=== PATIENT | male | born 1965 | race Caucasian/White ===

== ENCOUNTER 2016-07-08 08:36 | Emergency (ER) | payer BC ==
[2016-07-08 08:42] VITALS: BP 110/74; PULSE 87; RESP 18; TEMP 97.5
--- NOTE | 2016-07-08 08:59 | ED ---
General Adult HPI - General Chief complaint: Extremity Injury, Upper Stated complaint: RT SHOULDER INJURY, PAIN Time Seen by Provider: 07/08/16 08:50 Source: patient, RN notes reviewed Mode of arrival: ambulatory Limitations: no limitations - History of Present Illness Initial comments: Patient's a 51-year-old male who presents emergency room today with a chief complaint of injury to the right shoulder that occurred 2 days ago. 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 He does admit to being right -handed. States that he's had increased pain to the right shoulder area anteriorly with certain movements when he's been at work over the last 2 days. Patient denies any other complaints associated symptoms. Patient denies any recent fever, chills, shortness of breath, chest pain, back pain, abdominal pain , nausea or vomiting, numbness or tingling, dysuria or hematuria, constipation or diarrhea, headaches or visual changes, or any other complaints. - Related Data Home Medications Medication Instructions Recorded Confirmed Hydrochlorothiazide 25 mg PO DAILY 09/15/14 07/08/16 Lisinopril [Prinivil] 20 mg PO BID 09/15/14 07/08/16 Metoprolol Tartrate 50 mg PO BID 09/15/14 07/08/16 Multivitamin [Men's Multi-Vitamin] 1 tab PO DAILY 09/16/14 07/08/16 Atorvastatin [Lipitor] 80 mg PO DAILY 11/27/14 07/08/16 Acetaminophen/Diphenhydramine 1 tab PO DAILY 07/08/16 07/08/16 [Tylenol PM 500-25mg] Clopidogrel [Plavix] 75 mg PO DAILY 07/08/16 07/08/16 Previous Rx's Medication Instructions Recorded Aspirin EC [Ecotrin] 325 mg PO DAILY #30 tablet.dr 09/17/14 Isosorbide Mononitrate ER [Imdur] 30 mg PO DAILY #30 tab.er.24h 09/17/14 Ibuprofen [Motrin] 600 mg PO Q6HR PRN #40 day 07/08/16 Allergies Allergy/AdvReac Type Severity Reaction Status Date / Time No Known Allergies Allergy Verified 07/08/16 09:02 Review of Systems ROS Statement: Those systems with pertinent positive or pertinent negative responses have been documented in the HPI. ROS Other: All systems not noted in ROS Statement are negative. Past Medical History Past Medical History: Coronary Artery Disease (CAD), Hyperlipidemia, Hypertension, Myocardial Infarction ([place]) Additional Past Medical History / Comment(s): bruised liver History of Any Multi-Drug Resistant Organisms: None Reported Past Surgical History: Cardiac Valve Replacement Additional Past Surgical History / Comment(s): 2 vessel cabg 2011, cardiac cath approx 2 yrs ago Past Anesthesia/Blood Transfusion Reactions: No Reported Reaction Past Psychological History: No Psychological Hx Reported Smoking Status: Current every day smoker Past Alcohol Use History: Occasional Past Drug Use History: None Reported - Past Family History Brother(s) Family Medical History: Myocardial Infarction ([place]) General Exam - General Exam Comments Initial Comments: General: The patient is awake and alert, in no distress, and does not appear acutely ill. Neck: The neck is supple, there is no tenderness or JVD. Cardiovascular: There is a regular rate and rhythm. No murmur, rub or gallop is appreciated. Respiratory: Lungs are clear to auscultation, respirations are non-labored, breath sounds are equal. No wheezes, stridor, rales, or rhonchi. Musculoskeletal: Normal appearance the right shoulder. Shows full range of motion. Sensations are intact pulses equal bilaterally 2+. Has no posterior or superior tenderness. Mild tenderness anteriorly to the right shoulder. Strength 5/5 in all directions. Spine tenderness. No step-offs deformity appreciated. Neurological: A&O x 3. CN II-XII intact, There are no obvious motor or sensory deficits. Coordination appears grossly intact. Speech is normal. Skin: Skin is warm and dry and no rashes or lesions are noted. Psychiatric: Normal mood and affect. Limitations: no limitations Course Vital Signs 07/08/16 08:37 Temperature 97.5 F L Pulse Rate 87 Respiratory 18 Rate Blood Pressure 110/74 O2 Sat by Pulse 100 Oximetry Medical Decision Making - Medical Decision Making Patient's x-rays reviewed and shows no acute fracture dislocation. Results were discussed with the patient. Patient advised to follow-up with orthopedics if symptoms persist for further evaluation. Patient will be given prescription for anti-inflammatories advised to continue to ice elevate the affected area use heat as necessary. Advised return to emergency room if any symptoms increase or worsen or for any other concerns. Disposition Clinical Impression: Shoulder strain Disposition: HOME SELF-CARE Condition: Good Instructions: Rotator Cuff Injury (ED) Additional Instructions: Please use medication as discussed. Please follow-up with family doctor/ orthopedic in the next 2 days of symptoms have not improved. Please return to emergency room if the symptoms increase or worsen or for any other concerns. Prescriptions: Ibuprofen [Motrin] 600 mg PO Q6HR PRN #40 day PRN Reason: Pain Referrals: Kassi Lopez MD [Primary Care Provider] - 1-2 days Lester Rene MD [Medical Doctor] - 1-2 days Time of Disposition: 09:38
--- NOTE | 2016-07-08 09:22 | XR ---
EXAMINATION TYPE: XR shoulder complete RT DATE OF EXAM: 07/08/2016 9:08 AM COMPARISON: NONE HISTORY: Pain The osseous structures are intact. There is no acute fracture or dislocation. Mild hypertrophic stubbs ge of the AC joint. Chronic rib deformities are noted. IMPRESSION: 1. No acute process.
== END 2016-07-08 09:52 | disposition home or self-care (01) ==
LOC: EC 08:36
DX: S46.911A Strain of unspecified muscle, fascia and tendon at shoulder and upper arm level, right arm, initial encounter (principal); X50.1XXA Overexertion from prolonged static or awkward postures, initial encounter; I10 Essential (primary) hypertension; E78.5 Hyperlipidemia, unspecified; I25.10 Atherosclerotic heart disease of native coronary artery without angina pectoris; F17.200 Nicotine dependence, unspecified, uncomplicated; Z95.2 Presence of prosthetic heart valve; Z95.1 Presence of aortocoronary bypass graft; Z79.02 Long term (current) use of antithrombotics/antiplatelets; Z79.82 Long term (current) use of aspirin; Z79.899 Other long term (current) drug therapy; I25.2 Old myocardial infarction
CPT/HCPCS: 99283

== ENCOUNTER 2016-08-19 04:44 | Emergency (ER) | payer BC ==
[2016-08-19 04:51] VITALS: RESP 18
[2016-08-19 05:40] LABS: Basophils % (A) 0 %; CH 33.1; CHCM 33.8; Eosinophils # (A) 0.3 k/uL (0-0.7); Eosinophils % (A) 2 %; HDW 2.13; Luc % (Auto) 2; Lymphocytes % (A) 29 %; MCH 32.8 pg (25.0-35.0); MCHC 33.4 g/dL (31.0-37.0); MCV 98.2 fL (80.0-100.0); Mean Platelet Volume 7.1; Monocytes # (A) 0.5 k/uL (0-1.0); Monocytes % (A) 5 %; Neutrophils # (A) 6.4 k/uL (1.3-7.7); Neutrophils % (A) 61 %; RBC 4.58 m/uL (4.30-5.90); RDW 12.6 % (11.5-15.5); WBC 10.4 k/uL (3.8-10.6); WBC (Perox) 10.05
--- NOTE | 2016-08-19 05:52 | ED ---
Chest Pain HPI - General Chief Complaint: Abdominal Pain Stated Complaint: Chest Pain Time Seen by Provider: 08/19/16 04:54 Source: patient Mode of arrival: wheelchair Limitations: no limitations - History of Present Illness Initial Comments: Patient's 51-year-old man complaining of pain along the left ribs, sharp, but on by coughing and movement. MD Complaint: chest pain Onset/Timin -: days(s) Onset: during rest Pain Location: left chest Pain Radiation: none Severity: moderate Quality: sharp Consistency: intermittent Improves With: nothing Worsens With: inspiration, movement Other Symptoms: cough - Related Data Home Medications Medication Instructions Recorded Confirmed Hydrochlorothiazide 25 mg PO DAILY 09/15/14 08/19/16 Lisinopril [Prinivil] 20 mg PO BID 09/15/14 08/19/16 Metoprolol Tartrate 50 mg PO BID 09/15/14 08/19/16 Multivitamin [Men's Multi-Vitamin] 1 tab PO DAILY 09/16/14 08/19/16 Atorvastatin [Lipitor] 80 mg PO DAILY 11/27/14 08/19/16 Acetaminophen/Diphenhydramine 1 tab PO DAILY 07/08/16 08/19/16 [Tylenol PM 500-25mg] Clopidogrel [Plavix] 75 mg PO DAILY 07/08/16 08/19/16 Previous Rx's Medication Instructions Recorded Aspirin EC [Ecotrin] 325 mg PO DAILY #30 tablet.dr 09/17/14 Isosorbide Mononitrate ER [Imdur] 30 mg PO DAILY #30 tab.er.24h 09/17/14 Ibuprofen [Motrin] 600 mg PO Q6HR PRN #40 day 07/08/16 Magnesium 200 mg PO DAILY #30 tablet 08/19/16 Magnesium Oxide [Mag-Ox] 400 mg PO DAILY #15 tablet 08/19/16 Naproxen [Naprosyn] 500 mg PO Q12HR #30 tab 08/19/16 Allergies Allergy/AdvReac Type Severity Reaction Status Date / Time No Known Allergies Allergy Verified 07/08/16 09:02 Review of Systems ROS Statement: Those systems with pertinent positive or pertinent negative responses have been documented in the HPI. ROS Other: All systems not noted in ROS Statement are negative. Constitutional: Denies: fever, chills, weakness Respiratory: Reports: cough. Denies: dyspnea, hemoptysis Cardiovascular: Reports: as per HPI, chest pain. Denies: palpitations, edema, syncope Gastrointestinal: Denies: abdominal pain, nausea, vomiting Genitourinary: Denies: dysuria Skin: Reports: rash Neurological: Denies: headache, weakness, numbness EKG Findings - EKG Comments: EKG Findings:: Abnormal P-wave axis - EKG Results: EKG: interpreted by ERMD, sinus rhythm (Rate 90 bpm), normal QRS, normal ST/T Past Medical History Past Medical History: Coronary Artery Disease (CAD), Hyperlipidemia, Hypertension, Myocardial Infarction ([place]) Additional Past Medical History / Comment(s): bruised liver History of Any Multi-Drug Resistant Organisms: None Reported Past Surgical History: Cardiac Valve Replacement Additional Past Surgical History / Comment(s): 2 vessel cabg 2011, cardiac cath approx 2 yrs ago Past Anesthesia/Blood Transfusion Reactions: No Reported Reaction Past Psychological History: No Psychological Hx Reported Smoking Status: Current every day smoker Past Alcohol Use History: Occasional Past Drug Use History: None Reported - Past Family History Brother(s) Family Medical History: Myocardial Infarction ([place]) General Exam Limitations: no limitations General appearance: alert, in no apparent distress Head exam: Present: atraumatic, normocephalic Eye exam: Present: normal appearance. Absent: scleral icterus, conjunctival injection Neck exam: Present: normal inspection, full ROM Respiratory exam: Present: normal lung sounds bilaterally. Absent: respiratory distress, wheezes, rales, rhonchi, stridor, chest wall tenderness Cardiovascular Exam: Present: regular rate, normal rhythm, normal heart sounds GI/Abdominal exam: Present: soft. Absent: distended, tenderness, guarding, rebound, mass Extremities exam: Present: normal inspection, normal capillary refill. Absent: pedal edema, calf tenderness Back exam: Present: normal inspection. Absent: CVA tenderness (R), CVA tenderness (L) Neurological exam: Present: alert Skin exam: Present: warm, dry, intact, normal color. Absent: rash Course Vital Signs 08/19/16 08/19/16 08/19/16 04:47 07:39 07:54 Temperature 98.6 F 98.3 F Pulse Rate 92 85 Respiratory 18 18 Rate Blood Pressure 131/90 105/66 O2 Sat by Pulse 99 95 Oximetry Chest Pain MDM - MDM Patient's 51-year-old man with pleuritic left chest pain. His negative and patient be treated for pleuritis. Disposition Clinical Impression: Pleuritic chest pain, Renal insufficiency, Hypomagnesemia Disposition: HOME SELF-CARE Condition: Good Instructions: Pleurisy (ED) Additional Instructions: As we discussed, follow-up with your doctor to have your kidney function rechecked. Prescriptions: Magnesium 200 mg PO DAILY #30 tablet Magnesium Oxide [Mag-Ox] 400 mg PO DAILY #15 tablet Naproxen [Naprosyn] 500 mg PO Q12HR #30 tab Referrals: Kassi Lopez MD [Primary Care Provider] - 1-2 days
[2016-08-19 05:53] LABS: ALT 41 U/L (21-72); AST 35 U/L (17-59); Alkaline Phosphatase 52 U/L (38-126); Anion Gap 11 mmol/L; Blood Urea Nitrogen 28 mg/dL (9-20); Calcium 9.7 mg/dL (8.4-10.2); Carbon Dioxide 22 mmol/L (22-30); Chloride 107 mmol/L (98-107); Glucose 106 mg/dL (74-99); Magnesium 1.5 mg/dL (1.6-2.3); Non-African American GFR(MDRD) 53 (>60 ml/min/1.73 sqM); Potassium 4.3 mmol/L (3.5-5.1); Sodium 140 mmol/L (137-145); Total Bilirubin 0.6 mg/dL (0.2-1.3)
--- NOTE | 2016-08-19 06:00 | XR ---
EXAM: XR Chest, 2 Views. CLINICAL HISTORY: Reason: Chest Pain TECHNIQUE: Frontal and lateral views of the chest. COMPARISON: 11/04/15 two-view chest. FINDINGS: Lungs: The lungs are free of focal infiltrate. Pleural spaces: Unremarkable. No pneumothorax. Heart: Cardiomediastinal silhouette is stable, status post median sternotomy. Mediastinum: See above. Bones: Bone stable including multilevel degenerative changes, and prominence of the right first costochondral junction believed to account for density overlying the right upper lung field on the frontal view. IMPRESSION: No acute findings or source of the patient's chest pain detected.
[2016-08-19] MEDS ORDERED: MAGNESIUM SULFATE-D5W PMX 1 GM in DEXTROSE/WATER 1 100ML.BAG IVPB ONE (06:33)
[2016-08-19 07:40] VITALS: BP 105/66; PULSE 85
[2016-08-19 08:10] VITALS: TEMP 98.3
== END 2016-08-19 07:54 | disposition home or self-care (01) ==
LOC: EC 04:44
DX: R07.81 Pleurodynia (principal); N28.9 Disorder of kidney and ureter, unspecified; E83.42 Hypomagnesemia; Z79.899 Other long term (current) drug therapy; Z79.82 Long term (current) use of aspirin; Z79.1 Long term (current) use of non-steroidal anti-inflammatories (NSAID); Z79.02 Long term (current) use of antithrombotics/antiplatelets; E78.5 Hyperlipidemia, unspecified; I10 Essential (primary) hypertension; I25.2 Old myocardial infarction; Z95.2 Presence of prosthetic heart valve; Z95.1 Presence of aortocoronary bypass graft
CPT/HCPCS: 36415; 93005; 85379; 80053; 83735; 84484; 85025; 71020; 96365; 99285; J3475

== ENCOUNTER → 2016-10-05 | Outpatient (CLI) | payer BC ==
[2016-10-05 09:34] LABS: Basophils # (A) 0.1 k/uL (0-0.2); Basophils % (A) 0 %; CH 32.8; CHCM 32.1; Eosinophils # (A) 0.3 k/uL (0-0.7); Eosinophils % (A) 3 %; HCT 46.3 % (39.0-53.0); HDW 2.03; HGB 14.8 gm/dL (13.0-17.5); Luc % (Auto) 2; Lymphocytes % (A) 18 %; MCH 32.7 pg (25.0-35.0); MCHC 31.9 g/dL (31.0-37.0); MCV 102.5 fL (80.0-100.0); Macrocytosis Slight; Mean Platelet Volume 7.1; Monocytes # (A) 0.8 k/uL (0-1.0); Monocytes % (A) 7 %; Neutrophils # (A) 8.2 k/uL (1.3-7.7); Neutrophils % (A) 71 %; RBC 4.51 m/uL (4.30-5.90); RDW 13.3 % (11.5-15.5); WBC 11.6 k/uL (3.8-10.6); WBC (Perox) 11.53
[2016-10-05 10:15] LABS: ALT 70 U/L (21-72); AST 48 U/L (17-59); Alkaline Phosphatase 52 U/L (38-126); Anion Gap 13 mmol/L; Blood Urea Nitrogen 26 mg/dL (9-20); Calcium 9.2 mg/dL (8.4-10.2); Carbon Dioxide 24 mmol/L (22-30); Chloride 104 mmol/L (98-107); Cholesterol 130 mg/dL (<200); Creatine Kinase 148 U/L (55-170); Glucose 91 mg/dL (74-99); HDL Cholesterol 70 mg/dL (40-60); Magnesium 1.7 mg/dL (1.6-2.3); Non-African American GFR(MDRD) >60 (>60 ml/min/1.73 sqM); Phosphorous 4.4 mg/dL (2.5-4.5); Potassium 4.2 mmol/L (3.5-5.1); Sodium 141 mmol/L (137-145); Total Bilirubin 0.8 mg/dL (0.2-1.3); Total Protein 7.1 g/dL (6.3-8.2); Triglycerides 100 mg/dL (<150)
[2016-10-05 12:34] LABS: Hemoglobin A1C 6.2 % (4.2-6.1)
== END | disposition home or self-care (01) ==
LOC: LABWHC1 08:40
PROVIDERS: ATTEND Internal Medicine Interventional Cardiology
DX: N17.9 Acute kidney failure, unspecified (principal); I25.810 Atherosclerosis of coronary artery bypass graft(s) without angina pectoris; I10 Essential (primary) hypertension; E78.2 Mixed hyperlipidemia
CPT/HCPCS: 36415; 80053; 80061; 82306; 82550; 83036; 83735; 83970; 84100; 84443; 85025

== ENCOUNTER → 2016-10-12 | Outpatient (CLI) | payer BC ==
--- NOTE | 2016-10-12 11:43 | US ---
EXAMINATION TYPE: US abdomen complete DATE OF EXAM: 10/12/2016 9:24 AM COMPARISON: NONE CLINICAL HISTORY: N17.9 ACUTE RENAL FAILURE. EXAM MEASUREMENTS: Liver Length: 13.3 cm Gallbladder Wall: 0.4 cm CBD: 0.4 cm Spleen: 11.0 cm Right Kidney: 11.3 x 5.3 x 5.2 cm Left Kidney: 11.7 x 5.4 x 6.1 cm Pancreas: not well visualized due to bowel gas. The tail is obscured. Liver: wnl Gallbladder: No stones seen. Gallbladder wall thickening at 0.4 cm is evident. No pericholecystic fl uid is present. Evidence for sonographic Reyes's sign: No CBD: wnl Spleen: wnl Right Kidney: No hydronephrosis or masses seen Left Kidney: No hydronephrosis or masses seen Upper IVC: wnl Abd Aorta: wnl IMPRESSION: 1. Gallbladder wall thickening.
== END | disposition home or self-care (01) ==
LOC: RADUSWWP 08:41
PROVIDERS: ATTEND Internal Medicine
DX: K82.8 Other specified diseases of gallbladder (principal)
CPT/HCPCS: 76700

== ENCOUNTER → 2020-03-27 | Outpatient (CLI) | payer BC ==
--- NOTE | 2020-03-27 11:45 | XR ---
EXAMINATION TYPE: XR ribs bilat w pa chest xray DATE OF EXAM: 03/27/2020 COMPARISON: NONE HISTORY: Pain TECHNIQUE: PA view of the chest and bilateral views of the ribs are submitted. FINDINGS: Postsurgical changes are seen. Heart size normal. Biapical pleural. No interstitial edema, pleural effusion or pneumothorax. No consolidation. Hypertrophic and degenerative changes of the spin e. Rib cage intact. IMPRESSION: 1. No acute displaced rib fracture 2. Multilevel hypertrophic and degenerative change of the vertebral column.
== END | disposition home or self-care (01) ==
LOC: RADXRMAIN 11:21
PROVIDERS: ATTEND Internal Medicine
DX: M47.814 Spondylosis without myelopathy or radiculopathy, thoracic region (principal)
CPT/HCPCS: 71111

== ENCOUNTER → 2021-02-17 | Outpatient (CLI) | payer BC ==
--- NOTE | 2021-02-17 18:59 | MR ---
EXAMINATION TYPE: MR brain wo/w con DATE OF EXAM: 02/17/2021 COMPARISON: CT brain 09/24/2013 HISTORY: Dizziness, M 51.2 TECHNIQUE: Multiplanar, multisequence images of the brain and brainstem is performed without and with IV contras t, utilizing 9 mL intravenous Gadavist . FINDINGS: Diffusion weighted images demonstrate no evidence of a recent infarct or other diffusion ab normality. There is no extra-axial fluid collection, and there is hyperintensity and inversion recov lana along anterior limb of the internal capsule on the right consistent with chronic ischemic change, additional scattered periventricular and subcortical hyperintensities are present and inversion mercedes very T2-weighted sequences, approximately 30-40 lesions are present, hyperintensity also noted within the keila. The ventricular system and cisternal spaces are normal in size and appearance. The brain volume is age appropriate. Midline structures demonstrate normal morphology. The craniocervical junction appears within normal limits. Post contrast images demonstrate no abnormal enhancement. The dural venous sinuses appear pa tent. The visualized sinuses are remarkable for mucosal disease within the maxillary sinuses, ethmoid air cells and frontal sinus, and the globes are intact. IMPRESSION: Nonspecific white matter demyelination may be due to chronic small vessel ischemic change s, vasculitis, hypertension, migraine headaches, multiple sclerosis in the appropriate clinical setti ng. Sinus disease.
== END | disposition home or self-care (01) ==
LOC: RADMRIMAIN 16:35
PROVIDERS: ATTEND Internal Medicine
DX: G37.9 Demyelinating disease of central nervous system, unspecified (principal); H53.2 Diplopia
CPT/HCPCS: 70553; A9585

== ENCOUNTER → 2021-03-05 | Outpatient (CLI) | payer BC ==
--- NOTE | 2021-03-05 11:58 | XR ---
EXAMINATION TYPE: XR chest 2V DATE OF EXAM: 03/05/2021 COMPARISON: NONE TECHNIQUE: PA and lateral views submitted. HISTORY: Cough FINDINGS: The lungs are clear and there is no pneumothorax, pleural effusion, or focal pneumonia. Heart size normal. No overt failure. Postsurgical changes. Hypertrophic and degenerative change of the spine. IMPRESSION: 1. No acute process.
== END | disposition home or self-care (01) ==
LOC: RADXRMAIN 10:28
PROVIDERS: ATTEND Internal Medicine
DX: R05 Cough (principal)
CPT/HCPCS: 71046

== ENCOUNTER → 2021-03-10 | Outpatient (CLI) | payer BC ==
--- NOTE | 2021-03-10 15:50 | CT ---
EXAMINATION TYPE: CT angio chest DATE OF EXAM: 03/10/2021 COMPARISON: Chest x-ray 03/05/2021, CT chest 09/14/2011 HISTORY: Thoracic aortic aneurysm without rupture CT DLP: 620.10 mGycm Automated exposure control for dose reduction was used. CONTRAST: CTA scan of the thorax is performed without and with IV Contrast, patient injected with 100 ml mL of Isovue 370, pulmonary embolism protocol. MIP images are created and reviewed. 3D reconstructed imag es are created on an independent workstation and reviewed. FINDINGS: LUNGS: The lungs are grossly clear, there is no concerning parenchymal mass or nodule identified. T here is no pleural effusion or pneumothorax seen. The tracheobronchial tree is patent. AORTA: Metallic density is present along the aortic valve region, root of aorta again measures approx imately 4.3 cm, ascending aorta measures 3.9cm following contrast administration, proximal descending aorta 3.3 cm. MEDIASTINUM: There is satisfactory enhancement of the pulmonary artery and its branches, there is no CT evidence for pulmonary embolism. There are no greater than 1 cm hilar or mediastinal lymph nodes. No pericardial effusion is seen. There are coronary artery calcifications. OTHER: Patient is post median sternotomy.. IMPRESSION: AORTIC ANEURYSM APPEARS ESSENTIALLY STABLE.
== END | disposition home or self-care (01) ==
LOC: RADCTMAIN 11:52
PROVIDERS: ATTEND Internal Medicine Interventional Cardiology
DX: I71.2 Thoracic aortic aneurysm, without rupture (principal)
CPT/HCPCS: 71275; Q9967

== ENCOUNTER 2021-03-21 20:54 | Inpatient (IN) | payer BC ==
[2021-03-21] MEDS ORDERED: DILTIAZEM DRIP BOLUS FROM BAG 1 MG SOLN IV ONE (21:25)
--- NOTE | 2021-03-21 21:30 | ED ---
Arrhythmia/Palpitations HPI - General Chief Complaint: Arrhythmia/Palpitations Stated Complaint: Cardiac Transfer Time Seen by Provider: 03/21/21 21:11 Source: patient, EMS Mode of arrival: EMS Limitations: no limitations - History of Present Illness Initial Comments: This patient is a 56-year-old man who presents as a transfer from [facility]. The patient had gone there after he had a brief syncopal episode at work this afternoon. The patient had been having some intermittent lightheadedness and dizziness since the morning. This afternoon he had the syncopal episode. He went to the other facility and was found to be having tachycardia and suspected atrial flutter. The patient's initial workup there had a negative troponin, negative head CT related to the syncope, and he was transferred here to have additional cardiology evaluation. When I interview the patient, he states that he did not have any chest pain, dyspnea, diaphoresis, nausea or vomiting. MD Complaint: "heart racing" -: hour(s) Context: occurred during rest Arrhythmia History: atrial fibrillation, on anti-coagulants Associated Symptoms: syncope - Related Data Home Medications Medication Instructions Recorded Confirmed Ezetimibe [Zetia] 10 mg PO DAILY 03/21/21 03/21/21 lisinopriL [Zestril] 20 mg PO DAILY 03/21/21 03/21/21 Previous Rx's Medication Instructions Recorded Apixaban [Eliquis] 5 mg PO BID #60 tab 04/27/17 Aspirin 81 mg PO DAILY chew 04/27/17 Atorvastatin [Lipitor] 80 mg PO DAILY #30 tab 04/27/17 Metoprolol Tartrate [Lopressor] 50 mg PO BID #60 tab 04/27/17 Allergies Allergy/AdvReac Type Severity Reaction Status Date / Time No Known Allergies Allergy Verified 03/21/21 21:59 Review of Systems ROS Statement: Those systems with pertinent positive or pertinent negative responses have been documented in the HPI. ROS Other: All systems not noted in ROS Statement are negative. Constitutional: Denies: fever, chills, weakness Eyes: Denies: vision change Respiratory: Denies: cough, dyspnea Cardiovascular: Reports: palpitations, syncope. Denies: chest pain, orthopnea, edema Gastrointestinal: Denies: abdominal pain, nausea, vomiting, diarrhea Genitourinary: Denies: dysuria, hematuria Musculoskeletal: Denies: back pain Skin: Denies: rash Neurological: Denies: headache, weakness, numbness Past Medical History Past Medical History: Coronary Artery Disease (CAD), Hyperlipidemia, Hypertension, Myocardial Infarction ([place]) Additional Past Medical History / Comment(s): bruised liver, open heart surgery 2011. Last Myocardial Infarction Date:: 09/15/2014 History of Any Multi-Drug Resistant Organisms: None Reported Past Surgical History: Cardiac Valve Replacement Additional Past Surgical History / Comment(s): 2 vessel cabg 2011, cardiac cath approx 2 yrs ago Past Anesthesia/Blood Transfusion Reactions: No Reported Reaction Past Psychological History: No Psychological Hx Reported Smoking Status: Current every day smoker Past Alcohol Use History: Occasional Past Drug Use History: None Reported - Past Family History Mother Family Medical History: Cancer (Breast) Father Family Medical History: Cancer (Unknown type) Additional Family Medical History / Comment(s): No biological daughters or sons Brother(s) Family Medical History: Myocardial Infarction ([place]) General Exam Limitations: no limitations General appearance: alert, in no apparent distress Head exam: Present: atraumatic, normocephalic Eye exam: Present: normal appearance. Absent: scleral icterus, conjunctival injection ENT exam: Present: normal oropharynx Neck exam: Present: normal inspection Respiratory exam: Present: normal lung sounds bilaterally. Absent: respiratory distress, wheezes, rales, rhonchi, stridor Cardiovascular Exam: Present: tachycardia, systolic murmur. Absent: diastolic murmur, rubs, gallop GI/Abdominal exam: Present: soft. Absent: distended, tenderness, guarding, rebound, rigid, mass Extremities exam: Present: normal inspection, normal capillary refill. Absent: pedal edema, calf tenderness Back exam: Present: normal inspection. Absent: CVA tenderness (R), CVA tenderness (L) Neurological exam: Present: alert Skin exam: Present: warm, dry, intact, normal color. Absent: rash Course Vital Signs 03/21/21 03/21/21 03/21/21 21:00 21:28 21:39 Temperature 97.7 F Pulse Rate 114 H 126 H Pulse Rate [ 118 H [employer] ] Respiratory 18 18 Rate Blood Pressure 131/103 123/99 O2 Sat by Pulse 96 97 Oximetry 03/21/21 03/21/21 03/21/21 22:17 23:52 23:57 Temperature 98.7 F Pulse Rate 124 H 114 H 110 H Pulse Rate [ [employer] ] Respiratory 18 18 18 Rate Blood Pressure 116/90 121/97 O2 Sat by Pulse 97 98 97 Oximetry EKG Findings - EKG Results: EKG: interpreted by JOED, normal axis, normal QRS, normal ST/T EKG shows: atrial fibrillation (Underlying rhythm appears to be atrial flutter the rate 132 bpm) Medical Decision Making - Lab Data Result diagrams: 03/23/21 07:39 03/24/21 07:30 Lab Results 03/21/21 Range/Units 21:34 Troponin I 0.026 (0.000-0.034) ng/mL Disposition Clinical Impression: Atrial flutter with rapid ventricular response Disposition: ADMITTED IP TO THIS HOSP Condition: Fair Is patient prescribed a controlled substance at d/c from ED?: No
[2021-03-21] MEDS: DILTIAZEM 125 MG in SODIUM CHLORIDE 0.9% 100 ML IV SCH (22:13)
[2021-03-21] MEDS ORDERED: NITROGLYCERIN SL TABS 0.4 MG TAB SUBLINGUAL PRN (22:41)
[2021-03-21] MEDS ORDERED: AMIODARONE 360 MG in DEXTROSE 5% IN WATER 200 ML IV ONE ×2 (23:23)
[2021-03-22] MEDS: AMIODARONE 450 MG in DEXTROSE 5% IN WATER 250 ML IV SCH ×4 (05:48→21:19)
[2021-03-22] MEDS: MAGNESIUM SULFATE-D5W PMX 1 GM in DEXTROSE/WATER 1 100ML.BAG IVPB SCH ×2 (06:19→09:13)
[2021-03-22] MEDS ORDERED: APIXABAN 5 MG TAB PO SCH (09:00)
[2021-03-22] MEDS ORDERED: ATORVASTATIN 80 MG TAB PO SCH (09:00)
[2021-03-22] MEDS ORDERED: ASPIRIN 325 MG TAB PO SCH (09:00)
[2021-03-22] MEDS ORDERED: ASPIRIN 81 MG PO SCH (09:00)
[2021-03-22] MEDS: SODIUM CHLORIDE 0.9% 1,000 ML IV SCH (09:01)
[2021-03-22] MEDS: lisinopriL 20 MG TAB PO SCH (09:12)
[2021-03-22] MEDS: METOPROLOL TARTRATE 50 MG TAB PO SCH ×2 (09:12→19:53)
[2021-03-22] MEDS: EZETIMIBE 10 MG TAB PO SCH (09:17)
[2021-03-22 10:29] LABS: Chol/HDL Ratio 2.16; LDL Cholesterol,Calculated 35.6 mg/dL (0.0-131.0); VLDL Calculation 16.4 mg/dL (5.00-40.00)
--- NOTE | 2021-03-22 10:50 | P.HPIM ---
History of Present Illness H&P Date: 03/22/21 Chief Complaint: Atrial flutter with rapid ventricular response. HISTORY OF PRESENT ILLNESS: This is a 56-year-old white male with a previous medical history significant for coronary artery disease status post coronary artery bypass graft for 1- vessel disease back in 2011 with a last heart catheterization was done about 2 years ago, history of aortic valve stenosis status post aortic valve replacement, history of hypertension and hypertensive cardiovascular disease, hyperlipidemia, chronic tobacco use and dependence, COPD, history of paroxysmal atrial fibrillation past patient has been under the care of cardiology. Patient presented to the emergency department at [facility] yesterday as a transfer from [facility] after he had a syncopal episode in the afternoon at work he has been complaining of increased dizziness and lightheadedness since the morning evaluation in the ER over there showed to have an atrial flutter with rapid ventricular response had a computed tomography scan of the brain that was negative and his troponin was negative as well, patient was transported to [facility] where he was started on amiodarone drip and was taken off Cardizem drip, and he was admitted to the hospital for cardiology evaluation, he has been taking Eliquis 5 mg orally twice every day due to his paroxysmal nature of atrial fibrillation. REVIEW OF SYSTEMS: Constitutional: No documented fever, no chills, no night sweats. No weight change. No weakness, fatigue or lethargy. No daytime sleepiness. HEENT: No headache. No blurred vision or double vision, no loss of vision. No loss of Hearing, no ringing in the ears, no dizziness. No nasal drainage or congestion. No epistaxis. No sore throat. Lungs: positive for shortness of breath, no cough, no sputum production. No wheezing. Reports dyspnea with activity. Cardiovascular: No chest pain, no lower extremity edema. positive for palpitations. No paroxysmal nocturnal dyspnea. No orthopnea. positive for lightheadedness or dizziness. No syncopal episodes. Abdominal: Reports abdominal pain. No nausea, vomiting. No diarrhea. No constipation. No bloody or tarry stools reports loss of appetite. Genitourinary: No dysuria, increased frequency, urgency. No urinary retention. Musculoskeletal: No myalgias. No muscle weakness, no gait dysfunction, no frequent falls. No back pain. No neck pain. Integumentary: No wounds, no lesions. No rash or pruritus. No unusual bruising. No change in hair or nails. Neurologic: No aphasia. No facial droop. No change in mentation. No head injury. No headache. No paralysis. No paresthesia. Psychiatric: No depression. No anxiety. No mood swings. Endocrine: No abnormal blood sugars. No weight change. PAST MEDICAL HISTORY: Coronary artery disease status post 2 vessel coronary artery bypass graft 2011 Aortic valve stenosis status post aortic valve replacement Hypertension and hypertensive cardiovascular disease. Hyperlipidemia. Chronic tobacco use and dependence. Paroxysmal atrial fibrillation. COPD. PAST SURGICAL HISTORY: CABG 1 vessel 2012 Left heart catheterization 5 years ago Aortic valve replacement. SOCIAL HISTORY: Patient smokes about a pack every day he started smoking when he was 15-year-old continue to smoke despite multiple attempts to quit smoking, he drinks occasionally he denies any drug use or abuse. FAMILY HISTORY: Father at age of 52 from some sort of cancer he believe it was non-Hodgkin lymphoma, mother at age of 44 from breast cancer with metastatic disease, patient has 2 brothers one of them with myocardial infarction and he has 2 sisters one of them with a stroke. PHYSICAL EXAMINATION: General: 56-year-old male laying down in bed in no apparent distress. HEENT: Head is atraumatic, normocephalic, pupils were equal round reactive to light and recommendation, extraocular muscle movement were intact, sclera nonicteric, conjunctivae were pale, mucous membranes of the mouth are somewhat dry. Neck: Supple, no JVP, normal carotid upstroke bilaterally, no lymphadenopathy. Chest: Decreased breath sounds at the bases, few rhonchi, no expiratory wheezes, no chest wall tenderness, no intercostal retractions. Heart: First heart sound is normal, second heart sounds normal there is no gallop or murmur, there is aortic valve click. Abdomen: Soft, nontender, nondistended, positive bowel sounds. Extremities: There is no edema no calf tenderness DP +2 bilaterally. Neurologic examination: Patient is awake alert and oriented X3, cranial nerves II-12 appear grossly intact, muscle power were 5 out of 5 in upper extremities and 5 out of 5 in bilateral lower extremities, deep tendon reflexes normal bilaterally. ASSESSMENT AND PLAN: 1. Atrial fibrillation/flutter with rapid ventricular response currently back in sinus rhythm. continue patient on Eliquis 5 mg orally twice every day,Metoprolol 50 mg orally bid , discontinue amiodarone drip start the patient on amiodarone 400 mg orally twice every day, patient already had an event monitor placed on and is supposed to come off today, and he already has an appointment with Dr. Mercer tomorrow morning at 9:30 subsequently patient can be discharged with is okay with cardiology. 2. Hypomagnesemia. Patient will be given magnesium sulfate 2 g IV piggyback 1 over 1 hour. Repeat CMP magnesium level. 3. History of coronary artery disease status post coronary artery bypass graft for 2 vessel disease into thousand and 12 with a recent heart catheterization about 5 years ago. Continue patient on metoprolol 50 mg orally twice every day, continue patient on aspirin 81 mg once every day, atorvastatin 80 mg orally once every day, continue lisinopril 20 mg orally once every day. 4. Hypertension and hypertensive cardiovascular disease. Continue patient on lisinopril 20 mg orally once every day, continue metoprolol 50 mg orally twice every day, monitor the patient blood pressure very closely. 5. Hyperlipidemia. Continue patient on atorvastatin 80 mg orally once every day monitor lipid panel, keep LDL 55-70. 6. History of aortic valve disease status post aortic valve replacement. 7. Chronic tobacco use and dependence. Smoking cessation and counseling an increased risk of CAD, CVA and malignancy. 8. DVT prophylaxis. Currently on Eliquis 5 mg orally twice every day. 9. GI prophylaxis Protonix 40 mg once every day. 10. Admit to inpatient. Estimate a length of stay 2 midnights 11. Patient is full code. Past Medical History Past Medical History: Coronary Artery Disease (CAD), Hyperlipidemia, Hypertension, Myocardial Infarction ([place]) Additional Past Medical History / Comment(s): bruised liver, open heart surgery 2011. Last Myocardial Infarction Date:: 09/15/2014 History of Any Multi-Drug Resistant Organisms: None Reported Past Surgical History: Cardiac Valve Replacement Additional Past Surgical History / Comment(s): 2 vessel cabg 2011, cardiac cath approx 2 yrs ago Past Anesthesia/Blood Transfusion Reactions: No Reported Reaction Past Psychological History: No Psychological Hx Reported Smoking Status: Current every day smoker Past Alcohol Use History: Occasional Past Drug Use History: None Reported - Past Family History Mother Family Medical History: Cancer Father Family Medical History: Cancer Additional Family Medical History / Comment(s): No biological daughters or sons Brother(s) Family Medical History: Myocardial Infarction ([place]) Medications and Allergies Home Medications Medication Instructions Recorded Confirmed Type Apixaban [Eliquis] 5 mg PO BID #60 tab 04/27/17 03/21/21 Rx Aspirin 81 mg PO DAILY chew 04/27/17 03/21/21 Rx Atorvastatin [Lipitor] 80 mg PO DAILY #30 tab 04/27/17 03/21/21 Rx Metoprolol Tartrate [Lopressor] 50 mg PO BID #60 tab 04/27/17 03/21/21 Rx Ezetimibe [Zetia] 10 mg PO DAILY 03/21/21 03/21/21 History lisinopriL [Zestril] 20 mg PO DAILY 03/21/21 03/21/21 History Allergies Allergy/AdvReac Type Severity Reaction Status Date / Time No Known Allergies Allergy Verified 03/21/21 21:59 Physical Exam Vitals: Vital Signs Temp Pulse Pulse Resp BP BP Pulse Ox 03/22/21 09:18 98.4 F 82 16 122/74 98 03/22/21 04:00 97.8 F 111 H 16 114/84 98 03/22/21 02:00 83 16 03/22/21 00:31 97.8 F 121 H 16 143/96 97 03/21/21 23:57 98.7 F 110 H 18 97 03/21/21 23:52 114 H 18 121/97 98 03/21/21 22:17 124 H 18 116/90 97 03/21/21 21:39 126 H 18 123/99 97 03/21/21 21:28 118 H 03/21/21 21:00 97.7 F 114 H 18 131/103 96 Intake and Output 03/21/21 03/22/21 03/22/21 22:59 06:59 14:59 Intake Total 240 Balance 240 Intake: Oral 240 Other: Voiding Method Toilet Toilet Urinal Urinal Weight 93.894 kg 93.894 kg
[2021-03-22] MEDS ORDERED: ALPRAZolam 0.25 MG TAB PO PRN (11:04)
[2021-03-22] MEDS ORDERED: ALPRAZolam 0.5 MG TAB PO PRN (11:04)
[2021-03-22] MEDS ORDERED: NITROGLYCERIN SL TABS 0.4 MG TAB SUBLINGUAL PRN (11:04)
--- NOTE | 2021-03-22 14:11 | P.CRDCN ---
History of Present Illness Consult date: 03/22/21 Requesting physician: Kassi Lopez Consult reason: atrial flutter History of present illness: History of present illness: This is a 56-year-old male patient of Dr. Mercer with past medical history of coronary artery disease status post 1 vessel coronary artery bypass graft in 2011 with a last heart catheterization was done about 2 years ago, history of aortic valve stenosis status post aortic valve replacement in 2012, hypertension, hyperlipidemia, chronic tobacco use and dependence, COPD, history of paroxysmal atrial fibrillation. Patient has been seen Dr. Mercer for dizzy spells for which she had an event monitor placed. Yesterday, patient gives history that he had a syncopal episode. It all of a sudden collapsed to the floor, hit his chin on the floor and he had full loss of consciousness. Patient was taken to [facility] and subsequently transferred to the [facility]. Event monitor captured ventricular tachycardia at the time of his syncopal episode but must have been dislodged at the time. Ventricular tachycardia lasting at least 30 seconds and prior to that he was in a sinus rhythm. EKG in the emergency center was found to be atrial flutter with RVR and patient was started on Cardizem drip transitioned to amiodarone drip. Patient converted to sinus rhythm this morning around 8:20 AM. Troponin 0.026, 0.012, 0.023. Triglycerides 82, cholesterol 97, LDL 35, HDL 45. Eliquis has been placed on hold for heart catheterization tomorrow. Review Of Systems: Constitutional: No fever, no chills. No weakness, fatigue or lethargy. EENT: No headache. Reported dizziness. Lungs: No shortness of breath, cough, no sputum production. No wheezing. Cardiovascular: No chest pain, no lower extremity edema. No palpitations. No paroxysmal nocturnal dyspnea. No orthopnea. Previous episodes of dizziness. Reported syncopal episodes. Abdominal: No abdominal pain. No nausea, vomiting. No diarrhea. No constipation. No bloody or tarry stools.. No loss of appetite. Musculoskeletal: No myalgias. No muscle weakness, no gait dysfunction, no frequent falls. No back pain. No neck pain. Integumentary: No wounds. No rash. Neurologic: No aphasia. No facial droop. No change in mentation. Reported head injury. No headache. Physical examination: Gen: This is a 56-year-old male. He is resting in bed appears to be comfortable and in no acute distress. VS: Afebrile, heart rate 82, blood pressure 122/74, pulse ox 98% on room air. HEENT: Head is atraumatic, normocephalic. Pupils equal, round. Sclerae is anicteric. NECK: Supple. No JVD. No lymphadenopathy. No thyromegaly. LUNGS: Clear to auscultation. No wheezes or rhonchi. No intercostal retractions. HEART: Regular rate and rhythm. No murmur. Aortic valve click. ABDOMEN: Soft. Bowel sounds are present. No masses. No tenderness. EXTREMITIES: No pedal edema. No calf tenderness. NEUROLOGICAL: Patient is awake, alert and oriented x3. Cranial nerves 2 through 12 are grossly intact. Assessment: Ventricular tachycardia lasting greater than 30 seconds with syncopal episode Atrial flutter with RVR, converted to sinus rhythm History of coronary artery disease status post CABG History of aortic valve replacement Hypertension Hyperlipidemia Plan: Continue amiodarone drip Continue atorvastatin 80 mg daily, aspirin 81 mg daily, lisinopril 20 g daily, Lopressor 50 mg twice daily Hold eliquis with plan for heart catheterization tomorrow Further recommendations to follow based upon clinical course Thank you kindly for this consultation. Nurse practitioner note has been reviewed, I agree with documented findings and plan of care. Patient was seen and examined. Past Medical History Past Medical History: Coronary Artery Disease (CAD), Hyperlipidemia, Hypertension, Myocardial Infarction ([place]) Additional Past Medical History / Comment(s): bruised liver, open heart surgery 2011. Last Myocardial Infarction Date:: 09/15/2014 History of Any Multi-Drug Resistant Organisms: None Reported Past Surgical History: Cardiac Valve Replacement Additional Past Surgical History / Comment(s): 2 vessel cabg 2011, cardiac cath approx 2 yrs ago Past Anesthesia/Blood Transfusion Reactions: No Reported Reaction Past Psychological History: No Psychological Hx Reported Smoking Status: Current every day smoker Past Alcohol Use History: Occasional Past Drug Use History: None Reported - Past Family History Mother Family Medical History: Cancer Father Family Medical History: Cancer Additional Family Medical History / Comment(s): No biological daughters or sons Brother(s) Family Medical History: Myocardial Infarction ([place]) Medications and Allergies Home Medications Medication Instructions Recorded Confirmed Type Apixaban [Eliquis] 5 mg PO BID #60 tab 04/27/17 03/21/21 Rx Aspirin 81 mg PO DAILY chew 04/27/17 03/21/21 Rx Atorvastatin [Lipitor] 80 mg PO DAILY #30 tab 04/27/17 03/21/21 Rx Metoprolol Tartrate [Lopressor] 50 mg PO BID #60 tab 04/27/17 03/21/21 Rx Ezetimibe [Zetia] 10 mg PO DAILY 03/21/21 03/21/21 History lisinopriL [Zestril] 20 mg PO DAILY 03/21/21 03/21/21 History Allergies Allergy/AdvReac Type Severity Reaction Status Date / Time No Known Allergies Allergy Verified 03/21/21 21:59 Physical Exam Vitals: Vital Signs Temp Pulse Pulse Resp BP BP Pulse Ox 03/22/21 09:18 98.4 F 82 16 122/74 98 03/22/21 04:00 97.8 F 111 H 16 114/84 98 03/22/21 02:00 83 16 03/22/21 00:31 97.8 F 121 H 16 143/96 97 03/21/21 23:57 98.7 F 110 H 18 97 03/21/21 23:52 114 H 18 121/97 98 03/21/21 22:17 124 H 18 116/90 97 03/21/21 21:39 126 H 18 123/99 97 03/21/21 21:28 118 H 03/21/21 21:00 97.7 F 114 H 18 131/103 96 Intake and Output 03/21/21 03/22/21 03/22/21 22:59 06:59 14:59 Intake Total 240 Balance 240 Intake: Oral 240 Other: Voiding Method Toilet Toilet Urinal Urinal Weight 93.894 kg 93.894 kg Results Cardiac Enzymes 03/21/21 03/22/21 03/22/21 Range/Units 21:34 00:32 03:30 Troponin I 0.026 <0.012 0.023 (0.000-0.034) ng/mL Lipids 03/22/21 Range/Units 03:30 Triglycerides 82.0 (0.0-149.0) mg/dL Cholesterol 97 (0-200) mg/dL HDL Cholesterol 45.0 (40.0-60.0) mg/dL Cholesterol/HDL Ratio 2.16 Current Medications Generic Name Dose Route Start Last Admin Trade Name Freq PRN Reason Stop Dose Admin Apixaban 5 mg 03/22/21 09:00 03/22/21 09:12 Apixaban 5 Mg Tab PO 5 mg BID MARVIN Administration Protocol Aspirin 81 mg 03/22/21 09:00 03/22/21 09:12 Aspirin 81 Mg PO 81 mg DAILY MARVIN Administration Atorvastatin Calcium 80 mg 03/22/21 09:00 03/22/21 09:12 Atorvastatin 80 Mg Tab PO 80 mg DAILY MARVIN Administration Ezetimibe 10 mg 03/22/21 09:00 03/22/21 09:17 Ezetimibe 10 Mg Tab PO 10 mg DAILY MARIVN Administration Diltiazem HCl 125 mg/ Sodium 125 mls @ 5 mls/hr 03/21/21 21:30 03/21/21 22:13 Chloride IV 5 mg/hr .Q24H MARVIN 5 mls/hr Administration 5 MG/HR Sodium Chloride 1,000 mls @ 20 mls/hr 03/21/21 22:45 03/22/21 09:01 Saline 0.9% IV Not Given .Q24H MARVIN Amiodarone HCl 450 mg/ 250 mls @ 16.667 mls/hr 03/22/21 23:30 03/22/21 05:48 Dextrose/Water IV 03/23/21 17:29 0.5 mg/min .Q15H MARVIN 16.667 mls/hr Administration Protocol 0.5 MG/MIN Lisinopril 20 mg 03/22/21 09:00 03/22/21 09:12 Lisinopril 20 Mg Tab PO 20 mg DAILY MARVIN Administration Metoprolol Tartrate 50 mg 03/22/21 09:00 03/22/21 09:12 Metoprolol Tartrate 50 Mg Tab PO 50 mg BID MARVIN Administration Nitroglycerin 0.4 mg 03/21/21 22:41 Nitroglycerin Sl Tabs 0.4 Mg Tab SUBLINGUAL Q5M PRN Chest Pain Intake and Output 03/21/21 03/22/21 03/22/21 22:59 06:59 14:59 Intake Total 240 Balance 240 Intake: Oral 240 Other: Voiding Method Toilet Toilet Urinal Urinal Weight 93.894 kg 93.894 kg
[2021-03-23] MEDS: lisinopriL 20 MG TAB PO SCH (06:51)
[2021-03-23] MEDS: EZETIMIBE 10 MG TAB PO SCH (06:51)
[2021-03-23] MEDS: METOPROLOL TARTRATE 50 MG TAB PO SCH ×2 (06:51→20:10)
[2021-03-23] MEDS ORDERED: HEPARIN SODIUM,PORCINE 2,500 UNIT in SODIUM CHLORIDE 0.9% 250 ML IRRIGATION PRN (07:00)
[2021-03-23] MEDS ORDERED: ATORVASTATIN 80 MG TAB PO ONE (07:00)
[2021-03-23] MEDS ORDERED: SODIUM CHLORIDE 0.9% 1,000 ML in EMPTY BAG 1 BAG IV ONE (07:00)
[2021-03-23] MEDS ORDERED: HEPARIN SODIUM,PORCINE 10,000 UNIT in SODIUM CHLORIDE 0.9% 1,000 ML IRRIGATION PRN (07:00)
[2021-03-23] MEDS ORDERED: ASPIRIN 325 MG TAB PO ONE (07:00)
[2021-03-23 08:07] LABS: Basophils % (A) 0 %; Eosinophils # (A) 0.3 k/uL (0-0.7); Eosinophils % (A) 4 %; HCT 46.9 % (39.0-53.0); HGB 15.3 gm/dL (13.0-17.5); Lymphocytes # (A) 1.5 k/uL (1.0-4.8); Lymphocytes % (A) 18 %; MCHC 32.6 g/dL (31.0-37.0); MCV 104.2 fL (80.0-100.0); Macrocytosis Slight; Mean Platelet Volume 7.9; Monocytes # (A) 0.6 k/uL (0-1.0); Monocytes % (A) 7 %; Neutrophils # (A) 5.6 k/uL (1.3-7.7); Neutrophils % (A) 69 %; Platelet Count 172 k/uL (150-450); RBC 4.51 m/uL (4.30-5.90); RDW 12.1 % (11.5-15.5); WBC 8.1 k/uL (3.8-10.6)
[2021-03-23] MEDS: DILTIAZEM 125 MG in SODIUM CHLORIDE 0.9% 100 ML IV SCH (08:18)
[2021-03-23] MEDS: SODIUM CHLORIDE 0.9% 1,000 ML IV SCH (08:18)
[2021-03-23 08:27] LABS: ALT 36 U/L (4-49); AST 35 U/L (17-59); African American GFR (CKD) >90 (>60 ml/min/1.73 sqM); Albumin 3.6 g/dL (3.5-5.0); Alkaline Phosphatase 49 U/L (38-126); Anion Gap 6 mmol/L; Blood Urea Nitrogen 17 mg/dL (9-20); Calcium 9.4 mg/dL (8.4-10.2); Carbon Dioxide 23 mmol/L (22-30); Chloride 107 mmol/L (98-107); Glucose 106 mg/dL (74-99); Magnesium 1.8 mg/dL (1.6-2.3); Non-African American GFR(CKD) >90 (>60 ml/min/1.73 sqM); Potassium 4.5 mmol/L (3.5-5.1); Sodium 136 mmol/L (137-145); Total Bilirubin 0.8 mg/dL (0.2-1.3); Total Protein 6.1 g/dL (6.3-8.2)
[2021-03-23] MEDS ORDERED: IV FLUID CONTINUATION 900 ML IV ONE (12:01)
[2021-03-23] MEDS ORDERED: LIDOCAINE 1% INJ 10MG/ML (20 ML MDV) ONE (12:17)
[2021-03-23] MEDS ORDERED: fentaNYL (PF) 50 MCG/ML 2 ML AMP ONE (12:17)
--- NOTE | 2021-03-23 12:32 | ECHOF ---
Referral Reason:VT MEASUREMENTS -------- HEIGHT: 172.7 cm WEIGHT: 95.3 kg BP: RVIDd: 3.3 cm (< 3.3) IVSd: 1.5 cm (0.6 - 1.1) LVIDd: 3.6 cm (3.9 - 5.3) LVPWd: 1.5 cm (0.6 - 1.1) IVSs: 1.7 cm LVIDs: 2.7 cm LVPWs: 1.8 cm LA Diam: 4.2 cm (2.7 - 3.8) LAESV Index (A-L): 40.31 ml/m Ao Diam: 2.7 cm (2.0 - 3.7) MV EXCURSION: 19.197 mm (> 18.000) MV EF SLOPE: 134 mm/s (70 - 150) EPSS: 0.6 cm MV E Aries: 0.87 m/s MV DecT: 205 ms MV A Aries: 0.52 m/s MV E/A Ratio: 1.69 AV maxP.48 mmHg AV meanP.18 mmHg AR PHT: 364 ms RAP: 5.00 mmHg RVSP: 27.92 mmHg FINDINGS -------- Sinus rhythm. This was a technically adequate study. The left ventricular size is normal. There is moderate concentric left ventricular hypertrophy. O verall left ventricular systolic function is low-normal with, an EF between 50 - 55 %. The right ventricle is mildly enlarged. LA is severely dilated >40 ml/m2 The right atrium is normal in size. Interatrial and interventricular septum intact. There is evys-[id number] aortic regurgitation. There is mild aortic stenosis present. Peak/mean gradient across the Aortic Valve is 31.48mmHg / 18.18mmHg. There is mild stenosis of the bioprosthe tic aortic valve. There is trace mitral regurgitation. Mild tricuspid regurgitation present. Right ventricular systolic pressure is normal at < 35 mmHg. The pulmonic valve was not well visualized. The aortic root size is normal. Normal inferior vena cava with normal inspiratory collapse consistent with estimated right atrial pre ssure of 5 mmHg. There is no pericardial effusion. CONCLUSIONS -------- 1. The left ventricular size is normal. 2. There is moderate concentric left ventricular hypertrophy. 3. Overall left ventricular systolic function is low-normal with, an EF between 50 - 55 %. 4. The right ventricle is mildly enlarged. 5. LA is severely dilated >40 ml/m2 6. There is pyte-vm-lpiuqtwr aortic regurgitation. 7. There is mild aortic stenosis present. 8. Peak/mean gradient across the Aortic Valve is 31.48mmHg / 18.18mmHg. 9. There is mild stenosis of the bioprosthetic aortic valve. 10. There is trace mitral regurgitation. 11. Mild tricuspid regurgitation present. 12. There is no pericardial effusion. BASE ENGINEER: Jen Cardoza RDCS
[2021-03-23] MEDS ORDERED: LIDOCAINE 1% INJ 10MG/ML (20 ML MDV) SQ ONE (12:33)
[2021-03-23] MEDS ORDERED: fentaNYL (PF) 50 MCG/ML 2 ML AMP IV ONE (12:33)
[2021-03-23] MEDS ORDERED: MIDAZOLAM 2 MG/2 ML VIAL IV ONE (12:36)
[2021-03-23] MEDS ORDERED: IOPAMIDOL-370 125ML BTL INJ ONE (12:49)
[2021-03-23] MEDS ORDERED: IOPAMIDOL-370 50ML BTL INJ ONE (12:57)
[2021-03-23] MEDS ORDERED: IOPAMIDOL-370 100ML BTL INJ ONE (13:06)
[2021-03-23] MEDS ORDERED: RX INFO: IV CONTRAST WAS GIVEN 1 EACH MISC MISCELLANE PRN (13:13)
[2021-03-23] MEDS ORDERED: SODIUM CHLORIDE 0.9% 1,000 ML IV SCH (13:15)
--- NOTE | 2021-03-23 16:04 | CC ---
CARDIAC CATHETERIZATION REPORT DATE OF PROCEDURE: 03/23/2021 Mr. Kim is a 56-year-old male with known history of aortic valve replacement and coronary artery bypass grafting who presented with syncope and evidence of wide complex tachycardia. His cardiac enzymes were unremarkable. Because of his history, recommendation was made regarding cardiac catheterization. The procedure as well as its risks and complications were discussed with the patient, who was in full understanding and agreement. PROCEDURE DESCRIPTION: Patient was brought to the industrial laborer in a fasting, semi-sedated state after receiving fentanyl and Benadryl and achieving a moderate conscious sedated state. Using Xylocaine anesthesia and Seldinger technique, a 6-Danish sheath was introduced in the left femoral artery. Selective right and left coronary angiography was performed 6- Danish 4 bend right and left Sedrick catheters. Multiple views were taken of the arteries, including hemiaxial views. Following that, a 6-Danish tight pigtail catheter was introduced into the ascending aorta and CANADIAN view of the ascending aorta was obtained. Following that, the saphenous vein graft to the LAD was cannulated using a 6- Danish multipurpose B2 catheter. Multiple images of the grafts were obtained. Following that, catheters and sheaths were removed. Hemostasis was obtained with deployment of an Angio-Seal. There was no immediate complication. Patient was returned to his room in stable condition. FINDINGS: 1. LEFT MAIN: This is a short-size vessel bifurcating into left circumflex and left anterior descending artery. Left main coronary artery has no evidence of high-grade stenosis. 2. LEFT ANTERIOR DESCENDING ARTERY: This vessel gives rise to a large diagonal branch. After the diagonal branch, the vessel is totally occluded with no significant antegrade flow. 3. LEFT CIRCUMFLEX: This is a large nondominant vessel giving rise to a large obtuse marginal branch. The left circumflex as well as its branches have no evidence of obstructive coronary artery disease. 4. RIGHT CORONARY ARTERY: This is a dominant vessel, large in caliber, bifurcating into PDA and posterolateral segment and branches. The right coronary artery as well as its branches have no evidence of obstructive coronary artery disease. 5. SAPHENOUS VEIN GRAFT TO THE LAD: The proximal and distal anastomotic sites are patent. The flow into the LAD is brisk. There is no evidence of high-grade stenosis. 6. AORTOGRAM: Aortogram was performed in the CANADIAN view and revealed 1+ aortic regurgitation with bioprosthetic aortic valve and normal appearance of the ascending aorta. 7. LEFT VENTRICULOGRAM: Left ventriculogram was not performed. CONCLUSION: 1. Chronically occluded mid LAD. 2. Patent saphenous vein graft to the LAD. 3. One plus aortic regurgitation in bioprosthetic aortic valve. RECOMMENDATIONS: In view of findings and anatomy, I have recommended continued medical therapy with the aggressive coronary risk modifications that have been initiated. Will obtain the opinion of Dr. Long regarding his wide-complex tachycardia. Those findings and recommendations were discussed with the patient and his family, who are in full understanding and agreement. Duration of sedation was 29 minutes. MMODL / IJN: [id number] /
--- NOTE | 2021-03-23 16:08 | LTR ---
March 23, 2021 To: Dr. Lopez Re: Marquis Buckley (61) Dear Dr. Lopez, I had the pleasure of performing cardiac catheterization on Mr. Buckley at [facility] on March 23, and a full copy of the procedure note will be forwarded to you. He was found to have chronically occluded mid LAD with a patent saphenous vein graft to the mid LAD. In view of that, I have recommended continued medical therapy, and I will obtain the opinion of Dr. Long regarding his wide-complex tachycardia. I will keep you updated on his progress. Thank you again for allowing me to participate in this patient's care. Please feel free to call with any questions. Sincerely, George Mercer M.D. NEAL / DENG: [id number] /
[2021-03-23] MEDS: AMIODARONE 200 MG TAB PO SCH ×2 (16:31→20:10)
[2021-03-24] MEDS: SODIUM CHLORIDE 0.9% 1,000 ML IV SCH ×2 (02:02→23:47)
[2021-03-24 07:59] LABS: African American GFR (CKD) >90 (>60 ml/min/1.73 sqM); Anion Gap 6 mmol/L; Blood Urea Nitrogen 20 mg/dL (9-20); Calcium 8.9 mg/dL (8.4-10.2); Carbon Dioxide 27 mmol/L (22-30); Chloride 104 mmol/L (98-107); Glucose 134 mg/dL (74-99); Non-African American GFR(CKD) 82 (>60 ml/min/1.73 sqM); Potassium 4.2 mmol/L (3.5-5.1); Sodium 137 mmol/L (137-145)
[2021-03-24] MEDS: ATORVASTATIN 80 MG TAB PO SCH (09:14)
[2021-03-24] MEDS: lisinopriL 20 MG TAB PO SCH (09:14)
[2021-03-24] MEDS: AMIODARONE 200 MG TAB PO SCH (09:14)
[2021-03-24] MEDS: METOPROLOL TARTRATE 50 MG TAB PO SCH ×2 (09:14→21:08)
[2021-03-24] MEDS: ASPIRIN 81 MG PO SCH (09:15)
[2021-03-24] MEDS: EZETIMIBE 10 MG TAB PO SCH (09:17)
--- NOTE | 2021-03-24 12:42 | P.PN ---
Subjective This is a pleasant 56-year-old male past medical history significant for coronary artery disease status post single-vessel bypass grafting 2012 SVG to LAD, valvular heart disease status post aortic valve replacement 2011, hypertension, dyslipidemia, COPD, paroxysmal atrial fibrillation and chronic nicotine dependence. He follows in the office with Dr. Mercer. Indirect cardiac catheterization yesterday revealing stable coronary artery disease with no significant change from previous. Telemetry tracings reviewed, he is maintaining sinus rhythm with no episodes of ventricular tachycardia. Blood pressure 122/81 heart rate 61 afebrile maintaining oxygen saturation on room air. Laboratory data reviewed, sodium 137, potassium 4.2, creatinine 1.01. GENERAL: Well-appearing, well-nourished and in no acute distress. NECK: Supple without JVD or thyromegaly. LUNGS: Breath sounds clear to auscultation bilaterally. Respiration equal and unlabored. No wheezes, rales or rhonchi. HEART: Regular rate and rhythm with systolic ejection murmur at the base, no rubs or gallops. S1 and S2 heard. EXTREMITIES: Normal range of motion, no edema. No clubbing or cyanosis. Peripheral pulses intact. Left femoral access site soft, nontender with no ecchymosis or hematoma.. ASSESSMENT Sustained ventricular tachycardia Syncope secondary to ventricular tachycardia Coronary artery disease status post bypass grafting Valvular heart disease status post aortic valve replacement Hypertension Dyslipidemia PLAN Dr. Long will evaluate the patient in regards to ventricular arrhythmia. Resume eliquis. Further recommendations to follow based on clinical course. Nurse Practitioner note has been reviewed, I agree with a documented findings an d plan of care. Patient was seen and examined. Objective - Vital Signs Vital signs: Vital Signs Temp 98.1 F 03/24/21 11:56 Pulse 61 03/24/21 11:56 Resp 17 03/24/21 11:56 BP 122/81 03/24/21 11:56 Pulse Ox 98 03/24/21 11:56 Intake & Output 03/23/21 03/24/21 03/24/21 18:59 06:59 18:59 Intake Total 218 Output Total 450 Balance 218 -450 Weight 93.3 kg Intake: IV 100 Oral 118 Output: Urine 450 Other: Voiding Method Toilet Toilet Urinal # Voids 1 - Labs CBC & Chem 7: 03/23/21 07:39 03/24/21 07:30 Labs: Abnormal Lab Results - Last 24 Hours (Table) 03/24/21 Range/Units 07:30 Glucose 134 H (74-99) mg/dL
--- NOTE | 2021-03-24 14:41 | P.PN ---
Subjective Progress Note Date: 03/23/21 HISTORY OF PRESENT ILLNESS: This is a 56-year-old white male with a previous medical history significant for coronary artery disease status post coronary artery bypass graft for 1- vessel disease back in 2011 with a last heart catheterization was done about 2 years ago, history of aortic valve stenosis status post aortic valve replacement, history of hypertension and hypertensive cardiovascular disease, hyperlipidemia, chronic tobacco use and dependence, COPD, history of paroxysmal atrial fibrillation past patient has been under the care of cardiology. Patient presented to the emergency department at [facility] yesterday as a transfer from [facility] after he had a syncopal episode in the afternoon at work he has been complaining of increased dizziness and lightheadedness since the morning evaluation in the ER over there showed to have an atrial flutter with rapid ventricular response had a computed tomography scan of the brain that was negative and his troponin was negative as well, patient was transported to [facility] where he was started on amiodarone drip and was taken off Cardizem drip, and he was admitted to the hospital for cardiology evaluation, he has been taking Eliquis 5 mg orally twice every day due to his paroxysmal nature of atrial fibrillation. 03/23: Patient was found on event monitor to have episode of ventricular tachycardia at the time of his syncopal episode. Patient is scheduled for heart catheterization today with Dr. Mercer and depending on results, patient may be able to be discharged home. He is anxious to go home. Echocardiogram reveals EF of 50-55%, mild aortic stenosis, mild to moderate aortic regurgitation, mild stenosis of the bioprosthetic aortic valve, trace mitral regurgitation, mild tricuspid regurgitation. REVIEW OF SYSTEMS: Constitutional: No documented fever, no chills, no night sweats. No weight change. No weakness, fatigue or lethargy. No daytime sleepiness. HEENT: No headache. No blurred vision or double vision, no loss of vision. No loss of Hearing, no ringing in the ears, no dizziness. No nasal drainage or congestion. No epistaxis. No sore throat. Lungs: positive for shortness of breath, no cough, no sputum production. No wheezing. Reports dyspnea with activity. Cardiovascular: No chest pain, no lower extremity edema. positive for palpitations. No paroxysmal nocturnal dyspnea. No orthopnea. positive for lightheadedness or dizziness. No syncopal episodes. Abdominal: Reports abdominal pain. No nausea, vomiting. No diarrhea. No constipation. No bloody or tarry stools reports loss of appetite. Genitourinary: No dysuria, increased frequency, urgency. No urinary retention. Musculoskeletal: No myalgias. No muscle weakness, no gait dysfunction, no frequent falls. No back pain. No neck pain. Integumentary: No wounds, no lesions. No rash or pruritus. No unusual bruising. No change in hair or nails. Neurologic: No aphasia. No facial droop. No change in mentation. No head injury. No headache. No paralysis. No paresthesia. Psychiatric: No depression. No anxiety. No mood swings. Endocrine: No abnormal blood sugars. No weight change. PHYSICAL EXAMINATION: General: 56-year-old male laying down in bed in no apparent distress. HEENT: Head is atraumatic, normocephalic, pupils were equal round reactive to light and recommendation, extraocular muscle movement were intact, sclera nonicteric, conjunctivae were pale, mucous membranes of the mouth are somewhat dry. Neck: Supple, no JVP, normal carotid upstroke bilaterally, no lymphadenopathy. Chest: Decreased breath sounds at the bases, few rhonchi, no expiratory wheezes, no chest wall tenderness, no intercostal retractions. Heart: First heart sound is normal, second heart sounds normal there is no gallop or murmur, there is aortic valve click. Abdomen: Soft, nontender, nondistended, positive bowel sounds. Extremities: There is no edema no calf tenderness DP +2 bilaterally. Neurologic examination: Patient is awake alert and oriented X3, cranial nerves II-12 appear grossly intact, muscle power were 5 out of 5 in upper extremities and 5 out of 5 in bilateral lower extremities, deep tendon reflexes normal bilaterally. ASSESSMENT AND PLAN: 1. Atrial fibrillation/flutter (type one) with rapid ventricular response currently back in sinus rhythm. continue patient on Eliquis 5 mg orally twice every day,Metoprolol 50 mg orally bid, continue one amiodarone 400 mg orally twice every day, cardiac catheterization today with Dr. Mercer. 2. Hypomagnesemia. Patient will be given magnesium sulfate 2 g IV piggyback 1 over 1 hour. Repeat CMP magnesium level. 3. Episode of ventricular tachycardia. Heart catheterization today. 4. History of coronary artery disease status post coronary artery bypass graft for 2 vessel disease into thousand and 12 with a recent heart catheterization about 5 years ago. Continue patient on metoprolol 50 mg orally twice every day, continue patient on aspirin 81 mg once every day, atorvastatin 80 mg orally once every day, continue lisinopril 20 mg orally once every day. 5. Hypertension and hypertensive cardiovascular disease. Continue patient on lisinopril 20 mg orally once every day, continue metoprolol 50 mg orally twice every day, monitor the patient blood pressure very closely. 6. Hyperlipidemia. Continue patient on atorvastatin 80 mg orally once every day monitor lipid panel, keep LDL 55-70. 7. History of aortic valve disease status post aortic valve replacement. 8. Chronic tobacco use and dependence. Smoking cessation and counseling an increased risk of CAD, CVA and malignancy. 9. DVT prophylaxis. Currently on Eliquis 5 mg orally twice every day. 10. GI prophylaxis Protonix 40 mg once every day. Objective - Vital Signs Vital signs: Vital Signs Temp 98.3 F 03/23/21 11:35 Pulse 63 03/23/21 11:35 Resp 16 03/23/21 11:35 BP 112/79 03/23/21 11:35 Pulse Ox 97 03/23/21 11:35 Intake & Output 03/22/21 03/23/21 03/23/21 18:59 06:59 18:59 Intake Total 720 250 Balance 720 250 Weight 96.3 kg Intake: Intake, IV Titration 250 Amount Amiodarone 450 mg In 250 Dextrose 5% in Water 250 ml @ 0.5 MG/MIN 16.667 mls/hr IV .Q15H [facility] Rx#: [id number] Oral 720 Other: Voiding Method Toilet Toilet Urinal Urinal - Labs CBC & Chem 7: 03/23/21 07:39 03/24/21 07:30 Labs: Abnormal Lab Results - Last 24 Hours (Table) 03/23/21 03/23/21 Range/Units 07:39 07:39 MCV 104.2 H (80.0-100.0) fL Sodium 136 L (137-145) mmol/L Glucose 106 H (74-99) mg/dL Total Protein 6.1 L (6.3-8.2) g/dL
--- NOTE | 2021-03-24 17:58 | P.EPCON ---
Electrophysiology Consult - EP Consult Electrophysiology Consult: This is Dr. Long dictating an electrophysiology consult on this patient The patient was interviewed and examined IMPRESSION / ASSESSMENT: Episode of syncope at work Event monitor reveals atrial fibrillation with RVR In addition there is a wide complex tachycardia, fast and sustained that could represent ventricular tachycardia This is notable absence of a long short RR interval sequences prior to the onset of the wide complex tachycardia and this may represent dual tachycardia Normal TSH normal troponin The patient was treated with IV amiodarone followed by when necessary amiodarone for the last 3 days He'll underwent coronary angiography which revealed a patent saphenous vein graft to the LAD no other significant progression of disease in the coronary arteries Left ventricular hypertrophy, mildly enlarged right ventricle and up stable bioprosthetic valve with 1-2+ aortic regurgitation PLAN: I did detailed discussion with the patient and explained to him that while this could represent aberrancy, I have a feeling that this is ventricular tachycardia A. 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 He should with a LifeVest at all times except when he takes a shower HPI this is a 50-year-old male patient who presented to [facility] with an episode of loss of consciousness at work. 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 EXAMINATION: Blood pressure 122/81 mmHg pulse rate in the 60s, afebrile 98.1F Soft systolic murmur over the aortic area no S3 gallop Lungs are clear no rhonchi no crackles Soft abdomen nontender No lower symmetry edema No JVD REVIEW OF LABS, ECG & MEDICAL DATA 2-D echo showed preserved LV systolic function Moderate left ventricular hypertrophy Mildly enlarged right ventricle Severe left atrial enlargement Bioprosthetic aortic valve with mild stenosis and [id number] regurgitation Cardio catheterization revealed a chronically occluded mid LAD, patent saphenous vein graft to the LAD 1+ aortic regurgitation in the bioprosthetic aortic valve Event monitor from the office shows atrial fibrillation with RVR that blends into a rapid wide complex tachycardia sustained At the transition point, there are no long short R-R interval sequences noted
[2021-03-25] MEDS ORDERED: APIXABAN 5 MG TAB PO SCH (09:00)
[2021-03-25] MEDS ORDERED: METOPROLOL TARTRATE 25 MG TAB PO SCH (09:00)
[2021-03-25] MEDS: ASPIRIN 81 MG PO SCH (09:49)
[2021-03-25] MEDS: EZETIMIBE 10 MG TAB PO SCH (09:50)
[2021-03-25] MEDS: ATORVASTATIN 80 MG TAB PO SCH (09:50)
[2021-03-25] MEDS ORDERED: ACETAMINOPHEN TAB 325 MG TAB PO PRN (09:54)
[2021-03-25 10:00] VITALS: RESP 16
--- NOTE | 2021-03-25 10:08 | P.PN ---
Subjective This is a pleasant 56-year-old male past medical history significant for coronary artery disease status post single-vessel bypass grafting 2012 SVG to LAD, valvular heart disease status post aortic valve replacement 2011, hypertension, dyslipidemia, COPD, paroxysmal atrial fibrillation and chronic nicotine dependence. He follows in the office with Dr. Mercer. Indirect cardiac catheterization yesterday revealing stable coronary artery disease with no significant change from previous. Telemetry tracings reviewed, he is maintaining sinus rhythm with no episodes of ventricular tachycardia. Blood pressure 122/81 heart rate 61 afebrile maintaining oxygen saturation on room air. Laboratory data reviewed, sodium 137, potassium 4.2, creatinine 1.01. 03/25/2021 Patient seen and examined sitting up in no acute distress. Telemetry tracings reviewed, he is maintaining sinus rhythm with no ventricular arrhythmia noted. Blood pressure 109/79 heart rate 63 afebrile maintaining oxygen saturation on room air. He was seen and evaluated yesterday by Dr. Long. He plans to do a diagnostic EP study after his amiodarone has been completely washed out for few weeks. He will go home with a LifeVest. GENERAL: Well-appearing, well-nourished and in no acute distress. NECK: Supple without JVD or thyromegaly. LUNGS: Breath sounds clear to auscultation bilaterally. Respiration equal and unlabored. No wheezes, rales or rhonchi. HEART: Regular rate and rhythm with systolic ejection murmur at the base, no rubs or gallops. S1 and S2 heard. EXTREMITIES: Normal range of motion, no edema. No clubbing or cyanosis. Peripheral pulses intact. Left femoral access site soft, nontender with no ecchymosis or hematoma.. ASSESSMENT Sustained ventricular tachycardia Syncope secondary to ventricular tachycardia Coronary artery disease status post bypass grafting Valvular heart disease status post aortic valve replacement Hypertension Dyslipidemia PLAN Stable for discharge after LifeVest is applied. Follow-up in the office as recommended with Dr. Long in Dr. Mercer. Nurse Practitioner note has been reviewed, I agree with a documented findings and plan of care. Patient was seen and examined. Objective - Vital Signs Vital signs: Vital Signs Temp 98.5 F 03/25/21 10:00 Pulse 63 03/25/21 10:00 Resp 16 03/25/21 10:00 BP 109/79 03/25/21 10:00 Pulse Ox 98 03/25/21 10:00 Intake & Output 03/24/21 03/25/21 03/25/21 18:59 06:59 18:59 Intake Total 960 10 240 Balance 960 10 240 Weight 91.4 kg Intake: IV 10 Invasive Line 3 10 Oral 960 240 Other: Voiding Method Toilet Toilet # Voids 1 - Labs CBC & Chem 7: 03/23/21 07:39 03/24/21 07:30
[2021-03-25] MEDS ORDERED: lisinopriL 10 MG TAB PO SCH (12:00)
[2021-03-25 13:17] VITALS: BP 118/85; PULSE 65; TEMP 98.2
--- NOTE | 2021-03-25 14:17 | P.PN ---
Subjective Progress Note Date: 03/24/21 HISTORY OF PRESENT ILLNESS: This is a 56-year-old white male with a previous medical history significant for coronary artery disease status post coronary artery bypass graft for 1- vessel disease back in 2011 with a last heart catheterization was done about 2 years ago, history of aortic valve stenosis status post aortic valve replacement, history of hypertension and hypertensive cardiovascular disease, hyperlipidemia, chronic tobacco use and dependence, COPD, history of paroxysmal atrial fibrillation past patient has been under the care of cardiology. Patient presented to the emergency department at [facility] yesterday as a transfer from [facility] after he had a syncopal episode in the afternoon at work he has been complaining of increased dizziness and lightheadedness since the morning evaluation in the ER over there showed to have an atrial flutter with rapid ventricular response had a computed tomography scan of the brain that was negative and his troponin was negative as well, patient was transported to [facility] where he was started on amiodarone drip and was taken off Cardizem drip, and he was admitted to the hospital for cardiology evaluation, he has been taking Eliquis 5 mg orally twice every day due to his paroxysmal nature of atrial fibrillation. 03/23: Patient was found on event monitor to have episode of ventricular tachycardia at the time of his syncopal episode. Patient is scheduled for heart catheterization today with Dr. Mercer and depending on results, patient may be able to be discharged home. He is anxious to go home. Echocardiogram reveals EF of 50-55%, mild aortic stenosis, mild to moderate aortic regurgitation, mild stenosis of the bioprosthetic aortic valve, trace mitral regurgitation, mild tricuspid regurgitation. 03/24: Patient underwent heart catheterization with Dr. Mercer yesterday which found chronically occluded mid LAD, patent saphenous vein graft to the LAD, 1+ aortic regurgitation and the bioprosthetic aortic valve. Recommendations were for patient to be seen by Dr. Long which will occur today. Patient denies having any chest pain or shortness of breath. He has had no further episodes of lightheadedness or dizziness. No syncopal episodes. He is very anxious to be discharged home. REVIEW OF SYSTEMS: Constitutional: No documented fever, no chills, no night sweats. No weight change. No weakness, fatigue or lethargy. No daytime sleepiness. HEENT: No headache. No blurred vision or double vision, no loss of vision. No loss of Hearing, no ringing in the ears, no dizziness. No nasal drainage or congestion. No epistaxis. No sore throat. Lungs: Denies for shortness of breath, no cough, no sputum production. No wheezing. Reports dyspnea with activity. Cardiovascular: No chest pain, no lower extremity edema. positive for palpitations. No paroxysmal nocturnal dyspnea. No orthopnea. positive for lightheadedness or dizziness. No syncopal episodes. Abdominal: Denies abdominal pain. No nausea, vomiting. No diarrhea. No constipation. No bloody or tarry stools reports loss of appetite. Genitourinary: No dysuria, increased frequency, urgency. No urinary retention. Musculoskeletal: No myalgias. No muscle weakness, no gait dysfunction, no frequent falls. No back pain. No neck pain. Integumentary: No wounds, no lesions. No rash or pruritus. No unusual bruisi ng. No change in hair or nails. Neurologic: No aphasia. No facial droop. No change in mentation. No head injury. No headache. No paralysis. No paresthesia. Psychiatric: No depression. No anxiety. No mood swings. Endocrine: No abnormal blood sugars. No weight change. PHYSICAL EXAMINATION: General: 56-year-old male laying down in bed in no apparent distress. HEENT: Head is atraumatic, normocephalic, pupils were equal round reactive to light and recommendation, extraocular muscle movement were intact, sclera nonicteric, conjunctivae pink. Neck: Supple, no JVP, normal carotid upstroke bilaterally, no lymphadenopathy. Chest: Decreased breath sounds at the bases, few rhonchi, no expiratory wheezes, no chest wall tenderness, no intercostal retractions. Heart: First heart sound is normal, second heart sounds normal there is no gallop or murmur, there is aortic valve click. Abdomen: Soft, nontender, nondistended, positive bowel sounds. Extremities: There is no edema no calf tenderness DP +2 bilaterally. Neurologic examination: Patient is awake alert and oriented X3, cranial nerves II-12 appear grossly intact, muscle power were 5 out of 5 in upper extremities and 5 out of 5 in bilateral lower extremities. ASSESSMENT AND PLAN: 1. Atrial fibrillation/flutter (type one) with rapid ventricular response currently back in sinus rhythm. continue patient on Eliquis 5 mg orally twice every day,Metoprolol 50 mg orally bid, continue one amiodarone 400 mg orally twice every day, cardiac catheterization with Dr. Mercer 03/23. 2. Hypomagnesemia. Patient will be given magnesium sulfate 2 g IV piggyback 1 over 1 hour. Repeat CMP magnesium level. 3. Episode of ventricular tachycardia. Heart catheterization negative for new obstructive disease. Consult with Dr. Long. 4. History of coronary artery disease status post coronary artery bypass graft for 2 vessel disease into thousand and 12 with a recent heart catheterization about 5 years ago. Continue patient on metoprolol 75 mg 3 times daily, continue patient on aspirin 81 mg once every day, atorvastatin 80 mg orally once every day, continue lisinopril 10 mg orally once every day. 5. Hypertension and hypertensive cardiovascular disease. Continue patient on lisinopril decreased to 10 mg orally once every day, continue metoprolol 75 mg 3 times every day, monitor the patient blood pressure very closely. 6. Hyperlipidemia. Continue patient on atorvastatin 80 mg orally once every day monitor lipid panel, keep LDL 55-70. 7. History of aortic valve disease status post aortic valve replacement. 8. Chronic tobacco use and dependence. Smoking cessation and counseling an increased risk of CAD, CVA and malignancy. 9. DVT prophylaxis. Currently on Eliquis 5 mg orally twice every day. 10. GI prophylaxis Protonix 40 mg once every day. DISCHARGE PLAN Home Impression and plan of care have been directed as dictated by the signing physician. Mira Cisneros nurse practitioner acting as scribe for signing physician. Objective - Vital Signs Vital signs: Vital Signs Temp 97.9 F 03/24/21 06:17 Pulse 64 03/24/21 06:17 Resp 16 03/24/21 06:17 BP 112/78 03/24/21 06:17 Pulse Ox 95 03/24/21 06:17 Intake & Output 03/23/21 03/24/21 03/24/21 18:59 06:59 18:59 Intake Total 218 Output Total 450 Balance 218 -450 Weight 93.3 kg Intake: IV 100 Oral 118 Output: Urine 450 Other: Voiding Method Toilet Urinal # Voids 1 - Labs CBC & Chem 7: 03/23/21 07:39 03/24/21 07:30 Labs: Abnormal Lab Results - Last 24 Hours (Table) 03/23/21 03/23/21 Range/Units 07:39 07:39 MCV 104.2 H (80.0-100.0) fL Sodium 136 L (137-145) mmol/L Glucose 106 H (74-99) mg/dL Total Protein 6.1 L (6.3-8.2) g/dL
--- NOTE | 2021-03-25 14:21 | P.DS ---
Providers Date of admission: 03/21/21 22:41 Expected date of discharge: 03/25/21 Attending physician: Kassi Lopez Consults: 03/21/21 22:41 Consult Physician Routine Consulting Provider: Cesar Long Consult Reason/Comments: Atrial flutter with rapid ventricular response Do you want consulting provider notified?: Yes 03/23/21 13:09 Consult Physician Routine Consulting Provider: Cesar Long Consult Reason/Comments: VT and syncope Do you want consulting provider notified?: Already Contacted Primary care physician: Kassi Lopez [facility] Course: HISTORY OF PRESENT ILLNESS: This is a 56-year-old white male with a previous medical history significant for coronary artery disease status post coronary artery bypass graft for 1- vessel disease back in 2011 with a last heart catheterization was done about 2 years ago, history of aortic valve stenosis status post aortic valve replacement, history of hypertension and hypertensive cardiovascular disease, hyperlipidemia, chronic tobacco use and dependence, COPD, history of paroxysmal atrial fibrillation past patient has been under the care of cardiology. Patient presented to the emergency department at [facility] yesterday as a transfer from [facility] after he had a syncopal episode in the afternoon at work he has been complaining of increased dizziness and lightheadedness since the morning evaluation in the ER over there showed to have an atrial flutter with rapid ventricular response had a computed tomography scan of the brain that was negative and his troponin was negative as well, isabella norman was transported to [facility] where he was started on amiodarone drip and was taken off Cardizem drip, and he was admitted to the hospital for cardiology evaluation, he has been taking Eliquis 5 mg orally twice every day due to his paroxysmal nature of atrial fibrillation. 03/23: Patient was found on event monitor to have episode of ventricular tachycardia at the time of his syncopal episode. Patient is scheduled for heart catheterization today with Dr. Mercer and depending on results, patient may be able to be discharged home. He is anxious to go home. Echocardiogram reveals EF of 50-55%, mild aortic stenosis, mild to moderate aortic regurgitation, mild stenosis of the bioprosthetic aortic valve, trace mitral regurgitation, mild tricuspid regurgitation. 03/24: Patient underwent heart catheterization with Dr. Mercer yesterday which found chronically occluded mid LAD, patent saphenous vein graft to the LAD, 1+ aortic regurgitation and the bioprosthetic aortic valve. Recommendations were for patient to be seen by Dr. Long which will occur today. Patient denies having any chest pain or shortness of breath. He has had no further episodes of lightheadedness or dizziness. No syncopal episodes. He is very anxious to be discharged home. 03/25: Vision has been seen by Dr. Long with recommendations for diagnostic EP study to clarify diagnosis and direct appropriate management strategy. Because of amiodarone, EP study will be delayed until amiodarone is out of his system and he will schedule the patient for LifeVest and EP study as an outpatient. Patient was advised of no driving. This was again discussed with the patient at the bedside and he will try to make arrangements for someone to take him to work. He denies any new symptoms. No lightheadedness or dizziness. Patient will be discharged home today in stable condition after LifeVest is obtained. ASSESSMENT AND PLAN: 1. Atrial fibrillation/flutter (type one) with rapid ventricular response currently back in sinus rhythm. Status post cardiac catheterization with Dr. Mercer 03/23. 2. Hypomagnesemia. 3. Episode of ventricular tachycardia. LifeVest, outpatient EP study. 4. History of coronary artery disease status post coronary artery bypass graft for 2 vessel disease into thousand and 12 with a recent heart catheterization about 5 years ago. 5. Hypertension and hypertensive cardiovascular disease. 6. Hyperlipidemia. 7. History of aortic valve disease status post aortic valve replacement. 8. Chronic tobacco use and dependence. DISCHARGE PLAN Home Impression and plan of care have been directed as dictated by the signing physician. Mira Cisneros nurse practitioner acting as scribe for signing physician. Patient Condition at Discharge: Stable Plan - Discharge Summary New Discharge Prescriptions: New lisinopriL [Zestril] 10 mg PO DAILY #30 tab Metoprolol Tartrate [Lopressor] 75 mg PO BID #180 tab Continue Apixaban [Eliquis] 5 mg PO BID #60 tab Aspirin 81 mg PO DAILY chew Atorvastatin [Lipitor] 80 mg PO DAILY #30 tab Ezetimibe [Zetia] 10 mg PO DAILY Discontinued Metoprolol Tartrate [Lopressor] 50 mg PO BID #60 tab lisinopriL [Zestril] 20 mg PO DAILY Discharge Medication List Apixaban [Eliquis] 5 mg PO BID #60 tab 04/27/17 [Rx] Aspirin 81 mg PO DAILY chew 04/27/17 [Rx] Atorvastatin [Lipitor] 80 mg PO DAILY #30 tab 04/27/17 [Rx] Ezetimibe [Zetia] 10 mg PO DAILY 03/21/21 [History] Metoprolol Tartrate [Lopressor] 75 mg PO BID #180 tab 03/25/21 [Rx] lisinopriL [Zestril] 10 mg PO DAILY #30 tab 03/25/21 [Rx] Follow up Appointment(s)/Referral(s): Cesar Long MD [STAFF PHYSICIAN] - 04/06/21 8:45 am Kassi Lopez MD [Primary Care Provider] - 1 Week (please call to schedule followup appointment ) Patient Instructions/Handouts: *[facility] - After Heart Catheterization - Assistant Press Operator Offset Instructions, A-fib (Atrial Fibrillation) (DC), How to Stop Smoking (DC), Acute Coronary Syndrome (DC), Heart Catheterization (DC) Discharge Disposition: HOME SELF-CARE
== END 2021-03-25 15:38 | disposition home or self-care (01) | DRG 287 ==
LOC: EC 20:54 → 3SCARD 22:41
PROVIDERS: ADMIT Internal Medicine; ATTEND Internal Medicine
PROC: B2111ZZ Fluoroscopy of Multiple Coronary Arteries using Low Osmolar Contrast (ICD-10-PCS; 2021-03-23)
PROC: B2121ZZ Fluoroscopy of Single Coronary Artery Bypass Graft using Low Osmolar Contrast (ICD-10-PCS; 2021-03-23)
PROC: B4101ZZ Fluoroscopy of Abdominal Aorta using Low Osmolar Contrast (ICD-10-PCS; 2021-03-23)
PROC: 4A023N7 Measurement of Cardiac Sampling and Pressure, Left Heart, Percutaneous Approach (ICD-10-PCS; principal; 2021-03-23 07:30)
DX: I47.2 Ventricular tachycardia (principal); T82.857A Stenosis of other cardiac prosthetic devices, implants and grafts, initial encounter; I48.92 Unspecified atrial flutter; E78.5 Hyperlipidemia, unspecified; E83.42 Hypomagnesemia; F17.210 Nicotine dependence, cigarettes, uncomplicated; I25.10 Atherosclerotic heart disease of native coronary artery without angina pectoris; I25.2 Old myocardial infarction; I48.0 Paroxysmal atrial fibrillation; I11.9 Hypertensive heart disease without heart failure; J44.9 Chronic obstructive pulmonary disease, unspecified; Z20.822 Contact with and (suspected) exposure to COVID-19; Z79.01 Long term (current) use of anticoagulants; Z79.82 Long term (current) use of aspirin; Z79.899 Other long term (current) drug therapy; Z80.3 Family history of malignant neoplasm of breast; Z80.7 Family history of other malignant neoplasms of lymphoid, hematopoietic and related tissues; Z82.3 Family history of stroke; Z82.49 Family history of ischemic heart disease and other diseases of the circulatory system; Z95.1 Presence of aortocoronary bypass graft; Z95.3 Presence of xenogenic heart valve; Y83.8 Other surgical procedures as the cause of abnormal reaction of the patient, or of later complication, without mention of misadventure at the time of the procedure
CPT/HCPCS: 36415; 80048; 80053; 80061; 83735; 84484; 85025; 87635; 93005; 93306; 93455; 94760; 96374; 99285

== ENCOUNTER → 2021-04-28 | Outpatient (CLI) | payer BC ==
[2021-04-28 09:26] LABS: HCT 40.9 % (39.0-53.0); HGB 13.3 gm/dL (13.0-17.5); MCH 34.3 pg (25.0-35.0); MCHC 32.6 g/dL (31.0-37.0); MCV 105.3 fL (80.0-100.0); Macrocytosis Slight; Mean Platelet Volume 7.7; Platelet Count 204 k/uL (150-450); RBC 3.88 m/uL (4.30-5.90); RDW 12.3 % (11.5-15.5); WBC 7.2 k/uL (3.8-10.6)
[2021-04-28 10:33] LABS: African American GFR (CKD) >90 (>60 ml/min/1.73 sqM); Anion Gap 4 mmol/L; Blood Urea Nitrogen 16 mg/dL (9-20); Carbon Dioxide 28 mmol/L (22-30); Chloride 105 mmol/L (98-107); Non-African American GFR(CKD) >90 (>60 ml/min/1.73 sqM); Potassium 3.8 mmol/L (3.5-5.1); Sodium 137 mmol/L (137-145)
== END | disposition home or self-care (01) ==
LOC: LABPAT 08:13
PROVIDERS: ATTEND Internal Medicine Clinical Cardiac Electrophysiology
DX: Z01.812 Encounter for preprocedural laboratory examination (principal); I47.2 Ventricular tachycardia
CPT/HCPCS: 80051; 82565; 84520; 85027

== ENCOUNTER 2021-05-05 11:11 | Day surgery (SDC) | payer BC ==
[2021-05-01 11:22] VITALS: BMI 31.9
[~2021-05-05 11:11] MED LIST: LACTATED RINGERS 1,000 ML IV SCH; SODIUM CHLORIDE 0.9% 1,000 ML IV SCH
[2021-05-05] MEDS ORDERED: SODIUM CHLORIDE 0.9% 1,000 ML IV ONE (11:33)
[2021-05-05] MEDS ORDERED: PROPOFOL 10 MG/ML 20 ML VIAL IV ONE (12:43)
[2021-05-05] MEDS ORDERED: fentaNYL (PF) 50 MCG/ML 2 ML AMP ONE (12:43)
[2021-05-05] MEDS ORDERED: MIDAZOLAM 2 MG/2 ML VIAL ONE (12:43)
[2021-05-05] MEDS ORDERED: LIDOCAINE 1% INJ 10MG/ML (20 ML MDV) ONE ×3 (13:07→15:51)
[2021-05-05] MEDS ORDERED: LIDOCAINE 1% INJ 10MG/ML (20 ML MDV) SQ ONE ×2 (13:22→15:46)
--- NOTE | 2021-05-05 14:04 | P.HPCAR ---
History of Present Illness This is Dr. Long dictating an H/P on this patient The patient was interviewed and examined IMPRESSION / ASSESSMENT: History of syncope Episodes of dizziness associated with palpitations continue Atrial fibrillation with RVR Wide complex tachycardia, sustained, consistent with ventricular tachycardia, monomorphic on the event monitor Patient has a LifeVest at this time Known coronary artery disease with patent saphenous graft to the LAD, no significant progression of disease in the coronary arteries Bioprosthetic aortic valve, stable Mildly enlarged right ventricle Amiodarone discontinued over a month back PLAN: Diagnostic EP study to look for any inducible ventricular tachycardia Possibly frequency ablation Possible ICD implantation, depending the results of the redness EP study If he has inducible sustained monomorphic ventricular tachycardia that is away from the aortic valve and is accessible, we'll proceed with VT ablation However if he is in the noninducible or has inducible monomorphic VT from the LVOT or is epicardial in nature, then we will proceed with an ICD implantation This was discussed with the patient HPI Patient continues to experience episodes of dizziness off and on sometimes associated with palpitations He is wearing his LifeVest No chest discomfort ROS: No fever chills or rigors, no cough, phlegm or expectoration, no nausea, vomiting or diarrhea, no hematuria, dysuria, no musculoskeletal complaints, no strokes or seizures, no skin lesions. EXAMINATION: Heart rate in the 50s, blood pressure 161/90 mmHg Breath sounds are clear Heart sounds S1 and S2 are normal S1 is crisp Abdomen soft No lower extremity edema REVIEW OF LABS, ECG & MEDICAL DATA Medications reviewed and includes Zestril, metoprolol 75 mg twice daily, Zetia, atorvastatin aspirin ELIQUIS 5 mg twice daily she took this morning Physical Exam Vitals: Vital Signs Temp Pulse Resp BP Pulse Ox 05/05/21 11:47 98.8 F 57 L 16 161/96 99 Intake and Output 05/04/21 05/05/21 05/05/21 22:59 06:59 14:59 Intake Total 50 Balance 50 Intake: IV 50 Other: Weight 98.8 kg Past Medical History Past Medical History: Atrial Fibrillation, Coronary Artery Disease (CAD), Hyperlipidemia, Hypertension, Myocardial Infarction (MT) Additional Past Medical History / Comment(s): "Bruised liver". Last Myocardial Infarction Date:: 09/15/2014 History of Any Multi-Drug Resistant Organisms: None Reported Past Surgical History: Cardiac Valve Replacement, Coronary Bypass/CABG, Heart Catheterization Additional Past Surgical History / Comment(s): 2 vessel CABG 2011. Past Anesthesia/Blood Transfusion Reactions: No Reported Reaction Past Psychological History: No Psychological Hx Reported Smoking Status: Current every day smoker Past Alcohol Use History: Occasional Additional Past Alcohol Use History / Comment(s): Has been smoking since 13-14 yrs of age, down to 5-6 cigarettes per day, trying to quit. Past Drug Use History: None Reported - Past Family History Mother Family Medical History: Cancer Father Family Medical History: Cancer Additional Family Medical History / Comment(s): No biological children. Brother(s) Family Medical History: Myocardial Infarction (MT) Physical Examination Vital Signs Temp Pulse Resp BP Pulse Ox 05/05/21 11:47 98.8 F 57 L 16 161/96 99 Intake and Output 05/04/21 05/05/21 05/05/21 22:59 06:59 14:59 Intake Total 50 Balance 50 Intake: IV 50 Other: Weight 98.8 kg Results Current Medications Generic Name Dose Route Start Last Admin Trade Name Freq PRN Reason Stop Dose Admin Sodium Chloride 1,000 mls @ 20 mls/hr 05/05/21 05:37 Saline 0.9% IV 06/04/21 05:38 .Q24H MARVIN Lactated Ringer's 1,000 mls @ 20 mls/hr 05/05/21 05:37 Lactated Ringers IV 06/04/21 05:38 .Q24H MARVIN Intake and Output 05/04/21 05/05/21 05/05/21 22:59 06:59 14:59 Intake Total 50 Balance 50 Intake: IV 50 Other: Weight 98.8 kg Patient Weight 05/06/21 06:59 Weight 98.8 kg
[2021-05-05] MEDS ORDERED: ceFAZolin 1,000 MG in SODIUM CHLORIDE 0.9% IRRIGATIO 250 ML IRRIGATION ONE (14:29)
[2021-05-05] MEDS ORDERED: IOPAMIDOL-370 50ML BTL INJ ONE (15:08)
--- NOTE | 2021-05-05 15:08 | P.EPPROC ---
- EP Procedure Note Electrophysiology Procedure Note: Diagnosis Sustained monomorphic ventricular tachycardia associated with syncope Status post bioprosthetic aortic valve Status post coronary artery bypass grafting for CAD 100 vessel Preserved LV systolic function Paroxysmal A. fib with RVR Currently wearing a LifeVest Recurrent episodes of dizzy spells associated with palpitations Proposed procedure Diagnostic EP study and possible radiofrequency ablation for any inducible ventricular tachycardia Possible ICD implantation for sustained monomorphic ventricular tachycardia history is a was syncope Details Patient was brought to the EP lab in a fasting state. Written informed consent was obtained prior to the procedure regarding the EP study, possible ablation and possible ICD implant Venous sheaths were placed in the right femoral vein. Diagnostic catheters placed in the high right atrium, coronary sinus, His bundle area, RV apex and RVOT IV antibiotics were administered Baseline measurements Sinus cycle length 978 ms, UT interval 125 ms, QRS 101 ms, QT interval 449 ms AH 65 ms and HV 43 ms AV node Wenckebach block 400 ms, VA Wenckebach block 480 ms Sinus node recovery times at 600 504 100 ms were 1237, 1291 980 ms Burst stimulation in the right ventricular apex from 400 ms down to 200 ms. No ventricular tachycardia Extra stimulation up to triple extrastimuli, 2 drive trains, no ventricular tachycardia induced Isuprel wide open followed by 2 weeks and later at 5 mics AV node Wenckebach block improved to 330 ms, via Wenckebach block 350 ms No evidence for aberrancy Burst stimulation from 400 ms down to 200 ms from the RV apex. No VT induced Ventritex stimulation after triple extrastimuli. No VT induced Pacing from the high right atrium performed AV node Wenckebach block 400 ms. No evidence for aberrant conduction Burst ablation from the RVOT was performed from 400 ms down to 200 ms, on Isuprel Extra stimulation after triple access to my from the RVOT performed on Isuprel No inducible ventricular tachycardia Final diagnosis Syncope associated with monomorphic ventricular tachycardia, spontaneous and sustained, documented on event monitor No evidence for inducible ventricular tachycardia on EP study, both on and off Isuprel Absence of aberrant conduction during atrial pacing from the high right atrium and the coronary sinus Plan Single-chamber ICD implantation for secondary prevention of sudden cardiac Discussed the patient and his son
--- NOTE | 2021-05-05 17:18 | P.EPPROC ---
- EP Procedure Note Electrophysiology Procedure Note: Left upper extremity venogram 10 mL every diabetes injected in the left arm A patent subclavian, left axillary and left cephalic vein noted new Plan Proceed with single chamber ICD implantation
[2021-05-05] MEDS ORDERED: ACETAMINOPHEN IV (For NPO) 1,000 MG in EMPTY BAG 1 BAG IVPB ONE (18:00)
--- NOTE | 2021-05-05 18:08 | CE ---
CARDIAC ELECTROPHYSIOLOGY REPORT [id number] male patient who has known coronary artery disease, status post coronary artery bypass grafting and aortic valve replacement, who presented with an episode of loss of consciousness and has had documented sustained monomorphic ventricular tachycardia. He underwent a diagnostic EP study with the intent of radiofrequency ablation, but he was noninducible at EP study. Therefore a single- chamber ICD was advised for secondary prevention of sudden cardiac . Patient was in the EP lab in a fasting state. Written informed consent was obtained prior to the procedure. The left pectoral area was prepped and draped as per protocol. IV antibiotics were administered perioperatively. Local anesthesia was given. A 4 cm incision was made parallel to the deltopectoral groove, about 1.5 cm medial to it. The incision was carried down to the level of the pectoralis muscle. A subfascial pocket was made. Hemostasis was assured. The left axillary vein was accessed and a venous sheath was placed. Via this, a single coil lead was positioned in the RV apex and screwed in. R-waves were 13.4 mV, pacing impedance 465 ohms, and pacing threshold 0.5 V at 0.4 milliseconds. Ten-volt test was negative. The lead was secured to the underlying pectoralis fascia using two nonabsorbable sutures. The pocket was irrigated with antibiotic solution. Leads were connected to the generator ([employer] MRI DF4 model number DVFB 1B4, serial number [id number]). The leads and the generator were then placed the in subfascial pocket and the wound was closed in 3 layers and dressed per protocol. The generator was secured to the underlying pectoralis muscle. The lead was a Medtronic model number 6935M, 62 cm in length and serial number [id number]. DFT TESTING UNDER ANESTHESIA: Shock and T-wave protocol was used to induce ventricular fibrillation. This was adequately and appropriately detected with a few dropouts. A 10-joule shock was unsuccessful in regular polarity. A 20-joule shock was successful. Charge time was 4.25 seconds. Shocking impedance was 68 ohms. This was repeated after 3 minutes in reverse polarity, and this time a 10-joule shock was successful. Charge time was 1.86 seconds. No post-shock noise. There were 4 dropouts noted with the first testing. RESULT: Successful single-chamber ICD implantation for secondary prevention of sudden cardiac , history of sustained monomorphic ventricular tachycardia with syncope. High DFT of greater than 10 joules (between 10 and 20 joules) in regular polarity Medtronic device. DFT at or below 10 joules with reverse polarity. Patient tolerated the procedure well without any acute complications. MMODL / IJN: [id number] /
--- NOTE | 2021-05-05 18:36 | XR ---
EXAMINATION TYPE: XR chest 1V portable DATE OF EXAM: 05/05/2021 COMPARISON: 03/05/2021 HISTORY: Pacemaker insertion TECHNIQUE: Single view FINDINGS: Heart is normal. Lungs are clear of infiltrate. There is no heart failure. There are sterna l wires. There is left axillary pacemaker. There are chest leads. IMPRESSION: No active cardiopulmonary disease. No change.
[2021-05-05] MEDS: ACETAMINOPHEN TAB 325 MG TAB PO PRN (21:02)
[2021-05-05] MEDS: METOPROLOL TARTRATE 25 MG TAB PO SCH (21:04)
[2021-05-06] MEDS: ACETAMINOPHEN TAB 325 MG TAB PO PRN (02:39)
--- NOTE | 2021-05-06 07:51 | P.DS ---
Providers Attending physician: Cesar Long [facility] Patient is doing well. He does complain of discomfort in the left pectoral area The ICD site is bit puffy but is soft, mildly tender Blood pressure 121/85 and 134/91 mmHg, pulse rate in the 60s afebrile No JVD Normal heart sounds normal S1 normal S2 Abdomen is soft Lungs are clear No lower extremity edema Groin has healed well no hematoma no swelling no tenderness in the right groin Chest x-ray is normal Patient received antibiotics Impression History of syncope with Sustained monomorphic ventricular tachycardia Paroxysmal atrial fibrillation RVR Status post Bioprosthetic aortic valve Coronary artery disease status post coronary artery bypass grafting Recurrent dizzy spells thereafter associated with palpitations Patient underwent a diagnostic EP study Sustained VT could not be induced and therefore no ablation was performed Extended procedure with a single chamber ICD implant for secondary prevention of sudden cardiac Plan He will continue all his cardiac medications Fast and hold ELIQUIS for 2 days He will resume ELIQUIS at the usual dose of May 08 in the morning Follow-up with Dr. Mercer/device clinic within a week Patient Condition at Discharge: Stable Plan - Discharge Summary Discharge Rx Participant: Yes New Discharge Prescriptions: Continue RX: Apixaban [Eliquis] 5 mg PO BID #60 tab RX: Aspirin 81 mg PO DAILY chew RX: Atorvastatin [Lipitor] 80 mg PO DAILY #30 tab RX: Ezetimibe [Zetia] 10 mg PO DAILY RX: lisinopriL [Zestril] 10 mg PO DAILY #30 tab RX: Multivitamins, Thera [Multivitamin (formulary)] 1 tab PO DAILY RX: Metoprolol Tartrate [Lopressor] 75 mg PO BID #180 tab RX: Acetaminophen/Diphenhydramine [Tylenol Pm Ex-Strength Caplet] 1 each PO HS Discharge Medication List RX: Apixaban [Eliquis] 5 mg PO BID #60 tab 04/27/17 [Rx] RX: Aspirin 81 mg PO DAILY chew 04/27/17 [Rx] RX: Atorvastatin [Lipitor] 80 mg PO DAILY #30 tab 04/27/17 [Rx] RX: Ezetimibe [Zetia] 10 mg PO DAILY 03/21/21 [History] RX: Metoprolol Tartrate [Lopressor] 75 mg PO BID #180 tab 03/25/21 [Rx] RX: lisinopriL [Zestril] 10 mg PO DAILY #30 tab 03/25/21 [Rx] RX: Acetaminophen/Diphenhydramine [Tylenol Pm Ex-Strength Caplet] 1 each PO HS 05/01/21 [History] RX: Multivitamins, Thera [Multivitamin (formulary)] 1 tab PO DAILY 05/01/21 [History] Follow up Appointment(s)/Referral(s): Cesar Long MD [STAFF PHYSICIAN] - As Needed (Follow-up in the device clinic in one week Follow Dr. Mercer as previously scheduled Hold ELIQUIS on , and 07 May Resume on 08 May in a.m.) Activity/Diet/Wound Care/Special Instructions: PATIENT EDUCATION MATERIAL Instructions following a heart rhythm device implant. 1. Keep dressing DRY for 5 DAYS. You may cover the area with Saran or Cling Wrap, prior to a shower. 2. The dressing will be removed in the Device Clinic at [facility]. Absorbable sutures were used to close the wound. 3. Avoid raising the left arm above the shoulder level. 4 week restriction 4. Avoid arm movements, like backscratching, rubbing the head, or pulling on a cord. 4 weeks restriction 5. Gentle range of motion movements of the shoulder, closest to the incision should be performed to avoid a frozen shoulder. (Pendulum exercises of the shoulder) 6. The opposite arm may be used freely. 7. Avoid driving for 7 days. 8. Avoid activities such as golfing, swimming, weed whacking, lifting more than 10 pounds weight, bowling, gymnastics and weight training/lifting. (6 weeks restriction) 9. Activities such as wood chopping with an axe, pull-ups in the gymnasium, power lifting, arc-welding, being close to home induction cooktops will always be a problem. 10. Arm sling is only a reminder not to raise the arm above the head. You do not need to keep the arm completely immobilized. Your free to move the arm and use it and for normal activities. In case of any problems, please call [facility] [place], @ [phone], Attention: Device Clinic Device clinic follow-up in 5 days Follow-up with primary day care aide in 2-3 months Hold ELIQUIS until 07 May and resume ELIQUIS on May 08 in the morning Continue other medications unchanged Discharge Disposition: HOME SELF-CARE
[2021-05-06 08:04] VITALS: BP 149/97; PULSE 60; RESP 18; TEMP 97.7
[2021-05-06] MEDS ORDERED: ASPIRIN 81 MG PO SCH (09:00)
[2021-05-06] MEDS ORDERED: lisinopriL 10 MG TAB PO SCH (09:00)
[2021-05-06] MEDS ORDERED: EZETIMIBE 10 MG TAB PO SCH (09:00)
[2021-05-06] MEDS ORDERED: ATORVASTATIN 80 MG TAB PO SCH (09:00)
[2021-05-06] MEDS: METOPROLOL TARTRATE 25 MG TAB PO SCH (09:39)
== END 2021-05-06 10:10 | disposition home or self-care (01) ==
LOC: CATHEP 11:11 → 6NMEDSUR 16:43 → CATHEP 05-06 10:10
PROVIDERS: ATTEND Internal Medicine Clinical Cardiac Electrophysiology
DX: I47.2 Ventricular tachycardia (principal); I48.0 Paroxysmal atrial fibrillation; I10 Essential (primary) hypertension; I25.10 Atherosclerotic heart disease of native coronary artery without angina pectoris; E78.2 Mixed hyperlipidemia; F17.210 Nicotine dependence, cigarettes, uncomplicated; Z95.3 Presence of xenogenic heart valve; Z95.1 Presence of aortocoronary bypass graft; R94.39 Abnormal result of other cardiovascular function study; I25.2 Old myocardial infarction; Z79.82 Long term (current) use of aspirin; Z79.899 Other long term (current) drug therapy; Z79.01 Long term (current) use of anticoagulants; Z80.9 Family history of malignant neoplasm, unspecified; Z82.49 Family history of ischemic heart disease and other diseases of the circulatory system
CPT/HCPCS: 93623; 93621; 93620; 33249; 71045; C1894; C1769 ×3; C1760 ×2; C1892; C1730 ×3; C1895; C1722; J2250; J0690 ×2; J2001; J3010; J2704; Q9967

== ENCOUNTER → 2021-05-20 | Day surgery (SDC) | payer BC ==
[~2021-05-20] MED LIST changes: -LACTATED RINGERS 1,000 ML IV SCH; +LIDOCAINE 1% INJ 10MG/ML (20 ML MDV) ONE; -SODIUM CHLORIDE 0.9% 1,000 ML IV SCH
[2021-05-20 11:24] VITALS: BP 133/95; PULSE 67; RESP 16; TEMP 98.6
--- NOTE | 2021-05-20 11:48 | P.PCN ---
Preoperative Diagnosis: Diagnosis Bruising from the medial aspect of the incision Status post ICD generator change Patient is on ELIQUIS Under sterile precautions area was prepped and draped External social suture was applied at the medial edge of the wound A second suture was applied at the lateral edge of the wound The wound was dressed Patient is on oral antibiotics
== END ==
LOC: CATHEP 09:57
PROVIDERS: ATTEND Internal Medicine Clinical Cardiac Electrophysiology
DX: T81.30XA Disruption of wound, unspecified, initial encounter (principal)

== ENCOUNTER → 2022-03-09 | Outpatient (CLI) | payer BC ==
[2022-03-09 14:53] LABS: HCT 44.2 % (39.6-50.0); HGB 14.5 g/dL (13.0-17.0); MCH 34.8 pg (27.0-32.0); MCHC 32.8 g/dL (32.0-37.0); Mean Platelet Volume 10.4 fL (9.5-12.2); NRBC Per 100 WBC 0 /100 WBCS (0.0-0.0); Platelet Count 213 X 10*3/uL (140-440); RBC 4.17 X 10*6/uL (4.40-5.60); RDW 13.3 % (11.5-14.5); WBC 6.57 X 10*3/uL (4.50-10.00)
[2022-03-09 17:10] LABS: African American GFR (CKD) 69.2 (60.0-200.0); Albumin 3.8 g/dL (3.8-4.9); Albumin/Globulin Ratio 1.65 (1.60-3.17); Anion Gap 10.2 mmol/L (10.00-18.00); BUN/Creat Ratio 18.15 Ratio (12.00-20.00); Blood Urea Nitrogen 23.6 mg/dL (9.0-27.0); Calcium 8.8 mg/dL (8.7-10.3); Carbon Dioxide 22.8 mmol/L (20.0-27.5); Globulin 2.3 g/dL (1.6-3.3); Non-African American GFR(CKD) 59.7 (60.0-200.0); Potassium 4.3 mmol/L (3.5-5.5); Total Bilirubin 0.5 mg/dL (0.30-1.20); Total Protein 6.1 g/dL (6.2-8.2)
== END | disposition home or self-care (01) ==
LOC: LABWHC1 08:44
PROVIDERS: ATTEND Internal Medicine Interventional Cardiology
DX: I48.3 Typical atrial flutter (principal)
CPT/HCPCS: 36415; 80053; 84443; 85027

== ENCOUNTER 2022-03-12 05:54 | Day surgery (SDC) | payer BC ==
[2022-03-11 08:41] VITALS: BMI 33.4
[2022-03-12] MEDS ORDERED: SODIUM CHLORIDE 0.9% 1,000 ML IV SCH ×2 (06:14→08:00)
[2022-03-12] MEDS ORDERED: SODIUM CHLORIDE 0.9% 1,000 ML IV ONE ×2 (06:15→08:21)
[2022-03-12] MEDS ORDERED: lisinopriL 10 MG TAB PO STA (06:26)
[2022-03-12] MEDS ORDERED: METOPROLOL TARTRATE 50 MG TAB PO STA (06:27)
[2022-03-12 06:36] VITALS: RESP 16; TEMP 99
[2022-03-12] MEDS ORDERED: BENZOCAINE SPRAY 1 CAN TOPICAL ONE (07:15)
[2022-03-12] MEDS ORDERED: PROPOFOL 10 MG/ML 20 ML VIAL IV ONE (07:43)
[2022-03-12] MEDS ORDERED: LIDOCAINE 2% INJ 20 MG/ML (2 ML VIAL) ONE (07:43)
[2022-03-12] MEDS ORDERED: AMIODARONE PO SCH (08:00)
--- NOTE | 2022-03-12 08:02 | P.PCN ---
Date of Procedure: 03/12/22 Description of Procedure: Indication: Atrial fibrillation Procedure Description: After explaining the procedure to the patient, it's risk and complications, blood pressure, heart rate and O2 saturation were monitored. The throat was sprayed with Cetacaine. Patient received sedation per anesthesia department. The probe was introduced into the esophagus without difficulty. Images were obtained. Following that, the probe was removed. There was no immediate complication. Findings: Left ventricular size is mildly dilated, left atrial appendage is closed. The ventricle size is normal with mild to moderate global hypokinesis, estimated ejection fraction 40-45%. The mitral valve revealed mild thickening, a bioprosthetic aortic valve was noted with thickening of the leaflets. Tricuspid valve is normal. Descending thoracic aorta is normal. Contrast bubble study revealed no shunting across the intra-atrial septum. No pericardial effusion was noted Doppler: Pulse wave and color Doppler were obtained, mild mitral, aortic and tricuspid regurgitation. There was no shunting by color Doppler study Conclusion: 1. Normal size with mild to moderate global hypokinesis 2. Bioprosthetic aortic valve with mild calcification and mild aortic regurgitation 3. And mild mitral and tricuspid regurgitation 4. No shunting across the intra-atrial septum 5. Normal appearance of the descending thoracic aorta
--- NOTE | 2022-03-12 08:03 | P.PCN ---
Date of Procedure: 03/12/22 Description of Procedure: Procedure: Cardioversion Indications: Atrial flutter After explaining the procedure to the patient as well as as well as the risks and the complications, after obtaining sedated state her anesthesia department and performing a MILY, a synchronized biphasic cardioversion using 120 J was performed with quaker of sinus mechanism. There was no immediate complications.
[2022-03-12] MEDS ORDERED: EZETIMIBE 10 MG TAB PO SCH (09:00)
[2022-03-12] MEDS ORDERED: ASPIRIN 81 MG PO SCH (09:00)
[2022-03-12] MEDS ORDERED: ATORVASTATIN 80 MG TAB PO SCH (09:00)
[2022-03-12] MEDS ORDERED: lisinopriL 10 MG TAB PO SCH (09:00)
[2022-03-12] MEDS ORDERED: AMIODARONE 200 MG TAB PO STA (09:18)
[2022-03-12 10:29] VITALS: BP 133/92; PULSE 80
[2022-03-12] MEDS ORDERED: METOPROLOL TARTRATE 50 MG TAB PO SCH (21:00)
[2022-03-12] MEDS ORDERED: APIXABAN 5 MG TAB PO SCH (21:00)
== END 2022-03-12 09:49 | disposition home or self-care (01) ==
LOC: CATHCVL 05:54
PROVIDERS: ATTEND Internal Medicine Interventional Cardiology
DX: I48.3 Typical atrial flutter (principal); F17.210 Nicotine dependence, cigarettes, uncomplicated; I10 Essential (primary) hypertension; I48.91 Unspecified atrial fibrillation; I25.10 Atherosclerotic heart disease of native coronary artery without angina pectoris; G47.33 Obstructive sleep apnea (adult) (pediatric); E78.2 Mixed hyperlipidemia; Z95.1 Presence of aortocoronary bypass graft; Z79.82 Long term (current) use of aspirin; Z79.890 Hormone replacement therapy; Z79.891 Long term (current) use of opiate analgesic; Z79.899 Other long term (current) drug therapy; Z20.822 Contact with and (suspected) exposure to COVID-19
CPT/HCPCS: 93312; 93320; 93325; 92960; 87635; J2704; J2001

== ENCOUNTER → 2022-09-21 | Outpatient (CLI) | payer BC ==
[2022-09-21 18:11] LABS: Basophils # (A) 0.05 X 10*3/uL (0.00-0.10); Basophils % (A) 0.7 %; Eosinophils # (A) 0.15 X 10*3/uL (0.04-0.35); HCT 43.5 % (39.6-50.0); HGB 14.1 g/dL (13.0-17.0); Immature Grans, Automated 0.5 %; Lymphocytes # (A) 1.83 X 10*3/uL (0.90-5.00); Lymphocytes % (A) 24.1 %; MCH 33.7 pg (27.0-32.0); MCHC 32.4 g/dL (32.0-37.0); MCV 103.8 fL (80.0-97.0); Mean Platelet Volume 10.5 fL (9.5-12.2); Monocytes # (A) 0.84 X 10*3/uL (0.20-1.00); Monocytes % (A) 11.1 %; NRBC Per 100 WBC 0 /100 WBCS (0.0-0.0); Neutrophils # (A) 4.67 X 10*3/uL (1.80-7.70); Neutrophils % (A) 61.6 %; Platelet Count 181 X 10*3/uL (140-440); RBC 4.19 X 10*6/uL (4.40-5.60); WBC 7.58 X 10*3/uL (4.50-10.00)
[2022-09-21 18:29] LABS: ALT 64 U/L (10-49); AST 45 U/L (14-35); Albumin 4.2 g/dL (3.8-4.9); Albumin/Globulin Ratio 2.21 (1.60-3.17); Alkaline Phosphatase 57 U/L (41-126); Bilirubin, Conjugated <0.20 mg/dL (0.20-0.40); Globulin 1.9 g/dL (1.6-3.3); Total Protein 6.1 g/dL (6.2-8.2)
[2022-09-22 12:38] LABS: Alt. alternata IgE Class CLASS 0; Alternaria alternata IgE <0.10 kU/L (<0.10); Asperg. fumagatus IgE <0.10 kU/L (<0.10); Asperg. fumagatus IgE Class CLASS 0; Bermuda Grass IgE <0.10 kU/L (<0.10); Birch(Com.Silvr) IgE <0.10 kU/L (<0.10); Birch(Com.Silvr) IgE Class CLASS 0; Cat Epith & Dander IgE <0.10 kU/L (<0.10); Cat Epith & Dander IgE Class CLASS 0; Clad herbarum IgE <0.10 kU/L (<0.10); Clad herbarum IgE Class CLASS 0; Cockroach IgE <0.10 kU/L (<0.10); Cottonwood IgE <0.10 kU/L (<0.10); Dermato. Pteronyssinus Class CLASS 0/1; Dermato. Pteronyssinus IgE 0.29 kU/L (<0.10); Dermato. farinae IgE 0.42 kU/L (<0.10); Dermato. farinae IgE Class CLASS 1; Dog Dander IgE <0.10 kU/L (<0.10); Elm IgE <0.10 kU/L (<0.10); IgE (Allergen) 76.5 IU/mL (<114.0); Maple (Box Elder) IgE <0.10 kU/L (<0.10); Maple (Box Elder) IgE Class CLASS 0; Mountain Cedar IgE <0.10 kU/L (<0.10); Mountain Cedar IgE Class CLASS 0; Mouse Urine IgE Class CLASS 0; Mouse Urine Proteins,IgE <0.10 kU/L (0.10); Nettle IgE 0.35 kU/L (<0.10); Nettle IgE Class CLASS 1; Oak IgE <0.10 kU/L (<0.10); Penicillium chrysogenum IgE <0.10 kU/L (<0.10); Penicillium chrysogenum IgE Cl CLASS 0; Rough Marshelder IgE <0.10 kU/L (<0.10); Rough Marshelder IgE Class CLASS 0; Timothy Grass IgE <0.10 kU/L (<0.10); Timothy Grass IgE Class CLASS 0; White Ash IgE Class CLASS 0
== END | disposition home or self-care (01) ==
LOC: LABWHC1 10:56
PROVIDERS: ATTEND Internal Medicine Pulmonary Disease
DX: I35.2 Nonrheumatic aortic (valve) stenosis with insufficiency (principal); I25.10 Atherosclerotic heart disease of native coronary artery without angina pectoris; J44.9 Chronic obstructive pulmonary disease, unspecified; I48.0 Paroxysmal atrial fibrillation; Z72.0 Tobacco use; E66.9 Obesity, unspecified; R06.00 Dyspnea, unspecified
CPT/HCPCS: 36415; 80076; 82103; 82104; 82785; 85025; 86003

== ENCOUNTER → 2022-10-12 | Outpatient (CLI) | payer BC ==
--- NOTE | 2022-10-13 07:44 | XR ---
EXAMINATION TYPE: XR lumbar spine 2 or 3V DATE OF EXAM: 10/12/2022 COMPARISON: None HISTORY: Low back pain x5 days TECHNIQUE: 3 view lumbar spine FINDINGS: There are 5 lumbar-type vertebral bodies. Pedicles are intact. Spondylosis is present. Vert ebral body heights are preserved. Some posterior disc space narrowing is present T12-L1 and to a mild degree L1-2 and L3-4. IMPRESSION: 1. No suspicious acute changes lumbar spine. 2. Mild spondylosis
== END | disposition home or self-care (01) ==
LOC: RADXRMAIN 10:28
PROVIDERS: ATTEND Internal Medicine
DX: M47.816 Spondylosis without myelopathy or radiculopathy, lumbar region (principal)
CPT/HCPCS: 72100

== ENCOUNTER 2023-03-13 07:59 | Observation (INO) | payer BC ==
--- NOTE | 2023-03-13 08:44 | ED ---
General Adult HPI - General Chief complaint: Shortness of Breath Stated complaint: IFEOMA Time Seen by Provider: 03/13/23 08:13 Source: patient Mode of arrival: ambulatory Limitations: no limitations - History of Present Illness Initial comments: Dictation was produced using [employer] dictation software. please excuse any grammatical, word or spelling errors. Chief Complaint: 58-year-old male past medical history of A. fib, coronary arter y disease, CABG presents to the ER for shortness of breath History of Present Illness: Patient is a 58-year-old male presents to the emergency department for shortness of breath. He arrives to the ER with his partner. Patient has been having shortness of breath worsening for the last month. He was seen by primary care doctor and was given follow-up with the engine monitor. He states that he did not regain much information or worker from the engine monitor. Patient complains of swelling in his legs. He does have a mild throat congestion however denies any odynophagia or sore throat. No fever or chills or night sweats. Patient has no history of heart failure. States that his symptoms are worse with exertion and lying flat. Denies any symptoms while at rest. The ROS documented in this emergency department record has been reviewed and confirmed by me. Those systems with pertinent positive or negative responses have been documented in the HPI. All other systems are other negative and/or noncontributory. - Related Data Home Medications Medication Instructions Recorded Confirmed Ezetimibe [Zetia] 10 mg PO DAILY 03/21/21 08/13/22 Metoprolol Tartrate [Lopressor] 100 mg PO BID 03/11/22 08/13/22 Amiodarone [Cordarone] 200 mg PO DAILY 08/13/22 08/13/22 Tamsulosin [Flomax] 0.4 mg PO DAILY 08/13/22 08/13/22 buPROPion [Wellbutrin] 100 mg PO BID 08/13/22 08/13/22 lisinopriL 30 mg PO DAILY 08/13/22 08/13/22 Previous Rx's Medication Instructions Recorded Apixaban [Eliquis] 5 mg PO BID #60 tab 04/27/17 Aspirin 81 mg PO DAILY chew 04/27/17 Atorvastatin [Lipitor] 80 mg PO DAILY #30 tab 11/01/17 Albuterol Inhaler [Ventolin Hfa 1 - 2 puff INHALATION Q6HR PRN #2 08/13/22 Inhaler] each Azithromycin [Zithromax Tri-Oscar (3 500 mg PO DAILY 3 Days #3 tab 08/13/22 tabs)] predniSONE [Deltasone] 40 mg PO DAILY #8 tab 08/13/22 Allergies Allergy/AdvReac Type Severity Reaction Status Date / Time No Known Allergies Allergy Verified 03/13/23 08:09 Review of Systems ROS Statement: Those systems with pertinent positive or pertinent negative responses have been documented in the HPI. ROS Other: All systems not noted in ROS Statement are negative. Past Medical History Past Medical History: Atrial Fibrillation, Coronary Artery Disease (CAD), Hyperlipidemia, Hypertension, Myocardial Infarction ([place]) Additional Past Medical History / Comment(s): "Bruised liver". Last Myocardial Infarction Date:: 09/15/2014 History of Any Multi-Drug Resistant Organisms: None Reported Past Surgical History: Cardiac Valve Replacement, Coronary Bypass/CABG, Heart Catheterization, Pacemaker Additional Past Surgical History / Comment(s): 2 vessel CABG 2011. Past Anesthesia/Blood Transfusion Reactions: No Reported Reaction Type of Cardiac Device: AICD Device Placement Date:: 04/2021 Past Psychological History: No Psychological Hx Reported Smoking Status: Former smoker Past Alcohol Use History: Occasional Past Drug Use History: None Reported - Past Family History Mother Family Medical History: Cancer Father Family Medical History: Cancer Additional Family Medical History / Comment(s): No biological children. Brother(s) Family Medical History: Myocardial Infarction ([place]) General Exam - General Exam Comments Initial Comments: PHYSICAL EXAM: General Impression: Alert and oriented x3, not in acute distress HEENT: Normocephalic atraumatic, extra-ocular movements intact, pupils equal and reactive to light bilaterally, mucous membranes moist. Cardiovascular: Heart regular rate and rhythm Chest: Able to complete full sentences, no retractions, no tachypnea, diffuse crackles posteriorly Abdomen: abdomen soft, non-tender, non-distended, no organomegaly Musculoskeletal: Pulses present and equal in all extremities, 2+ pitting edema Motor: no focal deficits noted Neurological: CN II-XII grossly intact, no focal motor or sensory deficits noted Skin: Intact with no visualized rashes Psych: Normal affect and mood Limitations: no limitations Course Vital Signs 09/03/13/23 03/13/23 08:07 08:19 08:21 Temperature 98 F Pulse Rate 78 80 Respiratory 22 20 20 Rate Blood Pressure 156/104 161/109 O2 Sat by Pulse 97 95 Oximetry EKG Findings - EKG Comments: EKG Findings:: My EKG interpretation: Ventricular rate 79, a flutter, QRS 90, QTc 458. no QTC prolongation, no ST or T-wave changes noted. EKG compared to 08/13/2022 showing no changes. Overall, this EKG is unremarkable Medical Decision Making - Medical Decision Making Was pt. sent in by a medical professional or institution (, PA, LINE SERVICER, urgent care, hospital, or correction...) When possible be specific @ -No Did you speak to anyone other than the patient for history (EMS, parent, family, police, friend...)? What history was obtained from this source @ -No Did you review nursing and triage notes (agree or disagree)? Why? @ -I reviewed and agree with nursing and triage notes Were old charts reviewed (outside hosp., previous admission, EMS record, old EKG, old radiological studies, urgent care reports/EKG's, correction records)? Report findings @ -No old charts were reviewed Differential Diagnosis (chest pain, altered mental status, abdominal pain women, abdominal pain men, vaginal bleeding, musculoskeletal, weakness, fever, dyspnea, syncope, headache, dizziness, GI bleed, back pain, seizure, CVA, palpatations, mental health)? @ -Differential Dyspnea: Coronary syndrome, arrhythmia, tamponade, asthma, COPD, pulmonary embolism, pneumonia, pneumothorax, pulmonary effusion, anaphylaxis, diabetic ketoacidosis, flailed chest, pulmonary contusion, diaphragmatic rupture, anemia, neuromuscular, this is not meant to be an all-inclusive list. EKG interpreted by me (3pts min.). @ -see above X-rays interpreted by me (1pt min.). @ -Chest x-ray suspicious for heart failure CT interpreted by me (1pt min.). @ -None done U/S interpreted by me (1pt. min.). @ -None done What testing was considered but not performed or refused? (CT, X-rays, U/S, labs)? Why? @ -None What meds were considered but not given or refused? Why? @ -None Did you discuss the management of the patient with other professionals (professionals i.e. DrTina, PA, LINE SERVICER, lab, RT, psych nurse, social worker palliative care, corporate sales manager, teacher, transport corps officer, case packer and sealer)? Give summary @ -Discussed with hospitalist for admission Was smoking cessation discussed for >3mins.? @ -No Was critical care preformed (if so, how long)? @ -No Were there social determinants of health that impacted care today? How? (Homelessness, low income, unemployed, alcoholism, drug addiction, transportation, low edu. Level, literacy, decrease access to med. care, long term, rehab)? @ -No Was there de-escalation of care discussed even if they declined (Discuss DNR or withdrawal of care, Hospice)? DNR status @ -No What co-morbidities impacted this encounter? (DM, HTN, Smoking, COPD, CAD, Cancer, CVA, ARF, Chemo, Hep., AIDS, mental health diagnosis, sleep apnea, morbi d obesity)? @ -None Was patient admitted / discharged? Hospital course, mention meds given and route, prescriptions, significant lab abnormalities, going to OR and other pertinent info. @ -Year-old male presents emergency department for symptoms suspicious for heart failure. Patient has a history of heart failure. Vital signs are stable. Labs suggest heart failure. X-ray suggests heart failure. Patient Lasix will be admitted with consultation to cardiology for new onset heart failure. Patient given Lasix. Undiagnosed new problem with uncertain prognosis? @ -No Drug Therapy requiring intensive monitoring for toxicity (Heparin, Nitro, Insulin, Cardizem)? @ -No Were any procedures done? @ -No Diagnosis/symptom? Acute, or Chronic, or Acute on Chronic? Uncomplicated (without systemic symptoms) or Complicated (systemic symptoms)? @ -1. New-onset heart failure Side effects of treatment? @ -No Exacerbation, Progression, or Severe Exacerbation? @ -No Poses a threat to life or bodily function? How? (Chest pain, USA, MS, pneumonia, PE, COPD, DKA, ARF, appy, cholecystitis, CVA, Diverticulitis, Homicidal, Suicidal, threat to staff... and all critical care pts) @ -yes - Lab Data Result diagrams: 03/13/23 08:40 03/13/23 08:40 Lab Results 09/03/13/23 03/13/23 Range/Units 08:40 08:40 08:40 WBC 9.7 (3.8-10.6) k/uL RBC 3.48 L (4.30-5.90) m/uL Hgb 12.3 L (13.0-17.5) gm/dL Hct 37.8 L (39.0-53.0) % MCV 108.4 H (80.0-100.0) fL MCH 35.4 H (25.0-35.0) pg MCHC 32.6 (31.0-37.0) g/dL RDW 13.6 (11.5-15.5) % Plt Count 186 (150-450) k/uL MPV 8.5 Neutrophils % 78 % Lymphocytes % 12 % Monocytes % 6 % Eosinophils % 2 % Basophils % 0 % Neutrophils # 7.6 (1.3-7.7) k/uL Lymphocytes # 1.2 (1.0-4.8) k/uL Monocytes # 0.6 (0-1.0) k/uL Eosinophils # 0.2 (0-0.7) k/uL Basophils # 0.0 (0-0.2) k/uL Manual Slide Review Performed Macrocytosis Marked A PT 14.7 H (9.0-12.0) sec INR 1.5 H (<1.2) APTT 25.8 (22.0-30.0) sec Sodium 139 (137-145) mmol/L Potassium 5.0 (3.5-5.1) mmol/L Chloride 109 H (98-107) mmol/L Carbon Dioxide 22 (22-30) mmol/L Anion Gap 8 mmol/L BUN 48 H (9-20) mg/dL Creatinine 1.78 H (0.66-1.25) mg/dL Est GFR (CKD-EPI)AfAm 47 (>60 ml/min/1.73 sqM) Est GFR (CKD-EPI)NonAf 41 (>60 ml/min/1.73 sqM) Glucose 106 H (74-99) mg/dL Calcium 8.8 (8.4-10.2) mg/dL Magnesium 1.7 (1.6-2.3) mg/dL Total Bilirubin 0.8 (0.2-1.3) mg/dL AST 72 H (17-59) U/L ALT 76 H (4-49) U/L Alkaline Phosphatase 66 (38-126) U/L Troponin I (0.000-0.034) ng/mL NT-Pro-B Natriuret Pep 3670 pg/mL Total Protein 6.0 L (6.3-8.2) g/dL Albumin 3.7 (3.5-5.0) g/dL Influenza Type A (PCR) (Not Detectd) Influenza Type B (PCR) (Not Detectd) RSV (PCR) (Not Detectd) SARS-CoV-2 (PCR) (Not Detectd) 03/13/23 03/13/23 Range/Units 08:40 08:40 WBC (3.8-10.6) k/uL RBC (4.30-5.90) m/uL Hgb (13.0-17.5) gm/dL Hct (39.0-53.0) % MCV (80.0-100.0) fL MCH (25.0-35.0) pg MCHC (31.0-37.0) g/dL RDW (11.5-15.5) % Plt Count (150-450) k/uL MPV Neutrophils % % Lymphocytes % % Monocytes % % Eosinophils % % Basophils % % Neutrophils # (1.3-7.7) k/uL Lymphocytes # (1.0-4.8) k/uL Monocytes # (0-1.0) k/uL Eosinophils # (0-0.7) k/uL Basophils # (0-0.2) k/uL Manual Slide Review Macrocytosis PT (9.0-12.0) sec INR (<1.2) APTT (22.0-30.0) sec Sodium (137-145) mmol/L Potassium (3.5-5.1) mmol/L Chloride (98-107) mmol/L Carbon Dioxide (22-30) mmol/L Anion Gap mmol/L BUN (9-20) mg/dL Creatinine (0.66-1.25) mg/dL Est GFR (CKD-EPI)AfAm (>60 ml/min/1.73 sqM) Est GFR (CKD-EPI)NonAf (>60 ml/min/1.73 sqM) Glucose (74-99) mg/dL Calcium (8.4-10.2) mg/dL Magnesium (1.6-2.3) mg/dL Total Bilirubin (0.2-1.3) mg/dL AST (17-59) U/L ALT (4-49) U/L Alkaline Phosphatase (38-126) U/L Troponin I <0.012 (0.000-0.034) ng/mL NT-Pro-B Natriuret Pep pg/mL Total Protein (6.3-8.2) g/dL Albumin (3.5-5.0) g/dL Influenza Type A (PCR) Not Detected (Not Detectd) Influenza Type B (PCR) Not Detected (Not Detectd) RSV (PCR) Not Detected (Not Detectd) SARS-CoV-2 (PCR) Not Detected (Not Detectd) Disposition Clinical Impression: Congestive heart failure Disposition: ADMITTED IP TO THIS HOSP Condition: Fair Referrals: Kassi Lopez MD [Primary Care Provider] - 1-2 days Decision Time: 10:00
[2023-03-13 08:59] LABS: ALT 76 U/L (4-49); AST 72 U/L (17-59); African American GFR (CKD) 47 (>60 ml/min/1.73 sqM); Albumin 3.7 g/dL (3.5-5.0); Alkaline Phosphatase 66 U/L (38-126); Anion Gap 8 mmol/L; Basophils % (A) 0 %; Blood Urea Nitrogen 48 mg/dL (9-20); Calcium 8.8 mg/dL (8.4-10.2); Carbon Dioxide 22 mmol/L (22-30); Chloride 109 mmol/L (98-107); Eosinophils # (A) 0.2 k/uL (0-0.7); Eosinophils % (A) 2 %; Glucose 106 mg/dL (74-99); HCT 37.8 % (39.0-53.0); HGB 12.3 gm/dL (13.0-17.5); Lymphocytes # (A) 1.2 k/uL (1.0-4.8); Lymphocytes % (A) 12 %; MCH 35.4 pg (25.0-35.0); MCHC 32.6 g/dL (31.0-37.0); MCV 108.4 fL (80.0-100.0); Macrocytosis Marked; Magnesium 1.7 mg/dL (1.6-2.3); Mean Platelet Volume 8.5; Monocytes # (A) 0.6 k/uL (0-1.0); Monocytes % (A) 6 %; Neutrophils # (A) 7.6 k/uL (1.3-7.7); Neutrophils % (A) 78 %; Non-African American GFR(CKD) 41 (>60 ml/min/1.73 sqM); Platelet Count 186 k/uL (150-450); RBC 3.48 m/uL (4.30-5.90); RDW 13.6 % (11.5-15.5); Sodium 139 mmol/L (137-145); Total Bilirubin 0.8 mg/dL (0.2-1.3); WBC 9.7 k/uL (3.8-10.6)
[2023-03-13 09:06] LABS: INR 1.5 (<1.2); Partial Thromboplastin Time 25.8 sec (22.0-30.0); Prothrombin Time 14.7 sec (9.0-12.0)
--- NOTE | 2023-03-13 09:06 | XR ---
EXAMINATION TYPE: XR chest 2V DATE OF EXAM: 03/13/2023 COMPARISON: 08/13/2022 HISTORY: Shortness of breath TECHNIQUE: Frontal and lateral views of the chest are obtained. FINDINGS: Scattered senescent parenchymal changes noted. Hyperinflation compatible with COPD. There is cardiomegaly with pulmonary venous congestion and interstitial edema. Sternotomy wires media stinal clips noted as well as pacer device.. Mediastinal structures are stable and grossly unremarkable. No evidence for hilar prominence. Degenerative changes dorsal spine. IMPRESSION: 1. There is cardiomegaly with pulmonary venous congestion and interstitial edema.
[2023-03-13 09:07] LABS: NT-Pro-B-Type Natriuretic Pept 3670 pg/mL
[2023-03-13] MEDS ORDERED: FUROSEMIDE 10 MG/ML 4 ML VIAL IV STA (10:37)
[2023-03-13] MEDS ORDERED: ASPIRIN 325 MG TAB PO STA (11:06)
[2023-03-13] MEDS: FUROSEMIDE 40 MG TAB PO SCH ×3 (11:17→22:57)
[2023-03-13] MEDS ORDERED: ALBUTEROL NEBULIZED 2.5 MG/3 ML INHALATION PRN (15:32)
[2023-03-13] MEDS: METOPROLOL TARTRATE 50 MG TAB PO SCH (20:07)
[2023-03-13] MEDS: APIXABAN 5 MG TAB PO SCH (20:08)
[2023-03-13] MEDS: buPROPion 100 MG TAB PO SCH (20:57)
--- NOTE | 2023-03-13 22:39 | P.HPIM ---
History of Present Illness H&P Date: 03/13/23 Chief Complaint: Shortness of breath Patient is a 58-year-old male with a known history of atrial fibrillation on anticoagulation with Eliquis and is on follow-up with EP clinic, considering ablation, coronary disease with history of two-vessel CABG and valve replacement, history of NC, hypertension, hyperlipidemia and history of pacemaker placement and prior history of smoking and alcohol use presents to ER with complaints of worsening shortness of breath. Patient states that patient has been having shortness of breath for the past 1 month and worsened during the last 2 days. Patient is also complaining of increased leg swelling. Increased throat congestion also. Denies any fever or chills. Cough without any sputum production. Orthopnea. No PND. Patient denies any prior history of CHF. Denies any recent illnesses otherwise. Patient states that she follows with cardiology and pulmonary as an outpatient. Chest x-ray on admission showed there is cardiomegaly with pulmonary venous congestion and interstitial edema. Patient had echocardiogram on 03/23/2021 showed moderate concentric left ventricular hypertrophy, ejection fraction 55% and severely dilated LA. Patient underwent cardioversion on 03/12/2022. EKG on admission showed atrial flutter/tachycardia. Heart rate 79. Laboratory data showed WBC 9.7 hemoglobin 12.3 and platelets 186. Sodium 139 potassium 5.0 chloride 109 bicarb is 22 BUN 40 and creatinine 1.78 AST 72 ALT 76 and alk phos 66. Troponin less than 0.012 and proBNP 3670 and protein level is 6.0. Review of Systems Constitutional: Patient denies any fever or chills . no Generalized weakness. Abdomen: Patient denied any nausea or vomiting or abd. pain Cardiovascular: Patient denies any chest pain. Patient does have short of breath no palpitations. Worsening leg swelling. Respiratory: patient denied any cough . no sputum production. Positive for shortness of breath Neurologic: Patient denied any numbness or tingling headache. Musculoskeletal: Patient denies any complaints of joint swelling or deformity. Skin: Negative Psychiatric: Negative Endocrine: No heat or cold intolerance. No recent weight gain. Genitourinary: No dysuria or hematuria. All other 14 point ROS negative except the above Past Medical History Past Medical History: Atrial Fibrillation, Coronary Artery Disease (CAD), Hyperlipidemia, Hypertension, Myocardial Infarction ([place]) Additional Past Medical History / Comment(s): "Bruised liver". Last Myocardial Infarction Date:: 09/15/2014 History of Any Multi-Drug Resistant Organisms: None Reported Past Surgical History: Cardiac Valve Replacement, Coronary Bypass/CABG, Heart Catheterization, Pacemaker Additional Past Surgical History / Comment(s): 2 vessel CABG 2011. Past Anesthesia/Blood Transfusion Reactions: No Reported Reaction Type of Cardiac Device: AICD Device Placement Date:: 04/2021 Past Psychological History: No Psychological Hx Reported Smoking Status: Former smoker Past Alcohol Use History: Occasional Past Drug Use History: None Reported - Past Family History Mother Family Medical History: Cancer Father Family Medical History: Cancer Additional Family Medical History / Comment(s): No biological children. Brother(s) Family Medical History: Myocardial Infarction ([place]) Medications and Allergies Home Medications Medication Instructions Recorded Confirmed Type Apixaban [Eliquis] 5 mg PO BID #60 tab 04/27/17 03/13/23 Rx Aspirin 81 mg PO DAILY chew 04/27/17 03/13/23 Rx Atorvastatin [Lipitor] 80 mg PO DAILY #30 tab 04/27/17 03/13/23 Rx Ezetimibe [Zetia] 10 mg PO DAILY 03/21/21 03/13/23 History Metoprolol Tartrate [Lopressor] 100 mg PO BID 03/11/22 03/13/23 History Amiodarone [Cordarone] 200 mg PO DAILY 08/13/22 03/13/23 History Tamsulosin [Flomax] 0.4 mg PO DAILY 08/13/22 03/13/23 History buPROPion [Wellbutrin] 100 mg PO BID 08/13/22 03/13/23 History lisinopriL 30 mg PO DAILY 08/13/22 03/13/23 History Albuterol Inhaler [Ventolin Hfa 1 - 2 puff INHALATION RT-Q6H PRN 03/13/23 03/13/23 History Inhaler] Finasteride [Proscar] 5 mg PO DAILY 03/13/23 03/13/23 History Multivitamins, Thera [Multivitamin 1 tab PO DAILY 03/13/23 03/13/23 History (formulary)] Allergies Allergy/AdvReac Type Severity Reaction Status Date / Time No Known Allergies Allergy Verified 03/13/23 12:49 Physical Exam Vitals: Vital Signs Temp Pulse Resp BP Pulse Ox 03/13/23 11:15 97.2 F L 85 18 136/104 98 03/13/23 08:21 20 03/13/23 08:19 80 20 161/109 95 03/13/23 08:07 98 F 78 22 156/104 97 Intake and Output 03/13/23 03/13/23 03/13/23 06:59 14:59 22:59 Other: Weight 110.223 kg PHYSICAL EXAMINATION: Patient is lying in the bed. Mildly acute distress, awake alert and oriented.. HEENT: Normocephalic. Neck is supple. Pupils reactive. Nostrils clear. Oral cavity is moist. Neck reveals no JVD, carotid bruits, or thyromegaly. CHEST EXAMINATION: Trachea is central. Symmetrical expansion. Bibasilar diminished sounds. No wheezing or rhonchi.. CARDIAC: Normal S1, S2 with no gallops. No murmurs. Irregularly irregular rhythm. ABDOMEN: Soft. Bowel sounds present. Nontender. No organomegaly. No abdominal bruits. Extremities: Bilateral 2+ pedal edema. No clubbing or cyanosis Neurologically awake, alert, oriented x3 with well-coordinated movements. No focal deficits noted Skin: No rash or skin lesions. Psychiatric: Coperative. Nonsuicidal, Musculoskeletal: No joint swelling or deformity. Normal range of motion. Results CBC & Chem 7: 03/13/23 08:40 03/13/23 08:40 Labs: Abnormal Lab Results - Last 24 Hours (Table) 03/13/23 03/13/23 03/13/23 Range/Units 08:40 08:40 08:40 RBC 3.48 L (4.30-5.90) m/uL Hgb 12.3 L (13.0-17.5) gm/dL Hct 37.8 L (39.0-53.0) % MCV 108.4 H (80.0-100.0) fL MCH 35.4 H (25.0-35.0) pg Macrocytosis Marked A PT 14.7 H (9.0-12.0) sec INR 1.5 H (<1.2) Chloride 109 H (98-107) mmol/L BUN 48 H (9-20) mg/dL Creatinine 1.78 H (0.66-1.25) mg/dL Glucose 106 H (74-99) mg/dL AST 72 H (17-59) U/L ALT 76 H (4-49) U/L Total Protein 6.0 L (6.3-8.2) g/dL Thrombosis Risk Factor Assmnt - DVT/VTE Prophylaxis DVT/VTE Prophylaxis: Pharmacologic Prophylaxis ordered Assessment and Plan Assessment: Acute CHF. Previous echocardiogram showed LV contraction 55% on 03/17/2021 Chronic atrial fibrillation on anticoagulation with Eliquis and is also maintained on amiodarone. Acute kidney injury. Possible cardiorenal. Baseline creatinine 1.02 and creatinine 1.78 on admission. Mild transaminitis Macrocytosis with prior history of alcohol abuse. Rule out B12 and folate deficiency. History of NC Coronary artery disease history of CABG 2 vessel History of valve replacement History of permanent pacemaker placement Prior history of smoking Obesity BMI 38.1 DVT prophylaxis patient is already Eliquis Plan: Patient will be continued on IV Lasix 40 mg twice daily and monitor renal function closely. Will be started back on metoprolol and amiodarone and also anticoagulation with Eliquis. Continue with telemetry monitoring. Cardiology consult and follow-up closely. Continue with home medications. Time with Patient: Greater than 30
[2023-03-14] MEDS ORDERED: ASPIRIN 325 MG TAB PO SCH (09:00)
[2023-03-14] MEDS: ATORVASTATIN 80 MG TAB PO SCH (09:02)
[2023-03-14] MEDS: APIXABAN 5 MG TAB PO SCH ×2 (09:02→20:07)
[2023-03-14] MEDS: ASPIRIN 81 MG PO SCH (09:02)
[2023-03-14] MEDS: TAMSULOSIN 0.4 MG CAP.ER.24H PO SCH (09:02)
[2023-03-14] MEDS: METOPROLOL TARTRATE 50 MG TAB PO SCH ×2 (09:03→20:08)
[2023-03-14] MEDS: FINASTERIDE 5 MG TAB PO SCH (09:03)
[2023-03-14] MEDS: AMIODARONE 200 MG TAB PO SCH (09:03)
[2023-03-14] MEDS: EZETIMIBE 10 MG TAB PO SCH (09:03)
[2023-03-14] MEDS: buPROPion 100 MG TAB PO SCH ×2 (09:03→20:08)
[2023-03-14] MEDS: ACETAMINOPHEN TAB 325 MG TAB PO PRN ×2 (09:09→20:07)
[2023-03-14] MEDS: FUROSEMIDE 10 MG/ML 4 ML VIAL IV SCH ×2 (09:10→20:08)
[2023-03-14] MEDS: FUROSEMIDE 40 MG TAB PO SCH (09:13)
[2023-03-14 09:16] LABS: Basophils % (A) 0 %; Eosinophils # (A) 0.3 k/uL (0-0.7); Eosinophils % (A) 3 %; HCT 38.9 % (39.0-53.0); HGB 12.4 gm/dL (13.0-17.5); Lymphocytes # (A) 1.5 k/uL (1.0-4.8); Lymphocytes % (A) 15 %; MCH 34.7 pg (25.0-35.0); MCV 108.6 fL (80.0-100.0); Monocytes # (A) 0.6 k/uL (0-1.0); Monocytes % (A) 6 %; Neutrophils # (A) 7.6 k/uL (1.3-7.7); Neutrophils % (A) 75 %; Platelet Count 167 k/uL (150-450); RBC 3.58 m/uL (4.30-5.90); WBC 10.3 k/uL (3.8-10.6)
[2023-03-14 09:25] LABS: Macrocytosis Marked
[2023-03-14 09:32] LABS: African American GFR (CKD) 52 (>60 ml/min/1.73 sqM); Anion Gap 9 mmol/L; Blood Urea Nitrogen 39 mg/dL (9-20); Calcium 8.9 mg/dL (8.4-10.2); Carbon Dioxide 30 mmol/L (22-30); Chloride 95 mmol/L (98-107); Glucose 187 mg/dL (74-99); Non-African American GFR(CKD) 45 (>60 ml/min/1.73 sqM); Potassium 3.9 mmol/L (3.5-5.1); Sodium 134 mmol/L (137-145)
--- NOTE | 2023-03-14 10:12 | P.NPCON ---
History of Present Illness - Reason for Consult acute renal failure - History of Present Illness Reason for consultation: Acute kidney injury History of present illness: Patient is a 58-year-old male seen in renal consultation for acute kidney injury. Patient baseline creatinine is near 1 from July 2022. Patient's creatinine on admission was 1.70 Kirill 1.64 today. Patient came to the hospital due to shortness of breath which she states has been gradually worsening over the last couple of weeks. Patient states it got worse over the weekend which brought him to the hospital. Patient states he has been eating more salty foods that he should and also drinks quite a bit of fluids. Chest x-ray suggestive of CHF. He denies history of diabetes. He denies history of coronary artery disease. Denies use of nonsteroidals. Denies family history of renal disease. Admits to good urine output. Denies gross hematuria or dysuria. No chest pain. Patient was on oral diuretics on admission and is now on 40 mg IV twice daily of Lasix. Vital signs are stable. General: No acute distress. HEENT: Head exam is unremarkable. LUNGS: No audible rhonchi or wheezes. HEART: Rate and Rhythm are regular. ABDOMEN: Nontender, obese. EXTREMITITES: Trace edema. Past Medical History Past Medical History: Atrial Fibrillation, Coronary Artery Disease (CAD), Hyperlipidemia, Hypertension, Myocardial Infarction ([place]) Additional Past Medical History / Comment(s): "Bruised liver". Last Myocardial Infarction Date:: 09/15/2014 History of Any Multi-Drug Resistant Organisms: None Reported Past Surgical History: Cardiac Valve Replacement, Coronary Bypass/CABG, Heart Catheterization, Pacemaker Additional Past Surgical History / Comment(s): 2 vessel CABG 2011. Past Anesthesia/Blood Transfusion Reactions: No Reported Reaction Type of Cardiac Device: AICD Device Placement Date:: 04/2021 Past Psychological History: No Psychological Hx Reported Smoking Status: Former smoker Past Alcohol Use History: Occasional Past Drug Use History: None Reported - Past Family History Mother Family Medical History: Cancer Father Family Medical History: Cancer Additional Family Medical History / Comment(s): No biological children. Brother(s) Family Medical History: Myocardial Infarction ([place]) Medications and Allergies Home Medications Medication Instructions Recorded Confirmed Type Apixaban [Eliquis] 5 mg PO BID #60 tab 04/27/17 03/13/23 Rx Aspirin 81 mg PO DAILY chew 04/27/17 03/13/23 Rx Atorvastatin [Lipitor] 80 mg PO DAILY #30 tab 04/27/17 03/13/23 Rx Ezetimibe [Zetia] 10 mg PO DAILY 03/21/21 03/13/23 History Metoprolol Tartrate [Lopressor] 100 mg PO BID 03/11/22 03/13/23 History Amiodarone [Cordarone] 200 mg PO DAILY 08/13/22 03/13/23 History Tamsulosin [Flomax] 0.4 mg PO DAILY 08/13/22 03/13/23 History buPROPion [Wellbutrin] 100 mg PO BID 08/13/22 03/13/23 History lisinopriL 30 mg PO DAILY 08/13/22 03/13/23 History Albuterol Inhaler [Ventolin Hfa 1 - 2 puff INHALATION RT-Q6H PRN 03/13/23 03/13/23 History Inhaler] Finasteride [Proscar] 5 mg PO DAILY 03/13/23 03/13/23 History Multivitamins, Thera [Multivitamin 1 tab PO DAILY 03/13/23 03/13/23 History (formulary)] Allergies Allergy/AdvReac Type Severity Reaction Status Date / Time No Known Allergies Allergy Verified 03/13/23 12:49 Physical Exam Vitals: Vital Signs Temp Pulse Pulse Resp BP BP Pulse Ox 03/14/23 08:00 65 18 147/99 97 03/14/23 04:00 69 17 148/89 95 03/13/23 23:58 69 17 145/85 95 03/13/23 20:00 97.9 F 69 17 139/85 95 03/13/23 17:36 98.4 F 74 16 142/95 98 03/13/23 16:48 98.2 F 75 18 108/81 96 03/13/23 11:15 97.2 F L 85 18 136/104 98 Intake and Output 03/13/23 03/14/23 03/14/23 22:59 06:59 14:59 Intake Total 250 180 Output Total 625 300 Balance -375 -300 180 Intake: IV 10 Invasive Line 1 10 Oral 240 180 Output: Urine 625 300 Other: Voiding Method Toilet Toilet # Voids 2 Weight 107.4 kg Results - Lab Results Most recent lab results Calcium 8.9 mg/dL (8.4-10.2) 03/14/23 08:24 Magnesium 1.7 mg/dL (1.6-2.3) 03/13/23 08:40 03/14/23 08:24 03/14/23 08:24 Assessment and Plan Plan: Assessment: 1. Acute kidney injury secondary to ATN secondary to cardiorenal syndrome. Creatinine 1.78 on admission and is 1.64 today. Baseline creatinine near 1 from July 2022. 2. Volume overload. 3. Benign hypertension. Stable. Plan: Maintain IV Lasix. Low-salt diet. 1500 mL fluid restriction. Follow-up echocardiogram. Check renal ultrasound. Check UA. Continue to monitor renal function and urine output. Thank you for the consultation. I will continue to follow the patient with you during his hospital stay.
--- NOTE | 2023-03-14 11:04 | P.CRDCN ---
History of Present Illness History of present illness: HISTORY OF PRESENT ILLNESS: This is a 58-year-old male with a past medical history significant for coronary artery disease with previous CABG and aortic valve replacement, atrial fibrillation, ischemic cardiomyopathy and AICD implantation, hypertension, hyperlipidemia, and former nicotine dependence. Patient follows in the office with Dr. Mercer. We have been asked to see the patient in consultation for congestive heart failure. Patient examined at the bedside. Patient states he has been feeling short of breath for the past 2-3 weeks. He reports he has been having swelling in his lower extremities. He states that he went to see his PCP and was prescribed an inhaler. He presented to the hospital yesterday with worsening shortness of breath. The patient was found to be in acute congestive heart failure. He was started on oral diuretics. The patient reports improvement in his shortness of breath this morning. * EKG reveals atrial fibrillation with controlled ventricular rate * Chest xray cardiomegaly with pulmonary venous congestion and interstitial edema * Laboratory data: WBC 10.3. Hemoglobin 12.4. Platelet count 167. Sodium 134. Potassium 3.9. BUN 39. Creatinine 1.64. Troponin negative 1. ProBNP 3670. * Current home cardiac medications include Eliquis 5mg BID, amiodarone 200 mg daily, aspirin 81 mg daily, Lipitor 80 mg daily, metoprolol tartrate 100 mg twice a day, lisinopril 30 mg daily, and Zetia 10 mg daily * Most recent echocardiogram obtained in February 2022 revealed ejection fraction 27%, prosthetic aortic valve, [id number] MR * Cardiac catheterization history: February 2021 revealing chronically occluded mid LAD, patent saphenous vein graft to the LAD, 1+ aortic regurgitation and bioprosthetic aortic valve. REVIEW OF SYSTEMS: At the time of my exam: CONSTITUTIONAL: Denies fever or chills. HEENT: Denies blurred vision, vision changes, or eye pain. Denies hemoptysis CARDIOVASCULAR: Denies chest pain. Denies orthopnea. Denies PND. Denies palpitations RESPIRATORY: Denies shortness of breath. GASTROINTESTINAL: Denies abdominal pain. Denies nausea or vomiting. HEMATOLOGIC: Denies bleeding disorders. GENITOURINARY: Denies any blood in urine. SKIN: Denies pruitis. Denies rash. PHYSICAL EXAM: VITAL SIGNS: Reviewed. GENERAL: Well-developed in no acute distress. HEENT: Head is normocephalic. Pupils are equal, round. Sclerae anicteric. Mucous membranes of the mouth are moist. Neck supple. No JVD or thyromegaly LUNGS: Respirations even and unlabored. Lungs with a few crackles noted in left lower base HEART: Regular rate and rhythm. S1 and S2 heard. Systolic murmur noted. ABDOMEN: Soft. Nondistended. Nontender. EXTREMITIES: Normal range of motion. No clubbing or cyanosis. Peripheral pulses intact. No lower extremity edema NEUROLOGIC: Awake and alert. Oriented x 3. ASSESSMENT: Shortness of breath Acute heart failure with reduced ejection fraction, EF 27% in 2021 Acute kidney injury History of CABG 1 vessel, VGLAD, September 2011 History of aortic valve replacement, 2011 Paroxysmal atrial fibrillation Ischemic cardiomyopathy History of AICD implantation History of ventricular tachycardia Hypertension Hyperlipidemia Former nicotine dependence PLAN: Obtain 2-D echo to assess cardiac structure and function Resume home cardiac medications Change Lasix to 40 mg IV every 12 hours Daily weights, accurate I&O, and monitoring of kidney function Further recommendations pending patient's course Nurse practitioner note has been reviewed by physician. Signing provider agrees with the documented findings, assessment, and plan of care. Past Medical History Past Medical History: Atrial Fibrillation, Coronary Artery Disease (CAD), Hyperlipidemia, Hypertension, Myocardial Infarction (RI) Additional Past Medical History / Comment(s): "Bruised liver". Last Myocardial Infarction Date:: 09/15/2014 History of Any Multi-Drug Resistant Organisms: None Reported Past Surgical History: Cardiac Valve Replacement, Coronary Bypass/CABG, Heart Catheterization, Pacemaker Additional Past Surgical History / Comment(s): 2 vessel CABG 2011. Past Anesthesia/Blood Transfusion Reactions: No Reported Reaction Type of Cardiac Device: AICD Device Placement Date:: 04/2021 Past Psychological History: No Psychological Hx Reported Smoking Status: Former smoker Past Alcohol Use History: Occasional Past Drug Use History: None Reported - Past Family History Mother Family Medical History: Cancer Father Family Medical History: Cancer Additional Family Medical History / Comment(s): No biological children. Brother(s) Family Medical History: Myocardial Infarction (RI) Medications and Allergies Home Medications Medication Instructions Recorded Confirmed Type Apixaban [Eliquis] 5 mg PO BID #60 tab 04/27/17 03/13/23 Rx Aspirin 81 mg PO DAILY chew 04/27/17 03/13/23 Rx Atorvastatin [Lipitor] 80 mg PO DAILY #30 tab 04/27/17 03/13/23 Rx Ezetimibe [Zetia] 10 mg PO DAILY 03/21/21 03/13/23 History Metoprolol Tartrate [Lopressor] 100 mg PO BID 03/11/22 03/13/23 History Amiodarone [Cordarone] 200 mg PO DAILY 08/13/22 03/13/23 History Tamsulosin [Flomax] 0.4 mg PO DAILY 08/13/22 03/13/23 History buPROPion [Wellbutrin] 100 mg PO BID 08/13/22 03/13/23 History lisinopriL 30 mg PO DAILY 08/13/22 03/13/23 History Albuterol Inhaler [Ventolin Hfa 1 - 2 puff INHALATION RT-Q6H PRN 03/13/23 03/13/23 History Inhaler] Finasteride [Proscar] 5 mg PO DAILY 03/13/23 03/13/23 History Multivitamins, Thera [Multivitamin 1 tab PO DAILY 03/13/23 03/13/23 History (formulary)] Allergies Allergy/AdvReac Type Severity Reaction Status Date / Time No Known Allergies Allergy Verified 03/13/23 12:49 Physical Exam Vitals: Vital Signs Temp Pulse Pulse Resp BP BP Pulse Ox 03/14/23 08:00 65 18 147/99 97 03/14/23 04:00 69 17 148/89 95 03/13/23 23:58 69 17 145/85 95 03/13/23 20:00 97.9 F 69 17 139/85 95 03/13/23 17:36 98.4 F 74 16 142/95 98 03/13/23 16:48 98.2 F 75 18 108/81 96 03/13/23 11:15 97.2 F L 85 18 136/104 98 Intake and Output 03/13/23 03/14/23 03/14/23 22:59 06:59 14:59 Intake Total 250 180 Output Total 625 300 Balance -375 -300 180 Intake: IV 10 Invasive Line 1 10 Oral 240 180 Output: Urine 625 300 Other: Voiding Method Toilet Toilet # Voids 2 Weight 107.4 kg Results 03/14/23 08:24 03/14/23 08:24 CBC 09/18/23 Range/Units 08:24 WBC 10.3 (3.8-10.6) k/uL RBC 3.58 L (4.30-5.90) m/uL Hgb 12.4 L (13.0-17.5) gm/dL Hct 38.9 L (39.0-53.0) % Plt Count 167 (150-450) k/uL Comprehensive Metabolic Panel 03/14/23 Range/Units 08:24 Sodium 134 L (137-145) mmol/L Potassium 3.9 (3.5-5.1) mmol/L Chloride 95 L (98-107) mmol/L Carbon Dioxide 30 (22-30) mmol/L BUN 39 H (9-20) mg/dL Creatinine 1.64 H (0.66-1.25) mg/dL Glucose 187 H (74-99) mg/dL Calcium 8.9 (8.4-10.2) mg/dL Current Medications Generic Name Dose Route Start Last Admin Trade Name Freq PRN Reason Stop Dose Admin Acetaminophen 650 mg 03/14/23 09:04 03/14/23 09:09 Acetaminophen Tab 325 Mg Tab PO 650 mg Q6HR PRN Administration Fever and/ or Pain Albuterol Sulfate 2.5 mg 03/13/23 15:32 Albuterol Nebulized 2.5 Mg/3 Ml INHALATION RT-Q6H PRN Difficulty breathing Amiodarone HCl 200 mg 03/14/23 09:00 03/14/23 09:03 Amiodarone 200 Mg Tab PO 200 mg DAILY MARVIN Administration Apixaban 5 mg 03/13/23 21:00 03/14/23 09:02 Apixaban 5 Mg Tab PO 5 mg BID MARVIN Administration Protocol Aspirin 81 mg 03/14/23 09:00 03/14/23 09:02 Aspirin 81 Mg PO 81 mg DAILY MARVIN Administration Atorvastatin Calcium 80 mg 03/14/23 09:00 03/14/23 09:02 Atorvastatin 80 Mg Tab PO 80 mg DAILY MARVIN Administration Bupropion HCl 100 mg 03/13/23 21:00 03/14/23 09:03 Bupropion 100 Mg Tab PO 100 mg BID MARVIN Administration Ezetimibe 10 mg 03/14/23 09:00 03/14/23 09:03 Ezetimibe 10 Mg Tab PO 10 mg DAILY MARVIN Administration Finasteride 5 mg 03/14/23 09:00 03/14/23 09:03 Finasteride 5 Mg Tab PO 5 mg DAILY MARVIN Administration Furosemide 40 mg 03/14/23 09:00 03/14/23 09:10 Furosemide 10 Mg/Ml 4 Ml Vial IV 40 mg Q12HR MARVIN Administration Metoprolol Tartrate 100 mg 03/13/23 21:00 03/14/23 09:03 Metoprolol Tartrate 50 Mg Tab PO 100 mg BID MARVIN Administration Tamsulosin HCl 0.4 mg 03/14/23 09:00 03/14/23 09:02 Tamsulosin 0.4 Mg Cap.Er.24h PO 0.4 mg DAILY MARVIN Administration Intake and Output 03/13/23 03/14/23 03/14/23 22:59 06:59 14:59 Intake Total 250 180 Output Total 625 300 Balance -375 -300 180 Intake: IV 10 Invasive Line 1 10 Oral 240 180 Output: Urine 625 300 Other: Voiding Method Toilet Toilet # Voids 2 Weight 107.4 kg 03/14/23 08:24 03/14/23 08:24
--- NOTE | 2023-03-14 11:43 | US ---
EXAMINATION TYPE: US kidneys/renal and bladder DATE OF EXAM: 03/14/2023 COMPARISON: Abdominal ultrasound 10/12/2016 CLINICAL INDICATION: Male, 58 years old with history of tere; Abnormal labs. Portable inpatient exam EXAM MEASUREMENTS: Right Kidney: 11.1 x 5.4 x 5.6 cm Left Kidney: 10.7 x 4.8 x 5.6 cm Right Kidney: No prominent hydronephrosis or masses seen Left Kidney: No prominent hydronephrosis or masses seen Bladder: distended, anechoic Bilateral Jets not seen There is no evidence for hydronephrosis at this point in time. Cortical medullary differentiation is maintained bilaterally. No nephrolithiasis is seen. No masses are identified. The urinary bladder is anechoic. IMPRESSION: No hydronephrosis or nephrolithiasis.
[2023-03-14 12:54] LABS: Appearance,Urine Clear (Clear); Bilirubin,Urine Negative (Negative); Blood,Urine Negative (Negative); Color,Urine Colorless; Glucose,Urine (UA) Negative (Negative); Ketones,Urine Negative (Negative); Leukocyte Esterase,Urine Negative (Negative); Nitrite,Urine Negative (Negative); PH, Urine 6.5 (5.0-8.0); Protein,Urine Negative (Negative); Specific Gravity,Urine 1.005 (1.001-1.035); Urobilinogen,Urine <2.0 mg/dL (<2.0)
[2023-03-14 14:06] VITALS: BMI 37.0
--- NOTE | 2023-03-14 14:32 | P.PN ---
Subjective Progress Note Date: 03/14/23 HISTORY OF PRESENT ILLNESS This is a 58 year old male with past medical history of coronary artery disease with previous CABG and aortic valve replacement, paroxysmal atrial fibrillation, ischemic cardiomyopathy, AICD implantation, hypertension, hyperlipidemia, remote history of tobacco use and dependence. Patient presented to the hospital due to worsening shortness of breath and was diagnosed with acute congestive heart failure and started on oral diuretics. He states he had worsening lower extremity edema which is improved at the time of this evaluation. He also states that shortness of breath is improved. He is able to lay flat in bed now. He is complaining of a hoarse voice and occasional cough. Patient has been seen by cardiology with recommendations for IV Lasix every 12 hours and echocardiogram. Patient is also been seen by nephrology for acute kidney injury secondary to ATN secondary to cardiorenal syndrome with recommendations to IV Lasix, low-salt diet, 1500 mL fluid restriction, renal ultrasound and UA. Creatinine today is 1.64, BUN 39, sodium 134, potassium 3.9, chloride 95, CO2 30. WBC 10.3, hemoglobin 12.4 and platelet count 167. Renal ultrasound revealed no hydronephrosis or nephrolithiasis. REVIEW OF SYSTEMS Constitutional: No fever, no chills, no night sweats. No weight change. No weakness, fatigue or lethargy. No daytime sleepiness. EENT: No headache. No blurred vision or double vision, no loss of vision. No loss of Hearing, no ringing in the ears, no dizziness. No nasal drainage or congestion. No epistaxis. No sore throat. Lungs: + shortness of breath, cough, no sputum production. No wheezing. Cardiovascular: No chest pain, + lower extremity edema. No palpitations. No paroxysmal nocturnal dyspnea. + orthopnea, improved. No lightheadedness or dizziness. No syncopal episodes. Abdominal: No abdominal pain. No nausea, vomiting. No diarrhea. No constipation. No bloody or tarry stools. No loss of appetite. Genitourinary: No dysuria, increased frequency, urgency. No urinary retention. Musculoskeletal: No myalgias. No muscle weakness, no gait dysfunction, no frequent falls. No back pain. No neck pain. Integumentary: No wounds, no lesions. No rash or pruritus. No unusual bruising. No change in hair or nails. Neurologic: No aphasia. No facial droop. No change in mentation. No head injury. No headache. No paralysis. No paresthesia. Psychiatric: No depression. No anxiety. No mood swings. Endocrine: No abnormal blood sugars. No weight change. PHYSICAL EXAMINATION Gen: This is a 58-year-old obese male. He is resting in bed and appears to be comfortable and in no acute distress HEENT: Head is atraumatic, normocephalic. Pupils equal, round. Sclerae is anicteric. NECK: Supple. No JVD. No lymphadenopathy. No thyromegaly. LUNGS: Few crackles at the bases No wheezes or rhonchi. No intercostal ret ractions. HEART: Regular rate and rhythm. Systolic urmur. ABDOMEN: Soft. Bowel sounds are present. No masses. No tenderness. EXTREMITIES: Trace edal edema. No calf tenderness. NEUROLOGICAL: Patient is awake, alert and oriented x3. Cranial nerves 2 through 12 are grossly intact. ASSESSMENT AND PLAN 1. Acute systolic heart failure. Continue patient on Lasix 40 mg IV every 12 hours, monitor I&O and daily weights, echocardiogram ordered. Cardiology consult appreciated 2. Acute kidney injury. Continue IV Lasix, low-salt diet, 1500 mL fluid restriction, consult with nephrology appreciated. Renal ultrasound negative for hydronephrosis and nephrolithiasis. 3. Coronary artery disease status post CABG. Continue patient on aspirin 81 mg daily, atorvastatin 80 mg daily, Lopressor 100 mg twice daily 4. History of aortic valve replacement, stable. 5. Paroxysmal atrial fibrillation. Continue patient on eliquis 5 mg twice daily, amiodarone 200 mg daily, metoprolol tartrate 100 mg twice daily 6. Ischemic cardiomyopathy status post AICD implantation, stable. 7. History of ventricular tachycardia, stable. 8. Hypertension. Continue patient on amiodarone, Lopressor. 9. Hyperlipidemia. Continue patient on atorvastatin. 10. Recurrent depression. Continue Wellbutrin 100 mg twice daily. 11. Benign prostatic hypertrophy. Continue Flomax or 0.4 mg daily and finast eride 5 mg daily. 12. GI prophylaxis. Protonix 40 mg daily. 13. DVT prophylaxis. Continue patient on eliquis. DISCHARGE PLAN Return home Impression and plan of care have been directed as dictated by the signing physician. Mira Cisneros nurse practitioner acting as scribe for signing physic eugene. Objective - Vital Signs Vital signs: Vital Signs Temp 97.9 F 03/13/23 20:00 Pulse 65 03/14/23 08:00 Resp 18 03/14/23 08:00 BP 147/99 03/14/23 08:00 Pulse Ox 97 03/14/23 08:00 FiO2 Intake & Output 03/13/23 03/14/23 03/14/23 18:59 06:59 18:59 Intake Total 245 5 180 Output Total 625 300 Balance -380 -295 180 Weight 110.223 kg 107.4 kg Intake: IV 5 5 Invasive Line 1 5 5 Oral 240 180 Output: Urine 625 300 Other: Voiding Method Toilet Toilet # Voids 2 - Labs CBC & Chem 7: 03/14/23 08:24 03/14/23 08:24 Labs: Abnormal Lab Results - Last 24 Hours (Table) 03/14/23 03/14/23 Range/Units 08:24 08:24 RBC 3.58 L (4.30-5.90) m/uL Hgb 12.4 L (13.0-17.5) gm/dL Hct 38.9 L (39.0-53.0) % MCV 108.6 H (80.0-100.0) fL Macrocytosis Marked A Sodium 134 L (137-145) mmol/L Chloride 95 L (98-107) mmol/L BUN 39 H (9-20) mg/dL Creatinine 1.64 H (0.66-1.25) mg/dL Glucose 187 H (74-99) mg/dL
--- NOTE | 2023-03-14 14:55 | CA ---
Transthoracic Echo Report Name: Marquis Buckley Age: 58 Gender: M : 1965 Exam Date: 03/14/2023 11:31 Exam Location: [facility] Ht (in): 67 Wt (lb): 236 Ordering Physician: Ivy Baltazar Attending/Referring Phys: [id number], Giovanny Status Controller Rosales Addison Procedure CPT: Indications: LV function, CHF Cardiac Hx: Technical Quality: Fair Contrast 1: Total Dose (mL): Contrast 2: Total Dose (mL): MEASUREMENTS (Male / Female) Normal Values 2D ECHO LV Diastolic Diameter PLAX 4.8 cm 4.2 - 5.9 / 3.9 - 5.3 cm LV Systolic Diameter PLAX 3.7 cm IVS Diastolic Thickness 1.7 cm 0.6 - 1.0 / 0.6 - 0.9 cm LVPW Diastolic Thickness 1.3 cm 0.6 - 1.0 / 0.6 - 0.9 cm LV Relative Wall Thickness 0.6 RV Internal Dim ED PLAX 3.0 cm LVOT Diameter 2.3 cm Aortic Root Diameter 3.9 cm LA Systolic Diameter LX 2.8 cm 3.0 - 4.0 / 2.7 - 3.8 cm LV Diastolic Volume MOD BP 70.6 cm??? 67 - 155 / 56 - 104 cm??? LV Systolic Volume MOD BP 32.0 cm??? / 19 - 49 cm??? LV Ejection Fraction MOD BP 54.6 % >= 55 % LV Cardiac Index MOD BP 1192.4 cm???/min???m??? LV Diastolic Volume MOD 4C 92.6 cm??? LV Systolic Volume MOD 4C 34.7 cm??? LV Ejection Fraction MOD 4C 62.6 % LV Cardiac Index MOD 4C 1791.1 cm???/min???m??? LV Diastolic Length 4C 7.5 cm LV Systolic Length 4C 6.0 cm LV Diastolic Volume MOD 2C 42.7 cm??? LV Systolic Volume MOD 2C 29.0 cm??? LV Ejection Fraction MOD 2C 32.1 % LV Cardiac Index MOD 2C 423.5 cm???/min???m??? LV Diastolic Length 2C 5.9 cm LV Systolic Length 2C 5.8 cm LA Volume 105.0 cm??? 18 - 58 / 22 - 52 cm??? Ascending Aorta Diameter 3.6 cm DOPPLER AV Peak Velocity 282.0 cm/s AV Peak Gradient 31.8 mmHg AV Mean Velocity 208.9 cm/s AV Mean Gradient 20.2 mmHg AV Velocity Time Integral 60.0 cm AI Peak Velocity 332.9 cm/s AI Peak Gradient 44.3 mmHg AI Pressure Half Time 897.5 ms LVOT Peak Velocity 69.2 cm/s LVOT Peak Gradient 1.9 mmHg LVOT Velocity Time Integral 14.0 cm LVOT Stroke Volume 60.7 cm??? LVOT Stroke Volume Index 28.0 ml/m??? LVOT Cardiac Index 1876.3 cm???/min???m??? AV Area Cont Eq vti 1.0 cm??? AV Area Cont Eq pk 1.1 cm??? MV Peak Velocity 107.6 cm/s MV Peak Gradient 4.6 mmHg MV Mean Velocity 47.3 cm/s MV Mean Gradient 1.2 mmHg MV Velocity Time Integral 22.3 cm MR Peak Velocity 490.9 cm/s MR Peak Gradient 96.4 mmHg Mitral E Point Velocity 84.6 cm/s Mitral A Point Velocity 30.6 cm/s Mitral E to A Ratio 2.8 MV Deceleration Time 228.1 ms MV E' Velocity 9.8 cm/s Mitral E to MV E' Ratio 8.7 TR Peak Velocity 243.0 cm/s TR Peak Gradient 23.6 mmHg Right Ventricular Systolic Press 28.6 mmHg PV Peak Velocity 73.2 cm/s PV Peak Gradient 2.1 mmHg FINDINGS Left Ventricle Normal LV size. Mild concentric LVH. Left ventricular ejection fraction is estimated at 40-45 %. Right Ventricle Normal right ventricular size. RVSP= 29mmHg. Right Atrium Right Atrium upper limits in size. RA area= 19.8cm2. Left Atrium Moderate left atrial dilatation. LA volume index= 48ml/m2 Mitral Valve Structurally normal mitral valve. Mild to moderate MR. Aortic Valve Porcine AV prosthesis. Tricuspid Valve Structurally normal tricuspid valve. Mild TR. Pulmonic Valve Pulmonic valve not well visualized. Trace PI. Pericardium Normal pericardium. Aorta Mildly dilated aortic annulus. CONCLUSIONS Left ventricular ejection fraction 40-45% RVSP 29 Moderately dilated left atrium Mild to moderate mitral regurgitation Normally functioning bioprosthetic aortic valve Mild tricuspid regurgitation Previewed by: Dr. Jim Lam DO (Electronically Signed) Final Date: 14 March 2023 14:54
[2023-03-14 20:49] VITALS: TEMP 97.9
[2023-03-14] MEDS ORDERED: MELATONIN 3 MG TABLET PO SCH (21:00)
[2023-03-15] MEDS ORDERED: PANTOPRAZOLE 40 MG TABLET PO SCH (07:30)
[2023-03-15 09:05] VITALS: RESP 18
[2023-03-15] MEDS: buPROPion 100 MG TAB PO SCH (09:09)
[2023-03-15] MEDS: EZETIMIBE 10 MG TAB PO SCH (09:09)
[2023-03-15] MEDS: FUROSEMIDE 10 MG/ML 4 ML VIAL IV SCH (09:09)
[2023-03-15] MEDS: ASPIRIN 81 MG PO SCH (09:09)
[2023-03-15] MEDS: FINASTERIDE 5 MG TAB PO SCH (09:09)
[2023-03-15] MEDS: TAMSULOSIN 0.4 MG CAP.ER.24H PO SCH (09:09)
[2023-03-15] MEDS: METOPROLOL TARTRATE 50 MG TAB PO SCH (09:10)
[2023-03-15] MEDS: APIXABAN 5 MG TAB PO SCH (09:10)
[2023-03-15] MEDS: AMIODARONE 200 MG TAB PO SCH (09:10)
[2023-03-15] MEDS: ATORVASTATIN 80 MG TAB PO SCH (09:10)
[2023-03-15 10:12] LABS: African American GFR (CKD) 48 (>60 ml/min/1.73 sqM); Anion Gap 7 mmol/L; Blood Urea Nitrogen 44 mg/dL (9-20); Calcium 8.9 mg/dL (8.4-10.2); Carbon Dioxide 30 mmol/L (22-30); Chloride 102 mmol/L (98-107); Glucose 127 mg/dL (74-99); Magnesium 1.7 mg/dL (1.6-2.3); Non-African American GFR(CKD) 41 (>60 ml/min/1.73 sqM); Potassium 4.8 mmol/L (3.5-5.1); Sodium 139 mmol/L (137-145)
--- NOTE | 2023-03-15 10:45 | P.PN ---
Subjective Patient is seen in follow-up for acute kidney injury. Renal function stable. On IV Lasix. Admits to good urine output. Edema improved. No active complaints. Vital signs are stable. General: No acute distress. HEENT: Head exam is unremarkable. LUNGS: No audible rhonchi or wheezes. HEART: Rate and Rhythm are regular. ABDOMEN: Non-tender. EXTREMITITES: Trace edema. Objective - Vital Signs Vital signs: Vital Signs Temp 97.9 F 03/14/23 20:00 Pulse 80 03/15/23 09:51 Resp 18 03/15/23 09:51 BP 130/90 03/15/23 09:02 Pulse Ox 95 03/15/23 09:02 FiO2 Intake & Output 03/14/23 03/15/23 03/15/23 18:59 06:59 18:59 Intake Total 180 180 180 Output Total 300 Balance 180 -120 180 Weight 107.4 kg 105.4 kg Intake: Oral 180 180 180 Output: Urine 300 Other: Voiding Method Toilet Toilet # Voids 1 - Labs CBC & Chem 7: 03/14/23 08:24 03/15/23 08:20 Labs: Abnormal Lab Results - Last 24 Hours (Table) 03/15/23 Range/Units 08:20 BUN 44 H (9-20) mg/dL Creatinine 1.76 H (0.66-1.25) mg/dL Glucose 127 H (74-99) mg/dL Assessment and Plan Plan: Assessment: 1. Acute kidney injury secondary to ATN secondary to cardiorenal syndrome. Creatinine 1.78 on admission and is stable at 1.76 today. Baseline creatinine near 1 from July 2022. UA benign. No hydronephrosis noted on renal ultrasound. 2. Volume overload. Improved with diuresis. 3. Benign hypertension. Stable. 4. Acute systolic CHF with an ejection fraction of 40-45% and mild to moderate mitral regurgitation. Plan: Lasix changed to oral. Low-salt diet. 1500 mL fluid restriction. Continue to monitor renal function and urine output. Advised patient to monitor his weight closely at home and to notify physician if develops edema or gains more than 3-4 pounds in one week duration. Follow up outpatient in 1 week.
--- NOTE | 2023-03-15 11:46 | P.PN ---
Subjective HISTORY OF PRESENT ILLNESS: This is a 58-year-old male with a past medical history significant for coronary artery disease with previous CABG and aortic valve replacement, atrial fibrillation, ischemic cardiomyopathy and AICD implantation, hypertension, hyperlipidemia, and former nicotine dependence. Patient follows in the office with Dr. Mercer. We have been asked to see the patient in consultation for congestive heart failure. Patient examined at the bedside. Patient states he has been feeling short of breath for the past 2-3 weeks. He reports he has been having swelling in his lower extremities. He states that he went to see his PCP and was prescribed an inhaler. He presented to the hospital yesterday with w orsening shortness of breath. The patient was found to be in acute congestive heart failure. He was started on oral diuretics. The patient reports improvement in his shortness of breath this morning. * EKG reveals atrial fibrillation with controlled ventricular rate * Chest xray cardiomegaly with pulmonary venous congestion and interstitial edema * Laboratory data: WBC 10.3. Hemoglobin 12.4. Platelet count 167. Sodium 134. Potassium 3.9. BUN 39. Creatinine 1.64. Troponin negative 1. ProBNP 3670. * Current home cardiac medications include Eliquis 5mg BID, amiodarone 200 mg daily, aspirin 81 mg daily, Lipitor 80 mg daily, metoprolol tartrate 100 mg twice a day, lisinopril 30 mg daily, and Zetia 10 mg daily * Most recent echocardiogram obtained in February 2022 revealed ejection frac tion 27%, prosthetic aortic valve, [id number] MR * Cardiac catheterization history: February 2021 revealing chronically occluded mid LAD, patent saphenous vein graft to the LAD, 1+ aortic regurgitation and bioprosthetic aortic valve. 03/15/2023 Patient examined this morning. Patient denies chest pain or pressure. He denies shortness. He remains on IV Lasix. Echocardiogram completed revealing ejection fraction 40-45%. PHYSICAL EXAM: VITAL SIGNS: Reviewed. GENERAL: Well-developed in no acute distress. HEENT: Head is normocephalic. Pupils are equal, round. Sclerae anicteric. Mucous membranes of the mouth are moist. Neck supple. No JVD or thyromegaly LUNGS: Respirations even and unlabored. Lungs clear bilaterally. HEART: Regular rate and rhythm. S1 and S2 heard. Systolic murmur noted. ABDOMEN: Soft. Nondistended. Nontender. EXTREMITIES: Normal range of motion. No clubbing or cyanosis. Peripheral pulses intact. No lower extremity edema NEUROLOGIC: Awake and alert. Oriented x 3. ASSESSMENT: Shortness of breath Acute heart failure with reduced ejection fraction, EF 27% in 2021, now 4045% Acute kidney injury History of CABG 1 vessel, VGLAD, September 2011 History of aortic valve replacement, 2011 Paroxysmal atrial fibrillation Ischemic cardiomyopathy History of AICD implantation History of ventricular tachycardia Hypertension Hyperlipidemia Former nicotine dependence PLAN: Continue current cardiac medications Discontinue IV Lasix. Resume oral Lasix 40 mg daily. Patient may be discharged home today from a cardiac standpoint Nurse practitioner note has been reviewed by physician. Signing provider agrees with the documented findings, assessment, and plan of care. Objective - Vital Signs Vital signs: Vital Signs Temp 97.9 F 03/14/23 20:00 Pulse 80 03/15/23 09:51 Resp 18 03/15/23 09:51 BP 130/90 03/15/23 09:02 Pulse Ox 95 03/15/23 09:02 FiO2 Intake & Output 03/14/23 03/15/23 03/15/23 18:59 06:59 18:59 Intake Total 180 180 180 Output Total 300 Balance 180 -120 180 Weight 107.4 kg 105.4 kg Intake: Oral 180 180 180 Output: Urine 300 Other: Voiding Method Toilet Toilet # Voids 1 - Labs CBC & Chem 7: 03/14/23 08:24 03/15/23 08:20 Labs: Abnormal Lab Results - Last 24 Hours (Table) 03/15/23 Range/Units 08:20 BUN 44 H (9-20) mg/dL Creatinine 1.76 H (0.66-1.25) mg/dL Glucose 127 H (74-99) mg/dL
[2023-03-15 12:47] VITALS: BP 128/89; PULSE 86
--- NOTE | 2023-03-15 15:04 | P.DS ---
Providers Date of admission: 03/13/23 11:06 Expected date of discharge: 03/15/23 Attending physician: Kassi Lopez Consults: 03/13/23 16:32 Consult Physician Routine Consulting Provider: Charles Ko Consult Reason/Comments: heart failure Do you want consulting provider notified?: Already Contacted 03/13/23 22:39 Consult Physician Routine Consulting Provider: Yrn Medel Consult Reason/Comments: CLEMENT[place] Do you want consulting provider notified?: Yes, Notify in am Primary care physician: Kassi Lopez Hospital Course: HISTORY OF PRESENT ILLNESS This is a 58 year old male with past medical history of coronary artery disease with previous CABG and aortic valve replacement, paroxysmal atrial fibrillation, ischemic cardiomyopathy, AICD implantation, hypertension, hyperlipidemia, remote history of tobacco use and dependence. Patient presented to the hospital due to worsening shortness of breath and was diagnosed with acute congestive heart failure and started on oral diuretics. He states he had worsening lower extremity edema which is improved at the time of this evaluation. He also states that shortness of breath is improved. He is able to lay flat in bed now. He is complaining of a hoarse voice and occasional cough. Patient has been seen by cardiology with recommendations for IV Lasix every 12 hours and echocardiogram. Patient is also been seen by nephrology for acute kidney injury secondary to ATN secondary to cardiorenal syndrome with recommendations to IV Lasix, low-salt diet, 1500 mL fluid restriction, renal ultrasound and UA. Creatinine today is 1.64, BUN 39, sodium 134, potassium 3.9, chloride 95, CO2 30. WBC 10.3, hemoglobin 12.4 and platelet count 167. Renal ultrasound revealed no hydronephrosis or nephrolithiasis. 03/15: Patient is seen today in follow-up. Patient has been seen by cardiology this morning and changed IV Lasix to oral 40 mg daily. Patient states his breathing status is much improved and he is anxious to be discharged home today. Blood pressure 128/89, heart rate is in the 80s. Pulse ox 95% on room air. Repeat blood work reveals sodium 139, potassium 4.8, BUN 44 and creatinine 1.76. Echocardiogram reveals EF of 40-45%, RVSP 29, [id number] mitral regurgitation, normally functioning bioprosthetic aortic valve. Mild tricuspid regurgitation. Patient will be discharged home today in stable condition. DISCHARGE DIAGNOSES 1. Acute systolic heart failure. 2. Acute kidney injury. 3. Coronary artery disease status post CABG. 4. History of aortic valve replacement, stable. 5. Paroxysmal atrial fibrillation. 6. Ischemic cardiomyopathy status post AICD implantation, stable. 7. History of ventricular tachycardia, stable. 8. Hypertension. 9. Hyperlipidemia. 10. Recurrent depression. 11. Benign prostatic hypertrophy. DISCHARGE PLAN Return home Greater than 35 minutes was utilized and coordinating patient's discharge. Impression and plan of care have been directed as dictated by the signing physician. Mira Cisneros nurse practitioner acting as scribe for signing physician. Patient Condition at Discharge: Fair Plan - Discharge Summary Discharge Rx Participant: No New Discharge Prescriptions: New Furosemide [Lasix] 40 mg PO DAILY #30 tab Continue Apixaban [Eliquis] 5 mg PO BID #60 tab Aspirin 81 mg PO DAILY chew Atorvastatin [Lipitor] 80 mg PO DAILY #30 tab Ezetimibe [Zetia] 10 mg PO DAILY lisinopriL 30 mg PO DAILY Tamsulosin [Flomax] 0.4 mg PO DAILY Multivitamins, Thera [Multivitamin (formulary)] 1 tab PO DAILY Albuterol Inhaler [Ventolin Hfa Inhaler] 1 - 2 puff INHALATION RT-Q6H PRN PRN Reason: Difficulty breathing Metoprolol Tartrate [Lopressor] 100 mg PO BID Amiodarone [Cordarone] 200 mg PO DAILY buPROPion [Wellbutrin] 100 mg PO BID Finasteride [Proscar] 5 mg PO DAILY Discharge Medication List Apixaban [Eliquis] 5 mg PO BID #60 tab 04/27/17 [Rx] Aspirin 81 mg PO DAILY chew 04/27/17 [Rx] Atorvastatin [Lipitor] 80 mg PO DAILY #30 tab 04/27/17 [Rx] Ezetimibe [Zetia] 10 mg PO DAILY 03/21/21 [History] Metoprolol Tartrate [Lopressor] 100 mg PO BID 03/11/22 [History] Amiodarone [Cordarone] 200 mg PO DAILY 08/13/22 [History] Tamsulosin [Flomax] 0.4 mg PO DAILY 08/13/22 [History] buPROPion [Wellbutrin] 100 mg PO BID 08/13/22 [History] lisinopriL 30 mg PO DAILY 08/13/22 [History] Albuterol Inhaler [Ventolin Hfa Inhaler] 1 - 2 puff INHALATION RT-Q6H PRN 03/13/23 [History] Finasteride [Proscar] 5 mg PO DAILY 03/13/23 [History] Multivitamins, Thera [Multivitamin (formulary)] 1 tab PO DAILY 03/13/23 [History] Furosemide [Lasix] 40 mg PO DAILY #30 tab 03/15/23 [Rx] Follow up Appointment(s)/Referral(s): Kassi Lopez MD [Primary Care Provider] - 03/21/23 11:30 am Patient Instructions/Handouts: Heart Failure (DC) Discharge Disposition: HOME SELF-CARE
[2023-03-16] MEDS ORDERED: FUROSEMIDE 40 MG TAB PO SCH (09:00)
== END 2023-03-15 15:40 | disposition home or self-care (01) ==
LOC: EC 07:59 → 3SCARD 11:06
PROVIDERS: ADMIT Internal Medicine; ATTEND Internal Medicine
DX: I13.0 Hypertensive heart and chronic kidney disease with heart failure and stage 1 through stage 4 chronic kidney disease, or unspecified chronic kidney disease (principal); N18.9 Chronic kidney disease, unspecified; N17.0 Acute kidney failure with tubular necrosis; I50.21 Acute systolic (congestive) heart failure; I25.10 Atherosclerotic heart disease of native coronary artery without angina pectoris; I48.20 Chronic atrial fibrillation, unspecified; I25.5 Ischemic cardiomyopathy; I47.20 Ventricular tachycardia, unspecified; I25.2 Old myocardial infarction; E78.5 Hyperlipidemia, unspecified; F32.A Depression, unspecified; N40.0 Benign prostatic hyperplasia without lower urinary tract symptoms; R74.01 Elevation of levels of liver transaminase levels; D75.89 Other specified diseases of blood and blood-forming organs; E87.70 Fluid overload, unspecified; F10.11 Alcohol abuse, in remission; E66.9 Obesity, unspecified; Z68.36 Body mass index [BMI] 36.0-36.9, adult; Z79.01 Long term (current) use of anticoagulants; Z79.82 Long term (current) use of aspirin; Z79.899 Other long term (current) drug therapy; Z95.810 Presence of automatic (implantable) cardiac defibrillator; Z95.2 Presence of prosthetic heart valve; Z95.1 Presence of aortocoronary bypass graft; Z87.891 Personal history of nicotine dependence; Z82.49 Family history of ischemic heart disease and other diseases of the circulatory system; Z80.9 Family history of malignant neoplasm, unspecified
CPT/HCPCS: 96376 ×2; 96374; 99285; 36415; 93005; 93306; 82747; 83880; 80053; 80048 ×2; 82607; 83735 ×2; 84484; 85025 ×2; 85610; 85730; 81003; 87636; 71046; 76770; G0378 ×3; S0138 ×2; J1940 ×3

== ENCOUNTER → 2023-04-13 | Outpatient (CLI) | payer BC ==
[2023-04-13 10:07] LABS: African American GFR (CKD) 44 (>60 ml/min/1.73 sqM); Anion Gap 8 mmol/L; Blood Urea Nitrogen 36 mg/dL (9-20); Carbon Dioxide 26 mmol/L (22-30); Chloride 103 mmol/L (98-107); Glucose 96 mg/dL (74-99); Non-African American GFR(CKD) 38 (>60 ml/min/1.73 sqM); Sodium 137 mmol/L (137-145)
[2023-04-13 10:15] LABS: NT-Pro-B-Type Natriuretic Pept 1170 pg/mL
== END | disposition home or self-care (01) ==
LOC: LABWHC1 08:51
PROVIDERS: ATTEND Internal Medicine Interventional Cardiology
DX: I25.5 Ischemic cardiomyopathy (principal); I50.22 Chronic systolic (congestive) heart failure
CPT/HCPCS: 36415; 80048; 83880

== ENCOUNTER 2023-04-14 08:54 | Day surgery (SDC) | payer BC ==
[2023-04-12 09:03] VITALS: BMI 33.4
[~2023-04-14 08:54] MED LIST changes: +HYDROmorphone 0.5 MG/0.5 ML SYRINGE IVP PRN; +LIDOCAINE 1% (10MG/ML) FOR IV START INTRADERMA PRN; -LIDOCAINE 1% INJ 10MG/ML (20 ML MDV) ONE; +MIDAZOLAM 2 MG/2 ML VIAL IV PRN; +fentaNYL (PF) 50 MCG/ML 2 ML AMP IV PRN
[2023-04-14 09:11] LABS: Glucose,Whole Blood 103 mg/dL (70-110)
[2023-04-14] MEDS ORDERED: SODIUM CHLORIDE 0.9% 1,000 ML IV ONE ×4 (09:18→14:48)
[2023-04-14 09:22] LABS: Basophils % (A) 0 %; Eosinophils # (A) 0.3 k/uL (0-0.7); Eosinophils % (A) 3 %; HCT 47.5 % (39.0-53.0); HGB 15.3 gm/dL (13.0-17.5); Lymphocytes # (A) 2.2 k/uL (1.0-4.8); Lymphocytes % (A) 20 %; MCHC 32.3 g/dL (31.0-37.0); MCV 105.4 fL (80.0-100.0); Macrocytosis Slight; Mean Platelet Volume 8.3; Monocytes # (A) 0.7 k/uL (0-1.0); Monocytes % (A) 6 %; Neutrophils # (A) 7.5 k/uL (1.3-7.7); Neutrophils % (A) 69 %; Platelet Count 195 k/uL (150-450); RDW 12.9 % (11.5-15.5); WBC 10.9 k/uL (3.8-10.6)
[2023-04-14] MEDS ORDERED: HEPARIN SODIUM,PORCINE 10,000 UNIT/ML 1 ML VIAL ONE (09:35)
[2023-04-14] MEDS ORDERED: MIDAZOLAM 2 MG/2 ML VIAL ONE (09:35)
[2023-04-14] MEDS ORDERED: fentaNYL (PF) 50 MCG/ML 2 ML AMP ONE (09:35)
[2023-04-14] MEDS ORDERED: PHENYLEPHRINE-0.9% NACL SYG 1,000 MCG/10 ML SYRINGE ONE (09:35)
[2023-04-14] MEDS ORDERED: LIDOCAINE 1% INJ 10MG/ML (20 ML MDV) ONE (09:35)
[2023-04-14] MEDS ORDERED: ETOMIDATE 2 MG/ML 10 ML VIAL ONE (09:35)
[2023-04-14] MEDS ORDERED: ePHEDrine 50 MG/ML 1 ML VIAL ONE (09:35)
[2023-04-14] MEDS ORDERED: SUCCINYLCHOLINE CHLORIDE 200 MG/10 ML VIAL IV ONE (09:35)
[2023-04-14 09:44] LABS: African American GFR (CKD) 46 (>60 ml/min/1.73 sqM); Anion Gap 11 mmol/L; Blood Urea Nitrogen 40 mg/dL (9-20); Calcium 9.4 mg/dL (8.4-10.2); Carbon Dioxide 24 mmol/L (22-30); Chloride 102 mmol/L (98-107); Glucose 106 mg/dL (74-99); Non-African American GFR(CKD) 40 (>60 ml/min/1.73 sqM); Potassium 4.7 mmol/L (3.5-5.1); Sodium 137 mmol/L (137-145)
--- NOTE | 2023-04-14 09:58 | P.HPCAR ---
History of Present Illness This is Dr. Long dictating an H/P on this patient The patient was interviewed and examined IMPRESSION / ASSESSMENT: Persistent atrial fibrillation, symptomatic Cardio myopathy ejection fraction 40% class 2-3 congestive heart failure Bioprosthetic aortic valve functioning normally Moderate mitral regurgitation On amiodarone he has developed atrial tachycardia with a cycle length of 240 ms, confirmed on EKG today Long-standing history of smoking Increased BMI Hypertension Coronary artery disease status post coronary artery bypass grafting along with the bio- prosthetic aortic valve Single-chamber ICD in situ, QRS width 160 ms PLAN: A. fib ablation, mapping of atrial tachycardia and ablation as indicated with intracardiac mapping Continue anticoagulation HPI Patient continues to complain of shortness of breath with exertion despite adequate rate control atrial fibrillation Today he is in an organized atrial tachycardia with a cycle length 240 ms by twelve-lead EKG No fever chills cough expectoration ROS: No fever chills or rigors, no cough, phlegm or expectoration, no nausea, vomiting or diarrhea, no hematuria, dysuria, no musculoskeletal complaints, no strokes or seizures, no skin lesions. EXAMINATION: Blood pressure 11/80 6 mmHg pulse rate in the 80s afebrile Mild hepatojugular reflux Clear lungs no rhonchi no crackles S2 sound is crisp No lower extremity edema Central obesity REVIEW OF LABS, ECG & MEDICAL DATA White count 11,000, hemoglobin 15 Lites normal Creatinine 1.8 Physical Exam Vitals: Vital Signs Temp Pulse Resp BP Pulse Ox 04/14/23 09:16 97.9 F 83 16 111/86 98 Intake and Output 04/13/23 04/14/23 04/14/23 22:59 06:59 14:59 Other: Weight 104.8 kg Past Medical History Past Medical History: Atrial Fibrillation, Coronary Artery Disease (CAD), Diabetes Mellitus, Hyperlipidemia, Hypertension, Myocardial Infarction (CT) Additional Past Medical History / Comment(s): "Bruised liver". Last Myocardial Infarction Date:: 09/15/2014 History of Any Multi-Drug Resistant Organisms: None Reported Past Surgical History: AICD, Cardiac Valve Replacement, Coronary Bypass/CABG, Heart Catheterization, Pacemaker Additional Past Surgical History / Comment(s): 2 vessel CABG 2011., CARDIOVERSION Past Anesthesia/Blood Transfusion Reactions: No Reported Reaction Type of Cardiac Device: Permanent Pacemaker, AICD Device Placement Date:: 04/2021 Smoking Status: Former smoker - Past Family History Mother Family Medical History: Cancer Father Family Medical History: Cancer Additional Family Medical History / Comment(s): No biological children. Brother(s) Family Medical History: Myocardial Infarction (CT) Physical Examination Vital Signs Temp Pulse Resp BP Pulse Ox 04/14/23 09:16 97.9 F 83 16 111/86 98 Intake and Output 04/13/23 04/14/23 04/14/23 22:59 06:59 14:59 Other: Weight 104.8 kg Results 04/14/23 09:00 04/14/23 09:00 CBC 04/14/23 Range/Units 09:00 WBC 10.9 H (3.8-10.6) k/uL RBC 4.50 (4.30-5.90) m/uL Hgb 15.3 (13.0-17.5) gm/dL Hct 47.5 (39.0-53.0) % Plt Count 195 (150-450) k/uL Comprehensive Metabolic Panel 04/14/23 Range/Units 09:00 Sodium 137 (137-145) mmol/L Potassium 4.7 (3.5-5.1) mmol/L Chloride 102 (98-107) mmol/L Carbon Dioxide 24 (22-30) mmol/L BUN 40 H (9-20) mg/dL Creatinine 1.80 H (0.66-1.25) mg/dL Glucose 106 H (74-99) mg/dL Calcium 9.4 (8.4-10.2) mg/dL Current Medications Generic Name Dose Route Start Last Admin Trade Name Freq PRN Reason Stop Dose Admin Fentanyl Citrate 50 mcg 04/14/23 07:00 Fentanyl (Pf) 50 Mcg/Ml 2 Ml Amp IV 04/14/23 23:00 Q3M PRN Phase I - Pain Control Hydromorphone HCl 0.5 mg 04/14/23 07:00 Hydromorphone 0.5 Mg/0.5 Ml Syringe IVP 04/14/23 23:00 Q5M PRN Phase 1 or 2 - Pain Control Lactated Ringer's 1,000 mls @ 20 mls/hr 04/13/23 09:00 Lactated Ringers IV 05/13/23 09:01 .Q24H MARVIN Sodium Chloride 1,000 mls @ 20 mls/hr 10/19/23 07:42 Saline 0.9% IV 05/14/23 07:43 .Q24H MARVIN Lidocaine HCl 0.1 ml 04/13/23 08:59 Lidocaine 1% (10mg/Ml) For Iv Start INTRADERMA 05/13/23 09:00 PER PROTOCOL PRN IV Start Midazolam HCl 2 mg 04/14/23 07:00 Midazolam 2 Mg/2 Ml Vial IV 04/14/23 23:00 ONCE PRN Pre-Op Anxiety Intake and Output 04/13/23 04/14/23 04/14/23 22:59 06:59 14:59 Other: Weight 104.8 kg Patient Weight 04/15/23 06:59 Weight 104.8 kg 04/14/23 09:00 04/14/23 09:00
[2023-04-14] MEDS ORDERED: HEPARIN SOD,PORK IN 0.45% NACL 25,000 UNIT in 0.45% NACL 1 250ML.BAG IV ONE (10:03)
[2023-04-14] MEDS ORDERED: LIDOCAINE 1% INJ 10MG/ML (20 ML MDV) SQ ONE (10:13)
[2023-04-14] MEDS ORDERED: IOPAMIDOL-370 100ML BTL INJ ONE (11:39)
[2023-04-14] MEDS ORDERED: ACETAMINOPHEN IV (For NPO) 1,000 MG in EMPTY BAG 1 BAG IVPB ONE (12:53)
--- NOTE | 2023-04-14 13:06 | P.EPPROC ---
- EP Procedure Note Electrophysiology Procedure Note: PROCEDURE A. fib ablation. CVA, left atrial roof ablation and left atrium posterior wall ablation DIAGNOSIS Persistent Atrial fibrillation, symptomatic, refractory to therapy Atrial tachycardia secondary to 140 ms RESULT Successful A. fib ablation/pulmonary vein isolation of all veins using cryo- ablation Complete entrance block in all 4 veins confirmed No evidence for phrenic nerve injury Left atrial fibrillation, successful Ablation of the posterior wall of the left atrium from the left inferior to the right inferior pulmonary veins Esophageal deflection YES Electrical cardioversion with a synchronized shock across the chest YES PROCEDURE DETAILS Written informed consent prior to procedure. Patient brought to the EP lab. General anesthesia given. Heparin administered. ACT maintained above 300 seconds Both groins prepped and draped per protocol and venous sheaths placed. Esophagus intubated, circa catheter for temperature monitoring an endoscope for possible esophageal deflection. Phrenic nerve monitoring performed. Esophageal temperature monitoring performed. Esophageal deflection performed if circa catheter overlapping with the balloon or circa temperature less than 27.5C Intracardiac echocardiography performed. Pericardium evaluated. Left atrial appendage evaluated. Left atrium evaluated along with pulmonary veins Transseptal catheterization performed under fluoroscopic guidance and intracardiac echo guidance Cryoablation sheath exchanged, balloon catheter along with achieve catheter placed in the left atrium. The patient was persistently hypotensive despite pressors and therefore electrical cardioversion was performed. When he came to the lab he was in an atrial tachycardia cycle length of 240 ms Successful electrical cardioversion performed sinus rhythm Pulmonary veins isolated in the following sequence: Left superior pulmonary vein followed by left inferior pulmonary vein, followed by right inferior pulmonary vein and lastly right superior pulmonary vein. Phrenic nerve stimulation along with capture thresholds within the SVC and right superior pulmonary vein to identify the phrenic nerve proximity to the cryo- balloon. Pulmonary veins isolated and confirmed with entrance and exit block. Phrenic nerve integrity confirmed at the end of the procedure Ablation of the left atrial roof performed with sequential lesions from the left superior to the right superior pulmonary veins. Ablation of the electrograms confirmed Ablation of the left atrial posterior wall performed with cannulation of the of the right inferior and the left inferior pulmonary vein with sequential lesions along the lower part of the left atrial wall Ablation of electrograms confirmed Diagnostic catheters for the high right atrium, His bundle, coronary sinus placed. LA and RA pressures recorded RA pressure: 07/03/09 LA pressure: 11/11/ Diagnostic EP study with coronary sinus pacing and recording Baseline measurements: Sinus cycle length 1267, AH 136 and HV interval 80 ms CO interval 255 ms, QRS 103 ms Venous sheaths were removed and hemostasis assured with a closure device. Patient extubated and transferred to recovery PROCEDURES PERFORMED Diagnostic EP study CS pacing and recording Left and right transseptal catheterization Catheter the mapping of the tachycardia Intracardiac echocardiography Pulmonary vein isolation with transseptal and comprehensive EPS, [id number] Left atrial roof line, +[id number] Linear ablation, posterior wall left atrium, [id number] Electrical cardioversion with a synchronized shock across the chest [id number]
[2023-04-14] MEDS: LACTATED RINGERS 1,000 ML IV SCH (19:26)
[2023-04-14] MEDS: SODIUM CHLORIDE 0.9% 1,000 ML IV SCH (19:26)
[2023-04-14] MEDS: METOPROLOL TARTRATE 50 MG TAB PO SCH (19:31)
[2023-04-14] MEDS: ACETAMINOPHEN TAB 325 MG TAB PO PRN (20:14)
[2023-04-14] MEDS: buPROPion 100 MG TAB PO SCH (20:15)
[2023-04-14] MEDS: APIXABAN 5 MG TAB PO SCH (20:15)
[2023-04-14] MEDS ORDERED: HYDROcodone/APAP 5-325MG 1 EACH TAB PO STA (21:28)
[2023-04-15] MEDS: ACETAMINOPHEN TAB 325 MG TAB PO PRN (06:27)
[2023-04-15] MEDS: SODIUM CHLORIDE 0.9% 1,000 ML IV SCH (06:46)
[2023-04-15] MEDS: DAPAGLIFLOZIN PROPANEDIOL 5 MG TABLET PO SCH (07:38)
[2023-04-15] MEDS: METOPROLOL TARTRATE 50 MG TAB PO SCH (07:39)
[2023-04-15] MEDS: AMIODARONE 200 MG TAB PO SCH (07:47)
[2023-04-15] MEDS: ASPIRIN 81 MG PO SCH (07:47)
[2023-04-15] MEDS: APIXABAN 5 MG TAB PO SCH ×2 (07:47→21:20)
[2023-04-15] MEDS: EZETIMIBE 10 MG TAB PO SCH (07:47)
[2023-04-15] MEDS: ATORVASTATIN 80 MG TAB PO SCH (07:47)
[2023-04-15] MEDS: buPROPion 100 MG TAB PO SCH ×2 (07:47→21:21)
[2023-04-15] MEDS: FINASTERIDE 5 MG TAB PO SCH (07:47)
[2023-04-15] MEDS: TAMSULOSIN 0.4 MG CAP.ER.24H PO SCH (07:47)
[2023-04-15] MEDS: LACTATED RINGERS 1,000 ML IV SCH (07:48)
[2023-04-15] MEDS ORDERED: FUROSEMIDE 40 MG TAB PO SCH (09:00)
[2023-04-15] MEDS ORDERED: lisinopriL 10 MG TAB PO SCH (09:00)
--- NOTE | 2023-04-15 12:19 | P.DS ---
Providers Expected date of discharge: 04/15/23 Attending physician: Cesar Long Primary care physician: Kassi Lopez Hospital Course: HPI Yesterday, patient underwent atrial fibrillation ablation. Groin sites without issue. He has had a Ibarra placed which can be removed this morning. Patient denies having any chest pain. Heart rate is in the 50s and 60s, blood pressure 98/66.. Medications adjusted for soft blood pressures. Patient is cleared for discharge by follow-up with Dr. Mercer in one week. Patient Condition at Discharge: Good Plan - Discharge Summary Discharge Rx Participant: Yes New Discharge Prescriptions: New Amiodarone [Cordarone] 100 mg PO DAILY #90 tab Metoprolol Tartrate [Lopressor] 50 mg PO BID #180 tab Discontinued Metoprolol Tartrate [Lopressor] 100 mg PO BID Amiodarone [Cordarone] 200 mg PO DAILY No Action Apixaban [Eliquis] 5 mg PO BID #60 tab Aspirin 81 mg PO DAILY chew Atorvastatin [Lipitor] 80 mg PO DAILY #30 tab Ezetimibe [Zetia] 10 mg PO DAILY lisinopriL 30 mg PO DAILY Tamsulosin [Flomax] 0.4 mg PO DAILY Multivitamins, Thera [Multivitamin (formulary)] 1 tab PO DAILY Albuterol Inhaler [Ventolin Hfa Inhaler] 1 - 2 puff INHALATION RT-Q6H PRN PRN Reason: Difficulty breathing buPROPion [Wellbutrin] 100 mg PO BID Finasteride [Proscar] 5 mg PO DAILY Furosemide [Lasix] 40 mg PO DAILY #30 tab Empagliflozin [Jardiance] 10 mg PO DAILY Discharge Medication List Apixaban [Eliquis] 5 mg PO BID #60 tab 04/27/17 [Rx] Aspirin 81 mg PO DAILY chew 04/27/17 [Rx] Atorvastatin [Lipitor] 80 mg PO DAILY #30 tab 04/27/17 [Rx] Ezetimibe [Zetia] 10 mg PO DAILY 03/21/21 [History] Tamsulosin [Flomax] 0.4 mg PO DAILY 08/13/22 [History] buPROPion [Wellbutrin] 100 mg PO BID 08/13/22 [History] lisinopriL 30 mg PO DAILY 08/13/22 [History] Albuterol Inhaler [Ventolin Hfa Inhaler] 1 - 2 puff INHALATION RT-Q6H PRN [History] Finasteride [Proscar] 5 mg PO DAILY 03/13/23 [History] Multivitamins, Thera [Multivitamin (formulary)] 1 tab PO DAILY 03/13/23 [History] Furosemide [Lasix] 40 mg PO DAILY #30 tab 03/15/23 [Rx] Empagliflozin [Jardiance] 10 mg PO DAILY 04/12/23 [History] Amiodarone [Cordarone] 100 mg PO DAILY #90 tab 04/14/23 [Rx] Metoprolol Tartrate [Lopressor] 50 mg PO BID #180 tab 04/14/23 [Rx] Follow up Appointment(s)/Referral(s): George Mercer MD [STAFF PHYSICIAN] - 1 Week Activity/Diet/Wound Care/Special Instructions: Post EP study - Ablation instructions 1. Keep access sites dry for 2 days. 2. No heavy lifting or straining for 2 days. 3. Avoid bending the hips repeatedly for 2 days. 4. You may go up and down stairs slowly Call if the following is noted 1. Bleeding, increasing swelling or pain at the access sites. 2. Increasing chest discomfort, especially upon taking a deep breath. 3. Increasing shortness of breath, at rest or with exertion. 4. Undue cough / phlegm 5. Difficulty or pain while swallowing. 6. Pain or change in color in the extremities. 7. Fever, chills, rigors. 8. Increasing headache or neurologic symptoms. 9. Dizziness, fainting, palpitations Reduce dose of amiodarone 200 mg daily Reduce the dose of metoprolol to 50 mg twice daily Continue all other medications Continue ELIQUIS Discharge Disposition: HOME SELF-CARE
[2023-04-15] MEDS ORDERED: SODIUM CHLORIDE 0.9% 250 ML IV SCH (15:45)
[2023-04-15 19:40] LABS: African American GFR (CKD) 31 (>60 ml/min/1.73 sqM); Anion Gap 11 mmol/L; Blood Urea Nitrogen 56 mg/dL (9-20); Calcium 8.1 mg/dL (8.4-10.2); Carbon Dioxide 21 mmol/L (22-30); Chloride 99 mmol/L (98-107); Glucose 116 mg/dL (74-99); Non-African American GFR(CKD) 27 (>60 ml/min/1.73 sqM); Potassium 4.8 mmol/L (3.5-5.1); Sodium 131 mmol/L (137-145)
[2023-04-16] MEDS: SODIUM CHLORIDE 0.9% 1,000 ML IV SCH ×2 (07:03→15:00)
[2023-04-16] MEDS: ASPIRIN 81 MG PO SCH (09:14)
[2023-04-16] MEDS: APIXABAN 5 MG TAB PO SCH ×2 (09:14→20:11)
[2023-04-16] MEDS: ATORVASTATIN 80 MG TAB PO SCH (09:14)
[2023-04-16] MEDS: EZETIMIBE 10 MG TAB PO SCH (09:14)
[2023-04-16] MEDS: AMIODARONE 200 MG TAB PO SCH (09:14)
[2023-04-16] MEDS: DAPAGLIFLOZIN PROPANEDIOL 5 MG TABLET PO SCH (09:14)
[2023-04-16] MEDS: buPROPion 100 MG TAB PO SCH ×2 (09:14→20:08)
[2023-04-16] MEDS: FINASTERIDE 5 MG TAB PO SCH (09:14)
[2023-04-16] MEDS: TAMSULOSIN 0.4 MG CAP.ER.24H PO SCH (09:14)
[2023-04-16] MEDS: LACTATED RINGERS 1,000 ML IV SCH (09:17)
[2023-04-16 09:39] LABS: HCT 36.7 % (39.6-50.0); HGB 11.9 d/dL (13.0-17.0); MCH 33.9 pg (27.0-32.0); MCHC 32.4 d/dL (32.0-37.0); MCV 104.6 FL (80.0-97.0); Mean Platelet Volume 10.7 FL (9.5-12.2); NRBC Per 100 WBC 0 X 10*3/uL (0.00-0.01); Platelet Count 158 X 10*3/uL (140-440); RBC 3.51 X 10*6/uL (4.40-5.60); RDW 13.1 % (11.5-14.5); WBC 12.08 X 10*3/uL (4.50-10.00)
--- NOTE | 2023-04-16 09:44 | P.PN ---
Subjective Patient is resting comfortably in bed line mild dizziness when he walks around His blood pressure is still between 80-90 mmHg systolic After starting IV fluids yesterday his urine output has started a couple No chest discomfort dizziness or lightheadedness He has a fair amount of bruising in his groins there is no hematoma Heart sounds are normal and regular No murmurs No lower extremity edema Orthopnea PND No JVD no hepatojugular reflux Labs white count 12,000 hemoglobin 12 with IV fluids BUN 56 creatinine 2.51 Impression and plan Persistent atrial fibrillation Congestive heart failure class 2-3 with reduced LV systolic function Chronic kidney disease creatinine 1.8 at baseline Hypertension during general anesthesia despite lowering the dose of the anesthetics, IV fluids and pressors Successful completion of A. fib ablation with pulmonary vein isolation ablation of the left atrial roof and the left atrial posterior wall Worsening renal function with persistent hypotension and IV dye even though it was a small volume Renal function is now picked up and he is making urine He's been on IV fluids, normal saline Plan continue IV fluids Observe for another 24 hours Discharge home once the renal function starts to improves, although clinically kidney function has begun to improve and he has begun to make urine In the interim ELIQUIS amiodarone 60 atorvastatin will continue Metoprolol lisinopril and Lasix are on hold for the next several days He'll reevaluate tomorrow once again Today's labs pending Anticipated that his renal function will slowly improve over the next few days Objective - Vital Signs Vital signs: Vital Signs Temp 98.6 F 04/16/23 07:00 Pulse 63 04/16/23 07:00 Resp 18 04/16/23 07:00 BP 89/58 04/16/23 07:00 Pulse Ox 98 04/16/23 07:00 FiO2 Intake & Output 04/15/23 04/16/23 04/16/23 18:59 06:59 18:59 Intake Total 336 Output Total 1 Balance 336 -1 Intake: Oral 336 Output: Urine 1 Other: Voiding Method Urinal Toilet Urinal # Voids 0 2 - Labs CBC & Chem 7: 04/16/23 05:30 04/15/23 18:58 Labs: Abnormal Lab Results - Last 24 Hours (Table) 04/15/23 04/16/23 Range/Units 18:58 05:30 WBC 12.08 H (4.50-10.00) X 10*3/uL RBC 3.51 L (4.40-5.60) X 10*6/uL Hgb 11.9 L (13.0-17.0) d/dL Hct 36.7 L (39.6-50.0) % MCV 104.6 H (80.0-97.0) FL MCH 33.9 H (27.0-32.0) pg Sodium 131 L (137-145) mmol/L Carbon Dioxide 21 L (22-30) mmol/L BUN 56 H (9-20) mg/dL Creatinine 2.51 H (0.66-1.25) mg/dL Glucose 116 H (74-99) mg/dL Calcium 8.1 L (8.4-10.2) mg/dL
[2023-04-16 10:34] LABS: BUN/Creat Ratio 20.79 Ratio (12.00-20.00); Blood Urea Nitrogen 49.9 mg/dL (9.0-27.0); Calcium 8.8 mg/dL (8.7-10.3); Carbon Dioxide 19.3 mmol/L (21.6-31.8); Chloride 103 mmol/L (96-109); Glucose 105 mg/dL (70-110); Potassium 4.7 mmol/L (3.5-5.5); Sodium 136 mmol/L (135-145)
[2023-04-16 10:59] LABS: Acanthocytes 2+; Basophils # (A) 0.05 X 10*3/uL (0.00-0.10); Basophils % (A) 0.4 %; Elliptocytes 2+; Eosinophils # (A) 0.21 X 10*3/uL (0.04-0.35); Eosinophils % (A) 1.7 %; Lymphocytes # (A) 1.52 X 10*3/uL (0.90-5.00); Lymphocytes % (A) 12.6 %; Monocytes # (A) 1.52 X 10*3/uL (0.20-1.00); Monocytes % (A) 12.6 %; Neutrophils # (A) 8.65 X 10*3/uL (1.80-7.70); Neutrophils % (A) 71.6 %
[2023-04-17 05:54] LABS: African American GFR (CKD) 42 (>60 ml/min/1.73 sqM); Anion Gap 8 mmol/L; Blood Urea Nitrogen 42 mg/dL (9-20); Calcium 8.4 mg/dL (8.4-10.2); Carbon Dioxide 23 mmol/L (22-30); Chloride 107 mmol/L (98-107); Glucose 84 mg/dL (74-99); Non-African American GFR(CKD) 36 (>60 ml/min/1.73 sqM); Potassium 4.6 mmol/L (3.5-5.1); Sodium 138 mmol/L (137-145)
[2023-04-17 08:10] VITALS: BP 97/55; PULSE 61; RESP 18; TEMP 98
[2023-04-17] MEDS: ASPIRIN 81 MG PO SCH (09:22)
[2023-04-17] MEDS: EZETIMIBE 10 MG TAB PO SCH (09:22)
[2023-04-17] MEDS: DAPAGLIFLOZIN PROPANEDIOL 5 MG TABLET PO SCH (09:22)
[2023-04-17] MEDS: AMIODARONE 200 MG TAB PO SCH (09:22)
[2023-04-17] MEDS: FINASTERIDE 5 MG TAB PO SCH (09:22)
[2023-04-17] MEDS: buPROPion 100 MG TAB PO SCH (09:22)
[2023-04-17] MEDS: APIXABAN 5 MG TAB PO SCH (09:22)
[2023-04-17] MEDS: ATORVASTATIN 80 MG TAB PO SCH (09:22)
[2023-04-17] MEDS: TAMSULOSIN 0.4 MG CAP.ER.24H PO SCH (09:22)
[2023-04-17] MEDS: LACTATED RINGERS 1,000 ML IV SCH (09:23)
[2023-04-17] MEDS: SODIUM CHLORIDE 0.9% 1,000 ML IV SCH (12:00)
--- NOTE | 2023-04-17 12:39 | P.DS ---
Providers Attending physician: Cesar Long [facility] Course: Patient is doing well. Sitting in a chair comfortably, no symptoms Mucosa moist No dizziness no lightheadedness Ambulating around the room and in the hallway Blood pressure has improved S1 normal S2 crisp No S3 gallop No murmurs Breath sounds were equal air entry bilaterally no rhonchi no crackles Impression Persistent symptomatic atrial fibrillation with congestive heart failure Reduced LV systolic function Bioprosthetic aortic valve Single-chamber ICD, Medtronic Status post A. fib ablation with PVI, roof line and posterior wall ablation Transient worsening renal function secondary to anesthesia drug-related hypotension Improvement in renal function now creatinine today is 1.97 BUN is 42 Plan Discharge home today Continue to hold Lasix Hold metoprolol Hold lisinopril Patient maintains sinus rhythm at this time Reduced dose of amiodarone to 100 mg by mouth daily Continue ELIQUIS and aspirin Continue diabetes medications He will see him again this week in the office and the in-state his medications but at low doses If he maintains sinus rhythm he will require less Lasix Patient Condition at Discharge: Good Plan - Discharge Summary Discharge Rx Participant: Yes New Discharge Prescriptions: New Amiodarone [Cordarone] 100 mg PO DAILY #90 tab Metoprolol Tartrate [Lopressor] 50 mg PO BID #180 tab Discontinued Metoprolol Tartrate [Lopressor] 100 mg PO BID Amiodarone [Cordarone] 200 mg PO DAILY No Action Apixaban [Eliquis] 5 mg PO BID #60 tab Aspirin 81 mg PO DAILY chew Atorvastatin [Lipitor] 80 mg PO DAILY #30 tab Ezetimibe [Zetia] 10 mg PO DAILY lisinopriL 30 mg PO DAILY Tamsulosin [Flomax] 0.4 mg PO DAILY Multivitamins, Thera [Multivitamin (formulary)] 1 tab PO DAILY Albuterol Inhaler [Ventolin Hfa Inhaler] 1 - 2 puff INHALATION RT-Q6H PRN PRN Reason: Difficulty breathing buPROPion [Wellbutrin] 100 mg PO BID Finasteride [Proscar] 5 mg PO DAILY Furosemide [Lasix] 40 mg PO DAILY #30 tab Empagliflozin [Jardiance] 10 mg PO DAILY Discharge Medication List Apixaban [Eliquis] 5 mg PO BID #60 tab 04/27/17 [Rx] Aspirin 81 mg PO DAILY chew 04/27/17 [Rx] Atorvastatin [Lipitor] 80 mg PO DAILY #30 tab 04/27/17 [Rx] Ezetimibe [Zetia] 10 mg PO DAILY 03/21/21 [History] Tamsulosin [Flomax] 0.4 mg PO DAILY 08/13/22 [History] buPROPion [Wellbutrin] 100 mg PO BID 08/13/22 [History] lisinopriL 30 mg PO DAILY 08/13/22 [History] Albuterol Inhaler [Ventolin Hfa Inhaler] 1 - 2 puff INHALATION RT-Q6H PRN 03/13/23 [History] Finasteride [Proscar] 5 mg PO DAILY 03/13/23 [History] Multivitamins, Thera [Multivitamin (formulary)] 1 tab PO DAILY 03/13/23 [History] Furosemide [Lasix] 40 mg PO DAILY #30 tab 03/15/23 [Rx] Empagliflozin [Jardiance] 10 mg PO DAILY 04/12/23 [History] Amiodarone [Cordarone] 100 mg PO DAILY #90 tab 04/14/23 [Rx] Metoprolol Tartrate [Lopressor] 50 mg PO BID #180 tab 04/14/23 [Rx] Follow up Appointment(s)/Referral(s): George Mercer MD [STAFF PHYSICIAN] - 1 Week Activity/Diet/Wound Care/Special Instructions: Post EP study - Ablation instructions 1. Keep access sites dry for 2 days. 2. No heavy lifting or straining for 2 days. 3. Avoid bending the hips repeatedly for 2 days. 4. You may go up and down stairs slowly Call if the following is noted 1. Bleeding, increasing swelling or pain at the access sites. 2. Increasing chest discomfort, especially upon taking a deep breath. 3. Increasing shortness of breath, at rest or with exertion. 4. Undue cough / phlegm 5. Difficulty or pain while swallowing. 6. Pain or change in color in the extremities. 7. Fever, chills, rigors. 8. Increasing headache or neurologic symptoms. 9. Dizziness, fainting, palpitations Reduce dose of amiodarone 200 mg daily Reduce the dose of metoprolol to 50 mg twice daily Continue all other medications Continue ELIQUIS Discharge Disposition: HOME SELF-CARE
--- NOTE | 2023-04-17 12:40 | P.EPPROC ---
- EP Procedure Note Electrophysiology Procedure Note: Single-chamber ICD, Medtronic interrogation with reprogramming prior to the procedure/A. fib ablation of the study Single-chamber ICD was interrogated lead impedances are stable VF therapies were turned off before starting the procedure At the end of the procedure device was interrogated impedances were stable VF therapies were turned back on
== END 2023-04-17 13:03 | disposition home or self-care (01) ==
LOC: CATHEP 08:54 → 6NMEDSUR 12:49 → CATHEP 04-17 13:03
PROVIDERS: ATTEND Internal Medicine Clinical Cardiac Electrophysiology
DX: I48.19 Other persistent atrial fibrillation (principal); I13.0 Hypertensive heart and chronic kidney disease with heart failure and stage 1 through stage 4 chronic kidney disease, or unspecified chronic kidney disease; E11.22 Type 2 diabetes mellitus with diabetic chronic kidney disease; I50.9 Heart failure, unspecified; N18.9 Chronic kidney disease, unspecified; I34.0 Nonrheumatic mitral (valve) insufficiency; I25.10 Atherosclerotic heart disease of native coronary artery without angina pectoris; I25.2 Old myocardial infarction; E78.5 Hyperlipidemia, unspecified; Z79.01 Long term (current) use of anticoagulants; Z79.82 Long term (current) use of aspirin; Z79.84 Long term (current) use of oral hypoglycemic drugs; Z79.899 Other long term (current) drug therapy; Z87.891 Personal history of nicotine dependence; Z95.1 Presence of aortocoronary bypass graft; Z95.3 Presence of xenogenic heart valve; Z95.810 Presence of automatic (implantable) cardiac defibrillator
CPT/HCPCS: 93656; 93657; 86900; 86901; 80048 ×3; 84443; 85025; 86850; C1759; C1894 ×3; C1769 ×3; C1760; C1730 ×2; C1893; C1733; C1766; S0138 ×2; J0690; J2001; Q9967; J1644

== ENCOUNTER 2023-04-30 23:46 | Observation (INO) | payer BC ==
[2023-05-01] MEDS ORDERED: ASPIRIN 81 MG PO STA (00:30)
[2023-05-01] MEDS ORDERED: NITROGLYCERIN SL TABS 0.4 MG TAB SUBLINGUAL STA (00:30)
--- NOTE | 2023-05-01 00:33 | ED ---
Chest Pain HPI - General Chief Complaint: Chest Pain Stated Complaint: chest pain high bp Time Seen by Provider: 05/01/23 00:14 Source: patient, family Mode of arrival: wheelchair Limitations: no limitations - History of Present Illness Initial Comments: 58 year Old male with past medical history significant for coronary artery disease status post CABG, aortic valve replacement, ischemic cardiomyopathy, AICD implantation, hypertension, hyperlipidemia, A. fib and recent ablation on 04/17/23. She states that approximately 5 hours ago started to experience some dizziness, nausea, and pressure on the left side of his chest. She reports that he took 2 Tylenol PMs and attempted to sleep however states that he is unable to do so and still notes continuous symptoms. Patient denies any changes in bowel or bladder habits. No other complaints. - Related Data Home Medications Medication Instructions Recorded Confirmed Ezetimibe [Zetia] 10 mg PO DAILY 03/21/21 04/14/23 Tamsulosin [Flomax] 0.4 mg PO DAILY 08/13/22 04/14/23 buPROPion [Wellbutrin] 100 mg PO BID 08/13/22 04/14/23 lisinopriL 30 mg PO DAILY 08/13/22 04/14/23 Albuterol Inhaler [Ventolin Hfa 1 - 2 puff INHALATION RT-Q6H PRN 03/13/23 04/12/23 Inhaler] Finasteride [Proscar] 5 mg PO DAILY 03/13/23 04/14/23 Multivitamins, Thera [Multivitamin 1 tab PO DAILY 03/13/23 04/14/23 (formulary)] Empagliflozin [Jardiance] 10 mg PO DAILY 04/12/23 04/14/23 Previous Rx's Medication Instructions Recorded Apixaban [Eliquis] 5 mg PO BID #60 tab 04/27/17 Aspirin 81 mg PO DAILY chew 04/27/17 Atorvastatin [Lipitor] 80 mg PO DAILY #30 tab 04/27/17 Furosemide [Lasix] 40 mg PO DAILY #30 tab 03/15/23 Amiodarone [Cordarone] 100 mg PO DAILY #90 tab 04/14/23 Metoprolol Tartrate [Lopressor] 50 mg PO BID #180 tab 04/14/23 Allergies Allergy/AdvReac Type Severity Reaction Status Date / Time No Known Allergies Allergy Verified 04/12/23 08:49 Review of Systems ROS Statement: Those systems with pertinent positive or pertinent negative responses have been documented in the HPI. ROS Other: All systems not noted in ROS Statement are negative. Past Medical History Past Medical History: Atrial Fibrillation, Coronary Artery Disease (CAD), Diabetes Mellitus, Hyperlipidemia, Hypertension, Myocardial Infarction ([place]) Additional Past Medical History / Comment(s): "Bruised liver". Last Myocardial Infarction Date:: 09/15/2014 History of Any Multi-Drug Resistant Organisms: None Reported Past Surgical History: AICD, Cardiac Valve Replacement, Coronary Bypass/CABG, Heart Catheterization, Pacemaker Additional Past Surgical History / Comment(s): 2 vessel CABG 2011., CARDIOVERSION Past Anesthesia/Blood Transfusion Reactions: No Reported Reaction Type of Cardiac Device: Permanent Pacemaker, AICD Device Placement Date:: 04/2021 Past Psychological History: No Psychological Hx Reported Smoking Status: Former smoker Past Alcohol Use History: Daily Past Drug Use History: None Reported - Past Family History Mother Family Medical History: Cancer Father Family Medical History: Cancer Additional Family Medical History / Comment(s): No biological children. Brother(s) Family Medical History: Myocardial Infarction ([place]) General Exam Limitations: no limitations General appearance: alert, in no apparent distress Neck exam: Present: normal inspection Respiratory exam: Present: normal lung sounds bilaterally Cardiovascular Exam: Present: regular rate, normal rhythm, systolic murmur (2/6) Neurological exam: Present: alert, oriented X3 Skin exam: Present: warm, dry Course Vital Signs 05/01/23 05/01/23 05/01/23 00:09 01:33 EST 02:00 Temperature 97.8 F Pulse Rate 71 67 70 Respiratory 18 18 18 Rate Blood Pressure 179/97 115/94 154/98 O2 Sat by Pulse 100 98 99 Oximetry 05/01/23 03:30 Temperature Pulse Rate 70 Respiratory 18 Rate Blood Pressure 146/95 O2 Sat by Pulse 100 Oximetry Chest Pain MDM - MDM Was pt. sent in by a medical professional or institution (, PA, FARM PLANNER, urgent care, hospital, or usp...) When possible be specific @ -No Did you speak to anyone other than the patient for history (EMS, parent, family, police, friend...)? What history was obtained from this source @ -No Did you review nursing and triage notes (agree or disagree)? Why? @ -I reviewed and agree with nursing and triage notes Were old charts reviewed (outside hosp., previous admission, EMS record, old EKG, old radiological studies, urgent care reports/EKG's, usp records)? Report findings @ -No old charts were reviewed Differential Diagnosis (chest pain, altered mental status, abdominal pain women, abdominal pain men, vaginal bleeding, weakness, fever, dyspnea, syncope, headache, dizziness, GI bleed, back pain, seizure, CVA, palpatations, mental health, musculoskeletal)? @ -not applicable EKG interpreted by me (3pts min.). @ -EKG shows a sinus rhythm with a short DC interval at 70 bpm with interval of 112 ms, QRS 90, QT/QTc 420/[address]-T wave changes. X-rays interpreted by me (1pt min.). @ -Chest x-ray interpreted by me showing no evidence of acute finding. CT interpreted by me (1pt min.). @ -None done U/S interpreted by me (1pt. min.). @ -None done What testing was considered but not performed or refused? (CT, X-rays, U/S, labs)? Why? @ -None What meds were considered but not given or refused? Why? @ -None Did you discuss the management of the patient with other professionals (professionals i.e. , PA, FARM PLANNER, lab, RT, psych nurse, social scientist, help desk assistant, teacher, intelligence officer basic, bottle caser)? Give summary @ -Case discussed with Dr. Lopez, who accepts admission Was smoking cessation discussed for >3mins.? @ -No Was critical care preformed (if so, how long)? @ -No Were there social determinants of health that impacted care today? How? (Homelessness, low income, unemployed, alcoholism, drug addiction, transportation, low edu. Level, literacy, decrease access to med. care, usp, rehab)? @ -No Was there de-escalation of care discussed even if they declined (Discuss DNR or withdrawal of care, Hospice)? DNR status @ -No What co-morbidities impacted this encounter? (DM, HTN, Smoking, COPD, CAD, Cancer, CVA, ARF, Chemo, Hep., AIDS, mental health diagnosis, sleep apnea, morbid obesity)? @ -Coronary artery disease Was patient admitted / discharged? Hospital course, mention meds given and route, prescriptions, significant lab abnormalities, going to OR and other pertinent info. @ -Admission 58-year-old male with past medical history significant for CAD presented to the ED with chest pain, nausea, light-headedness. Laboratory studies do show an elevated BUN at 31 and creatinine at 1.31 however improved from prior. Initial troponin 0.014. Patient will be admitted to observation with consult to cardiology to rule out ACS. Discussed plan of care with patient who is in agreement. Undiagnosed new problem with uncertain prognosis? @ -No Drug Therapy requiring intensive monitoring for toxicity (Heparin, Nitro, Insulin, Cardizem)? @ -No Were any procedures done? @ -No Diagnosis/symptom? @ -Chest pain Acute, or Chronic, or Acute on Chronic? @ -Acute Uncomplicated (without systemic symptoms) or Complicated (systemic symptoms)? @ -Uncomplicated Side effects of treatment? @ -No Exacerbation, Progression, or Severe Exacerbation? @ -No Poses a threat to life or bodily function? How? (Chest pain, [place], [place], pneumonia, PE, COPD, DKA, ARF, appy, cholecystitis, CVA, Diverticulitis, Homicidal, Suicidal, threat to staff... and all critical care pts) @ -No Disposition Clinical Impression: Chest pain Disposition: ADMITTED IP TO THIS HOSP Referrals: Kassi Lopez MD [Primary Care Provider] - 1-2 days Time of Disposition: 03:53
[2023-05-01 00:39] VITALS: RESP 18
[2023-05-01 01:02] LABS: INR 1.1 (<1.2); Partial Thromboplastin Time 26.1 sec (22.0-30.0); Prothrombin Time 12.1 sec (10.0-12.5)
[2023-05-01 01:04] LABS: Basophils % (A) 0 %; Eosinophils # (A) 0.1 k/uL (0-0.7); Eosinophils % (A) 1 %; HCT 38.9 % (39.0-53.0); HGB 12.7 gm/dL (13.0-17.5); Lymphocytes # (A) 0.9 k/uL (1.0-4.8); Lymphocytes % (A) 10 %; MCH 34.7 pg (25.0-35.0); MCHC 32.7 g/dL (31.0-37.0); MCV 106.2 fL (80.0-100.0); Macrocytosis Moderate; Mean Platelet Volume 7.6; Monocytes # (A) 0.5 k/uL (0-1.0); Monocytes % (A) 5 %; Neutrophils # (A) 6.9 k/uL (1.3-7.7); Neutrophils % (A) 82 %; Platelet Count 223 k/uL (150-450); RBC 3.66 m/uL (4.30-5.90); RDW 13.6 % (11.5-15.5); WBC 8.5 k/uL (3.8-10.6)
[2023-05-01 01:37] LABS: ALT 63 U/L (4-49); AST 48 U/L (17-59); African American GFR (CKD) 68 (>60 ml/min/1.73 sqM); Albumin 3.8 g/dL (3.5-5.0); Alkaline Phosphatase 65 U/L (38-126); Anion Gap 5 mmol/L; Blood Urea Nitrogen 31 mg/dL (9-20); Calcium 8.9 mg/dL (8.4-10.2); Carbon Dioxide 25 mmol/L (22-30); Chloride 105 mmol/L (98-107); Glucose 106 mg/dL (74-99); Magnesium 1.9 mg/dL (1.6-2.3); Non-African American GFR(CKD) 59 (>60 ml/min/1.73 sqM); Potassium 5.1 mmol/L (3.5-5.1); Sodium 135 mmol/L (137-145); Total Bilirubin 0.6 mg/dL (0.2-1.3); Total Protein 6.4 g/dL (6.3-8.2)
[2023-05-01] MEDS ORDERED: ONDANSETRON 4 MG/2 ML VIAL IVP STA (01:41)
--- NOTE | 2023-05-01 03:24 | XR ---
EXAM: XR Chest, 2 Views CLINICAL HISTORY: Chest Pain TECHNIQUE: Frontal and lateral views of the chest. COMPARISON: Chest 2 views dated 03/13/2023 FINDINGS: Lungs: No focal airspace consolidation. The pulmonary vasculature is within normal limits and improved from the previous examination. Pleural space: Unremarkable. No pneumothorax. No large pleural effusion. Heart: The cardiac silhouette is slightly improved and within normal limits. Similar postsurgical changes consistent with prior CABG. Mediastinum: No tracheal deviation. Bones/joints: Intact sternotomy wires. Tubes, lines and devices: A left subclavian approach single lead defibrillator pacer is stable in position. IMPRESSION: No focal consolidation or acute cardiopulmonary process identified.
[2023-05-01] MEDS ORDERED: ACETAMINOPHEN TAB 500 MG TAB PO STA (03:54)
[2023-05-01] MEDS ORDERED: METOCLOPRAMIDE 5 MG/ML 2 ML VIAL IVP STA (03:54)
[2023-05-01] MEDS ORDERED: NALOXONE 0.4 MG/ML 1 ML VIAL IV PRN (04:06)
[2023-05-01] MEDS ORDERED: ACETAMINOPHEN TAB 325 MG TAB PO PRN (04:06)
[2023-05-01] MEDS ORDERED: HYDROmorphone 1 MG/ML 1 ML SYRINGE IVP PRN (04:06)
[2023-05-01] MEDS ORDERED: HYDROmorphone 0.5 MG/0.5 ML SYRINGE IVP PRN (04:06)
[2023-05-01] MEDS ORDERED: SODIUM CHLORIDE 0.9% 1,000 ML IV SCH (04:15)
[2023-05-01 04:44] LABS: Appearance,Urine Clear (Clear); Bilirubin,Urine Negative (Negative); Blood,Urine Negative (Negative); Color,Urine Colorless; Glucose,Urine (UA) 4+ (Negative); Ketones,Urine Negative (Negative); Leukocyte Esterase,Urine Negative (Negative); Nitrite,Urine Negative (Negative); PH, Urine 5.5 (5.0-8.0); Protein,Urine Negative (Negative); Specific Gravity,Urine 1.024 (1.001-1.035); Urobilinogen,Urine <2.0 mg/dL (<2.0)
--- NOTE | 2023-05-01 08:09 | P.HPIM ---
History of Present Illness Patient was 58-year-old male with known medical history of coronary artery disease with CABG and previous stress test about 4 weeks ago which turned out to be normal, ischemic cardiomyopathy EF of around 40-45% with an AICD in place which was placed couple weeks ago came in with complaints of epigastric burning sensation along with the nausea and an episode of vomiting along with the dizziness denied any diaphoresis. Denied any radiation of pain.. Patient denied any fever chills patient denied any other significant abdominal pain. Patient clinically doesn't appear to be in CHF exacerbation at this time BNP will be obtain chest x-ray did not she significant abnormality EKG is not available in the system yet. REVIEW OF SYSTEMS: CONSTITUTIONAL: No fever, no malaise, no fatigue. HEENT: No recent visual problems or hearing problems. Denied any sore throat. CARDIOVASCULAR: No orthopnea, PND, no palpitations, no syncope. PULMONARY: No shortness of breath, no cough, no hemoptysis. GASTROINTESTINAL: No diarrhea. NEUROLOGICAL: No headaches, no weakness, no numbness. HEMATOLOGICAL: Denies any bleeding or petechiae. GENITOURINARY: Denies any burning micturition, frequency, or urgency. MUSCULOSKELETAL/RHEUMATOLOGICAL: Denies any joint pain, swelling, or any muscle pain. ENDOCRINE: Denies any polyuria or polydipsia. The rest of the 14-point review of systems is negative. PHYSICAL EXAMINATION: GENERAL: The patient is alert and oriented x3, not in any acute distress. Obese HEENT: Pupils are round and equally reacting to light. EOMI. No scleral icterus. No conjunctival pallor. Normocephalic, atraumatic. No pharyngeal erythema. No thyromegaly. CARDIOVASCULAR: S1 and S2 present. No murmurs, rubs, or gallops. PULMONARY: Chest is clear to auscultation, no wheezing or crackles. ABDOMEN: Soft, nontender, nondistended, normoactive bowel sounds. No palpable organomegaly. MUSCULOSKELETAL: No joint swelling or deformity. EXTREMITIES: No cyanosis, clubbing, or pedal edema. NEUROLOGICAL: Gross neurological examination did not reveal any focal deficits. SKIN: No rashes. Assessment and plan -Chest pain: Rule out a concurrent syndromes his pain is mostly epigastric appears to be gastritis patient will be started on Protonix IV, cardiology will evaluate the patient and if patient's symptoms improved and patient can tolerate the diet and if cleared by cardiology patient can be discharged later today. -Congestive heart failure chronic systolic dysfunction EF of around 40-45% ischemic cardiomyopathy without any acute exacerbation patient appears to be euvolemic IV fluids will be discontinued once rehabilitation Center verified his medications will be ordered -Atrial fibrillation patient is presently rate controlled for probably paroxysmal A. fib patient is on anticoagulation which will be resumed once medications are verified -Hyperlipidemia Hypertension - 2 diabetes mellitus For above-mentioned chronic medical problems patient will be resumed on appropriate home medications DVT prophylaxis: On anticoagulation Past Medical History Past Medical History: Atrial Fibrillation, Coronary Artery Disease (CAD), Diabetes Mellitus, Hyperlipidemia, Hypertension, Myocardial Infarction ([place]) Additional Past Medical History / Comment(s): "Bruised liver". Last Myocardial Infarction Date:: 09/15/2014 History of Any Multi-Drug Resistant Organisms: None Reported Past Surgical History: AICD, Cardiac Valve Replacement, Coronary Bypass/CABG, Heart Catheterization, Pacemaker Additional Past Surgical History / Comment(s): 2 vessel CABG 2011., CARDIOVERSION Past Anesthesia/Blood Transfusion Reactions: No Reported Reaction Type of Cardiac Device: Permanent Pacemaker, AICD Device Placement Date:: 04/2021 Past Psychological History: No Psychological Hx Reported Smoking Status: Former smoker Past Alcohol Use History: Daily Past Drug Use History: None Reported - Past Family History Mother Family Medical History: Cancer Father Family Medical History: Cancer Additional Family Medical History / Comment(s): No biological children. Brother(s) Family Medical History: Myocardial Infarction ([place]) Medications and Allergies Home Medications Medication Instructions Recorded Confirmed Type Apixaban [Eliquis] 5 mg PO BID #60 tab 04/27/17 04/14/23 Rx Aspirin 81 mg PO DAILY chew 04/27/17 04/14/23 Rx Atorvastatin [Lipitor] 80 mg PO DAILY #30 tab 04/27/17 04/14/23 Rx Ezetimibe [Zetia] 10 mg PO DAILY 03/21/21 04/14/23 History Tamsulosin [Flomax] 0.4 mg PO DAILY 08/13/22 04/14/23 History buPROPion [Wellbutrin] 100 mg PO BID 08/13/22 04/14/23 History lisinopriL 30 mg PO DAILY 08/13/22 04/14/23 History Albuterol Inhaler [Ventolin Hfa 1 - 2 puff INHALATION RT-Q6H PRN 03/13/23 04/12/23 History Inhaler] Finasteride [Proscar] 5 mg PO DAILY 03/13/23 04/14/23 History Multivitamins, Thera [Multivitamin 1 tab PO DAILY 03/13/23 04/14/23 History (formulary)] Furosemide [Lasix] 40 mg PO DAILY #30 tab 03/15/23 04/14/23 Rx Empagliflozin [Jardiance] 10 mg PO DAILY 04/12/23 04/14/23 History Amiodarone [Cordarone] 100 mg PO DAILY #90 tab 04/14/23 Rx Metoprolol Tartrate [Lopressor] 50 mg PO BID #180 tab 04/14/23 Rx Allergies Allergy/AdvReac Type Severity Reaction Status Date / Time No Known Allergies Allergy Verified 04/12/23 08:49 Physical Exam Vitals: Vital Signs Temp Pulse Resp BP Pulse Ox 05/01/23 06:11 71 18 155/96 100 05/01/23 05:00 72 18 150/95 100 05/01/23 03:30 70 18 146/95 100 05/01/23 02:00 70 18 154/98 99 05/01/23 01:33 EST 67 18 115/94 98 05/01/23 00:09 97.8 F 71 18 179/97 100 Intake and Output 04/30/23 05/01/23 05/01/23 23:59 06:59 14:59 Other: Weight Results CBC & Chem 7: 05/01/23 01:16 EST 05/01/23 01:16 EST Labs: Abnormal Lab Results - Last 24 Hours (Table) 05/01/23 05/01/23 05/01/23 Range/Units 01:16 EST 01:16 EST 01:16 EST RBC 3.66 L (4.30-5.90) m/uL Hgb 12.7 L (13.0-17.5) gm/dL Hct 38.9 L (39.0-53.0) % MCV 106.2 H (80.0-100.0) fL Lymphocytes # 0.9 L (1.0-4.8) k/uL Sodium 135 L (137-145) mmol/L BUN 31 H (9-20) mg/dL Creatinine 1.31 H (0.66-1.25) mg/dL Glucose 106 H (74-99) mg/dL ALT 63 H (4-49) U/L Urine Glucose (UA) 4+ H (Negative)
--- NOTE | 2023-05-01 08:12 | P.DS ---
Providers Date of admission: 05/01/23 04:08 Attending physician: Kassi Lopez Consults: 05/01/23 04:06 Consult Physician Urgent Consulting Provider: [facility] Reason/Comments: chest pain. initial trop indeterminate Do you want consulting provider notified?: Yes Primary care physician: Kassi Lopez Hospital Course: Patient was 58-year-old male with known medical history of coronary artery disease with CABG and previous stress test about 4 weeks ago which turned out to be normal, ischemic cardiomyopathy EF of around 40-45% with an AICD in place which was placed couple weeks ago came in with complaints of epigastric burning sensation along with the nausea and an episode of vomiting along with the dizziness denied any diaphoresis. Denied any radiation of pain.. Patient denied any fever chills patient denied any other significant abdominal pain. Patient clinically doesn't appear to be in CHF exacerbation at this time BNP will be obtain chest x-ray did not she significant abnormality EKG is not available in the system yet. PHYSICAL EXAMINATION: GENERAL: The patient is alert and oriented x3, not in any acute distress. Obese HEENT: Pupils are round and equally reacting to light. EOMI. No scleral icterus. No conjunctival pallor. Normocephalic, atraumatic. No pharyngeal erythema. No thyromegaly. CARDIOVASCULAR: S1 and S2 present. No murmurs, rubs, or gallops. PULMONARY: Chest is clear to auscultation, no wheezing or crackles. ABDOMEN: Soft, nontender, nondistended, normoactive bowel sounds. No palpable organomegaly. MUSCULOSKELETAL: No joint swelling or deformity. EXTREMITIES: No cyanosis, clubbing, or pedal edema. NEUROLOGICAL: Gross neurological examination did not reveal any focal deficits. SKIN: No rashes. Assessment and plan -Chest pain: Rule out a concurrent syndromes his pain is mostly epigastric appears to be gastritis patient will be started on Protonix IV, cardiology will evaluate the patient and if patient's symptoms improved and patient can tolerate the diet and if cleared by cardiology patient can be discharged later today. -Congestive heart failure chronic systolic dysfunction EF of around 40-45% ischemic cardiomyopathy without any acute exacerbation patient appears to be euvolemic IV fluids will be discontinued once rehabilitation Center verified his medications will be ordered -Atrial fibrillation patient is presently rate controlled for probably paroxysmal A. fib patient is on anticoagulation which will be resumed once medications are verified -Hyperlipidemia Hypertension - 2 diabetes mellitus -Chronic kidney disease stage III Plan - Discharge Summary New Discharge Prescriptions: New Pantoprazole Sodium [Protonix] 20 mg PO AC-BID #20 tab Continue Apixaban [Eliquis] 5 mg PO BID #60 tab Aspirin 81 mg PO DAILY chew Atorvastatin [Lipitor] 80 mg PO DAILY #30 tab Ezetimibe [Zetia] 10 mg PO DAILY lisinopriL 30 mg PO DAILY Tamsulosin [Flomax] 0.4 mg PO DAILY Multivitamins, Thera [Multivitamin (formulary)] 1 tab PO DAILY Albuterol Inhaler [Ventolin Hfa Inhaler] 1 - 2 puff INHALATION RT-Q6H PRN PRN Reason: Difficulty breathing Amiodarone [Cordarone] 100 mg PO DAILY #90 tab buPROPion [Wellbutrin] 100 mg PO BID Finasteride [Proscar] 5 mg PO DAILY Furosemide [Lasix] 40 mg PO DAILY #30 tab Empagliflozin [Jardiance] 10 mg PO DAILY Metoprolol Tartrate [Lopressor] 50 mg PO BID #180 tab Discharge Medication List Apixaban [Eliquis] 5 mg PO BID #60 tab 04/27/17 [Rx] Aspirin 81 mg PO DAILY chew 04/27/17 [Rx] Atorvastatin [Lipitor] 80 mg PO DAILY #30 tab 04/27/17 [Rx] Ezetimibe [Zetia] 10 mg PO DAILY 03/21/21 [History] Tamsulosin [Flomax] 0.4 mg PO DAILY 08/13/22 [History] buPROPion [Wellbutrin] 100 mg PO BID 08/13/22 [History] lisinopriL 30 mg PO DAILY 08/13/22 [History] Albuterol Inhaler [Ventolin Hfa Inhaler] 1 - 2 puff INHALATION RT-Q6H PRN 03/13/23 [History] Finasteride [Proscar] 5 mg PO DAILY 03/13/23 [History] Multivitamins, Thera [Multivitamin (formulary)] 1 tab PO DAILY 03/13/23 [History] Furosemide [Lasix] 40 mg PO DAILY #30 tab 03/15/23 [Rx] Empagliflozin [Jardiance] 10 mg PO DAILY 04/12/23 [History] Amiodarone [Cordarone] 100 mg PO DAILY #90 tab 04/14/23 [Rx] Metoprolol Tartrate [Lopressor] 50 mg PO BID #180 tab 04/14/23 [Rx] Pantoprazole Sodium [Protonix] 20 mg PO AC-BID #20 tab 05/01/23 [Rx] Follow up Appointment(s)/Referral(s): Kassi Lopez MD [Primary Care Provider] - 3 Days Discharge Disposition: HOME SELF-CARE
[2023-05-01] MEDS ORDERED: PANTOPRAZOLE 40 MG/10 ML VIAL IVP SCH (08:30)
[2023-05-01 08:52] VITALS: TEMP 97.9
[2023-05-01 09:15] LABS: Lipase 70 U/L (23-300)
[2023-05-01 09:23] LABS: NT-Pro-B-Type Natriuretic Pept 856 pg/mL
--- NOTE | 2023-05-01 10:39 | P.CRDCN ---
History of Present Illness Consult date: 05/01/23 Requesting physician: Kassi Lopez History of present illness: This is a pleasant 4-year-old gentleman who follows in the office with Dr. Mercer. He has a history of CAD with previous CABG, aortic valve replacement, persistent atrial fibrillation, status post ablation on 04/17/2023, nonischemic cardiomyopathy and AICD implantation and hypertension, hyperlipidemia, chronic kidney disease and former nicotine dependence which he stopped smoking in July. He was hospitalized in February with evidence of heart failure and was in atrial fibrillation at that time and an echocardiogram with Doppler study showed an ejection fraction of 40-45% with normal functioning prosthetic aortic valve, mild to moderate MR and mild TR. He was subsequently seen and evaluated by Dr. Fierro and underwent ablation on the of last month. He's been maintaining sinus mechanism. He had been feeling well up until last night when he developed an episode of nausea with some dry heaves. After but the time he started to have some chest pressure, midsternal and felt quite dizzy and short of breath which prompted him to come to the emergency department for further evaluation. At the time of his ablation his renal function was worsening in his blood pressure was low and his metoprolol was decreased and his lisinopril has been on hold. On admission this time creatinine is better at 1.31. Troponin levels have been 0.014, 0.018 and 0.015. NT proBNP is 856 with most recent NT proBNP from April 13 of this year of 1170 and prior to that in February of 3670. EKG on admission showed sinus mechanism. His recent cardiac catheterization in February 2021 showed a chronically occluded mid LAD with patent saphenous vein graft to the LAD. Blood pressure has been elevated since presentation. He is overall feeling a bit better. Continues to have some mild chest pressure. Her complaints of dizziness, shortness of breath or nausea. He's had no lower extremity edema, orthopnea or PND. Past Medical History Past Medical History: Atrial Fibrillation, Coronary Artery Disease (CAD), Diabetes Mellitus, Hyperlipidemia, Hypertension, Myocardial Infarction (MA) Additional Past Medical History / Comment(s): "Bruised liver". Last Myocardial Infarction Date:: 09/15/2014 History of Any Multi-Drug Resistant Organisms: None Reported Past Surgical History: AICD, Cardiac Valve Replacement, Coronary Bypass/CABG, Heart Catheterization, Pacemaker Additional Past Surgical History / Comment(s): 2 vessel CABG 2011., CARDIOVERSION Past Anesthesia/Blood Transfusion Reactions: No Reported Reaction Type of Cardiac Device: Permanent Pacemaker, AICD Device Placement Date:: 04/2021 Past Psychological History: No Psychological Hx Reported Smoking Status: Former smoker Past Alcohol Use History: Daily Past Drug Use History: None Reported - Past Family History Mother Family Medical History: Cancer Father Family Medical History: Cancer Additional Family Medical History / Comment(s): No biological children. Brother(s) Family Medical History: Myocardial Infarction (MA) Medications and Allergies Home Medications Medication Instructions Recorded Confirmed Type Apixaban [Eliquis] 5 mg PO BID #60 tab 04/27/17 04/14/23 Rx Aspirin 81 mg PO DAILY chew 04/27/17 04/14/23 Rx Atorvastatin [Lipitor] 80 mg PO DAILY #30 tab 04/27/17 04/14/23 Rx Ezetimibe [Zetia] 10 mg PO DAILY 03/21/21 04/14/23 History Tamsulosin [Flomax] 0.4 mg PO DAILY 08/13/22 04/14/23 History buPROPion [Wellbutrin] 100 mg PO BID 08/13/22 04/14/23 History lisinopriL 30 mg PO DAILY 08/13/22 04/14/23 History Albuterol Inhaler [Ventolin Hfa 1 - 2 puff INHALATION RT-Q6H PRN 03/13/23 04/12/23 History Inhaler] Finasteride [Proscar] 5 mg PO DAILY 03/13/23 04/14/23 History Multivitamins, Thera [Multivitamin 1 tab PO DAILY 03/13/23 04/14/23 History (formulary)] Furosemide [Lasix] 40 mg PO DAILY #30 tab 03/15/23 04/14/23 Rx Empagliflozin [Jardiance] 10 mg PO DAILY 04/12/23 04/14/23 History Amiodarone [Cordarone] 100 mg PO DAILY #90 tab 04/14/23 Rx Metoprolol Tartrate [Lopressor] 50 mg PO BID #180 tab 04/14/23 Rx Pantoprazole Sodium [Protonix] 20 mg PO AC-BID #20 tab 05/01/23 Rx Allergies Allergy/AdvReac Type Severity Reaction Status Date / Time No Known Allergies Allergy Verified 04/12/23 08:49 Physical Exam Vitals: Vital Signs Temp Pulse Resp BP Pulse Ox 05/01/23 08:34 97.9 F 72 18 155/102 100 05/01/23 06:11 71 18 155/96 100 05/01/23 05:00 72 18 150/95 100 05/01/23 03:30 70 18 146/95 100 05/01/23 02:00 70 18 154/98 99 05/01/23 01:33 EST 67 18 115/94 98 05/01/23 00:09 97.8 F 71 18 179/97 100 Intake and Output 04/30/23 05/01/23 05/01/23 23:59 06:59 14:59 Other: Weight PHYSICAL EXAMINATION: This is a 58-year-old male in no apparent distress at the time of my examination. VITAL SIGNS: reviewed HEENT: Head is atraumatic, normocephalic. Pupils are equal, round. Sclerae anicteric. Conjunctivae are clear. Mucous membranes of the mouth are moist. Neck is supple. There is no elevated jugular venous pressure. No carotid bruit is heard. CHEST EXAMINATION: Clear to auscultation bilaterally. No wheezes rales or rhonchi. Respirations even and nonlabored. HEART EXAMINATION: Heart regular, positive S1 and S2. No S3. No S4. Systolic ejection murmur. ABDOMEN: Soft, nontender. Bowel sounds are heard. No organomegaly noted. EXTREMITIES: 2+ peripheral pulses with no evidence of peripheral edema and no calf tenderness noted. NEUROLOGIC EXAMINATION: Patient is awake, alert and oriented x3. Results 05/01/23 01:16 EST 05/01/23 01:16 EST Cardiac Enzymes 05/01/23 05/01/23 05/01/23 Range/Units 01:16 EST 01:16 EST 05:51 AST 48 (17-59) U/L Troponin I 0.014 0.018 (0.000-0.034) ng/mL 05/01/23 Range/Units 08:32 AST (17-59) U/L Troponin I 0.015 (0.000-0.034) ng/mL Coagulation 05/01/23 Range/Units 01:16 EST PT 12.1 (10.0-12.5) sec APTT 26.1 (22.0-30.0) sec CBC 05/01/23 Range/Units 01:16 EST WBC 8.5 (3.8-10.6) k/uL RBC 3.66 L (4.30-5.90) m/uL Hgb 12.7 L (13.0-17.5) gm/dL Hct 38.9 L (39.0-53.0) % Plt Count 223 (150-450) k/uL Comprehensive Metabolic Panel 05/01/23 Range/Units 01:16 EST Sodium 135 L (137-145) mmol/L Potassium 5.1 (3.5-5.1) mmol/L Chloride 105 (98-107) mmol/L Carbon Dioxide 25 (22-30) mmol/L BUN 31 H (9-20) mg/dL Creatinine 1.31 H (0.66-1.25) mg/dL Glucose 106 H (74-99) mg/dL Calcium 8.9 (8.4-10.2) mg/dL AST 48 (17-59) U/L ALT 63 H (4-49) U/L Alkaline Phosphatase 65 (38-126) U/L Total Protein 6.4 (6.3-8.2) g/dL Albumin 3.8 (3.5-5.0) g/dL Current Medications Generic Name Dose Route Start Last Admin Trade Name Freq PRN Reason Stop Dose Admin Acetaminophen 650 mg 05/01/23 04:06 Acetaminophen Tab 325 Mg Tab PO Q6HR PRN Mild Pain or Fever > 100.5 Hydromorphone HCl 0.5 mg 05/01/23 04:06 Hydromorphone 0.5 Mg/0.5 Ml Syringe IVP Q3HR PRN Moderate Pain (Scale 4 to 6) Hydromorphone HCl 1 mg 05/01/23 04:06 Hydromorphone 1 Mg/Ml 1 Ml Syringe IVP Q3HR PRN Severe Pain (Scale 7 to 10) Naloxone HCl 0.2 mg 05/01/23 04:06 Naloxone 0.4 Mg/Ml 1 Ml Vial IV Q2M PRN Opioid Reversal Pantoprazole Sodium 40 mg 05/01/23 08:30 05/01/23 09:44 Pantoprazole 40 Mg/10 Ml Vial IVP 40 mg DAILY MARVIN Administration Intake and Output 11/04/23 11/05/23 11/05/23 23:59 06:59 14:59 Other: Weight 05/01/23 01:16 EST 05/01/23 01:16 EST Assessment and Plan Assessment: 1 symptoms of that, chest pressure, dizziness and shortness of breath, acute coronary event has been ruled out 2 persistent atrial fibrillation, status post ablation on 04/17/2023 3 nonischemic cardiomyopathy, most recent echocardiogram showed an ejection fraction of 40-45% while in atrial fibrillation 4 CAD with single-vessel bypass 5 aortic valve replacement 6 hypertension 7 hyperlipidemia 8 former nicotine dependence 9 chronic kidney disease Plan: From Cardiology's perspective we will resume beta natalie, anticoagulation, amiodarone, statin, that he and lisinopril at just 10 mg by mouth daily. We will obtain a 2-D echo with Doppler study to assess cardiac structure and function. Further recommendations to follow depending on patient's clinical course. REEL SLITTER note has been reviewed, I agree with a documented findings and plan of care. Patient was seen and examined.
[2023-05-01] MEDS ORDERED: EZETIMIBE 10 MG TAB PO SCH (10:45)
[2023-05-01] MEDS ORDERED: ATORVASTATIN 80 MG TAB PO SCH (10:45)
[2023-05-01] MEDS ORDERED: APIXABAN 5 MG TAB PO SCH (10:45)
[2023-05-01] MEDS ORDERED: lisinopriL 10 MG TAB PO SCH (10:45)
[2023-05-01] MEDS ORDERED: METOPROLOL TARTRATE 50 MG TAB PO SCH (10:45)
[2023-05-01] MEDS ORDERED: DAPAGLIFLOZIN PROPANEDIOL 5 MG TABLET PO SCH (11:00)
[2023-05-01] MEDS ORDERED: AMIODARONE 100 MG TAB PO SCH (11:00)
[2023-05-01] MEDS ORDERED: ASPIRIN 81 MG PO SCH (11:00)
[2023-05-01 11:04] VITALS: BP 105/64; PULSE 69
== END 2023-05-01 14:05 | disposition home or self-care (01) ==
LOC: EC 23:46 → 6NMEDSUR 05-01 04:08
PROVIDERS: ADMIT Internal Medicine; ATTEND Internal Medicine
DX: R07.89 Other chest pain (principal); R42 Dizziness and giddiness; R06.02 Shortness of breath; I25.10 Atherosclerotic heart disease of native coronary artery without angina pectoris; E78.5 Hyperlipidemia, unspecified; I48.19 Other persistent atrial fibrillation; I25.5 Ischemic cardiomyopathy; I13.0 Hypertensive heart and chronic kidney disease with heart failure and stage 1 through stage 4 chronic kidney disease, or unspecified chronic kidney disease; I50.22 Chronic systolic (congestive) heart failure; N18.30 Chronic kidney disease, stage 3 unspecified; E11.22 Type 2 diabetes mellitus with diabetic chronic kidney disease; I25.2 Old myocardial infarction; Z87.891 Personal history of nicotine dependence; Z95.1 Presence of aortocoronary bypass graft; Z95.2 Presence of prosthetic heart valve; Z95.810 Presence of automatic (implantable) cardiac defibrillator; Z79.899 Other long term (current) drug therapy; Z79.84 Long term (current) use of oral hypoglycemic drugs; Z79.01 Long term (current) use of anticoagulants; Z79.82 Long term (current) use of aspirin; Z82.49 Family history of ischemic heart disease and other diseases of the circulatory system
CPT/HCPCS: 96375 ×2; 96374; 99285; 36415; 93005; 83880; 80053; 83690; 83735; 84484; 85025; 85610; 85730; 81003; 71046; G0378; J2765; J2405; C9113

== ENCOUNTER → 2023-05-12 | Outpatient (CLI) | payer BC ==
--- NOTE | 2023-05-13 08:44 | CT ---
EXAMINATION TYPE: CT chest abdomen w con DATE OF EXAM: 05/12/2023 COMPARISON: None HISTORY: c/o nausea CT DLP: 1652.6 mGycm CONTRAST: CT scan of the chest, abdomen is performed with Oral Contrast and with IV Contrast, patient injected with 100 mL of Isovue 300. CT Chest: LUNGS: The lungs are clear and free of infiltrate or atelectasis. No pulmonary nodule or mass is det ected. No pleural effusion or CT evidence of interstitial lung disease. MEDIASTINUM: Thoracic aorta is of normal caliber. The heart is enlarged. No evidence for mediastin al mass or adenopathy. HILAR STRUCTURES: No evidence for mass. No hilar adenopathy is appreciated. OTHER: No significant abnormality. CONTRAST CT ABDOMEN AND PELVIS FINDINGS: LIVER/GB: No calcified gallstones. No space occupying hepatic lesion. Biliary tree is of normal ca liber. PANCREAS: No inflammation. No distinct mass. SPLEEN: No splenic enlargement. No lesion seen. ADRENALS: No nodule. No thickening. KIDNEYS/BLADDER: No hydronephrosis. No nephrolithiasis. No distinct renal mass. BOWEL: Visualized bowel loops are of normal caliber. LYMPH NODES: No greater than 1cm abdominal or pelvic lymph nodes are appreciated. AORTA: No significant abnormality. OSSEOUS STRUCTURES: No significant abnormality is seen. OTHER: No significant additional abnormality is seen. IMPRESSION: 1. No discrete abnormality appreciated.
== END | disposition home or self-care (01) ==
LOC: RADCTMAIN 14:45
PROVIDERS: ATTEND Internal Medicine Interventional Cardiology
DX: S27.818A Other injury of esophagus (thoracic part), initial encounter (principal); R11.0 Nausea; X58.XXXA Exposure to other specified factors, initial encounter; Z98.890 Other specified postprocedural states
CPT/HCPCS: 71260; 74160; Q9967

== ENCOUNTER → 2023-06-01 | Outpatient (CLI) | payer OTHER ==
--- NOTE | 2023-06-01 14:18 | XR ---
EXAMINATION TYPE: XR tibia fibula LT DATE OF EXAM: 06/01/2023 COMPARISON: NONE HISTORY: Pain TECHNIQUE: Two views are submitted. FINDINGS: The osseous structures are intact. The joint spaces are preserved. There is a density seen adjacent to the proximal tibia likely vascular. Small rounded ossific density appears to be within the knee j oint and likely represents a loose body. Calcaneal spur noted. IMPRESSION: 1. No acute osseous abnormality. 2. Suspect a loose body within the knee joint
--- NOTE | 2023-06-01 14:21 | XR ---
EXAMINATION TYPE: XR wrist complete RT DATE OF EXAM: 06/01/2023 COMPARISON: NONE HISTORY: Pain TECHNIQUE: Four views submitted. FINDINGS: The osseous structures are intact. There is mild first carpometacarpal and first MCP joint arthropath y. There is no acute fracture or dislocation. Second and third digit MCP joint arthropathy suspected . IMPRESSION: 1. No definite acute fracture or dislocation if symptoms persist, follow-up study in 7 to 10 days wo uld be suggested. 2. First MCP and first carpometacarpal arthropathy in a pattern most typical of osteoarthritis.
--- NOTE | 2023-06-01 14:23 | XR ---
EXAMINATION TYPE: XR knee complete LT DATE OF EXAM: 06/01/2023 COMPARISON: NONE HISTORY: Pain TECHNIQUE: Three views are submitted. FINDINGS: The osseous structures are intact. There is marginal spurring and mild arthropathy of the patellofemo ral joint. There is a density seen adjacent to the proximal tibia likely vascular. Small rounded ossi fic density appears to be within the knee joint and likely represents a loose body. Calcaneal spur no carla. Mild osteopenia. Small amount of fluid in the suprapatellar bursa. IMPRESSION: 1. No acute osseous abnormality. 2. Suspect a loose body within the knee joint
== END | disposition home or self-care (01) ==
LOC: RADXRMAIN 13:21
PROVIDERS: ATTEND Emergency Medicine
DX: S80.02XA Contusion of left knee, initial encounter (principal); S80.12XA Contusion of left lower leg, initial encounter; S63.501A Unspecified sprain of right wrist, initial encounter; M18.11 Unilateral primary osteoarthritis of first carpometacarpal joint, right hand; X58.XXXA Exposure to other specified factors, initial encounter

== ENCOUNTER → 2023-06-08 | Outpatient (CLI) | payer OTHER ==
--- NOTE | 2023-06-08 11:51 | XR ---
EXAMINATION TYPE: XR tibia fibula LT DATE OF EXAM: 06/08/2023 COMPARISON: NONE HISTORY: Pain TECHNIQUE: Two views are submitted. FINDINGS: The osseous structures are intact. Mild narrowing of the tricompartmental joint spaces. Marginal spur ring of patella.. Ossific density along the anterior margin of the knee joint could represent loose body. IMPRESSION: 1. No acute osseous abnormality. 2. Findings suggestive of loose body anterior margin of the knee joint.
== END | disposition home or self-care (01) ==
LOC: RADXRMAIN 11:32
PROVIDERS: ATTEND Emergency Medicine
DX: S80.12XD Contusion of left lower leg, subsequent encounter (principal); X58.XXXD Exposure to other specified factors, subsequent encounter

== ENCOUNTER → 2023-06-16 | Outpatient (CLI) | payer BC ==
--- NOTE | 2023-06-17 10:08 | CA ---
Transthoracic Echo Report Name: Marquis Buckley Age: 58 Gender: M : 1965 Exam Date: 06/16/2023 13:33 Exam Location: [facility] Ht (in): 68 Wt (lb): 232 Ordering Physician: George Mercer MD ([id number]) Attending/Referring Phys: Iliana Oakley [facility] Animal Keeper Head Jen Cardoza, JOE Procedure CPT: Indications: I25.10 cardivascular disease Cardiac Hx: CABG , Pacemaker, Bioprosthetic AOV Technical Quality: Fair Contrast 1: Total Dose (mL): Contrast 2: Total Dose (mL): MEASUREMENTS (Male / Female) Normal Values 2D ECHO LV Diastolic Diameter PLAX 4.3 cm 4.2 - 5.9 / 3.9 - 5.3 cm LV Systolic Diameter PLAX 3.5 cm IVS Diastolic Thickness 1.5 cm 0.6 - 1.0 / 0.6 - 0.9 cm LVPW Diastolic Thickness 1.5 cm 0.6 - 1.0 / 0.6 - 0.9 cm LV Relative Wall Thickness 0.7 RV Internal Dim ED PLAX 3.6 cm LVOT Diameter 2.9 cm LA Systolic Diameter LX 4.3 cm 3.0 - 4.0 / 2.7 - 3.8 cm LV Diastolic Volume MOD 4C 145.0 cm??? LV Systolic Volume MOD 4C 69.0 cm??? LV Ejection Fraction MOD 4C 52.4 % LV Cardiac Index MOD 4C 2524.7 cm???/min???m??? LV Diastolic Length 4C 8.4 cm LV Systolic Length 4C 7.0 cm LV Diastolic Volume MOD 2C 110.8 cm??? LV Systolic Volume MOD 2C 57.7 cm??? LV Ejection Fraction MOD 2C 47.9 % LV Cardiac Index MOD 2C 1763.5 cm???/min???m??? LV Diastolic Length 2C 9.0 cm LV Systolic Length 2C 7.9 cm LA Volume 60.5 cm??? 18 - 58 / 22 - 52 cm??? LA Volume Index 26.4 cm???/m??? 16 - 28 cm???/m??? M-MODE Aortic Root Diameter MM 4.1 cm MV E Point Septal Separation 1.5 cm DOPPLER AV Peak Velocity 383.7 cm/s AV Peak Gradient 58.9 mmHg AV Mean Velocity 269.7 cm/s AV Mean Gradient 34.1 mmHg AV Velocity Time Integral 84.5 cm AI Peak Velocity 379.8 cm/s AI Peak Gradient 57.7 mmHg AI Pressure Half Time 468.4 ms LVOT Peak Velocity 116.3 cm/s LVOT Peak Gradient 5.4 mmHg AV Area Cont Eq pk 2.0 cm??? MV Area PHT 2.9 cm??? Mitral E Point Velocity 62.6 cm/s Mitral A Point Velocity 55.6 cm/s Mitral E to A Ratio 1.1 MV Deceleration Time 263.5 ms MV E' Velocity 6.9 cm/s Mitral E to MV E' Ratio 9.0 TR Peak Velocity 265.4 cm/s TR Peak Gradient 28.2 mmHg Right Ventricular Systolic Press 33.2 mmHg FINDINGS Left Ventricle Left ventricular ejection fraction is estimated at 50-55 %. Left ventricular cavity size normal. Moderate concentric left ventricular hypertrophy. Inferobasal and inferoseptal hypokinesis Right Ventricle Mild right ventricular dilatation. Right ventricular systolic pressure within normal limits. Right Atrium Normal right atrial size. Left Atrium Mildly increased left atrial diameter. Mildly increased left atrial volume. Mitral Valve Mitral valve thickened. Mild mitral annular calcification. No mitral stenosis, or prolapse. Mild mitral regurgitation Aortic Valve Bioprosthetic stenosis with mean gradient of 34 mmHg . Biprosthetic thickening. Mild aortic regurgitation. Tricuspid Valve Structurally normal tricuspid valve. Mild tricuspid regurgitation. Pulmonic Valve Pulmonic valve not well visualized. No pulmonic regurgitation. Pericardium No pericardial effusion. Aorta Mild aortic dilatation at the level of the sinuses of valsalva 41 mm CONCLUSIONS 1. Left ventricle systolic function is borderline normal with segmental wall motion abnormality 2. Bioprosthetic aortic valve with a mean gradient of 34 mmHg and mild aortic regurgitation 3. Mild multiple and tricuspid regurgitation with no evidence of pulmonary hypertension Previewed by: Dr. George Mercer MD (Electronically Signed) Final Date: 17 June 2023 10:07
== END | disposition home or self-care (01) ==
LOC: RADECHMAIN 13:27
PROVIDERS: ATTEND Internal Medicine Interventional Cardiology
DX: I08.2 Rheumatic disorders of both aortic and tricuspid valves (principal); I25.10 Atherosclerotic heart disease of native coronary artery without angina pectoris; I42.9 Cardiomyopathy, unspecified
CPT/HCPCS: 93306

== ENCOUNTER → 2023-06-28 | Outpatient (CLI) | payer BC ==
[2023-06-28 17:53] LABS: NT-Pro-B-Type Natriuretic Pept 875 pg/mL
[2023-06-29 02:47] LABS: BUN/Creat Ratio 15.87 Ratio (12.00-20.00); Blood Urea Nitrogen 23.8 mg/dL (9.0-27.0); Chloride 101 mmol/L (96-109); Glucose 70 mg/dL (70-110); Potassium 4.7 mmol/L (3.5-5.5); Sodium 137 mmol/L (135-145)
[2023-06-29 02:48] LABS: ALT 42 U/L (10-49); AST 38 U/L (14-35); Albumin 4.1 g/dL (3.8-4.9); Albumin/Globulin Ratio 1.95 Ratio (1.60-3.17); Alkaline Phosphatase 59 U/L (41-126); Calcium 9.2 mg/dL (8.7-10.3); Carbon Dioxide 23.1 mmol/L (21.6-31.8); Globulin 2.1 g/dL (1.6-3.3); Total Bilirubin 0.4 mg/dL (0.3-1.2); Total Protein 6.2 g/dL (6.2-8.2)
== END | disposition home or self-care (01) ==
LOC: LABWHC1 15:19
PROVIDERS: ATTEND Internal Medicine Interventional Cardiology
DX: I25.5 Ischemic cardiomyopathy (principal)
CPT/HCPCS: 36415; 80053; 83880

== ENCOUNTER 2024-05-27 17:48 | Inpatient (IN) | payer BC ==
--- NOTE | 2024-05-27 18:01 | ED ---
Nausea/Vomiting/Diarrhea HPI - General Source: patient, RN notes reviewed <Livia Jaramillo - Last Filed: 05/27/24 17:58> <Katie Stahl - Last Filed: 05/27/24 20:57> - General Stated complaint: Vomiting Time Seen by Provider: 05/27/24 17:58 - History of Present Illness Initial comments: Quick [id number] male presenting clinic department chief complaint of nausea and vomiting since 1100 this morning. He also reports a heaviness in his chest associated symptoms of breath. He is unable to take a deep breath. Has a history of MS with stent placement. is currently on eliquis. (Livia Jaramillo) Marquis is a pleasant 7-year-old gentleman with a history of previous MS with no stent placement, valve replacement. Patient presents the ER today with complai nt of chest pressure and heaviness. Patient reports he has been experiencing postprandial nausea and vomiting on a nearly daily basis since . Patient has seen his primary care provider he has been given antiemetic medications that do not seem to help. Patient reports he had some acute nausea and vomiting this morning this was nonbloody nonbilious. Patient states he then developed some pressure and heaviness in his chest which is not typical for him after vomiting and prompted him to come to the ER for evaluation. Denies any exertional chest pain or shortness of breath. (Katie Stahl) - Related Data Home Medications Medication Instructions Recorded Confirmed Ezetimibe [Zetia] 10 mg PO DAILY 03/21/21 05/01/23 Tamsulosin [Flomax] 0.4 mg PO DAILY 08/13/22 05/01/23 buPROPion [Wellbutrin] 100 mg PO BID 08/13/22 05/01/23 Albuterol Inhaler [Ventolin Hfa 1 - 2 puff INHALATION RT-Q6H PRN 03/13/23 05/01/23 Inhaler] Finasteride [Proscar] 5 mg PO DAILY 03/13/23 05/01/23 Multivitamins, Thera [Multivitamin 1 tab PO DAILY 03/13/23 05/01/23 (formulary)] Empagliflozin [Jardiance] 10 mg PO DAILY 04/12/23 05/01/23 Amiodarone [Cordarone] 100 mg PO DAILY 05/01/23 05/01/23 Previous Rx's Medication Instructions Recorded Apixaban [Eliquis] 5 mg PO BID #60 tab 04/27/17 Aspirin 81 mg PO DAILY chew 04/27/17 Atorvastatin [Lipitor] 80 mg PO DAILY #30 tab 04/27/17 Metoprolol Tartrate [Lopressor] 50 mg PO BID #180 tab 04/14/23 Pantoprazole Sodium [Protonix] 20 mg PO AC-BID #20 tab 05/01/23 Allergies Allergy/AdvReac Type Severity Reaction Status Date / Time No Known Allergies Allergy Verified 05/27/24 18:04 Review of Systems ROS Other: All systems not noted in ROS Statement are negative. <Livia Jaramillo - Last Filed: 05/27/24 17:58> ROS Other: All systems not noted in ROS Statement are negative. <Katie Stahl P - Last Filed: 05/27/24 20:57> ROS Statement: Those systems with pertinent positive or pertinent negative responses have been documented in the HPI. Past Medical History Past Medical History: Atrial Fibrillation, Coronary Artery Disease (CAD), Diabetes Mellitus, Hyperlipidemia, Hypertension, Myocardial Infarction ([place]) Additional Past Medical History / Comment(s): "Bruised liver". Last Myocardial Infarction Date:: 09/15/2014 History of Any Multi-Drug Resistant Organisms: None Reported Past Surgical History: AICD, Cardiac Valve Replacement, Coronary Bypass/CABG, Heart Catheterization, Pacemaker Additional Past Surgical History / Comment(s): 2 vessel CABG 2011., CARDIOVERSION Past Anesthesia/Blood Transfusion Reactions: No Reported Reaction Type of Cardiac Device: Permanent Pacemaker, AICD Device Placement Date:: 04/2021 Past Psychological History: No Psychological Hx Reported Smoking Status: Former smoker Past Alcohol Use History: Daily Past Drug Use History: None Reported - Past Family History Mother Family Medical History: Cancer Father Family Medical History: Cancer Additional Family Medical History / Comment(s): No biological children. Brother(s) Family Medical History: Myocardial Infarction ([place]) <Livia Jaramillo - Last Filed: 05/27/24 17:58> General Exam <Livia Jaramillo - Last Filed: 05/27/24 17:58> <Katie Stahl P - Last Filed: 05/27/24 20:57> - General Exam Comments Initial Comments: Visual Physical Exam Vital signs reviewed General: Well-appearing, nontoxic, no acute distress. Head: Normocephalic, atraumatic Eyes: PERRLA, EOMI ENT: Airway patent Chest: Nonlabored breathing Skin: No visual rash, normal skin tone Neuro: Alert and oriented 3 Musculoskeletal: No gross abnormalities (Livia Jaramillo) Physical Exam GENERAL: Patient is well-developed and well-nourished. Patient is nontoxic and well- hydrated and is in no distress. HENT: Normocephalic, Atraumatic. EYES: PERRL, EOMI PULMONARY: Unlabored respirations. No audible rales rhonchi or wheezing was noted. CARDIOVASCULAR: There is a regular rate and rhythm without any murmurs gallops or rubs. ABDOMEN: Soft and nontender with normal bowel sounds. SKIN: Skin is clear with no lesions or rashes and otherwise unremarkable. : Deferred NEUROLOGIC: Patient is alert and oriented x3. Moving all extremities spontaneously MUSCULOSKELETAL: Normal extremities with adequate strength and full range of motion. No lower extremity swelling or edema. No calf tenderness. PSYCHIATRIC: Normal psychiatric evaluation. (Katie Stahl) Course Vital Signs 05/27/24 05/27/24 18:04 19:40 Temperature 99.1 F Pulse Rate 97 93 Respiratory 22 18 Rate Blood Pressure 128/90 139/96 O2 Sat by Pulse 100 98 Oximetry Medical Decision Making <Livia Jaramillo - Last Filed: 05/27/24 17:58> - Lab Data Result diagrams: 05/27/24 18:42 05/27/24 18:42 - EKG Data -: EKG Interpreted by [place] <Katie Stahl - Last Filed: 05/27/24 20:57> - Medical Decision Making I completed the quick note portion of this chart signed Livia Jaramillo PA-C (Livia Jaramillo) Was pt. sent in by a medical professional or institution ([facility], [facility], urgent care, hospital, or correction...) When possible be specific @ -No Did you speak to anyone other than the patient for history (EMS, parent, family, police, friend...)? What history was obtained from this source @ -No Did you review nursing and triage notes (agree or disagree)? Why? @ -I reviewed and agree with nursing and triage notes Were old charts reviewed (outside hosp., previous admission, EMS record, old EKG, old radiological studies, urgent care reports/EKG's, correction records)? Report findings @ -No old charts were reviewed Differential Diagnosis (chest pain, altered mental status, abdominal pain women, abdominal pain men, vaginal bleeding, weakness, fever, dyspnea, syncope, headache, dizziness, GI bleed, back pain, seizure, CVA, palpatations, mental health)? @ -Differential Chest Pain: Stable Angina, Unstable Angina, STEMI, NSTEMI Aortic Dissection, Pneumothorax, Musculoskeletal, Esophageal Spasm GERD, Cholecystitis, Pancreatitis, Zoster, this is not meant to be an all-inclusive list. EKG interpreted by me (3pts min.). @ -As above X-rays interpreted by me (1pt min.). @ -No acute findings CT interpreted by me (1pt min.). @ -None done U/S interpreted by me (1pt. min.). @ -None done What testing was considered but not performed or refused? (CT, X-rays, U/S, labs)? Why? @ -None What meds were considered but not given or refused? Why? @ -None Did you discuss the management of the patient with other professionals (professionals i.e. , PA, UNIFORMER, lab, RT, psych nurse, social science research assistant, chalk molding machine operator, teacher, disabilities services officer, patient case coordinator)? Give summary @ -No Was smoking cessation discussed for >3mins.? @ -No Was critical care preformed (if so, how long)? @ -No Were there social determinants of health that impacted care today? How? (Homelessness, low income, unemployed, alcoholism, drug addiction, transportatio n, low edu. Level, literacy, decrease access to med. care, shelter, rehab)? @ -No Was there de-escalation of care discussed even if they declined (Discuss DNR or withdrawal of care, Hospice)? DNR status @ -No What co-morbidities impacted this encounter? (DM, HTN, Smoking, COPD, CAD, Cancer, CVA, ARF, Chemo, Hep., AIDS, mental health diagnosis, sleep apnea, morbid obesity)? @ -CAD Was patient admitted / discharged? Hospital course, mention meds given and route, prescriptions, significant lab abnormalities, going to OR and other pertinent info. @ -Admit The patient was seen and evaluated, history is obtained from the patient. Initial troponin was elevated, there is no significant changes on EKG. Heparin was initiated patient was given aspirin. Patient will be admitted for acute coronary syndrome. Plan was discussed with Dr. Mckenna who is covering for Dr. Lopez he stated the doctor daughter will be back in the morning and can be the admitting physician. Undiagnosed new problem with uncertain prognosis? @ -Yes Drug Therapy requiring intensive monitoring for toxicity (Heparin, Nitro, Insulin, Cardizem)? @ -Yes Were any procedures done? @ -No Diagnosis/symptom? @ -ACS Acute, or Chronic, or Acute on Chronic? @ -Default Uncomplicated (without systemic symptoms) or Complicated (systemic symptoms)? @ -Default Side effects of treatment? @ -No Exacerbation, Progression, or Severe Exacerbation? @ -No Poses a threat to life or bodily function? How? (Chest pain, USA, MS, pneumonia, PE, COPD, DKA, ARF, appy, cholecystitis, CVA, Diverticulitis, Homicidal, Suicidal, threat to staff... and all critical care pts) @ -No (Katie Stahl) - Lab Data Lab Results 05/27/24 05/27/24 05/27/24 Range/Units 18:42 18:42 18:42 WBC 12.4 H (3.8-10.6) k/uL RBC 3.66 L (4.30-5.90) m/uL Hgb 12.1 L (13.0-17.5) gm/dL Hct 36.6 L (39.0-53.0) % MCV 99.9 (80.0-100.0) fL MCH 33.0 (25.0-35.0) pg MCHC 33.0 (31.0-37.0) g/dL RDW 13.1 (11.5-15.5) % Plt Count 217 (150-450) k/uL MPV 8.0 PT 12.8 H (10.0-12.5) sec INR 1.2 H (<1.2) APTT 26.8 (22.0-30.0) sec Sodium 129 L (137-145) mmol/L Potassium 5.1 (3.5-5.1) mmol/L Chloride 100 (98-107) mmol/L Carbon Dioxide 21 L (22-30) mmol/L Anion Gap 8 mmol/L BUN 18 (9-20) mg/dL Creatinine 1.06 (0.66-1.25) mg/dL Est GFR (CKD-EPI)AfAm 88 (>60 ml/min/1.73 sqM) Est GFR (CKD-EPI)NonAf 76 (>60 ml/min/1.73 sqM) Glucose 137 H (74-99) mg/dL Plasma Lactic Acid Mehrdad (0.7-2.0) mmol/L Calcium 8.3 L (8.4-10.2) mg/dL Magnesium 1.8 (1.6-2.3) mg/dL Total Bilirubin 0.8 (0.2-1.3) mg/dL AST 44 (17-59) U/L ALT 45 (4-49) U/L Alkaline Phosphatase 76 (38-126) U/L Troponin I (0.000-0.034) ng/mL Total Protein 6.3 (6.3-8.2) g/dL Albumin 3.3 L (3.5-5.0) g/dL Amylase 48 (30-110) U/L Lipase 107 (23-300) U/L 05/27/24 05/27/24 Range/Units 18:42 18:42 WBC (3.8-10.6) k/uL RBC (4.30-5.90) m/uL Hgb (13.0-17.5) gm/dL Hct (39.0-53.0) % MCV (80.0-100.0) fL MCH (25.0-35.0) pg MCHC (31.0-37.0) g/dL RDW (11.5-15.5) % Plt Count (150-450) k/uL MPV PT (10.0-12.5) sec INR (<1.2) APTT (22.0-30.0) sec Sodium (137-145) mmol/L Potassium (3.5-5.1) mmol/L Chloride (98-107) mmol/L Carbon Dioxide (22-30) mmol/L Anion Gap mmol/L BUN (9-20) mg/dL Creatinine (0.66-1.25) mg/dL Est GFR (CKD-EPI)AfAm (>60 ml/min/1.73 sqM) Est GFR (CKD-EPI)NonAf (>60 ml/min/1.73 sqM) Glucose (74-99) mg/dL Plasma Lactic Acid Mehrdad 1.7 (0.7-2.0) mmol/L Calcium (8.4-10.2) mg/dL Magnesium (1.6-2.3) mg/dL Total Bilirubin (0.2-1.3) mg/dL AST (17-59) U/L ALT (4-49) U/L Alkaline Phosphatase (38-126) U/L Troponin I 0.101 H* (0.000-0.034) ng/mL Total Protein (6.3-8.2) g/dL Albumin (3.5-5.0) g/dL Amylase (30-110) U/L Lipase (23-300) U/L - EKG Data EKG Comments: EKG interpreted by me, EKG obtained due to complaint of chest pain, initial EKG obtained 1816 rate is 96 rhythm is sinus normal axis, normal intervals, [place] 184 QRS 92 QTc 418 there is no obvious ST elevations or depression no evidence of acute ischemia or infarction EKG obtained due to elevated troponin level, given there is a normal axis, normal intervals [place] 184 QRS 98 QTc 428 there is no obvious ST elevation slight depression noted in lead II no evidence of acute infarction. (Katie Stahl) Disposition <Livia Jaramillo - Last Filed: 05/27/24 17:58> Is patient prescribed a controlled substance at d/c from ED?: No <Katie Stahl - Last Filed: 05/27/24 20:57> Clinical Impression: ACS (acute coronary syndrome), Chest pain Disposition: ADMITTED IP TO THIS HOSP Condition: Serious Referrals: Kassi Lopez MD [Primary Care Provider] - 1-2 days
[2024-05-27 19:22] LABS: INR 1.2 (<1.2); Partial Thromboplastin Time 26.8 sec (22.0-30.0); Prothrombin Time 12.8 sec (10.0-12.5)
[2024-05-27 19:27] LABS: ALT 45 U/L (4-49); AST 44 U/L (17-59); African American GFR (CKD) 88 (>60 ml/min/1.73 sqM); Albumin 3.3 g/dL (3.5-5.0); Alkaline Phosphatase 76 U/L (38-126); Amylase 48 U/L (30-110); Anion Gap 8 mmol/L; Blood Urea Nitrogen 18 mg/dL (9-20); Calcium 8.3 mg/dL (8.4-10.2); Carbon Dioxide 21 mmol/L (22-30); Chloride 100 mmol/L (98-107); Glucose 137 mg/dL (74-99); Lipase 107 U/L (23-300); Magnesium 1.8 mg/dL (1.6-2.3); Non-African American GFR(CKD) 76 (>60 ml/min/1.73 sqM); Potassium 5.1 mmol/L (3.5-5.1); Sodium 129 mmol/L (137-145); Total Bilirubin 0.8 mg/dL (0.2-1.3); Total Protein 6.3 g/dL (6.3-8.2)
--- NOTE | 2024-05-27 19:31 | XR ---
EXAMINATION TYPE: XR chest 2V DATE OF EXAM: 05/27/2024 7:18 PM COMPARISON: Chest radiograph 05/01/2023. CLINICAL INDICATION: Male, 59 years old with history of CP, SOB; [facility] TECHNIQUE: XR chest 2V Frontal and lateral views of the chest. FINDINGS: Mild thyromegaly. Median sternotomy wires noted. Left chest wall AICD device with lead overlying the region of the right ventricle. No acute focal consolidation. No pleural effusion. No pneumothorax. No acute osseous adenopathy. IMPRESSION: No acute cardiopulmonary disease/process. [facility], , 05/27/2024 7:29 PM
[2024-05-27 19:35] LABS: HCT 36.6 % (39.0-53.0); HGB 12.1 gm/dL (13.0-17.5); MCV 99.9 fL (80.0-100.0); Platelet Count 217 k/uL (150-450); RBC 3.66 m/uL (4.30-5.90); RDW 13.1 % (11.5-15.5); WBC 12.4 k/uL (3.8-10.6)
[2024-05-27] MEDS ORDERED: HEPARIN SODIUM 1,000 UN/ML (10ML VL) IV PRN (19:54)
[2024-05-27] MEDS: ACETAMINOPHEN TAB 325 MG TAB PO STA (20:08)
[2024-05-27] MEDS: ONDANSETRON 4 MG/2 ML VIAL IVP STA (20:11)
[2024-05-27] MEDS: HEPARIN SODIUM 1,000 UN/ML (10ML VL) IV ONE (20:17)
[2024-05-27] MEDS: HEPARIN SOD,PORK IN 0.45% NACL 25,000 UNIT in 0.45% NACL 1 250ML.BAG IV SCH (20:18)
[2024-05-27] MEDS ORDERED: NITROGLYCERIN SL TABS 0.4 MG TAB SUBLINGUAL PRN (20:43)
[2024-05-27 21:56] LABS: Eosinophils # (M) 0.12 k/uL (0-0.7); Lymphocytes # (M) 2.11 k/uL (1.0-4.8); Monocytes # (M) 0.37 k/uL (0-1.0); Neutrophils % (M) 79 %; Nucleated Red Blood Cells 0 /100 WBC (0-0); Total Cells Counted 100
[2024-05-27] MEDS: ASPIRIN 81 MG PO STA (21:57)
[2024-05-27 21:58] LABS: RBC Fragments Present; Tear Drop Cells Present
[2024-05-28 02:31] LABS: Basophils % (A) 0 %; Eosinophils % (A) 0 %; HGB 10.7 gm/dL (13.0-17.5); Lymphocytes # (A) 0.9 k/uL (1.0-4.8); Lymphocytes % (A) 7 %; MCH 32.2 pg (25.0-35.0); MCHC 32.4 g/dL (31.0-37.0); MCV 99.5 fL (80.0-100.0); Mean Platelet Volume 8.5; Monocytes # (A) 0.6 k/uL (0-1.0); Monocytes % (A) 5 %; Neutrophils # (A) 10.4 k/uL (1.3-7.7); Neutrophils % (A) 84 %; Platelet Count 235 k/uL (150-450); RBC 3.32 m/uL (4.30-5.90); RDW 13.5 % (11.5-15.5); WBC 12.4 k/uL (3.8-10.6)
[2024-05-28 02:53] LABS: INR 1.2 (<1.2); Prothrombin Time 13.1 sec (10.0-12.5)
[2024-05-28 07:14] LABS: Basophils % (A) 0 %; Eosinophils % (A) 0 %; HCT 33.4 % (39.0-53.0); Lymphocytes # (A) 1.1 k/uL (1.0-4.8); Lymphocytes % (A) 9 %; MCH 33.2 pg (25.0-35.0); MCV 100.5 fL (80.0-100.0); Mean Platelet Volume 7.6; Monocytes # (A) 0.6 k/uL (0-1.0); Monocytes % (A) 5 %; Neutrophils # (A) 10.2 k/uL (1.3-7.7); Neutrophils % (A) 82 %; Platelet Count 242 k/uL (150-450); RBC 3.33 m/uL (4.30-5.90); WBC 12.5 k/uL (3.8-10.6)
[2024-05-28 08:48] LABS: Chol/HDL Ratio 2.78 Ratio; LDL Cholesterol,Calculated 31.7 mg/dL (0.0-131.0); VLDL Calculation 18.24 mg/dL (5.00-40.00)
[2024-05-28] MEDS: ASPIRIN 325 MG TAB PO SCH (08:53)
[2024-05-28] MEDS ORDERED: ALPRAZolam 0.25 MG TAB PO PRN (09:02)
[2024-05-28] MEDS ORDERED: ASPIRIN 325 MG TAB PO STA (09:02)
[2024-05-28] MEDS ORDERED: NITROGLYCERIN SL TABS 0.4 MG TAB SUBLINGUAL PRN (09:02)
[2024-05-28] MEDS: METOPROLOL TARTRATE 50 MG TAB PO SCH (09:39)
[2024-05-28] MEDS: PANTOPRAZOLE 40 MG TABLET PO SCH (09:39)
[2024-05-28] MEDS: ONDANSETRON 4 MG/2 ML VIAL IVP PRN (09:39)
[2024-05-28] MEDS: ATORVASTATIN 80 MG TAB PO STA (09:39)
[2024-05-28] MEDS: SODIUM CHLORIDE 0.9% 1,000 ML in EMPTY BAG 1 BAG IV SCH (09:40)
--- NOTE | 2024-05-28 11:13 | P.CRDCN ---
History of Present Illness Consult date: 05/28/24 Reason for Consult (text): NSTEMI History of present illness: This is a 59-year-old male patient of Dr. Mercer with past medical history of coronary artery disease status post CABG in 2011 with VG to LAD and a tissue AVR, resection of aortic aneurysm, typical atrial flutter on Eliquis with primary treatment strategy of rhythm control, hypertension, hyperlipidemia, ICD, previous history of tobacco use and dependence. We have been asked to evaluate the patient for NSTEMI. Patient gives history that he was sick all day on Tuesday with nausea and vomiting and ongoing retching that would not stop. He was sitting on the couch later in the day and he developed pressure in the mid chest area. He had not had that before. This morning the nausea has come back but no vomiting and he denies chest pain. Regarding the nausea and vomiting, he states that this has been ongoing problem for the past 2 months and been worked up as an outpatient. Patient has been started on a heparin drip. His last Eliquis intake was yesterday morning. Blood pressure 115/76, heart rate 92, pulse ox 95% on room air. Discussed option of cardiac catheterization with the patient and he is agreeable to move forward with this today. -EKG: Sinus rhythm with nonspecific ST changes -Chest x-ray: No acute process. -Laboratory studies: WBC 12.5, hemoglobin 11. Troponins 0.101, 0.094, 0.076. Triglycerides 91, cholesterol 78, LDL 31. Influenza A, influenza B, RSV, COVID- 19 not detected. -Home cardiac medications: Amlodipine 2.5 mg daily, Eliquis 5 mg twice daily, Lipitor 80 mg daily, Zetia 10 mg daily, lisinopril 30 mg daily, Lopressor 50 mg twice daily. -Echocardiogram performed 05/2023: LV systolic function borderline normal with EF of 50 to 55%, with segmental wall motion abnormality. Bioprosthetic aortic valve with mean gradient of 34 mmHg and mild aortic regurgitation. Mild mitral and tricuspid regurgitation. No evidence of pulmonary hypertension. -Lexiscan Cardiolite stress test performed in the office on 03/28/2023 revealed nondiagnostic electrocardiographic stress testing. Abnormal myocardial perfusion imaging with fixed basal lateral wall defect and mild global hypokinesis suggestive nonischemic cardiomyopathy. No evidence of stress- induced ischemia. Review Of Systems: At the time of my exam: CONSTITUTIONAL: Denies fever or chills. HEENT: Denies blurred vision, vision changes, or eye pain. Denies hemoptysis CARDIOVASCULAR: Denies chest pain. Denies orthopnea. Denies PND. Denies palpitations RESPIRATORY: Denies shortness of breath. GASTROINTESTINAL: Denies abdominal pain. Denies nausea or vomiting. HEMATOLOGIC: Denies bleeding disorders. GENITOURINARY: Denies any blood in urine. SKIN: Denies puritis. Denies rash. Physical examination: Gen: This is a 59-year-old male in no acute distress VS: reviewed HEENT: Head is atraumatic, normocephalic. Pupils equal, round. Sclerae is anicteric. NECK: Supple. No JVD. LUNGS: Clear to auscultation. No wheezes or rhonchi. No intercostal retractions. HEART: Regular rate and rhythm. 3/6 systolic ejection murmur. ABDOMEN: Soft No tenderness. EXTREMITIES: No pedal edema. No calf tenderness. NEUROLOGICAL: Patient is awake, alert and oriented x3. Assessment: NSTEMI History of coronary artery disease status post one-vessel CABG in 2011 with VG to LAD Tissue AVR 2011 Typical atrial flutter on Eliquis Hypertension Hyperlipidemia Status post ICD Chronic nausea and vomiting History of tobacco use and dependence Plan: Resume patient's home cardiac medications Continue heparin drip, continue to hold Eliquis Obtain 2-D echocardiogram and Doppler study to assess cardiac structure and function Schedule patient for left heart catheterization today with Dr. Mercer Further recommendations to follow based upon clinical course Thank you kindly for this consultation. Nurse practitioner note has been reviewed, I agree with documented findings and plan of care. Patient was seen and examined. Past Medical History Past Medical History: Atrial Fibrillation, Coronary Artery Disease (CAD), Diabetes Mellitus, Hyperlipidemia, Hypertension, Myocardial Infarction ([place]), Prostate Disorder Additional Past Medical History / Comment(s): "Bruised liver". enlarged prostate Last Myocardial Infarction Date:: 09/15/2014 History of Any Multi-Drug Resistant Organisms: None Reported Past Surgical History: AICD, Cardiac Valve Replacement, Coronary Bypass/CABG, Heart Catheterization, Pacemaker Additional Past Surgical History / Comment(s): 2 vessel CABG 2011., CARDIOVERSION Past Anesthesia/Blood Transfusion Reactions: No Reported Reaction Type of Cardiac Device: Permanent Pacemaker, AICD Device Placement Date:: 04/2021 Past Psychological History: No Psychological Hx Reported Smoking Status: Former smoker Past Alcohol Use History: Occasional Additional Past Alcohol Use History / Comment(s): Has been smoking since 13-14 yrs of age,Quit in july 2022 Past Drug Use History: None Reported - Past Family History Mother Family Medical History: Cancer Father Family Medical History: Cancer Additional Family Medical History / Comment(s): No biological children. Brother(s) Family Medical History: Myocardial Infarction ([place]) Medications and Allergies Home Medications Medication Instructions Recorded Confirmed Type Apixaban [Eliquis] 5 mg PO BID #60 tab 04/27/17 05/28/24 Rx Atorvastatin [Lipitor] 80 mg PO DAILY #30 tab 04/27/17 05/28/24 Rx Ezetimibe [Zetia] 10 mg PO DAILY 03/21/21 05/28/24 History buPROPion [Wellbutrin] 100 mg PO BID 08/13/22 05/28/24 History Finasteride [Proscar] 5 mg PO DAILY 03/13/23 05/28/24 History Metoprolol Tartrate [Lopressor] 50 mg PO BID #180 tab 04/14/23 05/28/24 Rx Metoclopramide [Reglan] 5 mg PO AC-SUPPER 05/28/24 05/28/24 History Pantoprazole [Protonix] 40 mg PO DAILY 05/28/24 05/28/24 History amLODIPine [Norvasc] 2.5 mg PO DAILY 05/28/24 05/28/24 History lisinopriL [Zestril] 30 mg PO DAILY 05/28/24 05/28/24 History Allergies Allergy/AdvReac Type Severity Reaction Status Date / Time No Known Allergies Allergy Verified 05/28/24 07:22 Physical Exam Vitals: Vital Signs Temp Pulse Pulse Resp BP BP Pulse Ox 05/28/24 05:26 125/83 05/28/24 03:38 98.0 F 88 16 97/67 96 05/28/24 02:00 83 05/28/24 01:20 87 16 134/92 97 05/27/24 22:00 90 18 144/106 05/27/24 21:00 84 18 143/102 05/27/24 19:40 93 18 139/96 98 05/27/24 18:04 99.1 F 97 22 128/90 100 Intake and Output 05/27/24 05/28/24 05/28/24 22:59 06:59 14:59 Other: Voiding Method Toilet Weight 94.347 kg 95.7 kg Results 05/28/24 06:20 05/27/24 18:42 Cardiac Enzymes 05/27/24 05/27/24 05/27/24 Range/Units 18:42 18:42 21:25 AST 44 (17-59) U/L Troponin I 0.101 H* 0.094 H* (0.000-0.034) ng/mL 05/27/24 Range/Units 23:47 AST (17-59) U/L Troponin I 0.076 H* (0.000-0.034) ng/mL Coagulation 05/27/24 05/28/24 05/28/24 Range/Units 18:42 02:16 02:16 PT 12.8 H 13.1 H (10.0-12.5) sec APTT 26.8 67.6 H (22.0-30.0) sec CBC 05/27/24 05/28/24 05/28/24 Range/Units 18:42 02:16 06:20 WBC 12.4 H 12.4 H 12.5 H (3.8-10.6) k/uL RBC 3.66 L 3.32 L 3.33 L (4.30-5.90) m/uL Hgb 12.1 L 10.7 L 11.0 L (13.0-17.5) gm/dL Hct 36.6 L 33.0 L 33.4 L (39.0-53.0) % Plt Count 217 235 242 (150-450) k/uL Comprehensive Metabolic Panel 05/27/24 Range/Units 18:42 Sodium 129 L (137-145) mmol/L Potassium 5.1 (3.5-5.1) mmol/L Chloride 100 (98-107) mmol/L Carbon Dioxide 21 L (22-30) mmol/L BUN 18 (9-20) mg/dL Creatinine 1.06 (0.66-1.25) mg/dL Glucose 137 H (74-99) mg/dL Calcium 8.3 L (8.4-10.2) mg/dL AST 44 (17-59) U/L ALT 45 (4-49) U/L Alkaline Phosphatase 76 (38-126) U/L Total Protein 6.3 (6.3-8.2) g/dL Albumin 3.3 L (3.5-5.0) g/dL Current Medications Generic Name Dose Route Start Last Admin Trade Name Freq PRN Reason Stop Dose Admin Aspirin 325 mg 05/28/24 09:00 Aspirin 325 Mg Tab PO DAILY [facility] Heparin Sodium (Porcine) 0 unit 05/27/24 19:54 Heparin Sodium 1,000 Un/Ml (10ml Vl) IV PER PROTOCOL PRN Low PTT Protocol Heparin Sodium/Sodium Chloride 250 mls @ 10 mls/hr 05/27/24 20:00 05/27/24 20:18 25,000 unit/ Sodium Chloride IV 10.599 units/kg/hr .Q24H MARVIN 10 mls/hr Administration Protocol 10.599 UNITS/KG/HR Nitroglycerin 0.4 mg 05/27/24 20:43 Nitroglycerin Sl Tabs 0.4 Mg Tab SUBLINGUAL Q5M PRN Chest Pain Intake and Output 05/27/24 05/28/24 05/28/24 22:59 06:59 14:59 Other: Voiding Method Toilet Weight 94.347 kg 95.7 kg 05/28/24 06:20 05/27/24 18:42
[2024-05-28] MEDS: IV FLUID CONTINUATION 1,000 ML IV ONE (11:58)
[2024-05-28] MEDS: HEPARIN SODIUM,PORCINE (1 ML) 2,500 UNIT in SODIUM CHLORIDE 0.9% 250 ML IRRIGATION PRN (11:59)
[2024-05-28] MEDS: HEPARIN SODIUM,PORCINE 10,000 UNIT in SODIUM CHLORIDE 0.9% 1,000 ML IRRIGATION PRN (11:59)
[2024-05-28] MEDS: fentaNYL (PF) 50 MCG/ML 2 ML AMP IVP ONE (12:14)
[2024-05-28] MEDS: LIDOCAINE 1% INJ 10MG/ML (20 ML MDV) SQ ONE (12:17)
[2024-05-28] MEDS: IOPAMIDOL-370 100ML BTL INJ ONE ×2 (12:33→12:56)
[2024-05-28] MEDS ORDERED: RX INFO: IV CONTRAST WAS GIVEN 1 EACH MISC MISCELLANE PRN (12:56)
[2024-05-28] MEDS: SODIUM CHLORIDE 0.9% 1,000 ML IV SCH (13:00)
--- NOTE | 2024-05-28 13:03 | P.CARDCATH ---
Date of Procedure: 05/28/24 Description of Procedure: Cardiac Catheterization: The patient is a 59-year-old male with a known history of aortic valve replacement, bypass to the LAD as well as a prior history of atrial flutter who presented with symptoms of nausea and vomiting and abdominal discomfort for few weeks, yesterday had chest discomfort with minimal troponin elevation. He was evaluated by Dr. Little. Recommendations were made regarding cardiac catheterization, the risks and the complications were discussed with the patient who is in full understanding and agreement. Procedure Description: Patient was brought to bed laborer in fasting semi-sedated state after receiving Fentanyl and Benadryl achieiving moderate conscious sedated state. Using Xylocaine Anesthesia and modified Seldinger technique, using micropuncture technique a 6-Yoruba sheath was introduced in the right femoral artery . Subsequently, selective coronary angiography was performed using a 6-Yoruba 4 bend Sedrick catheter. Multiple views of the coronary artery including hemiaxial views were obtained. A 6 Yoruba multipurpose 2 catheter was used to cannulate the SVG to the LAD. Following that, catheter and sheath were removed. Hemostasis was obtained with deployment of an Angio-Seal. There was no immediate complication. Patient was returned to room in stable condition. Findings: Left main: This is a large size vessel, bifurcating into LAD and left circumflex, left main has no obstructive disease LAD: This vessel gives proximally a large diagonal branch and after that is totally occluded with no antegrade flow Left circumflex: This is a large nondominant vessel, giving rise to a large obtuse marginal branch that has no evidence of high-grade stenosis RCA: This is a large dominant vessel bifurcating distally to PDA and PLV the proximal RCA has about 20% stenosis, the rest of the vessel has no high-grade stenosis SVG to the LAD: The proximal and distal anastomotic site are patent there is no evidence of obstructive disease Left Ventriculogram: Not performed Conclusion: 1. 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 Mild disease in the RCA 3. No obstructive disease in the left circumflex 4. Patent SVG to the LAD Recommendations: I see no significant progression of disease compared to 2020, I will continue on maximal medical therapy with aggressive coronary risks modification. The findings and the recommendations were discussed with the patient and the family and they were in full understanding and agreement. Duration of sedation is 25 minutes.
[2024-05-28 13:33] LABS: African American GFR (CKD) >90 (>60 ml/min/1.73 sqM); Anion Gap 1 mmol/L; Blood Urea Nitrogen 15 mg/dL (9-20); Calcium 7.7 mg/dL (8.4-10.2); Carbon Dioxide 25 mmol/L (22-30); Chloride 101 mmol/L (98-107); Glucose 130 mg/dL (74-99); Non-African American GFR(CKD) 86 (>60 ml/min/1.73 sqM); Potassium 4.8 mmol/L (3.5-5.1); Sodium 127 mmol/L (137-145)
[2024-05-28 16:37] LABS: Glucose,Whole Blood 180 mg/dL (70-110)
[2024-05-28] MEDS: METOCLOPRAMIDE 5 MG TAB PO SCH (17:40)
--- NOTE | 2024-05-28 19:43 | P.HPIM ---
History of Present Illness H&P Date: 05/28/24 Chief Complaint: Chest pain intractable nausea and vomiting HISTORY OF PRESENT ILLNESS: This is a 59-year-old white male with a previous medical history significant for coronary artery disease status post coronary artery bypass graft for 1- vessel disease back in 2011 with a last heart catheterization was done about 2 years ago, history of aortic valve stenosis status post aortic valve replacement, history of hypertension and hypertensive cardiovascular disease, hyperlipidemia, chronic tobacco use and dependence, COPD, history of paroxysmal atrial fibrillation past patient has been under the care of cardiology. Patient presented to the emergency department at [facility] yesterday because of increased abdominal pain associated with nausea and vomiting associated with the chest pain has no relation to exertion, he was seen in the emergency department and his twelve-lead EKG did not show evidence of acute abnormalities, however his cardiac exam came back elevated, patient was admitted to hospital for non-ST elevation myocardial infarction he was started on aspirin as well as heparin drip, he was seen in consultation by cardiology who recommended for the patient to go for left heart catheterization for further evaluation of his coronary anatomy. Patient has been off his GLP-1 receptor agonist in the form of Ozempic since April 25, 2024 patient was having episodes of abdominal pain associated with nausea and vomiting on and off, but the patient at this time he has been dealing with this for quite some time, he was supposed to have an EGD and colonoscopy done as an outpatient with Dr. Kirkpatrick, we will continue to work on that he was supposed to have a CT scan of the abdomen and pelvis that was denied by his insurance we will continue to follow-up with the patient very closely, rule out his cardiac disease at this point. REVIEW OF SYSTEMS: Constitutional: No documented fever, no chills, no night sweats. No weight change. No weakness, fatigue or lethargy. No daytime sleepiness. HEENT: No headache. No blurred vision or double vision, no loss of vision. No loss of Hearing, no ringing in the ears, no dizziness. No nasal drainage or congestion. No epistaxis. No sore throat. Lungs: positive for shortness of breath, no cough, no sputum production. No wheezing. Reports dyspnea with activity. Cardiovascular: Positive for chest pain, no lower extremity edema. positive for palpitations. No paroxysmal nocturnal dyspnea. No orthopnea. positive for lightheadedness or dizziness. No syncopal episodes. Abdominal: Reports abdominal pain. Positive for nausea, vomiting. No diarrhea. No constipation. No bloody or tarry stools reports loss of appetite. Genitourinary: No dysuria, increased frequency, urgency. No urinary retention. Musculoskeletal: No myalgias. No muscle weakness, no gait dysfunction, no frequent falls. No back pain. No neck pain. Integumentary: No wounds, no lesions. No rash or pruritus. No unusual bruising. No change in hair or nails. Neurologic: No aphasia. No facial droop. No change in mentation. No head injury. No headache. No paralysis. No paresthesia. Psychiatric: No depression. No anxiety. No mood swings. Endocrine: No abnormal blood sugars. No weight change. PAST MEDICAL HISTORY: Coronary artery disease status post 2 vessel coronary artery bypass graft 2011 Aortic valve stenosis status post aortic valve replacement Hypertension and hypertensive cardiovascular disease. Hyperlipidemia. Chronic tobacco use and dependence. Paroxysmal atrial fibrillation. COPD. PAST SURGICAL HISTORY: CABG 1 vessel 2011 Left heart catheterization 5 years ago Aortic valve replacement. SOCIAL HISTORY: Patient smokes about a pack every day he started smoking when he was 15-year-old continue to smoke despite multiple attempts to quit smoking, he drinks occasionally he denies any drug use or abuse. FAMILY HISTORY: Father at age of 52 from some sort of cancer he believe it was non-Hodgkin lymphoma, mother at age of 44 from breast cancer with metastatic disease, patient has 2 brothers one of them with myocardial infarction and he has 2 sisters one of them with a stroke. PHYSICAL EXAMINATION: General: 59-year-old male laying down in bed in no apparent distress. HEENT: Head is atraumatic, normocephalic, pupils were equal round reactive to light and recommendation, extraocular muscle movement were intact, sclera nonicteric, conjunctivae were pale, mucous membranes of the mouth are somewhat dry. Neck: Supple, no JVP, normal carotid upstroke bilaterally, no lymphadenopathy. Chest: Decreased breath sounds at the bases, few rhonchi, no expiratory wheezes, no chest wall tenderness, no intercostal retractions. Heart: First heart sound is normal, second heart sounds normal there is systolic ejection murmur 2/6 located in the left sternal border, there is aortic valve click. Abdomen: Soft, nontender, nondistended, positive bowel sounds. Extremities: There is no edema no calf tenderness DP +2 bilaterally. Neurologic examination: Patient is awake alert and oriented X3, cranial nerves II-12 appear grossly intact, muscle power were 5 out of 5 in upper extremities and 5 out of 5 in bilateral lower extremities, deep tendon reflexes normal bilaterally. ASSESSMENT AND PLAN: 1. Non-ST elevation MA. Continue patient on heparin drip, for now continue patient on aspirin 81 mg once every day, atorvastatin 80 mg once every day, Zetia 10 mg once every day, metoprolol 50 mg orally twice every day, patient is scheduled to go for left heart catheterization at noon. 2. Hyponatremia likely due to intractable nausea and retching rule out hypovolemia. Continue IV fluid resuscitation in the form of normal saline, monitor the patient CMP over the next 24 hours, control his nausea. 3. Paroxysmal atrial fibrillation status post ablation. Continue patient on metoprolol 50 mg orally twice every day, resume the patient Eliquis 5 mg orally twice every day after heart catheterization. 4. History of coronary artery disease status post coronary artery bypass graft for 2 vessel disease into and 12 with a recent heart catheterization about 3 years ago. Continue patient on metoprolol 50 mg orally twice every day, continue patient on aspirin 81 mg once every day, atorvastatin 80 mg orally once every day, continue Zetia 10 mg once every day, continue with lisinopril 30 mg once every day. Monitor the patient blood pressure very closely. 5. Hypertension and hypertensive cardiovascular disease. Continue patient on lisinopril 30 mg orally once every day, continue metoprolol 50 mg orally twice every day, monitor the patient blood pressure very closely. 6. Hyperlipidemia. Continue patient on atorvastatin 80 mg orally once every day, continue his ezetimibe 10 mg orally once every day, monitor lipid panel, keep LDL 55-70. 7. History of aortic valve disease status post aortic valve replacement. Stable at this time. Echocardiogram was done still pending the time of dictation. 8. Intractable nausea and vomiting rule out gastroparesis, patient is to be scheduled to have an EGD and colonoscopy as an outpatient the referral was done awaiting cardiac workup, patient was supposed to have a CT scan of the abdomen pelvis that was denied by his insurance. 9. DVT prophylaxis. Plan heparin drip, will resume Eliquis 5 mg orally twice every day after heart catheterization. 10. GI prophylaxis Protonix 40 mg once every day. 11. Admit to inpatient. Estimate a length of stay 2 midnights 12. Patient is full code. Past Medical History Past Medical History: Atrial Fibrillation, Coronary Artery Disease (CAD), Diabetes Mellitus, Hyperlipidemia, Hypertension, Myocardial Infarction (MA), Prostate Disorder Additional Past Medical History / Comment(s): "Bruised liver". enlarged prostate Last Myocardial Infarction Date:: 09/15/2014 History of Any Multi-Drug Resistant Organisms: None Reported Past Surgical History: AICD, Cardiac Valve Replacement, Coronary Bypass/CABG, Heart Catheterization, Pacemaker Additional Past Surgical History / Comment(s): 2 vessel CABG 2011., CARDIOVERSION Past Anesthesia/Blood Transfusion Reactions: No Reported Reaction Type of Cardiac Device: Permanent Pacemaker, AICD Device Placement Date:: 04/2021 Past Psychological History: No Psychological Hx Reported Smoking Status: Former smoker Past Alcohol Use History: Occasional Additional Past Alcohol Use History / Comment(s): Has been smoking since 13-12 yrs of age,Quit in july 2022 Past Drug Use History: None Reported - Past Family History Mother Family Medical History: Cancer Father Family Medical History: Cancer Additional Family Medical History / Comment(s): No biological children. Brother(s) Family Medical History: Myocardial Infarction (MA) Medications and Allergies Home Medications Medication Instructions Recorded Confirmed Type Apixaban [Eliquis] 5 mg PO BID #60 tab 04/27/17 05/28/24 Rx Atorvastatin [Lipitor] 80 mg PO DAILY #30 tab 04/27/17 05/28/24 Rx Ezetimibe [Zetia] 10 mg PO DAILY 03/21/21 05/28/24 History buPROPion [Wellbutrin] 100 mg PO BID 08/13/22 05/28/24 History Finasteride [Proscar] 5 mg PO DAILY 03/13/23 05/28/24 History Metoprolol Tartrate [Lopressor] 50 mg PO BID #180 tab 04/14/23 05/28/24 Rx Metoclopramide [Reglan] 5 mg PO AC-SUPPER 05/28/24 05/28/24 History Pantoprazole [Protonix] 40 mg PO DAILY 05/28/24 05/28/24 History amLODIPine [Norvasc] 2.5 mg PO DAILY 05/28/24 05/28/24 History lisinopriL [Zestril] 30 mg PO DAILY 05/28/24 05/28/24 History Allergies Allergy/AdvReac Type Severity Reaction Status Date / Time No Known Allergies Allergy Verified 05/28/24 07:22 Physical Exam Vitals: Vital Signs Temp Pulse Pulse Resp BP BP BP 05/28/24 16:00 87 103/74 05/28/24 14:41 88 100/66 05/28/24 14:11 87 95/66 05/28/24 14:00 79 16 05/28/24 13:41 79 99/58 05/28/24 13:26 80 05/28/24 13:11 81 106/68 05/28/24 12:56 73 95/63 05/28/24 11:40 88 05/28/24 09:02 98.3 F 92 115/76 05/28/24 08:00 98.3 F 92 16 115/76 05/28/24 05:26 125/83 05/28/24 03:38 98.0 F 88 16 97/67 05/28/24 02:00 83 05/28/24 01:20 87 16 134/92 05/27/24 22:00 90 18 144/106 05/27/24 21:00 84 18 143/102 05/27/24 19:40 93 18 139/96 Pulse Ox 05/28/24 16:00 05/28/24 14:41 96 05/28/24 14:11 05/28/24 14:00 05/28/24 13:41 96 05/28/24 13:26 05/28/24 13:11 96 05/28/24 12:56 94 L 05/28/24 11:40 05/28/24 09:02 95 05/28/24 08:00 95 05/28/24 05:26 05/28/24 03:38 96 05/28/24 02:00 05/28/24 01:20 97 05/27/24 22:00 05/27/24 21:00 05/27/24 19:40 98 Intake and Output 05/28/24 05/28/24 05/28/24 06:59 14:59 22:59 Intake Total 412 300 Output Total 400 Balance 412 -100 Intake: IV 400 Intake, IV Titration 12 150 Amount Heparin Sod,Pork in 0.45% 12 NaCl 25,000 unit In 0.45 % NaCl 1 250ml.bag @ 10. 599 UNITS/KG/HR 10 mls/hr IV .Q24H [facility] Rx#: [id number] Sodium Chloride 0.9% 1, 150 000 ml @ 75 mls/hr IV . [id number] [facility] Rx#:[id number] Oral 150 Output: Urine 400 Other: Voiding Method Toilet Toilet Weight 95.7 kg 95.7 kg Results CBC & Chem 7: 05/28/24 06:20 05/28/24 13:05 Labs: Abnormal Lab Results - Last 24 Hours (Table) 05/27/24 05/27/24 05/27/24 Range/Units 18:42 18:42 21:25 WBC 12.4 H (3.8-10.6) k/uL RBC 3.66 L (4.30-5.90) m/uL Hgb 12.1 L (13.0-17.5) gm/dL Hct 36.6 L (39.0-53.0) % MCV (80.0-100.0) fL Neutrophils # (1.3-7.7) k/uL Neutrophils # (Manual) 9.80 H (1.3-7.7) k/uL Lymphocytes # (1.0-4.8) k/uL PT (10.0-12.5) sec INR (<1.2) APTT (22.0-30.0) sec Sodium (137-145) mmol/L Glucose (74-99) mg/dL POC Glucose (mg/dL) (70-110) mg/dL Calcium (8.4-10.2) mg/dL Troponin I 0.101 H* 0.094 H* (0.000-0.034) ng/mL HDL Cholesterol (40.00-60.00) mg/dL 05/27/24 05/28/24 05/28/24 Range/Units 23:47 02:16 02:16 WBC 12.4 H (3.8-10.6) k/uL RBC 3.32 L (4.30-5.90) m/uL Hgb 10.7 L (13.0-17.5) gm/dL Hct 33.0 L (39.0-53.0) % MCV (80.0-100.0) fL Neutrophils # 10.4 H (1.3-7.7) k/uL Neutrophils # (Manual) (1.3-7.7) k/uL Lymphocytes # 0.9 L (1.0-4.8) k/uL PT (10.0-12.5) sec INR (<1.2) APTT (22.0-30.0) sec Sodium (137-145) mmol/L Glucose (74-99) mg/dL POC Glucose (mg/dL) (70-110) mg/dL Calcium (8.4-10.2) mg/dL Troponin I 0.076 H* (0.000-0.034) ng/mL HDL Cholesterol 28.10 L (40.00-60.00) mg/dL 05/28/24 05/28/24 05/28/24 Range/Units 02:16 02:16 06:20 WBC 12.5 H (3.8-10.6) k/uL RBC 3.33 L (4.30-5.90) m/uL Hgb 11.0 L (13.0-17.5) gm/dL Hct 33.4 L (39.0-53.0) % MCV 100.5 H (80.0-100.0) fL Neutrophils # 10.2 H (1.3-7.7) k/uL Neutrophils # (Manual) (1.3-7.7) k/uL Lymphocytes # (1.0-4.8) k/uL PT 13.1 H (10.0-12.5) sec INR 1.2 H (<1.2) APTT 67.6 H (22.0-30.0) sec Sodium (137-145) mmol/L Glucose (74-99) mg/dL POC Glucose (mg/dL) (70-110) mg/dL Calcium (8.4-10.2) mg/dL Troponin I (0.000-0.034) ng/mL HDL Cholesterol (40.00-60.00) mg/dL 05/28/24 05/28/24 Range/Units 13:05 16:36 WBC (3.8-10.6) k/uL RBC (4.30-5.90) m/uL Hgb (13.0-17.5) gm/dL Hct (39.0-53.0) % MCV (80.0-100.0) fL Neutrophils # (1.3-7.7) k/uL Neutrophils # (Manual) (1.3-7.7) k/uL Lymphocytes # (1.0-4.8) k/uL PT (10.0-12.5) sec INR (<1.2) APTT (22.0-30.0) sec Sodium 127 L (137-145) mmol/L Glucose 130 H (74-99) mg/dL POC Glucose (mg/dL) 180 H (70-110) mg/dL Calcium 7.7 L (8.4-10.2) mg/dL Troponin I (0.000-0.034) ng/mL HDL Cholesterol (40.00-60.00) mg/dL Thrombosis Risk Factor Assmnt - Choose All That Apply Any of the Below Risk Factors Present?: Yes Each Factor Represents 1 point: Acute MA, Obesity (BMI >25) Other Risk Factors: Yes Each Risk Factor Represents 2 Points: Age 61-74 years Other congenital or acquired thrombophilia - If yes, enter type in comment: No Thrombosis Risk Factor Assessment Total Risk Factor Score: 4 Thrombosis Risk Factor Assessment Level: Moderate Risk
[2024-05-28] MEDS: ALPRAZolam 0.5 MG TAB PO PRN (20:09)
[2024-05-28 20:24] LABS: Glucose,Whole Blood 115 mg/dL (70-110)
[2024-05-28] MEDS: buPROPion 100 MG TAB PO SCH (23:21)
[2024-05-29 02:47] LABS: Basophils % (A) 0 %; Eosinophils % (A) 0 %; HGB 10.3 gm/dL (13.0-17.5); Lymphocytes # (A) 0.7 k/uL (1.0-4.8); Lymphocytes % (A) 4 %; MCH 31.3 pg (25.0-35.0); MCHC 31.2 g/dL (31.0-37.0); MCV 100.1 fL (80.0-100.0); Mean Platelet Volume 8.2; Monocytes # (A) 0.6 k/uL (0-1.0); Monocytes % (A) 4 %; Neutrophils # (A) 15.3 k/uL (1.3-7.7); Neutrophils % (A) 89 %; Platelet Count 255 k/uL (150-450); RDW 13.5 % (11.5-15.5); WBC 17.1 k/uL (3.8-10.6)
[2024-05-29 03:00] LABS: ALT 47 U/L (4-49); AST 39 U/L (17-59); African American GFR (CKD) >90 (>60 ml/min/1.73 sqM); Albumin 2.8 g/dL (3.5-5.0); Alkaline Phosphatase 71 U/L (38-126); Anion Gap 5 mmol/L; Blood Urea Nitrogen 17 mg/dL (9-20); Calcium 8.1 mg/dL (8.4-10.2); Carbon Dioxide 21 mmol/L (22-30); Chloride 100 mmol/L (98-107); Glucose 130 mg/dL (74-99); Non-African American GFR(CKD) 86 (>60 ml/min/1.73 sqM); Potassium 4.9 mmol/L (3.5-5.1); Sodium 126 mmol/L (137-145); Total Bilirubin 0.9 mg/dL (0.2-1.3); Total Protein 5.6 g/dL (6.3-8.2)
[2024-05-29] MEDS: LACTULOSE 20 GM/30 ML CUP PO SCH (09:16)
[2024-05-29] MEDS: lisinopriL 10 MG TAB PO SCH (09:16)
[2024-05-29] MEDS: amLODIPine 2.5 MG TAB PO SCH (09:17)
[2024-05-29] MEDS: FINASTERIDE 5 MG TAB PO SCH (09:17)
[2024-05-29] MEDS: EZETIMIBE 10 MG TAB PO SCH (09:17)
[2024-05-29] MEDS: ATORVASTATIN 80 MG TAB PO SCH (09:17)
[2024-05-29] MEDS: ASPIRIN 81 MG PO SCH (09:17)
[2024-05-29] MEDS: APIXABAN 5 MG TAB PO SCH (09:17)
[2024-05-29] MEDS: METOCLOPRAMIDE 5 MG TAB PO SCH (12:28)
--- NOTE | 2024-05-29 13:00 | XR ---
EXAMINATION TYPE: XR abdomen 2V DATE OF EXAM: 05/29/2024 12:06 PM COMPARISON:05/29/2024. CLINICAL INDICATION: Male, 59 years old with history of abd pain, voimiting; TECHNIQUE: Two views of the abdomen were obtained. FINDINGS: Moderate amount stool filling the right colon and gaseous dilation of the left colon. The b owel gas pattern is nonspecific without dilated loops of small or large bowel. There is no evidence f or organomegaly or pneumoperitoneum. The osseous structures are intact. No abnormal calcifications are present. Fecal material and gas are demonstrated throughout the colon and rectum. IMPRESSION: Moderate amount of stool in the right colon with gaseous dilation of the left colon. [facility], , 05/29/2024 12:57 PM
--- NOTE | 2024-05-29 14:42 | CA ---
Transthoracic Echo Report Name: Marquis Buckley Age: 59 Gender: M : 1965 Exam Date: 05/28/2024 11:31 Exam Location: [facility] Ht (in): 68 Wt (lb): 210 Ordering Physician: Mira Cisneros Attending/Referring Phys: [id number], Amelia [place] Line Attendant Danyelle Vidales, JOE Procedure CPT: Indications: CP Cardiac Hx: Cath, AV Replacement Technical Quality: Fair Contrast 1: Total Dose (mL): Contrast 2: Total Dose (mL): MEASUREMENTS (Male / Female) Normal Values 2D ECHO LV Diastolic Diameter PLAX 4.0 cm 4.2 - 5.9 / 3.9 - 5.3 cm LV Systolic Diameter PLAX 1.7 cm IVS Diastolic Thickness 1.5 cm 0.6 - 1.0 / 0.6 - 0.9 cm LVPW Diastolic Thickness 1.4 cm 0.6 - 1.0 / 0.6 - 0.9 cm LV Relative Wall Thickness 0.7 RV Internal Dim ED PLAX 2.0 cm LVOT Diameter 2.5 cm LA Systolic Diameter LX 5.5 cm 3.0 - 4.0 / 2.7 - 3.8 cm LV Diastolic Volume MOD BP 61.4 cm??? 67 - 155 / 56 - 104 cm??? LV Systolic Volume MOD BP 30.0 cm??? 22 - 58 / 19 - 49 cm??? LV Ejection Fraction MOD BP 51.1 % >= 55 % LV Cardiac Index MOD BP 1245.1 cm???/min???m??? LV Diastolic Volume MOD 4C 65.2 cm??? LV Systolic Volume MOD 4C 38.6 cm??? LV Ejection Fraction MOD 4C 40.9 % LV Cardiac Index MOD 4C 1057.2 cm???/min???m??? LV Diastolic Length 4C 6.6 cm LV Systolic Length 4C 5.8 cm LV Diastolic Volume MOD 2C 57.0 cm??? LV Systolic Volume MOD 2C 23.4 cm??? LV Ejection Fraction MOD 2C 59.0 % LV Cardiac Index MOD 2C 1335.6 cm???/min???m??? LV Diastolic Length 2C 6.8 cm LV Systolic Length 2C 5.8 cm LA Volume 133.8 cm??? 18 - 58 / 22 - 52 cm??? LA Volume Index 61.7 cm???/m??? 16 - 28 cm???/m??? M-MODE Aortic Root Diameter MM 3.4 cm LA Systolic Diameter MM 4.9 cm LA Ao Ratio MM 1.5 DOPPLER AV Peak Velocity 474.7 cm/s AV Peak Gradient 90.1 mmHg AV Mean Velocity 388.9 cm/s AV Mean Gradient 65.1 mmHg AV Velocity Time Integral 120.8 cm LVOT Peak Velocity 93.2 cm/s LVOT Peak Gradient 3.5 mmHg LVOT Velocity Time Integral 21.6 cm LVOT Stroke Volume 103.8 cm??? LVOT Stroke Volume Index 49.7 ml/m??? LVOT Cardiac Index 4115.3 cm???/min???m??? AV Area Cont Eq vti 0.9 cm??? AV Area Cont Eq pk 0.9 cm??? MV Area PHT 3.4 cm??? Mitral E Point Velocity 65.9 cm/s Mitral A Point Velocity 47.5 cm/s Mitral E to A Ratio 1.4 MV Deceleration Time 224.6 ms TR Peak Velocity 258.6 cm/s TR Peak Gradient 26.7 mmHg FINDINGS Left Ventricle Left ventricular ejection fraction is estimated at 50-55%. Moderately increased septal wall thickness. Mildly decreased left ventricular ejection fraction. No obvious regional wall motion abnormalities. Left ventricular cavity size normal. Right Ventricle Normal right ventricular size and function. Right ventricular systolic pressure within normal limits. Right Atrium Mild right atrial dilatation. Catheter/pacemaker wire in the right atrial cavity. Left Atrium Severely increased left atrial diameter. Severely increased left atrial volume. Moderately increased left atrial area. Mitral Valve Structurally normal mitral valve. Mild mitral regurgitation. No mitral stenosis. Aortic Valve Bioprosthetic aortic valve. Gradient recorded across the prosthetic aortic valve above the expected range. Prosthetic aortic valve stenosis. Severe aortic stenosis with a peak velocity of 4.7 m/s, peak gradient 90 mmHg, mean gradient 65mmHg. No aortic regurgitation. Tricuspid Valve Structurally normal tricuspid valve. Trace tricuspid regurgitation. No tricuspid stenosis. Pulmonic Valve Structurally normal pulmonic valve. Trace pulmonic regurgitation. No pulmonic stenosis. Pericardium No pericardial or pleural effusion. Aorta Normal size aortic root and proximal ascending aorta. CONCLUSIONS Left ventricular ejection fraction 50-55% Moderate to severely dilated left atrium Mild mitral regurgitation Bioprosthetic aortic valve with severe stenosis with peak velocity 4.7 m/s Trace tricuspid regurgitation No pericardial effusion Previewed by: Dr. Jim Lam DO (Electronically Signed) Final Date: 29 May 2024 14:41
[2024-05-29] MEDS: NA PHOS,M-B/NA PHOS,DI-BA 133 ML ENEMA RECTAL ONE (17:16)
[2024-05-29] MEDS: bisacodyL 10 MG SUPP RECTAL STA (17:37)
[2024-05-29] MEDS: MAGNESIUM CITRATE 296 ML BOTTLE PO PRN (18:34)
--- NOTE | 2024-05-29 19:40 | P.PN ---
Subjective Progress Note Date: 05/29/24 HISTORY OF PRESENT ILLNESS: This is a 59-year-old white male with a previous medical history significant for coronary artery disease status post coronary artery bypass graft for 1- vessel disease back in 2011 with a last heart catheterization was done about 2 years ago, history of aortic valve stenosis status post aortic valve replacement, history of hypertension and hypertensive cardiovascular disease, hyperlipidemia, chronic tobacco use and dependence, COPD, history of paroxysmal atrial fibrillation past patient has been under the care of cardiology. Patient presented to the emergency department at [facility] yesterday because of increased abdominal pain associated with nausea and vomiting associated with the chest pain has no relation to exertion, he was seen in the emergency depar tme and his twelve-lead EKG did not show evidence of acute abnormalities, however his cardiac exam came back elevated, patient was admitted to hospital for non-ST elevation myocardial infarction he was started on aspirin as well as heparin drip, he was seen in consultation by cardiology who recommended for the patient to go for left heart catheterization for further evaluation of his coronary anatomy. Patient has been off his GLP-1 receptor agonist in the form of Ozempic since April 25, 2024 patient was having episodes of abdominal pain associated with nausea and vomiting on and off, but the patient at this time he has been dealing with this for quite some time, he was supposed to have an EGD and colonoscopy done as an outpatient with Dr. Kirkpatrick, we will continue to work on that he was supposed to have a CT scan of the abdomen and pelvis that was denied by his insurance we will continue to follow-up with the patient very closely, rule out his cardiac disease at this point. 05/29: Patient underwent left heart catheterization yesterday by Dr. Mercer that showed evidence of stable coronary artery disease, chronically occluded LAD, patent SVG to LAD, mild disease of the RCA, and no significant disease of the LCx, patient continues to have significant nausea, he continues to feel like abdominal pain in the lower abdomen, patient was sent for abdominal x-ray that showed evidence of dilated colon with significant amount of stool in the colon, patient did receive lactulose with no help, we will start the patient on Dulcolax suppository as well as Fleet enema, if there is no response we will start the patient on magnesium citrate 1 bottle x 1 follow-up with the patient very closely. Patient did have an echocardiogram that showed evidence of bioprosthetic aortic valve with severe stenosis without evidence of any regurgitation mild mitral regurgitation and slightly decreased of his LV function, will discuss with cardiology regarding his finding. REVIEW OF SYSTEMS: Constitutional: No documented fever, no chills, no night sweats. No weight change. No weakness, fatigue or lethargy. No daytime sleepiness. HEENT: No headache. No blurred vision or double vision, no loss of vision. No loss of Hearing, no ringing in the ears, no dizziness. No nasal drainage or congestion. No epistaxis. No sore throat. Lungs: positive for shortness of breath, no cough, no sputum production. No wheezing. Reports dyspnea with activity. Cardiovascular: Positive for chest pain, no lower extremity edema. positive for palpitations. No paroxysmal nocturnal dyspnea. No orthopnea. positive for lightheadedness or dizziness. No syncopal episodes. Abdominal: Reports abdominal pain. Positive for nausea, vomiting. No diarrhea. Positive for constipation. No bloody or tarry stools reports loss of appetite. Genitourinary: No dysuria, increased frequency, urgency. No urinary retention. Musculoskeletal: No myalgias. No muscle weakness, no gait dysfunction, no frequent falls. No back pain. No neck pain. Integumentary: No wounds, no lesions. No rash or pruritus. No unusual bruising. No change in hair or nails. Neurologic: No aphasia. No facial droop. No change in mentation. No head injury. No headache. No paralysis. No paresthesia. Psychiatric: No depression. No anxiety. No mood swings. Endocrine: No abnormal blood sugars. No weight change. PHYSICAL EXAMINATION: General: 59-year-old male laying down in bed in no apparent distress. HEENT: Head is atraumatic, normocephalic, pupils were equal round reactive to light and recommendation, extraocular muscle movement were intact, sclera nonicteric, conjunctivae were pale, mucous membranes of the mouth are somewhat dry. Neck: Supple, no JVP, normal carotid upstroke bilaterally, no lymphadenopathy. Chest: Decreased breath sounds at the bases, few rhonchi, no expiratory wheezes, no chest wall tenderness, no intercostal retractions. Heart: First heart sound is normal, second heart sounds normal there is systolic ejection murmur 2/6 located in the left sternal border, there is aortic valve click. Abdomen: Soft, nontender, nondistended, positive bowel sounds. Extremities: There is no edema no calf tenderness DP +2 bilaterally. Neurologic examination: Patient is awake alert and oriented X3, cranial nerves II-12 appear grossly intact, muscle power were 5 out of 5 in upper extremities and 5 out of 5 in bilateral lower extremities, deep tendon reflexes normal bilaterally. ASSESSMENT AND PLAN: 1. Non-ST elevation RI. Continue patient on heparin drip, for now continue patient on aspirin 81 mg once every day, atorvastatin 80 mg once every day, Zetia 10 mg once every day, metoprolol 50 mg orally twice every day, patient is scheduled to go for left heart catheterization at noon. 2. Hyponatremia likely due to intractable nausea and the hypovolemia. Start the patient on normal saline at 75 cc an hour, check the patient serum osmolality, urine osmolality, urine sodium. 3. Paroxysmal atrial fibrillation status post ablation. Continue patient on metoprolol 50 mg orally twice every day, resume the patient Eliquis 5 mg orally twice every day after heart catheterization. 4. History of coronary artery disease status post coronary artery bypass graft x2 with a recent heart catheterization about 3 years ago, repeated 1 yesterday, continue patient on metoprolol 50 mg orally twice every day, continue patient on aspirin 81 mg once every day, atorvastatin 80 mg orally once every day, continue Zetia 10 mg once every day, continue with lisinopril 30 mg once every day. Monitor the patient blood pressure very closely. 5. Hypertension and hypertensive cardiovascular disease. Continue patient on lisinopril 30 mg orally once every day, continue metoprolol 50 mg orally twice e very day, monitor the patient blood pressure very closely. 6. Hyperlipidemia. Continue patient on atorvastatin 80 mg orally once every day, continue his ezetimibe 10 mg orally once every day, monitor lipid panel, keep LDL 55-70. 7. History of aortic valve disease status post aortic valve replacement. Stable at this time. Echocardiogram was done and showed evidence of significant bioprosthetic aortic valve stenosis. And decreased LV function. 8. Severe constipation. Start the patient on Dulcolax suppository 10 mg x 1, Fleet enema, if no response give the patient magnesium citrate 1 bottle x 1, continue with lactulose 20 g orally twice every day. Follow-up with the patient very closely. 9. Leukocytosis. Repeat the patient CBC over the next 24 hours, likely reactive, continue IV fluid resuscitation in the form of normal saline 75 cc an hour. 10. DVT prophylaxis. continue patient on Eliquis 5 mg orally twice every day. 11. GI prophylaxis Protonix 40 mg once every day. 12. Hopefully home in the next 24 hours. Objective - Vital Signs Vital signs: Vital Signs Temp 98.7 F 05/29/24 09:14 Pulse 84 05/29/24 15:44 Resp 17 05/29/24 15:44 BP 118/78 05/29/24 15:44 Pulse Ox 94 L 05/29/24 15:44 FiO2 Intake & Output 05/29/24 05/29/24 05/30/24 06:59 18:59 06:59 Intake Total 1030 Balance 1030 Weight 95.5 kg Intake: Oral 1030 Other: Voiding Method Toilet # Voids 1 2 # Bowel Movements 0 - Labs CBC & Chem 7: 05/29/24 02:16 05/29/24 02:16 Labs: Abnormal Lab Results - Last 24 Hours (Table) 05/28/24 05/29/24 05/29/24 Range/Units 20:22 02:16 02:16 WBC 17.1 H (3.8-10.6) k/uL RBC 3.30 L (4.30-5.90) m/uL Hgb 10.3 L (13.0-17.5) gm/dL Hct 33.0 L (39.0-53.0) % MCV 100.1 H (80.0-100.0) fL Neutrophils # 15.3 H (1.3-7.7) k/uL Lymphocytes # 0.7 L (1.0-4.8) k/uL Sodium 126 L (137-145) mmol/L Carbon Dioxide 21 L (22-30) mmol/L Glucose 130 H (74-99) mg/dL POC Glucose (mg/dL) 115 H (70-110) mg/dL Calcium 8.1 L (8.4-10.2) mg/dL Total Protein 5.6 L (6.3-8.2) g/dL Albumin 2.8 L (3.5-5.0) g/dL Cortisol 28.2 H (3.1-22.4) UG/DL
[2024-05-29] MEDS: SODIUM CHLORIDE 0.9% 1,000 ML IV SCH (20:34)
[2024-05-30] MEDS: ACETAMINOPHEN TAB 325 MG TAB PO PRN (06:03)
[2024-05-30 06:44] LABS: Basophils % (A) 0 %; Eosinophils % (A) 0 %; HCT 35.4 % (39.0-53.0); HGB 11.5 gm/dL (13.0-17.5); Lymphocytes # (A) 0.7 k/uL (1.0-4.8); Lymphocytes % (A) 4 %; MCH 32.8 pg (25.0-35.0); MCHC 32.6 g/dL (31.0-37.0); MCV 100.5 fL (80.0-100.0); Mean Platelet Volume 7.3; Monocytes # (A) 0.6 k/uL (0-1.0); Monocytes % (A) 4 %; Neutrophils # (A) 15.7 k/uL (1.3-7.7); Neutrophils % (A) 91 %; Platelet Count 313 k/uL (150-450); RBC 3.52 m/uL (4.30-5.90); WBC 17.3 k/uL (3.8-10.6)
[2024-05-30 06:55] LABS: ALT 93 U/L (4-49); AST 79 U/L (17-59); African American GFR (CKD) 87 (>60 ml/min/1.73 sqM); Alkaline Phosphatase 96 U/L (38-126); Anion Gap 7 mmol/L; Blood Urea Nitrogen 16 mg/dL (9-20); Calcium 8.1 mg/dL (8.4-10.2); Carbon Dioxide 23 mmol/L (22-30); Chloride 97 mmol/L (98-107); Glucose 103 mg/dL (74-99); Non-African American GFR(CKD) 75 (>60 ml/min/1.73 sqM); Potassium 4.7 mmol/L (3.5-5.1); Sodium 127 mmol/L (137-145); Total Bilirubin 1.4 mg/dL (0.2-1.3)
--- NOTE | 2024-05-30 08:15 | XR ---
EXAMINATION TYPE: XR chest 1V portable DATE OF EXAM: 05/30/2024 6:51 AM COMPARISON: Chest radiographs from 05/27/2024 CLINICAL INDICATION: Male, 59 years old with history of febrile; TECHNIQUE: XR chest 1V portable Frontal view of the chest. FINDINGS: Lungs/Pleura: There is no evidence of pleural effusion, focal consolidation, or pneumothorax. Pulmonary vascularity: Unremarkable. Heart/mediastinum: Cardiomediastinal silhouette is unremarkable. Single-lead cardiac conduction devic e overlying the left hemithorax with lead projecting over the right ventricle. Musculoskeletal: No acute osseous pathology. Midline sternotomy wires are noted. IMPRESSION: No acute cardiopulmonary disease/process. [facility], , 05/30/2024 8:13 AM
[2024-05-30] MEDS ORDERED: MIDAZOLAM 2 MG/2 ML VIAL IV PRN (10:32)
[2024-05-30] MEDS ORDERED: BENZOCAINE SPRAY 1 CAN TOPICAL PRN (10:32)
[2024-05-30] MEDS ORDERED: fentaNYL (PF) 50 MCG/ML 2 ML AMP IVP PRN (10:32)
--- NOTE | 2024-05-30 10:40 | P.PN ---
Subjective Progress Note Date: 05/29/24 Reason for Consult (text): NSTEMI History of present illness: This is a 59-year-old male patient of Dr. Mercer with past medical history of coronary artery disease status post CABG in 2011 with VG to LAD and a tissue AVR, resection of aortic aneurysm, typical atrial flutter on Eliquis with primary treatment strategy of rhythm control, hypertension, hyperlipidemia, ICD, previous history of tobacco use and dependence. We have been asked to evaluate the patient for NSTEMI. Patient gives history that he was sick all day on Tuesday with nausea and vomiting and ongoing retching that would not stop. He was sitting on the couch later in the day and he developed pressure in the mid chest area. He had not had that before. This morning the nausea has come back but no vomiting and he denies chest pain. Regarding the nausea and vomiting, he states that this has been ongoing problem for the past 2 months and been worked up as an outpatient. Patient has been started on a heparin drip. His last Eliquis intake was yesterday morning. Blood pressure 115/76, heart rate 92, pulse ox 95% on room air. Discussed option of cardiac catheterization with the patient and he is agreeable to move forward with this today. -EKG: Sinus rhythm with nonspecific ST changes -Chest x-ray: No acute process. -Laboratory studies: WBC 12.5, hemoglobin 11. Troponins 0.101, 0.094, 0.076. Triglycerides 91, cholesterol 78, LDL 31. Influenza A, influenza B, RSV, COVID- 19 not detected. -Home cardiac medications: Amlodipine 2.5 mg daily, Eliquis 5 mg twice daily, L ipitor 80 mg daily, Zetia 10 mg daily, lisinopril 30 mg daily, Lopressor 50 mg twice daily. -Echocardiogram performed 05/2023: LV systolic function borderline normal with EF of 50 to 55%, with segmental wall motion abnormality. Bioprosthetic aortic valve with mean gradient of 34 mmHg and mild aortic regurgitation. Mild mitral and tricuspid regurgitation. No evidence of pulmonary hypertension. -Lexiscan Cardiolite stress test performed in the office on 03/28/2023 revealed nondiagnostic electrocardiographic stress testing. Abnormal myocardial perfusion imaging with fixed basal lateral wall defect and mild global hypokinesis suggestive nonischemic cardiomyopathy. No evidence of stress-induc ed ischemia. 05/29/2024 Patient seen and examined. Yesterday he underwent cardiac catheterization with Dr. 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 Recommendations to maximize medical therapy and aggressive coronary risk modification. Patient denies complaints of chest pain this morning. He is still having difficulty with nausea. Blood pressure 121/80, heart rate 85, pulse ox 93% on room air. Repeat blood work reveals WBC 17.1, hemoglobin 10.3. Sodium 126, creatinine 0.96, potassium 4.9. Echocardiogram is pending. Physical examination: Gen: This is a 59-year-old male in no acute distress VS: reviewed HEENT: Head is atraumatic, normocephalic. Pupils equal, round. Sclerae is anicteric. NECK: Supple. No JVD. LUNGS: Clear to auscultation. No wheezes or rhonchi. No intercostal retractions. HEART: Regular rate and rhythm. 3/6 systolic ejection murmur. ABDOMEN: Soft No tenderness. EXTREMITIES: No pedal edema. No calf tenderness. NEUROLOGICAL: Patient is awake, alert and oriented x3. Assessment: NSTEMI History of coronary artery disease status post one-vessel CABG in 2011 with VG to LAD Tissue AVR 2011 Typical atrial flutter on Eliquis Hypertension Hyperlipidemia Status post ICD Chronic nausea and vomiting History of tobacco use and dependence Plan: Continue patient's home cardiac medications: Amlodipine 2.5 mg daily, Eliquis 5 mg twice daily, Lipitor 80 mg daily, Zetia 10 mg daily, lisinopril 30 mg daily, Lopressor 50 mg twice daily If echocardiogram is unremarkable, patient is cleared for discharge from cardiology May follow-up with Dr. Mercer in 1 to 2 weeks. Nurse practitioner note has been reviewed, I agree with documented findings and plan of care. Patient was seen and examined. Objective - Vital Signs Vital signs: Vital Signs Temp 98.4 F 05/29/24 03:16 Pulse 91 05/29/24 03:16 Resp 20 05/29/24 03:16 BP 121/79 05/29/24 03:16 Pulse Ox 92 L 05/29/24 03:16 FiO2 Intake & Output 05/28/24 05/29/24 05/29/24 18:59 06:59 18:59 Intake Total 712 Output Total 400 Balance 312 Weight 95.7 kg 95.5 kg Intake: IV 400 Intake, IV Titration 162 Amount Heparin Sod,Pork in 0.45% 12 NaCl 25,000 unit In 0.45 % NaCl 1 250ml.bag @ 10. 599 UNITS/KG/HR 10 mls/hr IV .Q24H [facility] Rx#: [id number] Sodium Chloride 0.9% 1, 150 000 ml @ 75 mls/hr IV . [id number] [facility] Rx#:[id number] Oral 150 Output: Urine 400 Other: Voiding Method Toilet # Voids 1 - Labs CBC & Chem 7: 05/30/24 06:14 05/30/24 06:14 Labs: Abnormal Lab Results - Last 24 Hours (Table) 05/28/24 05/28/24 05/28/24 Range/Units 02:16 13:05 16:36 WBC (3.8-10.6) k/uL RBC (4.30-5.90) m/uL Hgb (13.0-17.5) gm/dL Hct (39.0-53.0) % MCV (80.0-100.0) fL Neutrophils # (1.3-7.7) k/uL Lymphocytes # (1.0-4.8) k/uL Sodium 127 L (137-145) mmol/L Carbon Dioxide (22-30) mmol/L Glucose 130 H (74-99) mg/dL POC Glucose (mg/dL) 180 H (70-110) mg/dL Calcium 7.7 L (8.4-10.2) mg/dL Total Protein (6.3-8.2) g/dL Albumin (3.5-5.0) g/dL HDL Cholesterol 28.10 L (40.00-60.00) mg/dL 05/28/24 05/29/24 05/29/24 Range/Units 20:22 02:16 02:16 WBC 17.1 H (3.8-10.6) k/uL RBC 3.30 L (4.30-5.90) m/uL Hgb 10.3 L (13.0-17.5) gm/dL Hct 33.0 L (39.0-53.0) % MCV 100.1 H (80.0-100.0) fL Neutrophils # 15.3 H (1.3-7.7) k/uL Lymphocytes # 0.7 L (1.0-4.8) k/uL Sodium 126 L (137-145) mmol/L Carbon Dioxide 21 L (22-30) mmol/L Glucose 130 H (74-99) mg/dL POC Glucose (mg/dL) 115 H (70-110) mg/dL Calcium 8.1 L (8.4-10.2) mg/dL Total Protein 5.6 L (6.3-8.2) g/dL Albumin 2.8 L (3.5-5.0) g/dL HDL Cholesterol (40.00-60.00) mg/dL
--- NOTE | 2024-05-30 14:34 | P.PN ---
Subjective Progress Note Date: 05/30/24 Reason for Consult (text): NSTEMI History of present illness: This is a 59-year-old male patient of Dr. Mercer with past medical history of coronary artery disease status post CABG in 2011 with VG to LAD and a tissue AVR, resection of aortic aneurysm, typical atrial flutter on Eliquis with primary treatment strategy of rhythm control, hypertension, hyperlipidemia, ICD, previous history of tobacco use and dependence. We have been asked to evaluate the patient for NSTEMI. Patient gives history that he was sick all day on Tuesday with nausea and vomiting and ongoing retching that would not stop. He was sitting on the couch later in the day and he developed pressure in the mid chest area. He had not had that before. This morning the nausea has come back but no vomiting and he denies chest pain. Regarding the nausea and vomiting, he states that this has been ongoing problem for the past 2 months and been worked up as an outpatient. Patient has been started on a heparin drip. His last Eliquis intake was yesterday morning. Blood pressure 115/76, heart rate 92, pulse ox 95% on room air. Discussed option of cardiac catheterization with the patient and he is agreeable to move forward with this today. -EKG: Sinus rhythm with nonspecific ST changes -Chest x-ray: No acute process. -Laboratory studies: WBC 12.5, hemoglobin 11. Troponins 0.101, 0.094, 0.076. Triglycerides 91, cholesterol 78, LDL 31. Influenza A, influenza B, RSV, COVID- 19 not detected. -Home cardiac medications: Amlodipine 2.5 mg daily, Eliquis 5 mg twice daily, L ipitor 80 mg daily, Zetia 10 mg daily, lisinopril 30 mg daily, Lopressor 50 mg twice daily. -Echocardiogram performed 05/2023: LV systolic function borderline normal with EF of 50 to 55%, with segmental wall motion abnormality. Bioprosthetic aortic valve with mean gradient of 34 mmHg and mild aortic regurgitation. Mild mitral and tricuspid regurgitation. No evidence of pulmonary hypertension. -Lexiscan Cardiolite stress test performed in the office on 03/28/2023 revealed nondiagnostic electrocardiographic stress testing. Abnormal myocardial perfusion imaging with fixed basal lateral wall defect and mild global hypokinesis suggestive nonischemic cardiomyopathy. No evidence of stress-induc ed ischemia. 05/29/2024 Patient seen and examined. Yesterday he underwent cardiac catheterization with Dr. 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 Recommendations to maximize medical therapy and aggressive coronary risk modification. Patient denies complaints of chest pain this morning. He is still having difficulty with nausea. Blood pressure 121/80, heart rate 85, pulse ox 93% on room air. Repeat blood work reveals WBC 17.1, hemoglobin 10.3. Sodium 126, creatinine 0.96, potassium 4.9. Echocardiogram is pending. 05/2024 Patient seen and examined. Blood pressure 102/73, heart rate 78, pulse ox 97% on room air. Temperature max 101. Echocardiogram came back abnormal with findings of bioprosthetic aortic valve with severe stenosis with peak velocity 4.7M/S. EF 50 to 55%. Discussed options with the patient and he is agreeable to undergo MILY tomorrow with Dr. Mercer. Repeat blood work today reveals WBC 17.3, hemoglobin 11.5. Sodium 127, creatinine 1.07. Physical examination: Gen: This is a 59-year-old male in no acute distress VS: reviewed HEENT: Head is atraumatic, normocephalic. Pupils equal, round. Sclerae is anicteric. NECK: Supple. No JVD. LUNGS: Clear to auscultation. No wheezes or rhonchi. No intercostal retractions. HEART: Regular rate and rhythm. 3/6 systolic ejection murmur. ABDOMEN: Soft No tenderness. EXTREMITIES: No pedal edema. No calf tenderness. NEUROLOGICAL: Patient is awake, alert and oriented x3. Assessment: NSTEMI History of coronary artery disease status post one-vessel CABG in 2011 with VG to LAD Tissue AVR 2011 Typical atrial flutter on Eliquis Hypertension Hyperlipidemia Status post ICD Chronic nausea and vomiting History of tobacco use and dependence Fever with leukocytosis Plan: Continue patient's home cardiac medications: Amlodipine 2.5 mg daily, Eliquis 5 mg twice daily, Lipitor 80 mg daily, Zetia 10 mg daily, lisinopril 30 mg daily, Lopressor 50 mg twice daily Schedule patient for MILY tomorrow with Dr. Mercer At time of discharge, patient will follow-up with Dr. Mercer in 1 to 2 weeks. Nurse practitioner note has been reviewed, I agree with documented findings and plan of care. Patient was seen and examined. Objective - Vital Signs Vital signs: Vital Signs Temp 100.9 F H 05/30/24 07:38 Pulse 98 05/30/24 07:38 Resp 17 05/30/24 07:38 BP 102/66 05/30/24 07:38 Pulse Ox 90 L 05/30/24 07:38 FiO2 Intake & Output 05/29/24 05/30/24 05/30/24 18:59 06:59 18:59 Intake Total 1030 Output Total 300 250 Balance 1030 -300 -250 Weight 95.4 kg Intake: Oral 1030 Output: Urine 300 250 Other: Voiding Method Toilet Toilet Toilet # Voids 2 1 # Bowel Movements 0 1 - Labs CBC & Chem 7: 05/30/24 06:14 05/30/24 06:14 Labs: Abnormal Lab Results - Last 24 Hours (Table) 05/29/24 05/30/24 05/30/24 Range/Units 19:47 06:14 06:14 WBC 17.3 H (3.8-10.6) k/uL RBC 3.52 L (4.30-5.90) m/uL Hgb 11.5 L (13.0-17.5) gm/dL Hct 35.4 L (39.0-53.0) % MCV 100.5 H (80.0-100.0) fL Neutrophils # 15.7 H (1.3-7.7) k/uL Lymphocytes # 0.7 L (1.0-4.8) k/uL Sodium 127 L (137-145) mmol/L Chloride 97 L (98-107) mmol/L Glucose 103 H (74-99) mg/dL Osmolality 272 L (275-295) mOsm/kg Calcium 8.1 L (8.4-10.2) mg/dL Total Bilirubin 1.4 H (0.2-1.3) mg/dL AST 79 H (17-59) U/L ALT 93 H (4-49) U/L Total Protein 6.0 L (6.3-8.2) g/dL Albumin 3.0 L (3.5-5.0) g/dL
--- NOTE | 2024-05-30 15:24 | P.PN ---
Subjective Progress Note Date: 05/30/24 HISTORY OF PRESENT ILLNESS: This is a 59-year-old white male with a previous medical history significant for coronary artery disease status post coronary artery bypass graft for 1- vessel disease back in 2011 with a last heart catheterization was done about 2 years ago, history of aortic valve stenosis status post aortic valve replacement, history of hypertension and hypertensive cardiovascular disease, hyperlipidemia, chronic tobacco use and dependence, COPD, history of paroxysmal atrial fibrillation past patient has been under the care of cardiology. Patient presented to the emergency department at [facility] yesterday because of increased abdominal pain associated with nausea and vomiting associated with the chest pain has no relation to exertion, he was seen in the emergency depar tme and his twelve-lead EKG did not show evidence of acute abnormalities, however his cardiac exam came back elevated, patient was admitted to hospital for non-ST elevation myocardial infarction he was started on aspirin as well as heparin drip, he was seen in consultation by cardiology who recommended for the patient to go for left heart catheterization for further evaluation of his coronary anatomy. Patient has been off his GLP-1 receptor agonist in the form of Ozempic since April 25, 2024 patient was having episodes of abdominal pain associated with nausea and vomiting on and off, but the patient at this time he has been dealing with this for quite some time, he was supposed to have an EGD and colonoscopy done as an outpatient with Dr. Kirkpatrick, we will continue to work on that he was supposed to have a CT scan of the abdomen and pelvis that was denied by his insurance we will continue to follow-up with the patient very closely, rule out his cardiac disease at this point. 05/29: Patient underwent left heart catheterization yesterday by Dr. Mercer that showed evidence of stable coronary artery disease, chronically occluded LAD, patent SVG to LAD, mild disease of the RCA, and no significant disease of the LCx, patient continues to have significant nausea, he continues to feel like abdominal pain in the lower abdomen, patient was sent for abdominal x-ray that showed evidence of dilated colon with significant amount of stool in the colon, patient did receive lactulose with no help, we will start the patient on Dulcolax suppository as well as Fleet enema, if there is no response we will start the patient on magnesium citrate 1 bottle x 1 follow-up with the patient very closely. Patient did have an echocardiogram that showed evidence of bioprosthetic aortic valve with severe stenosis without evidence of any regurgitation mild mitral regurgitation and slightly decreased of his LV function, will discuss with cardiology regarding his finding. 05/30: Patient is laying down in bed in no apparent distress, he did have a Tmax yesterday of 101.2, he did receive Tylenol 650 mg orally every 6 hours, blood cultures were obtained, urine was sent, chest x-ray was done, patient is feeling a bit better, he continues to have liquid stool at this time, he did have a good large bowel movement yesterday, he did receive magnesium citrate along with lactulose, along with Dulcolax suppository, we will continue to follow-up with the patient very closely, I spoke with the patient's sourcing specialist regarding his bioprosthetic aortic valve stenosis, and the plan to go for a transesophageal echocardiogram tomorrow morning and after that he can be discharged home. REVIEW OF SYSTEMS: Constitutional: Positive for documented fever, no chills, no night sweats. No weight change. No weakness, fatigue or lethargy. No daytime sleepiness. HEENT: No headache. No blurred vision or double vision, no loss of vision. No loss of Hearing, no ringing in the ears, no dizziness. No nasal drainage or congestion. No epistaxis. No sore throat. Lungs: positive for shortness of breath, no cough, no sputum production. No wheezing. Reports dyspnea with activity. Cardiovascular: Positive for chest pain, no lower extremity edema. positive for palpitations. No paroxysmal nocturnal dyspnea. No orthopnea. positive for lightheadedness or dizziness. No syncopal episodes. Abdominal: Reports abdominal pain. Positive for nausea, no vomiting. Positive for diarrhea. no constipation. No bloody or tarry stools reports loss of appetite. Genitourinary: No dysuria, increased frequency, urgency. No urinary retention. Musculoskeletal: No myalgias. No muscle weakness, no gait dysfunction, no frequent falls. No back pain. No neck pain. Integumentary: No wounds, no lesions. No rash or pruritus. No unusual bruising. No change in hair or nails. Neurologic: No aphasia. No facial droop. No change in mentation. No head injury. No headache. No paralysis. No paresthesia. Psychiatric: No depression. No anxiety. No mood swings. Endocrine: No abnormal blood sugars. No weight change. PHYSICAL EXAMINATION: General: 59-year-old male laying down in bed in no apparent distress. HEENT: Head is atraumatic, normocephalic, pupils were equal round reactive to light and recommendation, extraocular muscle movement were intact, sclera nonicteric, conjunctivae were pale, mucous membranes of the mouth are somewhat dry. Neck: Supple, no JVP, normal carotid upstroke bilaterally, no lymphadenopathy. Chest: Decreased breath sounds at the bases, few rhonchi, no expiratory wheezes, no chest wall tenderness, no intercostal retractions. Heart: First heart sound is normal, second heart sounds normal there is systolic ejection murmur 2/6 located in the left sternal border, there is aortic valve click murmur is rating to the base of the neck Abdomen: Soft, mild tenderness to the right lower and left lower quadrant, nondistended, positive bowel sounds. Extremities: There is no edema no calf tenderness DP +2 bilaterally. Neurologic examination: Patient is awake alert and oriented X3, cranial nerves II-12 appear grossly intact, muscle power were 5 out of 5 in upper extremities and 5 out of 5 in bilateral lower extremities, deep tendon reflexes normal bilaterally. ASSESSMENT AND PLAN: 1. Non-ST elevation GA. Continue patient on heparin drip, for now continue patient on aspirin 81 mg once every day, atorvastatin 80 mg once every day, Zetia 10 mg once every day, metoprolol 50 mg orally twice every day, patient is scheduled to go for left heart catheterization at noon. 2. Hyponatremia likely due to intractable nausea with SIADH. start fluid restriction at 1500 cc every 24 hours, Hep-Lock his IV, follow-up with a CMP tomorrow morning 3. Paroxysmal atrial fibrillation status post ablation. Continue patient on metoprolol 50 mg orally twice every day, resume the patient Eliquis 5 mg orally twice every day 4. History of coronary artery disease status post coronary artery bypass graft x2 with a recent heart catheterization about 3 years ago, repeated 1 yesterday, continue patient on metoprolol 50 mg orally twice every day, continue patient on aspirin 81 mg once every day, atorvastatin 80 mg orally once every day, continue Zetia 10 mg once every day, continue with lisinopril 30 mg once every day. Monitor the patient blood pressure very closely. 5. Hypertension and hypertensive cardiovascular disease. Continue patient on lisinopril 30 mg orally once every day, continue metoprolol 50 mg orally twice every day, monitor the patient blood pressure very closely. 6. Hyperlipidemia. Continue patient on atorvastatin 80 mg orally once every day, continue his ezetimibe 10 mg orally once every day, monitor lipid panel, keep LDL 55-70. 7. History of aortic valve disease status post aortic valve replacement. Stable at this time. Echocardiogram was done and showed evidence of significant bioprosthetic aortic valve stenosis. And decreased LV function. 8. Severe constipation. resolved. 9. leukocytosis in view of abdominal pain, rule out colitis versus cholecystitis. Will check CT scan of the abdomen/pelvis with contrast, start the patient on Zosyn 3.375 g piggyback every 8 hours, continue Tylenol for pain control, follow-up with the patient very closely. 10. DVT prophylaxis. continue patient on Eliquis 5 mg orally twice every day. 11. GI prophylaxis Protonix 40 mg once every day. 12. MILY tomorrow morning. Objective - Vital Signs Vital signs: Vital Signs Temp 98.9 F 05/30/24 11:34 Pulse 78 05/30/24 11:34 Resp 16 05/30/24 11:34 BP 102/73 05/30/24 11:34 Pulse Ox 97 05/30/24 11:34 FiO2 Intake & Output 05/29/24 05/30/24 05/30/24 18:59 06:59 18:59 Intake Total 1030 120 Output Total 300 250 Balance 1030 -300 -130 Weight 95.4 kg Intake: Oral 1030 120 Output: Urine 300 250 Other: Voiding Method Toilet Toilet Toilet # Voids 2 1 # Bowel Movements 0 1 - Labs CBC & Chem 7: 05/30/24 06:14 05/30/24 06:14 Labs: Abnormal Lab Results - Last 24 Hours (Table) 05/29/24 05/29/24 05/30/24 Range/Units 19:36 19:47 06:14 WBC 17.3 H (3.8-10.6) k/uL RBC 3.52 L (4.30-5.90) m/uL Hgb 11.5 L (13.0-17.5) gm/dL Hct 35.4 L (39.0-53.0) % MCV 100.5 H (80.0-100.0) fL Neutrophils # 15.7 H (1.3-7.7) k/uL Lymphocytes # 0.7 L (1.0-4.8) k/uL Sodium (137-145) mmol/L Chloride (98-107) mmol/L Glucose (74-99) mg/dL Osmolality 272 L (275-295) mOsm/kg Calcium (8.4-10.2) mg/dL Total Bilirubin (0.2-1.3) mg/dL AST (17-59) U/L ALT (4-49) U/L Total Protein (6.3-8.2) g/dL Albumin (3.5-5.0) g/dL Urine Osmolality 349 L (400-1100) mOsm/kg 05/30/24 Range/Units 06:14 WBC (3.8-10.6) k/uL RBC (4.30-5.90) m/uL Hgb (13.0-17.5) gm/dL Hct (39.0-53.0) % MCV (80.0-100.0) fL Neutrophils # (1.3-7.7) k/uL Lymphocytes # (1.0-4.8) k/uL Sodium 127 L (137-145) mmol/L Chloride 97 L (98-107) mmol/L Glucose 103 H (74-99) mg/dL Osmolality (275-295) mOsm/kg Calcium 8.1 L (8.4-10.2) mg/dL Total Bilirubin 1.4 H (0.2-1.3) mg/dL AST 79 H (17-59) U/L ALT 93 H (4-49) U/L Total Protein 6.0 L (6.3-8.2) g/dL Albumin 3.0 L (3.5-5.0) g/dL Urine Osmolality (400-1100) mOsm/kg
[2024-05-30] MEDS: PIPERACILLIN-TAZOBACTAM 3.375 GM in SODIUM CHLORIDE 0.9% 100 ML IVPB SCH (15:47)
[2024-05-30] MEDS: IOPAMIDOL CONTRAST (ORAL USE) VIAL PO PRN (16:35)
--- NOTE | 2024-05-30 19:31 | CT ---
EXAMINATION TYPE: CT abdomen pelvis w con DATE OF EXAM: 05/30/2024 COMPARISON: Prior CT chest and abdomen May 12, 2023 HISTORY: SBO CT DLP: 1444 mGycm, Automated Exposure Control for Dose Reduction was Utilized. CONTRAST: CT scan of the abdomen and pelvis is performed with oral and with IV Contrast, patient injected with 100 mL of Isovue 300. FINDINGS: LUNG BASES: No significant abnormality is appreciated. LIVER/GB: No significant abnormality is appreciated. PANCREAS: No significant abnormality is seen. SPLEEN: No significant abnormality is seen. ADRENALS: Slight thickening anterior-inferior left adrenal gland is stable favoring benign hyperplasi a. KIDNEYS: Some cortical thinning bilaterally with mild to moderate perinephric ill-defined fluid. Symm etric uptake and excretion without hydronephrosis. There is however a area of diminished uptake poste rior lateral left kidney mid to lower pole level axial image 34 and delayed image 35 BOWEL: Wandering cecum to the anterior right upper to mid abdomen. Oral contrast reaches level of cec um. No abnormal small or large bowel dilatation. PROSTATE/SEMINAL VESICLES: No gross abnormality seen. LYMPH NODES: No greater than 1cm abdominal or pelvic lymph nodes are appreciated. OSSEOUS STRUCTURES: No significant abnormality is seen. OTHER: Scar tissue anterior right groin region is present. Small fat-containing left inguinal hernia. Mild calcified plaque of the aorta extends into branch vessels. IMPRESSION: 1. No small bowel obstruction. 2. Focal area of diminished enhancement left kidney could reflect acute pyelonephritis in the appropr iate clinical setting, correlate clinically. An infiltrative lesion needs to be considered if there i s no suspicion for infection and then follow-up would be advised. [facility], , 05/30/2024 7:28 PM
[2024-05-31 07:42] LABS: Basophils % (A) 0 %; Eosinophils # (A) 0.1 k/uL (0-0.7); Eosinophils % (A) 0 %; HCT 28.7 % (39.0-53.0); Lymphocytes % (A) 9 %; MCH 33.5 pg (25.0-35.0); MCHC 33.4 g/dL (31.0-37.0); MCV 100.1 fL (80.0-100.0); Monocytes # (A) 0.6 k/uL (0-1.0); Monocytes % (A) 6 %; Neutrophils # (A) 8.8 k/uL (1.3-7.7); Neutrophils % (A) 80 %; Platelet Count 256 k/uL (150-450); RBC 2.86 m/uL (4.30-5.90); RDW 13.8 % (11.5-15.5)
[2024-05-31 07:44] LABS: HGB 9.6 gm/dL (13.0-17.5)
[2024-05-31 08:30] LABS: ALT 83 U/L (4-49); AST 57 U/L (17-59); African American GFR (CKD) 69 (>60 ml/min/1.73 sqM); Albumin 2.3 g/dL (3.5-5.0); Alkaline Phosphatase 76 U/L (38-126); Anion Gap 2 mmol/L; Blood Urea Nitrogen 22 mg/dL (9-20); Calcium 7.5 mg/dL (8.4-10.2); Carbon Dioxide 24 mmol/L (22-30); Chloride 100 mmol/L (98-107); Glucose 119 mg/dL (74-99); Non-African American GFR(CKD) 60 (>60 ml/min/1.73 sqM); Potassium 4.8 mmol/L (3.5-5.1); Sodium 126 mmol/L (137-145); Total Bilirubin 0.9 mg/dL (0.2-1.3); Total Protein 4.8 g/dL (6.3-8.2)
[2024-05-31] MEDS ORDERED: MIDAZOLAM 2 MG/2 ML VIAL IV PRN (08:35)
[2024-05-31] MEDS ORDERED: fentaNYL (PF) 50 MCG/ML 2 ML AMP IVP PRN (08:35)
[2024-05-31] MEDS ORDERED: BENZOCAINE SPRAY 1 CAN TOPICAL PRN (08:35)
--- NOTE | 2024-05-31 12:53 | P.PN ---
Subjective Progress Note Date: 05/31/24 HISTORY OF PRESENT ILLNESS: This is a 59-year-old white male with a previous medical history significant for coronary artery disease status post coronary artery bypass graft for 1- vessel disease back in 2011 with a last heart catheterization was done about 2 years ago, history of aortic valve stenosis status post aortic valve replacement, history of hypertension and hypertensive cardiovascular disease, hyperlipidemia, chronic tobacco use and dependence, COPD, history of paroxysmal atrial fibrillation past patient has been under the care of cardiology. Patient presented to the emergency department at [facility] yesterday because of increased abdominal pain associated with nausea and vomiting associated with the chest pain has no relation to exertion, he was seen in the emergency depar tme and his twelve-lead EKG did not show evidence of acute abnormalities, however his cardiac exam came back elevated, patient was admitted to hospital for non-ST elevation myocardial infarction he was started on aspirin as well as heparin drip, he was seen in consultation by cardiology who recommended for the patient to go for left heart catheterization for further evaluation of his coronary anatomy. Patient has been off his GLP-1 receptor agonist in the form of Ozempic since April 25, 2024 patient was having episodes of abdominal pain associated with nausea and vomiting on and off, but the patient at this time he has been dealing with this for quite some time, he was supposed to have an EGD and colonoscopy done as an outpatient with Dr. Kirkpatrick, we will continue to work on that he was supposed to have a CT scan of the abdomen and pelvis that was denied by his insurance we will continue to follow-up with the patient very closely, rule out his cardiac disease at this point. 05/29: Patient underwent left heart catheterization yesterday by Dr. Mercer that showed evidence of stable coronary artery disease, chronically occluded LAD, patent SVG to LAD, mild disease of the RCA, and no significant disease of the LCx, patient continues to have significant nausea, he continues to feel like abdominal pain in the lower abdomen, patient was sent for abdominal x-ray that showed evidence of dilated colon with significant amount of stool in the colon, patient did receive lactulose with no help, we will start the patient on Dulcolax suppository as well as Fleet enema, if there is no response we will start the patient on magnesium citrate 1 bottle x 1 follow-up with the patient very closely. Patient did have an echocardiogram that showed evidence of bioprosthetic aortic valve with severe stenosis without evidence of any regurgitation mild mitral regurgitation and slightly decreased of his LV function, will discuss with cardiology regarding his finding. 05/30: Patient is laying down in bed in no apparent distress, he did have a Tmax yesterday of 101.2, he did receive Tylenol 650 mg orally every 6 hours, blood cultures were obtained, urine was sent, chest x-ray was done, patient is feeling a bit better, he continues to have liquid stool at this time, he did have a good large bowel movement yesterday, he did receive magnesium citrate along with lactulose, along with Dulcolax suppository, we will continue to follow-up with the patient very closely, I spoke with the patient's internet e commerce specialist regarding his bioprosthetic aortic valve stenosis, and the plan to go for a transesophageal echocardiogram tomorrow morning and after that he can be discharged home. 05/31: Patient is laying down in bed in no apparent distress, he is feeling a lot better today, he continues to have some abdominal distention not as bad as yesterday, he is tolerating his diet very well, he is scheduled to go for transesophageal echocardiogram because of his blood culture showing growth Streptococcus bacteremia, in view of his echocardiogram that was done that showed evidence of bioprosthetic aortic valve stenosis that has been severe MILY will be done for further evaluation and due to his bacteremia rule out any endocarditis as well, patient will be seen in consultation by Dr. Marr, continue Zosyn for now, he will continue to be hyponatremic, his sodium 126, continue IV fluid in the form of normal saline at 50 cc an hour, follow-up with the patient very closely. Continue fluid restriction to 1500 cc in 24 hours. REVIEW OF SYSTEMS: Constitutional: Positive for documented fever, no chills, no night sweats. No weight change. No weakness, fatigue or lethargy. No daytime sleepiness. HEENT: No headache. No blurred vision or double vision, no loss of vision. No loss of Hearing, no ringing in the ears, no dizziness. No nasal drainage or congestion. No epistaxis. No sore throat. Lungs: positive for shortness of breath, no cough, no sputum production. No wheezing. Reports dyspnea with activity. Cardiovascular: Positive for chest pain, no lower extremity edema. positive for palpitations. No paroxysmal nocturnal dyspnea. No orthopnea. positive for lightheadedness or dizziness. No syncopal episodes. Abdominal: Reports abdominal pain. Positive for nausea, no vomiting. Positive for diarrhea. no constipation. No bloody or tarry stools reports loss of appetite. Genitourinary: No dysuria, increased frequency, urgency. No urinary retention. Musculoskeletal: No myalgias. No muscle weakness, no gait dysfunction, no frequent falls. No back pain. No neck pain. Integumentary: No wounds, no lesions. No rash or pruritus. No unusual bruising. No change in hair or nails. Neurologic: No aphasia. No facial droop. No change in mentation. No head injury. No headache. No paralysis. No paresthesia. Psychiatric: No depression. No anxiety. No mood swings. Endocrine: No abnormal blood sugars. No weight change. PHYSICAL EXAMINATION: General: 59-year-old male laying down in bed in no apparent distress. HEENT: Head is atraumatic, normocephalic, pupils were equal round reactive to light and recommendation, extraocular muscle movement were intact, sclera nonicteric, conjunctivae were pale, mucous membranes of the mouth are somewhat dry. Neck: Supple, no JVP, normal carotid upstroke bilaterally, no lymphadenopathy. Chest: Decreased breath sounds at the bases, few rhonchi, no expiratory wheezes, no chest wall tenderness, no intercostal retractions. Heart: First heart sound is normal, second heart sounds normal there is systolic ejection murmur 2/6 located in the left sternal border, there is aortic valve click murmur is rating to the base of the neck Abdomen: Soft, mild tenderness to the right lower and left lower quadrant, nondistended, positive bowel sounds. Extremities: There is no edema no calf tenderness DP +2 bilaterally. Neurologic examination: Patient is awake alert and oriented X3, cranial nerves II-12 appear grossly intact, muscle power were 5 out of 5 in upper extremities and 5 out of 5 in bilateral lower extremities, deep tendon reflexes normal bilaterally. ASSESSMENT AND PLAN: 1. Non-ST elevation NM. Continue patient on heparin drip, for now continue patient on aspirin 81 mg once every day, atorvastatin 80 mg once every day, Zetia 10 mg once every day, metoprolol 50 mg orally twice every day, patient is scheduled to go for left heart catheterization at noon. 2. Hyponatremia likely due to intractable nausea with SIADH. start fluid restriction at 1500 cc every 24 hours, monitor the patient very closely. 3. Paroxysmal atrial fibrillation status post ablation. Continue patient on metoprolol 50 mg orally twice every day, continue Eliquis 5 mg orally twice every day 4. History of coronary artery disease status post coronary artery bypass graft x2 with a recent heart catheterization about 3 years ago, repeated 1 yesterday, continue patient on metoprolol 50 mg orally twice every day, continue patient on aspirin 81 mg once every day, atorvastatin 80 mg orally once every day, continue Zetia 10 mg once every day, continue with lisinopril 30 mg once every day. Monitor the patient blood pressure very closely. 5. Hypertension and hypertensive cardiovascular disease. Continue patient on lisinopril 30 mg orally once every day, continue metoprolol 50 mg orally twice every day, monitor the patient blood pressure very closely. 6. Hyperlipidemia. Continue patient on atorvastatin 80 mg orally once every day, continue his ezetimibe 10 mg orally once every day, monitor lipid panel, keep LDL 55-70. 7. History of aortic valve disease status post aortic valve replacement. Stable at this time. Echocardiogram was done and showed evidence of significant bioprosthetic aortic valve stenosis. And decreased LV function. 8. Severe constipation. resolved. 9. Leukocytosis with abdominal pain CT scan of the abdomen pelvis was reviewed did show evidence of wandering cecum, without evidence of any bowel obstruction, no evidence of any acute abnormalities, continue Zosyn as the patient responded very well to this. I discussed with the patient the need to see a general surgery as an outpatient for possible treatment down the line. 10. Streptococcus bacteremia rule out endocarditis. Continue patient on Zosyn for now, infectious ease consultation, MILY tomorrow morning. 11. DVT prophylaxis. continue patient on Eliquis 5 mg orally twice every day. 12. GI prophylaxis Protonix 40 mg once every day. 13. MILY tomorrow morning. Objective - Vital Signs Vital signs: Vital Signs Temp 102.4 F H 05/31/24 03:39 Pulse 96 05/31/24 03:39 Resp 16 05/31/24 03:39 BP 112/83 05/31/24 03:39 Pulse Ox 94 L 05/31/24 03:39 FiO2 Intake & Output 05/30/24 05/31/24 05/31/24 18:59 06:59 18:59 Intake Total 120 459 Output Total 250 Balance -130 459 Weight 96.8 kg Intake: Oral 120 459 Output: Urine 250 Other: Voiding Method Toilet Toilet # Voids 2 1 - Labs CBC & Chem 7: 05/31/24 07:05 05/31/24 07:05 Labs: Abnormal Lab Results - Last 24 Hours (Table) 05/29/24 05/31/24 Range/Units 19:36 07:05 WBC 11.0 H (3.8-10.6) k/uL RBC 2.86 L (4.30-5.90) m/uL Hgb 9.6 L D (13.0-17.5) gm/dL Hct 28.7 L (39.0-53.0) % MCV 100.1 H (80.0-100.0) fL Neutrophils # 8.8 H (1.3-7.7) k/uL Urine Osmolality 349 L (400-1100) mOsm/kg Microbiology - Last 24 Hours (Table) 05/30/24 06:14 Blood Culture Gram Stain - Preliminary Blood Blood Culture - Preliminary Molecular ID
[2024-05-31 13:53] VITALS: BMI 32.4
--- NOTE | 2024-05-31 13:56 | P.PN ---
Subjective Progress Note Date: 05/31/24 Reason for Consult (text): NSTEMI History of present illness: This is a 59-year-old male patient of Dr. Mercer with past medical history of coronary artery disease status post CABG in 2011 with VG to LAD and a tissue AVR, resection of aortic aneurysm, typical atrial flutter on Eliquis with primary treatment strategy of rhythm control, hypertension, hyperlipidemia, ICD, previous history of tobacco use and dependence. We have been asked to evaluate the patient for NSTEMI. Patient gives history that he was sick all day on Tuesday with nausea and vomiting and ongoing retching that would not stop. He was sitting on the couch later in the day and he developed pressure in the mid chest area. He had not had that before. This morning the nausea has come back but no vomiting and he denies chest pain. Regarding the nausea and vomiting, he states that this has been ongoing problem for the past 2 months and been worked up as an outpatient. Patient has been started on a heparin drip. His last Eliquis intake was yesterday morning. Blood pressure 115/76, heart rate 92, pulse ox 95% on room air. Discussed option of cardiac catheterization with the patient and he is agreeable to move forward with this today. -EKG: Sinus rhythm with nonspecific ST changes -Chest x-ray: No acute process. -Laboratory studies: WBC 12.5, hemoglobin 11. Troponins 0.101, 0.094, 0.076. Triglycerides 91, cholesterol 78, LDL 31. Influenza A, influenza B, RSV, COVID- 19 not detected. -Home cardiac medications: Amlodipine 2.5 mg daily, Eliquis 5 mg twice daily, L ipitor 80 mg daily, Zetia 10 mg daily, lisinopril 30 mg daily, Lopressor 50 mg twice daily. -Echocardiogram performed 05/2023: LV systolic function borderline normal with EF of 50 to 55%, with segmental wall motion abnormality. Bioprosthetic aortic valve with mean gradient of 34 mmHg and mild aortic regurgitation. Mild mitral and tricuspid regurgitation. No evidence of pulmonary hypertension. -Lexiscan Cardiolite stress test performed in the office on 03/28/2023 revealed nondiagnostic electrocardiographic stress testing. Abnormal myocardial perfusion imaging with fixed basal lateral wall defect and mild global hypokinesis suggestive nonischemic cardiomyopathy. No evidence of stress-induc ed ischemia. 05/29/2024 Patient seen and examined. Yesterday he underwent cardiac catheterization with Dr. Mercer which revealed a chronically occluded mid LAD lesion after the takeoff of the first septal wood molder, mild disease in the RCA, no obstructive disease in the left circumflex, patent SVG to LAD. Recommendations to maximize medical therapy and aggressive coronary risk modification. Patient denies complaints of chest pain this morning. He is still having difficulty with nausea. Blood pressure 121/80, heart rate 85, pulse ox 93% on room air. Repeat blood work reveals WBC 17.1, hemoglobin 10.3. Sodium 126, creatinine 0.96, potassium 4.9. Echocardiogram is pending. 05/30/2024 Patient seen and examined. Blood pressure 102/73, heart rate 78, pulse ox 97% on room air. Temperature max 101. Echocardiogram came back abnormal with findings of bioprosthetic aortic valve with severe stenosis with peak velocity 4.7M/S. EF 50 to 55%. Discussed options with the patient and he is agreeable to undergo MILY tomorrow with Dr. Mercer. Repeat blood work today reveals WBC 17.3, hemoglobin 11.5. Sodium 127, creatinine 1.07. 05/31/24 Patient seen and examined. Patient had additional fevers, blood culture came back positive and patient was started on IV antibiotics in the form of Zosyn. Patient states he is not feeling too bad this morning. He is complaining of a cough. Temperature max 102.4, blood pressure 112/83, heart rate 96, pulse ox 94% on room air. Repeat blood work reveals WBC 11, hemoglobin 9.6, sodium 126, potassium 4.8, BUN 22 and creatinine 1.28. AST 57 and ALT 83. Physical examination: Gen: This is a 59-year-old male in no acute distress VS: reviewed HEENT: Head is atraumatic, normocephalic. Pupils equal, round. Sclerae is anicteric. NECK: Supple. No JVD. LUNGS: Clear to auscultation. No wheezes or rhonchi. No intercostal retractions. HEART: Regular rate and rhythm. 3/6 systolic ejection murmur. ABDOMEN: Soft No tenderness. EXTREMITIES: No pedal edema. No calf tenderness. NEUROLOGICAL: Patient is awake, alert and oriented x3. Assessment: NSTEMI Bacteremia History of coronary artery disease status post one-vessel CABG in 2011 with VG t o LAD Tissue AVR 2011 Typical atrial flutter on Eliquis Hypertension Hyperlipidemia Status post ICD Chronic nausea and vomiting History of tobacco use and dependence Fever with leukocytosis Plan: Continue patient's home cardiac medications: Amlodipine 2.5 mg daily, Eliquis 5 mg twice daily, Lipitor 80 mg daily, Zetia 10 mg daily, lisinopril 30 mg daily, Lopressor 50 mg twice daily Schedule patient for MILY tomorrow with Dr. Mercer At time of discharge, patient will follow-up with Dr. Mercer in 1 to 2 weeks. Nurse practitioner note has been reviewed, I agree with documented findings and plan of care. Patient was seen and examined. Objective - Vital Signs Vital signs: Vital Signs Temp 102.4 F H 05/31/24 03:39 Pulse 96 05/31/24 03:39 Resp 16 05/31/24 03:39 BP 112/83 05/31/24 03:39 Pulse Ox 94 L 05/31/24 03:39 FiO2 Intake & Output 05/30/24 05/31/24 05/31/24 18:59 06:59 18:59 Intake Total 120 459 540 Output Total 250 Balance -130 459 540 Weight 96.8 kg Intake: Oral 120 459 540 Output: Urine 250 Other: Voiding Method Toilet Toilet # Voids 2 1 - Labs CBC & Chem 7: 05/31/24 07:05 05/31/24 07:05 Labs: Abnormal Lab Results - Last 24 Hours (Table) 05/29/24 05/31/24 05/31/24 Range/Units 19:36 07:05 07:05 WBC 11.0 H (3.8-10.6) k/uL RBC 2.86 L (4.30-5.90) m/uL Hgb 9.6 L D (13.0-17.5) gm/dL Hct 28.7 L (39.0-53.0) % MCV 100.1 H (80.0-100.0) fL Neutrophils # 8.8 H (1.3-7.7) k/uL Sodium 126 L (137-145) mmol/L BUN 22 H (9-20) mg/dL Creatinine 1.28 H (0.66-1.25) mg/dL Glucose 119 H (74-99) mg/dL Calcium 7.5 L (8.4-10.2) mg/dL ALT 83 H (4-49) U/L Total Protein 4.8 L (6.3-8.2) g/dL Albumin 2.3 L (3.5-5.0) g/dL Urine Osmolality 349 L (400-1100) mOsm/kg Microbiology - Last 24 Hours (Table) 05/30/24 06:14 Blood Culture Gram Stain - Preliminary Blood Blood Culture - Preliminary Molecular ID
[2024-05-31] MEDS: SODIUM CHLORIDE 0.9% 1,000 ML IV SCH (15:46)
--- NOTE | 2024-05-31 16:13 | P.CONS ---
History of Present Illness - Reason for Consult Consult date: 05/31/24 Strep bacteremia Requesting physician: Kassi Lopez - Chief Complaint Fever X 2 days - History of Present Illness Patient is a 59-year-old male with a past medical history significant for diabetes mellitus hypertension hyperlipidemia VA prostate disorder coronary disease atrial fibrillation presenting to the hospital 4 days ago for evaluation of nausea and vomiting which apparently started the day of presentation to the hospital patient also complaining of some chest pain and unable to take a deep breath did not have any fever on presentation to the hospital and the patient was worked up by admitting and cardiology team patient was afebrile on admission started spiking a fever yesterday morning with a temperature of 101 F and did have a temperature of 102.4 F this morning patient was not tachycardic or hypotensive and not hypoxic patient did have a chest x-ray completed yesterday with no acute cardiopulmonary disease process patient also have abdominal pelvis CT no bowel obstruction focal areas of diminished enhancement left kidney could reflect acute pyelonephritis urine culture have been requested which is currently pending UA was not done patient did have a white count of 17.1 on 05/29/2024 with a white count of 11,000 this morning BUN and creatinine slightly elevated and the patient did have a negative influenza RSV and COVID PCR has bee n empirically treated with Zosyn, blood culture positive for Streptococcus prompted this consultation Review of Systems Positive point and negatives has been mentioned in the HPI, complete review of systems was performed and all other systems are negative Past Medical History Past Medical History: Atrial Fibrillation, Coronary Artery Disease (CAD), Diabetes Mellitus, Hyperlipidemia, Hypertension, Myocardial Infarction ([place]), Pro state Disorder Additional Past Medical History / Comment(s): "Bruised liver". enlarged prostate Last Myocardial Infarction Date:: 09/15/2014 History of Any Multi-Drug Resistant Organisms: None Reported Past Surgical History: AICD, Cardiac Valve Replacement, Coronary Bypass/CABG, Heart Catheterization, Pacemaker Additional Past Surgical History / Comment(s): 2 vessel CABG 2011., CARDIOVERSION Past Anesthesia/Blood Transfusion Reactions: No Reported Reaction Type of Cardiac Device: Permanent Pacemaker, AICD Device Placement Date:: 04/2021 Past Psychological History: No Psychological Hx Reported Smoking Status: Former smoker Past Alcohol Use History: Occasional Additional Past Alcohol Use History / Comment(s): Has been smoking since 13-12 yrs of age,Quit in july 2022 Past Drug Use History: None Reported - Past Family History Mother Family Medical History: Cancer Father Family Medical History: Cancer Additional Family Medical History / Comment(s): No biological children. Brother(s) Family Medical History: Myocardial Infarction ([place]) Medications and Allergies Home Medications Medication Instructions Recorded Confirmed Type Apixaban [Eliquis] 5 mg PO BID #60 tab 04/27/17 05/28/24 Rx Atorvastatin [Lipitor] 80 mg PO DAILY #30 tab 04/27/17 05/28/24 Rx Ezetimibe [Zetia] 10 mg PO DAILY 03/21/21 05/28/24 History buPROPion [Wellbutrin] 100 mg PO BID 08/13/22 05/28/24 History Finasteride [Proscar] 5 mg PO DAILY 03/13/23 05/28/24 History Metoprolol Tartrate [Lopressor] 50 mg PO BID #180 tab 04/14/23 05/28/24 Rx Metoclopramide [Reglan] 5 mg PO AC-SUPPER 05/28/24 05/28/24 History Pantoprazole [Protonix] 40 mg PO DAILY 05/28/24 05/28/24 History amLODIPine [Norvasc] 2.5 mg PO DAILY 05/28/24 05/28/24 History lisinopriL [Zestril] 30 mg PO DAILY 05/28/24 05/28/24 History Allergies Allergy/AdvReac Type Severity Reaction Status Date / Time No Known Allergies Allergy Verified 05/28/24 07:22 Physical Exam Vitals: Vital Signs Temp Pulse Pulse Resp BP Pulse Ox 05/31/24 10:10 99.5 F 81 16 94/63 93 L 05/31/24 03:39 102.4 F H 96 16 112/83 94 L 05/30/24 23:56 98.2 F 74 16 86/55 95 05/30/24 20:42 92/62 05/30/24 19:40 98.2 F 81 17 91/59 94 L 05/30/24 17:44 98.2 F 05/30/24 15:50 101.8 F H 86 17 106/65 93 L 05/30/24 11:34 98.9 F 78 16 102/73 97 Intake and Output 05/30/24 05/31/24 05/31/24 22:59 06:59 14:59 Intake Total 237 222 540 Balance 237 222 540 Intake: Oral 237 222 540 Other: Voiding Method Toilet Toilet Toilet # Voids 2 1 Weight 96.8 kg GENERAL DESCRIPTION: Middle-aged male up in the chair, no distress. No tachypnea or accessory muscle of respiration use. HEENT: Shows Pallor , no scleral icterus. Oral mucous membrane is dry. No pharyngeal erythema or thrush NECK: Trachea central, no thyromegaly. LUNGS: Unlabored breathing. Clear to auscultation anteriorly. No wheeze or crackle. HEART: S1, S2, regular rate and rhythm. No loud murmur ABDOMEN: Soft, no tenderness , guarding or rigidity, no organomegaly EXTREMITIES: No edema of feet. SKIN: No rash, no masses palpable. NEUROLOGICAL: The patient is awake, alert, oriented x3, mood and affect normal. Results CBC & Chem 7: 05/31/24 07:05 05/31/24 07:05 Labs: Abnormal Lab Results - Last 24 Hours (Table) 05/29/24 05/31/24 05/31/24 Range/Units 19:36 07:05 07:05 WBC 11.0 H (3.8-10.6) k/uL RBC 2.86 L (4.30-5.90) m/uL Hgb 9.6 L D (13.0-17.5) gm/dL Hct 28.7 L (39.0-53.0) % MCV 100.1 H (80.0-100.0) fL Neutrophils # 8.8 H (1.3-7.7) k/uL Sodium 126 L (137-145) mmol/L BUN 22 H (9-20) mg/dL Creatinine 1.28 H (0.66-1.25) mg/dL Glucose 119 H (74-99) mg/dL Calcium 7.5 L (8.4-10.2) mg/dL ALT 83 H (4-49) U/L Total Protein 4.8 L (6.3-8.2) g/dL Albumin 2.3 L (3.5-5.0) g/dL Urine Osmolality 349 L (400-1100) mOsm/kg Microbiology - Last 24 Hours (Table) 05/30/24 06:14 Blood Culture Gram Stain - Preliminary Blood Blood Culture - Preliminary Molecular ID Assessment and Plan (1) Fever Current Visit: Yes Status: Acute Code(s): R50.9 - FEVER, UNSPECIFIED SNOMED Code(s): 908992074 (2) Bacteremia Current Visit: Yes Status: Acute Code(s): R78.81 - BACTEREMIA SNOMED Code(s): 3316963 Plan: 1patient with sepsis in this patient who did have a fever elevated white count source possibly left-sided pyelonephritis with abnormality seen on the CT abdominal pelvis and symptoms of nausea and vomiting on presentation patient chest x-ray has been reported negative for acute infiltrate and did not have any evidence of cellulitis or joint swelling. 2patient also have a strep bacteremia await final ID sensitivity to determine significance blood cultures will be repeated document clearance 3patient will be treated with Zosyn 3.375 g every 8 hours while waiting for the workup to be completed We will follow on clinical condition and cultures to further adjust medication if needed Thank you for this consultation we will follow the patient along with you Dictation was produced using [employer] dictation software. please excuse any grammatical, word or spelling errors. Time with Patient: Greater than 30
[2024-05-31 16:20] LABS: Appearance,Urine Clear (Clear); Bilirubin,Urine Negative (Negative); Blood,Urine Negative (Negative); Color,Urine Colorless; Glucose,Urine (UA) Negative (Negative); Ketones,Urine Negative (Negative); Leukocyte Esterase,Urine Negative (Negative); Nitrite,Urine Negative (Negative); Protein,Urine Negative (Negative); Specific Gravity,Urine 1.012 (1.001-1.035); Urobilinogen,Urine <2.0 mg/dL (<2.0)
[2024-06-01] MEDS: BENZOCAINE SPRAY 1 EACH MM ONE (07:21)
[2024-06-01] MEDS: MIDAZOLAM 2 MG/2 ML VIAL IVP ONE ×2 (07:21→07:22)
[2024-06-01] MEDS: fentaNYL (PF) 50 MCG/ML 2 ML AMP IVP ONE (07:21)
[2024-06-01] MEDS: IV FLUID CONTINUATION 800 ML IV ONE (07:31)
--- NOTE | 2024-06-01 07:49 | P.PCN ---
Date of Procedure: 06/01/24 Description of Procedure: Indication: Aortic valve replacement Procedure Description: After explaining the procedure to the patient, it's risk and complications, blood pressure, heart rate and O2 saturation were monitored. The throat was sprayed with Cetacaine. Patient received 3 mg intravenous Versed, 50 mcg intravenous fentanyl. The probe was introduced into the esophagus without difficulty. Images were obtained. Following that, the probe was removed. There was no immediate complication. Findings: Left atrial size is dilated, left ventricular size and systolic function are normal. The mitral valve appears to be normal. A bioprosthetic valve in the aortic position was noted with thickening and calcification of the leaflets. The tricuspid valve appears to be normal. A wire was noted in the right ventricle. No pericardial effusion was noted. Descending thoracic aorta appears to be normal. Contrast bubble study revealed no shunting across the interatrial septum. Doppler: Pulse wave and color Doppler were obtained, and revealed mild mitral and tricuspid regurgitation with a peak gradient of 105 mmHg and a mean of 65 mmHg across the aortic valve. Trace to mild aortic regurgitation was noted. No shunting was noted by color Doppler study Conclusion: 1. Dilated left atrium 2. Normal ventricle size and systolic function 3. Bioprosthetic aortic valve with severe stenosis and a mean gradient of 65 mmHg 4. Mild mitral and tricuspid regurgitation 5. No evidence of vegetations 6. No shunting across the interatrial septum Duration of sedation 15 minutes
[2024-06-01 08:18] LABS: Basophils % (A) 0 %; Eosinophils # (A) 0.1 k/uL (0-0.7); Eosinophils % (A) 1 %; HCT 28.2 % (39.0-53.0); HGB 9.4 gm/dL (13.0-17.5); Lymphocytes % (A) 8 %; MCH 33.7 pg (25.0-35.0); MCHC 33.3 g/dL (31.0-37.0); MCV 101.1 fL (80.0-100.0); Mean Platelet Volume 7.7; Monocytes # (A) 0.7 k/uL (0-1.0); Monocytes % (A) 6 %; Neutrophils # (A) 9.5 k/uL (1.3-7.7); Neutrophils % (A) 81 %; Platelet Count 265 k/uL (150-450); RBC 2.79 m/uL (4.30-5.90); RDW 13.4 % (11.5-15.5); WBC 11.8 k/uL (3.8-10.6)
[2024-06-01 08:33] LABS: ALT 93 U/L (4-49); AST 62 U/L (17-59); African American GFR (CKD) 76 (>60 ml/min/1.73 sqM); Albumin 2.4 g/dL (3.5-5.0); Alkaline Phosphatase 77 U/L (38-126); Anion Gap 3 mmol/L; Blood Urea Nitrogen 19 mg/dL (9-20); Calcium 7.9 mg/dL (8.4-10.2); Carbon Dioxide 24 mmol/L (22-30); Chloride 103 mmol/L (98-107); Glucose 102 mg/dL (74-99); Non-African American GFR(CKD) 66 (>60 ml/min/1.73 sqM); Potassium 4.8 mmol/L (3.5-5.1); Sodium 130 mmol/L (137-145); Total Bilirubin 0.9 mg/dL (0.2-1.3)
[2024-06-01] MEDS: SODIUM CHLORIDE 0.9% 500 ML 500 ML IV ONE (10:23)
--- NOTE | 2024-06-01 12:54 | P.PN ---
Subjective Progress Note Date: 06/01/24 Principal diagnosis: Reason for follow-up is fever and bacteremia Patient is a 59-year-old male presented to the hospital with acute nausea and vomiting subabdominal discomfort initially after he was subsequently did have a fever, patient did have CT abdominal pelvis concerning for left kidney abnormality suspicious for pyelonephritis subsequently did have a positive blood culture prompted this consultation. Patient did have a MILY completed this morning dilated left atrium bioprosthetic aortic valve with stenosis no evidence of vegetation On today's evaluation that is 06/01/2024, the patient did have resolution of his fever and is afebrile today, the patient is on room air and breathing comfortably, the Pt denies having any chest pain or cough, the patient denies having any abdominal pain no vomiting or any diarrhea. Denies having any recent dental procedure or any problem with the teeth and no open wound or drainage. The patient white count is 11.8 creatinine is 1.19 urine has been negative blood culture repeat pending Objective - Vital Signs Vital signs: Vital Signs Temp 98.1 F 06/01/24 04:51 Pulse 76 06/01/24 07:30 Resp 16 06/01/24 07:30 BP 91/57 06/01/24 07:30 Pulse Ox 97 06/01/24 07:30 FiO2 Intake & Output 05/31/24 06/01/24 06/01/24 18:59 06:59 18:59 Intake Total 780 500 218 Output Total 350 Balance 430 500 218 Weight 96.8 kg 96.3 kg Intake: IV 100 Intake, IV Titration 500 Amount Piperacillin-Tazobactam 3 100 .375 gm In Sodium Chloride 0.9% 100 ml @ 25 mls/hr IVPB Q8HR [facility] Rx# :[id number] Sodium Chloride 0.9% 1, 400 000 ml @ 50 mls/hr IV . Q20H [facility] Rx#:[id number] Oral 780 118 Output: Urine 350 Other: Voiding Method Toilet Toilet # Voids 1 2 # Bowel Movements 1 - Exam GENERAL DESCRIPTION: Middle-age male lying in bed in no distress RESPIRATORY SYSTEM: Unlabored breathing , decreased breath sounds at bases HEART: S1 S2 regular rate and rhythm , ABDOMEN: Soft , no tenderness EXTREMITIES: No edema feet - Labs CBC & Chem 7: 06/01/24 07:50 06/01/24 07:50 Labs: Abnormal Lab Results - Last 24 Hours (Table) 06/01/24 06/01/24 Range/Units 07:50 07:50 WBC 11.8 H (3.8-10.6) k/uL RBC 2.79 L (4.30-5.90) m/uL Hgb 9.4 L (13.0-17.5) gm/dL Hct 28.2 L (39.0-53.0) % MCV 101.1 H (80.0-100.0) fL Neutrophils # 9.5 H (1.3-7.7) k/uL Sodium 130 L (137-145) mmol/L Glucose 102 H (74-99) mg/dL Calcium 7.9 L (8.4-10.2) mg/dL AST 62 H (17-59) U/L ALT 93 H (4-49) U/L Total Protein 5.0 L (6.3-8.2) g/dL Albumin 2.4 L (3.5-5.0) g/dL Microbiology - Last 24 Hours (Table) 05/30/24 06:07 Urine Culture - Final Urine,Clean Catch 05/30/24 06:14 Blood Culture Gram Stain - Preliminary Blood Blood Culture - Preliminary Molecular ID Assessment and Plan (1) Fever Current Visit: Yes Status: Acute Code(s): R50.9 - FEVER, UNSPECIFIED SNOMED Code(s): 595803254 (2) Bacteremia Current Visit: Yes Status: Acute Code(s): R78.81 - BACTEREMIA SNOMED Code(s): 7826370 Plan: 1patient with sepsis in this patient who did have a fever elevated white count source possibly left-sided pyelonephritis with abnormality seen on the CT abdominal pelvis and symptoms of nausea and vomiting on presentation patient chest x-ray has been reported negative for acute infiltrate and did not have any evidence of cellulitis or joint swelling. 2patient also have a strep bacteremia awaiting ID sensitivity blood culture have been repeated 3patient did have a negative UA and also have a MILY that was negative for any vegetation 4we will discontinue Zosyn and start the patient on Rocephin 2 g daily and monitor clinical course closely Dictation was produced using [employer] dictation software. please excuse any gr ammatical, word or spelling errors. Time with Patient: Less than 30
--- NOTE | 2024-06-01 16:35 | P.PN ---
Subjective Progress Note Date: 06/01/24 HISTORY OF PRESENT ILLNESS: This is a 59-year-old white male with a previous medical history significant for coronary artery disease status post coronary artery bypass graft for 1- vessel disease back in 2011 with a last heart catheterization was done about 2 years ago, history of aortic valve stenosis status post aortic valve replacement, history of hypertension and hypertensive cardiovascular disease, hyperlipidemia, chronic tobacco use and dependence, COPD, history of paroxysmal atrial fibrillation past patient has been under the care of cardiology. Patient presented to the emergency department at [facility] yesterday because of increased abdominal pain associated with nausea and vomiting associated with the chest pain has no relation to exertion, he was seen in the emergency depar tme and his twelve-lead EKG did not show evidence of acute abnormalities, however his cardiac exam came back elevated, patient was admitted to hospital for non-ST elevation myocardial infarction he was started on aspirin as well as heparin drip, he was seen in consultation by cardiology who recommended for the patient to go for left heart catheterization for further evaluation of his coronary anatomy. Patient has been off his GLP-1 receptor agonist in the form of Ozempic since April 25, 2024 patient was having episodes of abdominal pain associated with nausea and vomiting on and off, but the patient at this time he has been dealing with this for quite some time, he was supposed to have an EGD and colonoscopy done as an outpatient with Dr. Kirkpatrick, we will continue to work on that he was supposed to have a CT scan of the abdomen and pelvis that was denied by his insurance we will continue to follow-up with the patient very closely, rule out his cardiac disease at this point. 05/29: Patient underwent left heart catheterization yesterday by Dr. Mercer that showed evidence of stable coronary artery disease, chronically occluded LAD, patent SVG to LAD, mild disease of the RCA, and no significant disease of the LCx, patient continues to have significant nausea, he continues to feel like abdominal pain in the lower abdomen, patient was sent for abdominal x-ray that showed evidence of dilated colon with significant amount of stool in the colon, patient did receive lactulose with no help, we will start the patient on Dulcolax suppository as well as Fleet enema, if there is no response we will start the patient on magnesium citrate 1 bottle x 1 follow-up with the patient very closely. Patient did have an echocardiogram that showed evidence of bioprosthetic aortic valve with severe stenosis without evidence of any regurgitation mild mitral regurgitation and slightly decreased of his LV function, will discuss with cardiology regarding his finding. 05/30: Patient is laying down in bed in no apparent distress, he did have a Tmax yesterday of 101.2, he did receive Tylenol 650 mg orally every 6 hours, blood cultures were obtained, urine was sent, chest x-ray was done, patient is feeling a bit better, he continues to have liquid stool at this time, he did have a good large bowel movement yesterday, he did receive magnesium citrate along with lactulose, along with Dulcolax suppository, we will continue to follow-up with the patient very closely, I spoke with the patient's flask pusher regarding his bioprosthetic aortic valve stenosis, and the plan to go for a transesophageal echocardiogram tomorrow morning and after that he can be discharged home. 05/31: Patient is laying down in bed in no apparent distress, he is feeling a lot better today, he continues to have some abdominal distention not as bad as yesterday, he is tolerating his diet very well, he is scheduled to go for transesophageal echocardiogram because of his blood culture showing growth Streptococcus bacteremia, in view of his echocardiogram that was done that showed evidence of bioprosthetic aortic valve stenosis that has been severe MILY will be done for further evaluation and due to his bacteremia rule out any endocarditis as well, patient will be seen in consultation by Dr. Marr, continue Zosyn for now, he will continue to be hyponatremic, his sodium 126, continue IV fluid in the form of normal saline at 50 cc an hour, follow-up with the patient very closely. Continue fluid restriction to 1500 cc in 24 hours. 06/01: Patient is sitting up in the chair no apparent distress, he denies any fever or chills at this time, he has no nausea vomiting or diarrhea, he underwent transesophageal echocardiogram that was negative for vegetation at this time, I did show evidence of severe bioprosthetic aortic valve stenosis, patient will have to have redo AVR, at a different date, his blood cultures are positive for Streptococcus sanguinous patient was seen in consultation by infectious disease, recommended to switch the patient to Rocephin 2 g piggyback every 24 hours, patient CAT scan did not show evidence of acute abnormalities there was a questionable left pyelonephritis but the patient has negative urinalysis and negative urine culture, we will continue with Rocephin for now until the final result of the identity of the organism and sensitivity panel, hopefully he will be discharged home in the next 24 hours. REVIEW OF SYSTEMS: Constitutional: Positive for documented fever, no chills, no night sweats. No weight change. No weakness, fatigue or lethargy. No daytime sleepiness. HEENT: No headache. No blurred vision or double vision, no loss of vision. No loss of Hearing, no ringing in the ears, no dizziness. No nasal drainage or congestion. No epistaxis. No sore throat. Lungs: positive for shortness of breath, no cough, no sputum production. No wheezing. Reports dyspnea with activity. Cardiovascular: no chest pain, no lower extremity edema. positive for p alpitations. No paroxysmal nocturnal dyspnea. No orthopnea. positive for lightheadedness or dizziness. No syncopal episodes. Abdominal: Reports no abdominal pain. no nausea, no vomiting. Positive for diarrhea. no constipation. No bloody or tarry stools reports loss of appetite. Genitourinary: No dysuria, increased frequency, urgency. No urinary retention. Musculoskeletal: No myalgias. No muscle weakness, no gait dysfunction, no frequent falls. No back pain. No neck pain. Integumentary: No wounds, no lesions. No rash or pruritus. No unusual bruising. No change in hair or nails. Neurologic: No aphasia. No facial droop. No change in mentation. No head injury. No headache. No paralysis. No paresthesia. Psychiatric: No depression. No anxiety. No mood swings. Endocrine: No abnormal blood sugars. No weight change. PHYSICAL EXAMINATION: General: 59-year-old male laying down in bed in no apparent distress. HEENT: Head is atraumatic, normocephalic, pupils were equal round reactive to light and recommendation, extraocular muscle movement were intact, sclera no nicteric, conjunctivae were pale, mucous membranes of the mouth are somewhat dry. Neck: Supple, no JVP, normal carotid upstroke bilaterally, no lymphadenopathy. Chest: Decreased breath sounds at the bases, few rhonchi, no expiratory wheezes, no chest wall tenderness, no intercostal retractions. Heart: First heart sound is normal, second heart sounds normal there is systolic ejection murmur 2/6 located in the left sternal border, there is aortic valve click murmur is rating to the base of the neck Abdomen: Soft, mild tenderness to the right lower and left lower quadrant, nondistended, positive bowel sounds. Extremities: There is no edema no calf tenderness DP +2 bilaterally. Neurologic examination: Patient is awake alert and oriented X3, cranial nerves II-12 appear grossly intact, muscle power were 5 out of 5 in upper extremities and 5 out of 5 in bilateral lower extremities, deep tendon reflexes normal bilaterally. ASSESSMENT AND PLAN: 1. Non-ST elevation GA. Continue patient on heparin drip, for now continue patient on aspirin 81 mg once every day, atorvastatin 80 mg once every day, Zetia 10 mg once every day, metoprolol 50 mg orally twice every day, patient is scheduled to go for left heart catheterization at noon. 2. Hyponatremia likely due to intractable nausea with SIADH. Much better, his sodium is up to 130, continue fluid restriction to 1500 cc in 24 hours. 3. Paroxysmal atrial fibrillation status post ablation. Continue patient on metoprolol 50 mg orally twice every day, continue Eliquis 5 mg orally twice every day 4. History of coronary artery disease status post coronary artery bypass graft x2 with a recent heart catheterization about 3 years ago, repeated 1 yesterday, continue patient on metoprolol 50 mg orally twice every day, continue patient on aspirin 81 mg once every day, atorvastatin 80 mg orally once every day, continue Zetia 10 mg once every day, continue with lisinopril 30 mg once every day. Monitor the patient blood pressure very closely. 5. Hypertension and hypertensive cardiovascular disease. Continue patient on lisinopril 30 mg orally once every day, continue metoprolol 50 mg orally twice every day, monitor the patient blood pressure very closely. 6. Hyperlipidemia. Continue patient on atorvastatin 80 mg orally once every day, continue his ezetimibe 10 mg orally once every day, monitor lipid panel, keep LDL 55-70. 7. History of aortic valve disease status post aortic valve replacement. Stable at this time. Echocardiogram was done and showed evidence of significant bioprosthetic aortic valve stenosis. And decreased LV function. 8. Severe constipation. resolved. 9. Leukocytosis with a questionable left pyelonephritis with negative urinalysis is unlikely discontinued Zosyn per ID recommendation continue Rocephin 2 g piggyback every 24 hours, urine culture is negative, blood culture showing Streptococcus sanguinous await the final result of the sensitivity panel. 10. Streptococcus sanguinous bacteremia . Patient is currently on Rocephin 2 g piggyback every 24 hours, he was taken off Zosyn, per ID recommendation, MILY is negative for vegetation, it did show severe bioprosthetic aortic valve stenosis and he is due for a redo aortic aortic valve replacement, urine culture is negative, we will continue current treatment plan, hopefully we get the sensitivity panel tomorrow morning and he can be discharged home tomorrow. 11. DVT prophylaxis. continue patient on Eliquis 5 mg orally twice every day. 12. GI prophylaxis Protonix 40 mg once every day. 13. Hopefully home in the next 24 hours. Objective - Vital Signs Vital signs: Vital Signs Temp 97.4 F L 06/01/24 07:43 Pulse 84 06/01/24 08:58 Resp 16 06/01/24 07:43 BP 91/64 06/01/24 08:58 Pulse Ox 96 06/01/24 08:58 FiO2 Intake & Output 05/31/24 06/01/24 06/01/24 18:59 06:59 18:59 Intake Total 780 500 336 Output Total 350 Balance 430 500 336 Weight 96.8 kg 96.3 kg Intake: IV 100 Intake, IV Titration 500 Amount Piperacillin-Tazobactam 3 100 .375 gm In Sodium Chloride 0.9% 100 ml @ 25 mls/hr IVPB Q8HR [facility] Rx# :[id number] Sodium Chloride 0.9% 1, 400 000 ml @ 50 mls/hr IV . Q20H [facility] Rx#:[id number] Oral 780 236 Output: Urine 350 Other: Voiding Method Toilet Toilet # Voids 1 2 3 # Bowel Movements 1 - Labs CBC & Chem 7: 06/01/24 07:50 06/01/24 07:50 Labs: Abnormal Lab Results - Last 24 Hours (Table) 06/01/24 06/01/24 Range/Units 07:50 07:50 WBC 11.8 H (3.8-10.6) k/uL RBC 2.79 L (4.30-5.90) m/uL Hgb 9.4 L (13.0-17.5) gm/dL Hct 28.2 L (39.0-53.0) % MCV 101.1 H (80.0-100.0) fL Neutrophils # 9.5 H (1.3-7.7) k/uL Sodium 130 L (137-145) mmol/L Glucose 102 H (74-99) mg/dL Calcium 7.9 L (8.4-10.2) mg/dL AST 62 H (17-59) U/L ALT 93 H (4-49) U/L Total Protein 5.0 L (6.3-8.2) g/dL Albumin 2.4 L (3.5-5.0) g/dL Microbiology - Last 24 Hours (Table) 05/30/24 06:14 Blood Culture Gram Stain - Preliminary Blood Blood Culture - Preliminary Streptococcus sanguinis Molecular ID 05/30/24 06:07 Urine Culture - Final Urine,Clean Catch
[2024-06-02 07:06] LABS: Basophils % (A) 0 %; Eosinophils # (A) 0.2 k/uL (0-0.7); Eosinophils % (A) 2 %; HCT 28.9 % (39.0-53.0); HGB 9.6 gm/dL (13.0-17.5); Lymphocytes # (A) 1.2 k/uL (1.0-4.8); Lymphocytes % (A) 12 %; MCH 33.5 pg (25.0-35.0); MCHC 33.3 g/dL (31.0-37.0); MCV 100.7 fL (80.0-100.0); Macrocytosis Slight; Mean Platelet Volume 7.8; Monocytes # (A) 0.7 k/uL (0-1.0); Monocytes % (A) 7 %; Neutrophils # (A) 7.9 k/uL (1.3-7.7); Neutrophils % (A) 76 %; Platelet Count 298 k/uL (150-450); RBC 2.87 m/uL (4.30-5.90); RDW 13.7 % (11.5-15.5); WBC 10.4 k/uL (3.8-10.6)
[2024-06-02 07:32] LABS: ALT 110 U/L (4-49); AST 71 U/L (17-59); African American GFR (CKD) 82 (>60 ml/min/1.73 sqM); Albumin 2.5 g/dL (3.5-5.0); Alkaline Phosphatase 84 U/L (38-126); Anion Gap 4 mmol/L; Blood Urea Nitrogen 14 mg/dL (9-20); Calcium 8.1 mg/dL (8.4-10.2); Carbon Dioxide 26 mmol/L (22-30); Chloride 103 mmol/L (98-107); Glucose 89 mg/dL (74-99); Non-African American GFR(CKD) 71 (>60 ml/min/1.73 sqM); Potassium 4.7 mmol/L (3.5-5.1); Sodium 133 mmol/L (137-145); Total Bilirubin 0.5 mg/dL (0.2-1.3); Total Protein 5.2 g/dL (6.3-8.2)
[2024-06-02 08:45] VITALS: RESP 18; TEMP 98.2
[2024-06-02 11:25] VITALS: BP 106/60
--- NOTE | 2024-06-02 11:34 | P.PN ---
Subjective Progress Note Date: 06/02/24 Reason for Consult (text): NSTEMI History of present illness: This is a 59-year-old male patient of Dr. Mercer with past medical history of coronary artery disease status post CABG in 2011 with VG to LAD and a tissue AVR, resection of aortic aneurysm, typical atrial flutter on Eliquis with primary treatment strategy of rhythm control, hypertension, hyperlipidemia, ICD, previous history of tobacco use and dependence. We have been asked to evaluate the patient for NSTEMI. Patient gives history that he was sick all day on Tuesday with nausea and vomiting and ongoing retching that would not stop. He was sitting on the couch later in the day and he developed pressure in the mid chest area. He had not had that before. This morning the nausea has come back but no vomiting and he denies chest pain. Regarding the nausea and vomiting, he states that this has been ongoing problem for the past 2 months and been worked up as an outpatient. Patient has been started on a heparin drip. His last Eliquis intake was yesterday morning. Blood pressure 115/76, heart rate 92, pulse ox 95% on room air. Discussed option of cardiac catheterization with the patient and he is agreeable to move forward with this today. -EKG: Sinus rhythm with nonspecific ST changes -Chest x-ray: No acute process. -Laboratory studies: WBC 12.5, hemoglobin 11. Troponins 0.101, 0.094, 0.076. Triglycerides 91, cholesterol 78, LDL 31. Influenza A, influenza B, RSV, COVID- 19 not detected. -Home cardiac medications: Amlodipine 2.5 mg daily, Eliquis 5 mg twice daily, L ipitor 80 mg daily, Zetia 10 mg daily, lisinopril 30 mg daily, Lopressor 50 mg twice daily. -Echocardiogram performed 05/2023: LV systolic function borderline normal with EF of 50 to 55%, with segmental wall motion abnormality. Bioprosthetic aortic valve with mean gradient of 34 mmHg and mild aortic regurgitation. Mild mitral and tricuspid regurgitation. No evidence of pulmonary hypertension. -Lexiscan Cardiolite stress test performed in the office on 03/28/2023 revealed nondiagnostic electrocardiographic stress testing. Abnormal myocardial perfusion imaging with fixed basal lateral wall defect and mild global hypokinesis suggestive nonischemic cardiomyopathy. No evidence of stress-induc ed ischemia. 05/29/2024 Patient seen and examined. Yesterday he underwent cardiac catheterization with Dr. Mercer which revealed a chronically occluded mid LAD lesion after the takeoff of the first septal medical scientific officer, mild disease in the RCA, no obstructive disease in the left circumflex, patent SVG to LAD. Recommendations to maximize medical therapy and aggressive coronary risk modification. Patient denies complaints of chest pain this morning. He is still having difficulty with nausea. Blood pressure 121/80, heart rate 85, pulse ox 93% on room air. Repeat blood work reveals WBC 17.1, hemoglobin 10.3. Sodium 126, creatinine 0.96, potassium 4.9. Echocardiogram is pending. 05/30/2024 Patient seen and examined. Blood pressure 102/73, heart rate 78, pulse ox 97% on room air. Temperature max 101. Echocardiogram came back abnormal with findings of bioprosthetic aortic valve with severe stenosis with peak velocity 4.7M/S. EF 50 to 55%. Discussed options with the patient and he is agreeable to undergo MILY tomorrow with Dr. Mercer. Repeat blood work today reveals WBC 17.3, hemoglobin 11.5. Sodium 127, creatinine 1.07. 05/31/24 Patient seen and examined. Patient had additional fevers, blood culture came back positive and patient was started on IV antibiotics in the form of Zosyn. Patient states he is not feeling too bad this morning. He is complaining of a cough. Temperature max 102.4, blood pressure 112/83, heart rate 96, pulse ox 94% on room air. Repeat blood work reveals WBC 11, hemoglobin 9.6, sodium 126, potassium 4.8, BUN 22 and creatinine 1.28. AST 57 and ALT 83. 06/02/24 Patient seen and examined. Yesterday, patient underwent MILY that revealed dilated left atrium, normal ventricular size and systolic function, bioprosthetic aortic valve with severe stenosis and a mean gradient of 65 mmHg, mild mitral and tricuspid regurgitation, no evidence of vegetation, no shunting across the interatrial septum. Blood pressure 106/60, heart rate 79, pulse ox 94% on room air. Patient has been afebrile for 48 hours. Repeat blood work reveals WBC 10.4, hemoglobin 9.6, creatinine 1.12. Physical examination: Gen: This is a 59-year-old male in no acute distress VS: reviewed HEENT: Head is atraumatic, normocephalic. Pupils equal, round. Sclerae is anicteric. NECK: Supple. No JVD. LUNGS: Clear to auscultation. No wheezes or rhonchi. No intercostal retra ctions. HEART: Regular rate and rhythm. 3/6 systolic ejection murmur. ABDOMEN: Soft No tenderness. EXTREMITIES: No pedal edema. No calf tenderness. NEUROLOGICAL: Patient is awake, alert and oriented x3. Assessment: NSTEMI Bacteremia History of coronary artery disease status post one-vessel CABG in 2011 with VG to LAD Tissue AVR 2011 Typical atrial flutter on Eliquis Hypertension Hyperlipidemia Status post ICD Chronic nausea and vomiting History of tobacco use and dependence Fever with leukocytosis Plan: Continue patient's home cardiac medications: Eliquis 5 mg twice daily, aspirin 81 mg daily, Lipitor 80 mg daily, Zetia 10 mg daily, lisinopril 30 mg daily, Lopressor 50 mg twice daily At time of discharge, patient will follow-up with Dr. Mercer in 1 to 2 weeks. Nurse practitioner note has been reviewed, I agree with documented findings and plan of care. Patient was seen and examined. Objective - Vital Signs Vital signs: Vital Signs Temp 98.2 F 06/02/24 08:00 Pulse 97 06/02/24 08:00 Resp 18 06/02/24 08:00 BP 116/74 06/02/24 08:00 Pulse Ox 97 06/02/24 08:00 FiO2 Intake & Output 06/01/24 06/02/24 06/02/24 18:59 06:59 18:59 Intake Total 454 320 Balance 454 320 Weight 95.7 kg Intake: IV 100 20 Invasive Line 2 20 Oral 354 300 Other: Voiding Method Toilet Toilet # Voids 2 2 - Labs CBC & Chem 7: 06/02/24 06:23 06/02/24 06:23 Labs: Abnormal Lab Results - Last 24 Hours (Table) 06/02/24 06/02/24 Range/Units 06:23 06:23 RBC 2.87 L (4.30-5.90) m/uL Hgb 9.6 L (13.0-17.5) gm/dL Hct 28.9 L (39.0-53.0) % MCV 100.7 H (80.0-100.0) fL Neutrophils # 7.9 H (1.3-7.7) k/uL Sodium 133 L (137-145) mmol/L Calcium 8.1 L (8.4-10.2) mg/dL AST 71 H (17-59) U/L ALT 110 H (4-49) U/L Total Protein 5.2 L (6.3-8.2) g/dL Albumin 2.5 L (3.5-5.0) g/dL Microbiology - Last 24 Hours (Table) 05/30/24 06:14 Blood Culture Gram Stain - Preliminary Blood Blood Culture - Preliminary Streptococcus sanguinis Molecular ID
--- NOTE | 2024-06-02 13:32 | P.PN ---
Subjective Progress Note Date: 06/02/24 Principal diagnosis: Reason for follow-up is fever and bacteremia Patient is a 59-year-old male presented to the hospital with acute nausea and vomiting subabdominal discomfort initially after he was subsequently did have a fever, patient did have CT abdominal pelvis concerning for left kidney abnormality suspicious for pyelonephritis subsequently did have a positive blood culture prompted this consultation. Patient did have a MILY completed this morning dilated left atrium bioprosthetic aortic valve with stenosis no evidence of vegetation On today's evaluation that is 06/02/2024, patient did not have any fever and denies any chills, patient is breathing comfortably on room air, patient with no chest pain or cough patient did not have any abdominal pain nausea vomiting or any loose stools, feeling better no new symptoms. Patient white normalized to 10.4, creatinine is 1.12 blood culture repeat currently pending Objective - Vital Signs Vital signs: Vital Signs Temp 98.2 F 06/02/24 08:00 Pulse 79 06/02/24 11:24 Resp 18 06/02/24 11:24 BP 106/60 06/02/24 11:24 Pulse Ox 94 L 06/02/24 11:24 FiO2 Intake & Output 06/01/24 06/02/24 06/02/24 18:59 06:59 18:59 Intake Total 454 320 20 Balance 454 320 20 Weight 95.7 kg Intake: IV 100 20 20 Invasive Line 2 20 20 Oral 354 300 Other: Voiding Method Toilet Toilet # Voids 2 2 - Exam GENERAL DESCRIPTION: Middle-age male lying in bed in no distress RESPIRATORY SYSTEM: Unlabored breathing , decreased breath sounds at bases HEART: S1 S2 regular rate and rhythm , ABDOMEN: Soft , no tenderness EXTREMITIES: No edema feet - Labs CBC & Chem 7: 06/02/24 06:23 06/02/24 06:23 Labs: Abnormal Lab Results - Last 24 Hours (Table) 06/02/24 06/02/24 Range/Units 06:23 06:23 RBC 2.87 L (4.30-5.90) m/uL Hgb 9.6 L (13.0-17.5) gm/dL Hct 28.9 L (39.0-53.0) % MCV 100.7 H (80.0-100.0) fL Neutrophils # 7.9 H (1.3-7.7) k/uL Sodium 133 L (137-145) mmol/L Calcium 8.1 L (8.4-10.2) mg/dL AST 71 H (17-59) U/L ALT 110 H (4-49) U/L Total Protein 5.2 L (6.3-8.2) g/dL Albumin 2.5 L (3.5-5.0) g/dL Microbiology - Last 24 Hours (Table) 05/30/24 06:14 Blood Culture Gram Stain - Preliminary Blood Blood Culture - Preliminary Streptococcus sanguinis Molecular ID Assessment and Plan (1) Fever Current Visit: Yes Status: Acute Code(s): R50.9 - FEVER, UNSPECIFIED SNOMED Code(s): 825555092 (2) Bacteremia Current Visit: Yes Status: Acute Code(s): R78.81 - BACTEREMIA SNOMED Code(s): 2130752 Plan: 1patient with sepsis in this patient who did have a fever elevated white count source possibly left-sided pyelonephritis with abnormality seen on the CT abdominal pelvis and symptoms of nausea and vomiting on presentation patient chest x-ray has been reported negative for acute infiltrate and did not have any evidence of cellulitis or joint swelling. 2patient also have a strep bacteremia likely of dental origin with repeat blood culture currently pending 3patient did have a negative UA and also have a MILY that was negative for any vegetation 4we will treat the patient with Rocephin 2 g daily and plan for oral Ceftin on discharge if the repeat blood culture negative Dictation was produced using [employer] dictation software. please excuse any grammatical, word or spelling errors. Time with Patient: Less than 30
[2024-06-02 14:32] VITALS: PULSE 97
--- NOTE | 2024-06-02 14:34 | P.DS ---
Providers Date of admission: 05/27/24 20:43 Expected date of discharge: 06/02/24 Attending physician: Kassi Lopez Consults: 05/27/24 20:43 Consult Physician Urgent Consulting Provider: [facility] Consult Reason/Comments: NSTEMI Do you want consulting provider notified?: Yes, Notify in am 05/31/24 08:03 Consult Physician Urgent Consulting Provider: Paty Marr Consult Reason/Comments: Strep Bacteremia Do you want consulting provider notified?: Yes Primary care physician: Kassi Lopez Hospital Course: HISTORY OF PRESENT ILLNESS: This is a 59-year-old white male with a previous medical history significant for coronary artery disease status post coronary artery bypass graft for 1- vessel disease back in 2011 with a last heart catheterization was done about 2 years ago, history of aortic valve stenosis status post aortic valve replacement, history of hypertension and hypertensive cardiovascular disease, hyperlipidemia, chronic tobacco use and dependence, COPD, history of paroxysmal atrial fibrillation past patient has been under the care of cardiology. Patient presented to the emergency department at [facility] yesterday because of increased abdominal pain associated with nausea and vomiting associated with the chest pain has no relation to exertion, he was seen in the emergency department and his twelve-lead EKG did not show evidence of acute abnormalities, however his cardiac exam came back elevated, patient was admitted to hospital for non-ST elevation myocardial infarction he was started on aspirin as well as heparin drip, he was seen in consultation by cardiology who recommended for the patient to go for left heart catheterization for further evaluation of his coronary anatomy. Patient has been off his GLP-1 receptor agonist in the form of Ozempic since April 25, 2024 patient was having episodes of abdominal pain associated with nausea and vomiting on and off, but the patient at this time he has been dealing with this for quite some time, he was supposed to have an EGD and colonoscopy done as an outpatient with Dr. Kirkpatrick, we will continue to work on that he was supposed to have a CT scan of the abdomen and pelvis that was denied by his insurance we will continue to follow-up with the patient very closely, rule out his cardiac disease at this point. 05/29: Patient underwent left heart catheterization yesterday by Dr. Mercer that showed evidence of stable coronary artery disease, chronically occluded LAD, patent SVG to LAD, mild disease of the RCA, and no significant disease of the LCx, patient continues to have significant nausea, he continues to feel like abdominal pain in the lower abdomen, patient was sent for abdominal x-ray that showed evidence of dilated colon with significant amount of stool in the colon, patient did receive lactulose with no help, we will start the patient on Dulcolax suppository as well as Fleet enema, if there is no response we will start the patient on magnesium citrate 1 bottle x 1 follow-up with the patient very closely. Patient did have an echocardiogram that showed evidence of bioprosthetic aortic valve with severe stenosis without evidence of any regurgitation mild mitral regurgitation and slightly decreased of his LV function, will discuss with cardiology regarding his finding. 05/30: Patient is laying down in bed in no apparent distress, he did have a Tmax yesterday of 101.2, he did receive Tylenol 650 mg orally every 6 hours, blood cultures were obtained, urine was sent, chest x-ray was done, patient is feeling a bit better, he continues to have liquid stool at this time, he did have a good large bowel movement yesterday, he did receive magnesium citrate along with lactulose, along with Dulcolax suppository, we will continue to follow-up with the patient very closely, I spoke with the patient's facility engineer regarding his bioprosthetic aortic valve stenosis, and the plan to go for a transesophageal echocardiogram tomorrow morning and after that he can be discharged home. 05/31: Patient is laying down in bed in no apparent distress, he is feeling a lot better today, he continues to have some abdominal distention not as bad as yesterday, he is tolerating his diet very well, he is scheduled to go for transesophageal echocardiogram because of his blood culture showing growth Streptococcus bacteremia, in view of his echocardiogram that was done that showed evidence of bioprosthetic aortic valve stenosis that has been severe MILY will be done for further evaluation and due to his bacteremia rule out any endocarditis as well, patient will be seen in consultation by Dr. Mrar, continue Zosyn for now, he will continue to be hyponatremic, his sodium 126, continue IV fluid in the form of normal saline at 50 cc an hour, follow-up with the patient very closely. Continue fluid restriction to 1500 cc in 24 hours. 06/01: Patient is sitting up in the chair no apparent distress, he denies any fever or chills at this time, he has no nausea vomiting or diarrhea, he underwent transesophageal echocardiogram that was negative for vegetation at this time, I did show evidence of severe bioprosthetic aortic valve stenosis, patient will have to have redo AVR, at a different date, his blood cultures are positive for Streptococcus sanguinous patient was seen in consultation by infectious disease, recommended to switch the patient to Rocephin 2 g piggyback every 24 hours, patient CAT scan did not show evidence of acute abnormalities there was a questionable left pyelonephritis but the patient has negative urinalysis and negative urine culture, we will continue with Rocephin for now until the final result of the identity of the organism and sensitivity panel, hopefully he will be discharged home in the next 24 hours. 06/02: Patient is sitting up in bed in no apparent distress, he is feeling a lot better today, he denies any chest pain, shortness of breath, he had no fever yesterday, I spoke with infectious disease, recommended for the patient to go on Ceftin 500 mg orally twice every day for 2 weeks, because of his Streptococcus sanguinous bacteremia, MILY was negative for vegetation at this point in time, but the patient does appear to have a significant bioprosthetic aortic valve stenosis I spoke with Dr. Mercer to follow-up with him as an outpatient, he may be a candidate for TAVR versus redo aortic valve replacement we will discuss that with the patient finishes from his bacteremia treatment which is 2 weeks of oral antibiotics. Discharge diagnoses: 1. Non-ST elevation [place] status post left heart catheterization that showed stable disease. 2. Hyponatremia likely due to intractable nausea with SIADH. 3. Paroxysmal atrial fibrillation status post ablation. 4. History of coronary artery disease status post coronary artery bypass graft x2 with a recent heart catheterization 5. Hypertension and hypertensive cardiovascular disease. 6. Hyperlipidemia. 7. History of aortic valve disease status post aortic valve replacement. 8. Severe constipation. 9. Leukocytosis with a questionable left pyelonephritis with negative urinalysis is unlikely 10. Streptococcus sanguinous bacteremia . Patient Condition at Discharge: Fair Plan - Discharge Summary Discharge Rx Participant: Yes New Discharge Prescriptions: No Action Apixaban [Eliquis] 5 mg PO BID #60 tab Atorvastatin [Lipitor] 80 mg PO DAILY #30 tab Ezetimibe [Zetia] 10 mg PO DAILY amLODIPine [Norvasc] 2.5 mg PO DAILY Pantoprazole [Protonix] 40 mg PO DAILY buPROPion [Wellbutrin] 100 mg PO BID Finasteride [Proscar] 5 mg PO DAILY Metoprolol Tartrate [Lopressor] 50 mg PO BID #180 tab lisinopriL [Zestril] 30 mg PO DAILY Metoclopramide [Reglan] 5 mg PO AC-SUPPER Discharge Medication List Apixaban [Eliquis] 5 mg PO BID #60 tab 04/27/17 [Rx] Atorvastatin [Lipitor] 80 mg PO DAILY #30 tab 04/27/17 [Rx] Ezetimibe [Zetia] 10 mg PO DAILY 03/21/21 [History] buPROPion [Wellbutrin] 100 mg PO BID 08/13/22 [History] Finasteride [Proscar] 5 mg PO DAILY 03/13/23 [History] Metoprolol Tartrate [Lopressor] 50 mg PO BID #180 tab 04/14/23 [Rx] Metoclopramide [Reglan] 5 mg PO AC-SUPPER 05/28/24 [History] Pantoprazole [Protonix] 40 mg PO DAILY 05/28/24 [History] amLODIPine [Norvasc] 2.5 mg PO DAILY 05/28/24 [History] lisinopriL [Zestril] 30 mg PO DAILY 05/28/24 [History] Follow up Appointment(s)/Referral(s): Kassi Lopez MD [Primary Care Provider] - 1-2 days
== END 2024-06-02 16:20 | disposition home or self-care (01) | DRG 281 ==
LOC: EC 17:48 → 3SCARD 20:43 → 3NCARDOBS 05-31 15:21 → 3SCARD 05-31 15:21
PROVIDERS: ADMIT Internal Medicine; ATTEND Internal Medicine
PROC: 4A023N7 Measurement of Cardiac Sampling and Pressure, Left Heart, Percutaneous Approach (ICD-10-PCS; 2024-05-28)
PROC: B2111ZZ Fluoroscopy of Multiple Coronary Arteries using Low Osmolar Contrast (ICD-10-PCS; 2024-05-28)
PROC: B24BZZ4 Ultrasonography of Heart with Aorta, Transesophageal (ICD-10-PCS; principal; 2024-06-01 07:15)
DX: I21.4 Non-ST elevation (NSTEMI) myocardial infarction (principal); E22.2 Syndrome of inappropriate secretion of antidiuretic hormone; T82.857A Stenosis of other cardiac prosthetic devices, implants and grafts, initial encounter; I48.3 Typical atrial flutter; R78.81 Bacteremia; I48.0 Paroxysmal atrial fibrillation; I25.10 Atherosclerotic heart disease of native coronary artery without angina pectoris; I11.9 Hypertensive heart disease without heart failure; E78.5 Hyperlipidemia, unspecified; J44.9 Chronic obstructive pulmonary disease, unspecified; K59.00 Constipation, unspecified; Y83.1 Surgical operation with implant of artificial internal device as the cause of abnormal reaction of the patient, or of later complication, without mention of misadventure at the time of the procedure; B95.5 Unspecified streptococcus as the cause of diseases classified elsewhere; E86.1 Hypovolemia; N40.0 Benign prostatic hyperplasia without lower urinary tract symptoms; E11.9 Type 2 diabetes mellitus without complications; Z95.1 Presence of aortocoronary bypass graft; Z95.5 Presence of coronary angioplasty implant and graft; Z95.810 Presence of automatic (implantable) cardiac defibrillator; Z79.899 Other long term (current) drug therapy; Z79.84 Long term (current) use of oral hypoglycemic drugs; Z79.82 Long term (current) use of aspirin; Z79.01 Long term (current) use of anticoagulants; Z87.891 Personal history of nicotine dependence; I25.2 Old myocardial infarction; Z82.49 Family history of ischemic heart disease and other diseases of the circulatory system
CPT/HCPCS: 36415; 71045; 71046; 74019; 74177; 80048; 80053; 80061; 81003; 82150; 82533; 83605; 83690; 83735; 83930; 83935; 84300; 84484; 85025; 85610; 85730; 87040; 87077; 87086; 87186; 87636; 93005; 93306; 93312; 93320; 93325; 93455; 96365; 96366; 96375; 99285